=== PATIENT | male | born 1945 | race African-American/Black ===

== ENCOUNTER 2020-10-05 11:43 | Outpatient (CLI) | payer MEDICARE, SELFPAY ==
[2020-10-05 12:13] LABS: Uric Acid 8.3 mg/dL (3.5-8.5)
== END 2020-10-05 11:44 | disposition home or self-care (01) ==
PROVIDERS: PCP Internal Medicine; Visit Provider Internal Medicine
DX: M10.9 Gout, unspecified (principal)
CPT/HCPCS: 36415; 84550

== ENCOUNTER 2020-10-30 14:22 | Outpatient (CLI) | payer MEDICARE, SELFPAY ==
[2020-10-30 15:09] LABS: Basophils Percent Auto 0.6 % (0.2-1.2); Eosinophils Absolute Auto 0.3 K/mm3 (0-0.3); Eosinophils Percent Auto 6.9 % (0-4.4); Hematocrit 39.2 % (42.0-52.0); Hemoglobin 12.2 g/dL (14.0-18.0); Immature Granulocyte Absolute 0.02 K/mm3 (0.00-0.031); Immature Granulocyte Percent A 0.4 % (0-0.5); Lymphocytes Absolute Auto 1.17 K/mm3 (0.9-3.2); Lymphocytes Percent Auto 25.2 % (18.3-44.2); Mean Corpuscular HGB Conc 31.1 g/dl (32-36); Mean Corpuscular Hemoglobin 29.2 pg (26-34); Mean Corpuscular Volume 93.8 fl (80-100); Mean Platelet Volume 11.2 fl (7.4-10.4); Monocytes Absolute Auto 0.5 K/mm3 (0.1-0.6); Monocytes Percent Auto 10.6 % (2.6-8.5); Neutrophils Absolute Auto 2.6 K/mm3 (1.3-6.7); Neutrophils Percent Auto 56.3 % (45.5-73.1); Platelet Count Result 171 k/mm3 (150-375); Red Blood Count 4.18 M/mm3 (4.6-6.20); Red Cell Distribution Width 12.5 % (11.5-14.5); White Blood Count 4.6 K/mm3 (4.5-10.0)
== END 2020-10-30 14:23 | disposition home or self-care (01) ==
PROVIDERS: PCP Internal Medicine; Visit Provider Internal Medicine
DX: I10 Essential (primary) hypertension (principal); R68.89 Other general symptoms and signs
CPT/HCPCS: 36415; 84443; 85025

== ENCOUNTER 2020-12-24 14:28 | Outpatient (CLI) | payer MEDICARE, SELFPAY ==
[2020-12-24 15:59] LABS: Iron 102 ug/dL (49-181)
[2020-12-24 16:09] LABS: Percent Iron Saturation 32 % (20-50)
[2020-12-26 12:50] LABS: Red Blood Cell Folate 757 ng/mL RBC (>280)
== END 2020-12-24 14:29 | disposition home or self-care (01) ==
LOC: ANHLAB 14:29
PROVIDERS: PCP Internal Medicine; Visit Provider Internal Medicine
DX: D64.9 Anemia, unspecified (principal)
CPT/HCPCS: 36415; 82607; 82728; 82747; 83540; 83550

== ENCOUNTER 2020-12-25 16:12 | Outpatient (CLI) | payer MEDICARE, SELFPAY ==
--- NOTE | ~2020-12-25 | XR_ITS ---
EXAMINATION: XR chest 2V EXAM DATE: 12/25/2020 16:28 INDICATION: I10 - Essential (primary) hypertension . TECHNIQUE: Frontal and lateral projections of the chest obtained and reviewed. There is no prior osorio dy for comparison. FINDINGS: The lungs are clear. There are no pleural effusions. The cardiomediastinal silhouette is within normal limits. There is no pneumothorax suspected. Patient has diffuse idiopathic skeletal h yperostosis (DISH). IMPRESSION: Unremarkable chest x-ray exam. Reviewed, dictated and finalized at location B. ING AND MOVING ESTIMATOR
== END 2020-12-25 16:13 | disposition home or self-care (01) ==
PROVIDERS: PCP Internal Medicine; Visit Provider Internal Medicine
DX: I10 Essential (primary) hypertension (principal)
CPT/HCPCS: 71046

== ENCOUNTER → 2021-03-19 06:37 | Outpatient (CLI) | payer MEDICARE, SELFPAY ==
[2021-03-19 20:06] LABS: SARS-CoV-2 RNA PCR Negative
== END ==
PROVIDERS: PCP Internal Medicine; Visit Provider Internal Medicine
DX: Z20.822 Contact with and (suspected) exposure to COVID-19 (principal)
CPT/HCPCS: C9803; U0003; U0005

== ENCOUNTER 2021-04-26 14:26 | Outpatient (CLI) | payer MEDICARE, SELFPAY ==
--- NOTE | ~2021-04-26 | CT_ITS ---
EXAMINATION: CT sinus wo con DATE: 04/26/2021 14:58 INDICATION: Hypertrophy of the nasal turbinates. TECHNIQUE: Computed tomography (CT) of the paranasal sinuses was performed without intravenous contra st. The dose-length product was 295.93 mGy-cm. Automated exposure control and iterative reconstructio n technique were employed. COMPARISON: None FINDINGS: Paranasal sinuses are pneumatized. No significant mucosal thickening. No abnormal fluid col lections. No mucoperiosteal reaction. No significant nasal septal deviation. Ostiomeatal units are pa tent. Mastoids are pneumatized. IMPRESSION: 1. No significant sinus disease. Reviewed, dictated and finalized at location B.
== END 2021-04-26 14:27 | disposition home or self-care (01) ==
LOC: ANHIMG 14:27
PROVIDERS: PCP Internal Medicine; Visit Provider Otolaryngology
DX: J32.9 Chronic sinusitis, unspecified (principal); J34.2 Deviated nasal septum; J34.3 Hypertrophy of nasal turbinates; R09.81 Nasal congestion; R44.8 Other symptoms and signs involving general sensations and perceptions; R51.9 Headache, unspecified
CPT/HCPCS: 70486

== ENCOUNTER 2021-07-11 10:12 | Outpatient (CLI) | payer MEDICARE, SELFPAY ==
[2021-07-11 10:47] LABS: Hematocrit 38.2 % (42.0-52.0); Hemoglobin 11.9 g/dL (14.0-18.0)
[2021-07-11 11:08] LABS: Anion Gap 8 mmol/L (8-16); Blood Urea Nitrogen 12 mg/dL (9-20); Calcium 9.2 mg/dL (8.4-10.2); Carbon Dioxide 26 mmol/L (22-30); Chloride 107 mmol/L (98-107); Cholesterol 194 mg/dL (0-200); Estimated Glomerular Filt Rate > 60; Glucose 119 mg/dL (65-110); HDL Direct 34 mg/dL; Potassium 3.9 mmol/L (3.4-5.0); Sodium 141 mmol/L (137-145); Triglycerides 119 mg/dL (<150); Uric Acid 8.9 mg/dL (3.5-8.5)
[2021-07-11 11:18] LABS: LDL Cholesterol Direct 104 mg/dL
[2021-07-11 12:43] LABS: Vitamin B12 > 1000.0 pg/mL (239-931)
== END 2021-07-11 10:13 | disposition home or self-care (01) ==
PROVIDERS: PCP Internal Medicine; Visit Provider Internal Medicine
DX: M10.9 Gout, unspecified (principal); I10 Essential (primary) hypertension; D64.9 Anemia, unspecified; E53.8 Deficiency of other specified B group vitamins; E78.5 Hyperlipidemia, unspecified; R53.83 Other fatigue
CPT/HCPCS: 36415; 80048; 80061; 82607; 84443; 84550; 85014; 85018

== ENCOUNTER → 2021-12-28 07:43 | Outpatient (CLI) | payer MEDICARE, SELFPAY ==
[2021-12-28 12:01] LABS: Influenza A QL RT-PCR Negative (Negative); Influenza B QL RT-PCR Negative (Negative); SARS-CoV-2 RNA PCR Negative
== END ==
PROVIDERS: PCP Internal Medicine; Visit Provider Internal Medicine
DX: Z20.822 Contact with and (suspected) exposure to COVID-19 (principal)
CPT/HCPCS: 87502; C9803; U0003; U0005

== ENCOUNTER 2022-02-20 16:01 | Outpatient (CLI) | payer MEDICARE, SELFPAY ==
[2022-02-20 16:43] LABS: Alanine Aminotransferase 12 U/L (4-50); Albumin Level 4.1 g/dL (3.5-5.1); Alkaline Phosphatase 73 U/L (38-126); Anion Gap 5 mmol/L (8-16); Aspartate Amino Transferase 24 U/L (17-59); Bilirubin,Total 0.2 mg/dL (0.2-1.3); Blood Urea Nitrogen 12 mg/dL (9-20); Calcium 8.7 mg/dL (8.4-10.2); Carbon Dioxide 32 mmol/L (22-30); Chloride 103 mmol/L (98-107); Estimated Glomerular Filt Rate 55; Glucose 101 mg/dL (65-110); Potassium 3.7 mmol/L (3.4-5.0); Sodium 140 mmol/L (137-145); Uric Acid 9.8 mg/dL (3.5-8.5)
== END 2022-02-20 16:02 | disposition home or self-care (01) ==
PROVIDERS: Visit Provider Podiatrist Foot & Ankle Surgery
DX: M10.079 Idiopathic gout, unspecified ankle and foot (principal)
CPT/HCPCS: 36415; 80053; 84550

== ENCOUNTER 2022-04-08 11:46 | Outpatient (CLI) | payer MEDICARE, SELFPAY ==
--- NOTE | ~2022-04-08 | XR_ITS ---
EXAMINATION: XR chest 2V 04/08/2022 12:04 INDICATION: Cough PROCEDURE: 2 view chest COMPARISON: 12/25/2020 FINDINGS: The lungs are clear. The cardiomediastinal silhouette is within normal limits. There are no pleural effusions. There is no pneumothorax suspected. IMPRESSION: 1: NO ACUTE CARDIOPULMONARY DISEASE. Reviewed, dictated and finalized at location B.
== END 2022-04-08 11:47 | disposition home or self-care (01) ==
LOC: ANHIMG 11:48
PROVIDERS: PCP Physician Assistant; Visit Provider Physician Assistant
DX: R05.9 Cough, unspecified (principal)
CPT/HCPCS: 71046

== ENCOUNTER 2022-04-29 13:01 | Outpatient (CLI) | payer MEDICARE, MEDICAID, SELFPAY ==
--- NOTE | ~2022-04-29 | CT_ITS ---
EXAMINATION: CT sinus wo con DATE: 04/29/2022 13:33 INDICATION: Chronic and acute sinusitis TECHNIQUE: Computed tomography (CT) of the paranasal sinuses was performed without contrast. Iterativ e reconstruction technique was employed. Exam dose: 260.12 mGy-cm total exam DLP. COMPARISON: 04/26/2021 CT sinuses FINDINGS: There is leftward bowing of the upper half of the nasal septum. Moderately prominent soft tissue swelling of the nasal turbinates. The ostiomeatal units are patent. There is mild patchy soft tissue thickening of the ethmoid air cells. The paranasal sinuses are other temple normally developed and aerated. The mastoid air cells are normally developed and aerated bilaterally. Middle and inner ear apparatus appear normal. IMPRESSION: Mild patchy soft tissue thickening the ethmoid air cell; otherwise unremarkable examinat ion Reviewed, dictated and finalized at Location A. Reviewed, dictated and finalized at location B. IMPRESSION: Mild patchy soft tissue thickening the ethmoid air cell; otherwise unremarkable examination
== END 2022-04-29 13:02 | disposition home or self-care (01) ==
PROVIDERS: PCP Physician Assistant; Visit Provider Otolaryngology
DX: J32.9 Chronic sinusitis, unspecified (principal); J34.2 Deviated nasal septum; J34.3 Hypertrophy of nasal turbinates; R09.82 Postnasal drip; R44.8 Other symptoms and signs involving general sensations and perceptions; R51.9 Headache, unspecified; R68.89 Other general symptoms and signs
CPT/HCPCS: 70486

== ENCOUNTER 2022-05-12 04:26 | Emergency (ER) | payer MEDICARE, MEDICAID, SELFPAY ==
[2022-05-12 04:27] VITALS: BP 163/77; PULSE 67; RESP 16; TEMP 36.3; O2SAT 100
--- NOTE | 2022-05-12 04:46 | ED.ALLEREA ---
HPI - Allergic Reaction General Chief complaint: Allergic Reaction Stated complaint: allergic reaction Time Seen by Provider: 05/12/22 04:31 Source: patient History of Present Illness HPI narrative: Patient presents with concern for an allergic reaction. Reports he had intermittent symptoms over the past couple days. Reports he gets itchy in his groin extremities and back. He is attempted topical Benadryl with improvement in symptoms however he continues to have symptoms he came to the ER for evaluation. Denies any shortness of breath nausea vomiting or diarrhea denies any globus sensation or the swallowing. Unable to identify any clear triggering substances such as medications fabrics or transfer pumper. Related Data Home Medications Medication Instructions Recorded Confirmed febuxostat 40 mg tablet 40 mg PO DAILY 02/25/22 05/07/22 Allergies Allergy/AdvReac Type Severity Reaction Status Date / Time adhesive tape Allergy Hives Verified 05/07/22 14:07 levofloxacin [From Levaquin] Allergy Rash Verified 05/07/22 14:07 Review of Systems Review of Systems: CONSTITUTIONAL: Denies fever, chills, or sweats. EYES: Denies visual changes, redness, or discharge. ENT: Denies rhinorrhea, congestion, sore throat, or otalgia. CARDIOVASCULAR: Denies chest pain, palpitations, or edema. RESPIRATORY: Denies cough or dyspnea. GASTROINTESTINAL: Denies abdominal pain, nausea, vomiting, or diarrhea. GENITOURINARY: Denies dysuria or hematuria. SKIN: Rash on his groin arms and back associated with itching MUSCULOSKELETAL: Denies back pain, joint pain, or myalgia. NEUROLOGIC: Denies headache, numbness, dizziness, or weakness. PSYCHIATRIC: Denies anxiety or depression. All systems reviewed & are unremarkable except as noted in HPI and below PMFSH Past Medical History Medical History Bloating Chronic GERD Gout Hyperlipidemia Hypertension Irritable bowel syndrome with diarrhea Surgical History Surgical History H/O hernia repair L & R groin H/O neck surgery H/O prostatectomy History of back surgery History of hemorrhoidectomy removed with a lazer Family History Family History Father Lung cancer Social History Social History Smoking status: Never smoker Alcohol intake: never Substance use: never Gender identity (if verbalized by the patient): Male Exam Narrative: GENERAL: Well-appearing, well-nourished, and in no acute distress. HEAD: Normocephalic, atraumatic. EYES: PERRLA and EOMI. ENT: Nares clear, no rhinorrhea or epistaxis. No uvula edema NECK: Supple. No masses. No JVD CHEST: Clear to auscultation. No respiratory distress. No wheezes rales or rhonchi HEART: Regular rate and rhythm. No murmur heard. Normal peripheral pulses. ABDOMEN: Soft, nontender, nondistended, normal active bowel sounds. EXTREMITIES: Normal range of motion. No edema. : No rash ulcers lesions in the area no lymphadenopathy SKIN: Warm, dry, raised erythematous lesions on the left elbow with central clearing consistent with urticaria there is overlying excoriation NEURO: No focal deficits. Alert and oriented x3. PSYCH: Normal mood and affect. Course Vital Signs Vital signs: Vital Signs Temperature 36.3 C L 05/12/22 04:27 Pulse Rate 67 05/12/22 04:27 Respiratory Rate 16 05/12/22 04:27 Blood Pressure 163/77 H 05/12/22 04:27 Pulse Oximetry 100 05/12/22 04:27 Oxygen Delivery Room Air 05/12/22 04:27 Temperature 36.3 C L 05/12/22 04:27 Pulse Rate 67 05/12/22 04:27 Respiratory Rate 16 05/12/22 04:27 Blood Pressure 163/77 H 05/12/22 04:27 Pulse Oximetry 100 05/12/22 04:27 Oxygen Delivery Room Air 05/12/22 04:27 MDM - Allergic Reaction MDM Narrative Medical decision making ori
[2022-05-12] MEDS: diphenhydrAMINE HCl CAP 25 MG CAPSULE 50 MG PO (05:04)
== END 2022-05-12 05:04 | disposition home or self-care (01) ==
PROVIDERS: Emergency Provider Emergency Medicine; PCP Physician Assistant
DX: L50.9 Urticaria, unspecified (principal); E78.5 Hyperlipidemia, unspecified; I10 Essential (primary) hypertension; K21.9 Gastro-esophageal reflux disease without esophagitis; K58.0 Irritable bowel syndrome with diarrhea; M10.9 Gout, unspecified; Z90.79 Acquired absence of other genital organ(s)
CPT/HCPCS: 99283; A9270

== ENCOUNTER 2022-06-03 11:24 | Outpatient (RCR) | payer MEDICARE, SELFPAY ==
[2022-06-03] MEDS: ACETAMINOPHEN 325 MG TABLET 650 MG PO (14:43)
[2022-06-03] MEDS: FAMOTIDINE 20 MG TABLET PO (14:44)
[2022-06-03] MEDS: diphenhydrAMINE HCl CAP 25 MG CAPSULE PO (14:44)
[2022-06-03 14:57] VITALS: BP 146/72; PULSE 60; RESP 18; TEMP 36.8; O2SAT 97
[2022-06-03] MEDS: BEBTELOVIMAB 175 MG/2 ML VIAL IV PUSH (15:00)
[2022-06-03 15:59] VITALS: BP 139/74
== END 2022-06-03 16:00 ==
LOC: AMCINF 11:24
PROVIDERS: PCP Physician Assistant; Referring Provider Physician Assistant; Visit Provider Internal Medicine Hematology & Oncology
DX: U07.1 COVID-19 (principal); I10 Essential (primary) hypertension; I48.91 Unspecified atrial fibrillation; Z90.79 Acquired absence of other genital organ(s)
CPT/HCPCS: A9270; M0222; Q0222

== ENCOUNTER 2022-07-18 10:12 | Outpatient (CLI) | payer MEDICARE, SELFPAY ==
[2022-07-18 10:53] LABS: Hematocrit 35.5 % (42.0-52.0); Hemoglobin 10.7 g/dL (14.0-18.0); Mean Corpuscular HGB Conc 30.1 g/dl (32-36); Mean Corpuscular Hemoglobin 28.2 pg (26-34); Mean Corpuscular Volume 93.7 fl (80-100); Mean Platelet Volume 10.8 fl (7.4-10.4); Platelet Count Result 182 k/mm3 (150-375); Red Blood Count 3.79 M/mm3 (4.6-6.20); Red Cell Distribution Width 12.3 % (11.5-14.5)
[2022-07-18 11:17] LABS: Alanine Aminotransferase 18 U/L (6-50); Albumin Level 3.7 g/dL (3.5-5.1); Alkaline Phosphatase 77 U/L (38-126); Anion Gap 8 mmol/L (8-16); Aspartate Amino Transferase 23 U/L (17-59); Bilirubin,Total 0.4 mg/dL (0.2-1.3); Blood Urea Nitrogen 12 mg/dL (9-20); Calcium 9.1 mg/dL (8.4-10.2); Carbon Dioxide 30 mmol/L (22-30); Chloride 103 mmol/L (98-107); Cholesterol 187 mg/dL (0-200); Estimated Glomerular Filt Rate 60; Glucose 122 mg/dL (65-110); HDL Direct 33 mg/dL; Potassium 3.8 mmol/L (3.4-5.0); Sodium 141 mmol/L (137-145); Triglycerides 121 mg/dL (<150); Uric Acid 7.2 mg/dL (3.5-8.5)
[2022-07-18 11:28] LABS: LDL Cholesterol Direct 111 mg/dL
[2022-07-18 12:27] LABS: Folic Acid 8.8 ng/mL (2.76->20)
== END 2022-07-18 10:13 | disposition home or self-care (01) ==
LOC: ANHLAB 10:16
PROVIDERS: PCP Physician Assistant; Visit Provider Physician Assistant
DX: E78.5 Hyperlipidemia, unspecified (principal); E53.8 Deficiency of other specified B group vitamins; R53.83 Other fatigue; E79.0 Hyperuricemia without signs of inflammatory arthritis and tophaceous disease
CPT/HCPCS: 36415; 80053; 80061; 82607; 82746; 84443; 84550; 85027

== ENCOUNTER 2022-08-04 14:42 | Outpatient (CLI) | payer MEDICARE, SELFPAY ==
[2022-08-04 15:52] LABS: Iron 97 ug/dL (49-181)
[2022-08-04 16:03] LABS: Percent Iron Saturation 27 % (20-50)
== END 2022-08-04 14:43 | disposition home or self-care (01) ==
LOC: ANHLAB 14:43
PROVIDERS: PCP Physician Assistant; Visit Provider Physician Assistant
DX: D64.9 Anemia, unspecified (principal)
CPT/HCPCS: 36415; 82728; 83540; 83550

== ENCOUNTER 2022-09-04 13:55 | Outpatient (CLI) | payer MEDICARE, MEDICAID, SELFPAY | END 2022-09-04 13:56 | disposition home or self-care (01) | LOC: ANHAUDIO 13:57 | PROVIDERS: PCP Physician Assistant; Visit Provider Otolaryngology | DX: H90.3 Sensorineural hearing loss, bilateral (principal) | CPT/HCPCS: 92557; 92567 ==

== ENCOUNTER 2022-09-16 16:41 | Outpatient (CLI) | payer MEDICARE, SELFPAY ==
[2022-09-16 17:04] LABS: Estimated Glomerular Filt Rate 51
== END 2022-09-16 16:42 | disposition home or self-care (01) ==
PROVIDERS: PCP Physician Assistant; Visit Provider Otolaryngology
DX: H91.93 Unspecified hearing loss, bilateral (principal)
CPT/HCPCS: 36415; 82565

== ENCOUNTER 2022-10-14 14:28 | Outpatient (CLI) | payer MEDICARE, MEDICAID, SELFPAY ==
--- NOTE | ~2022-10-14 | XR_ITS ---
EXAMINATION: XR lumbar spine 6V w bending DATE: 10/14/2022 14:52 INDICATION: Low back pain TECHNIQUE: Anteroposterior, lateral in neutral, flexion and extension, and bilateral oblique views of the lumbar spine, and cone-down lateral view of the lumbosacral junction were obtained. COMPARISON: None. FINDINGS: Bone alignment is normal. No fracture is identified. The vertebral body heights are maintai carrie. There is mild loss of intervertebral disc space height throughout the lumbar spine. Small degene rative osteophytes project from the anterior endplates of multiple vertebral bodies. There is severe multilevel facet joint osteoarthritis of the lower lumbar spine. Calcified atherosclerosis is noted. IMPRESSION: 1. Moderate lumbar spondylosis without acute findings. Reviewed, dictated and finalized at location A. TRICAL AND INSTRUMENTATION MANAGER
== END 2022-10-14 14:29 | disposition home or self-care (01) ==
PROVIDERS: PCP Physician Assistant; Visit Provider Physician Assistant
DX: M47.896 Other spondylosis, lumbar region (principal)
CPT/HCPCS: 72114

== ENCOUNTER 2022-11-03 08:56 | Emergency (ER) | payer MEDICARE, MEDICAID, SELFPAY ==
--- NOTE | ~2022-11-03 | CT_ITS ---
EXAMINATION: CT lumbar spine wo con DATE: 11/03/2022 10:26 INDICATION: Left-sided low back pain. TECHNIQUE: Computed tomography (CT) of the lumbar spine was performed without intravenous contrast. A utomated exposure control and iterative reconstruction technique were employed. The dose-length produ ct was 1169.75 mGy-cm. COMPARISON: Lumbar spine radiographs 10/14/2022 FINDINGS: Bone alignment is normal. There is mild chronic anterior wedging of T12-L4 vertebral bodies . There is moderately decreased disc height from L1-L2 through L3-L4 and mildly decreased disc height at L4-L5 and L5-S1. There is developmental osseous central canal stenosis in lumbar spine. The follo wing disc levels are specifically discussed: L1-L2: The disc is bulging. There is severe bilateral facet joint osteoarthritis. There is mild bilat eral neural foraminal stenosis. There is mild central canal stenosis. L2-L3: The disc is bulging. There is severe bilateral facet joint osteoarthritis. There is moderate b ilateral neural foraminal stenosis. There is mild central canal stenosis. L3-L4: The disc is bulging. There is severe bilateral facet joint osteoarthritis. There is moderate b ilateral neural foraminal stenosis. There is mild central canal stenosis. L4-L5: The disc is bulging. There is severe bilateral facet joint osteoarthritis. There is moderate b ilateral neural foraminal stenosis. There is mild central canal stenosis. L5-S1: The disc is bulging. There is severe bilateral facet joint osteoarthritis. There is moderate b ilateral neural foraminal stenosis. There is mild central canal stenosis. IMPRESSION: 1. Moderate lumbar spondylosis. Reviewed, dictated and finalized at location A. ECTIONAL COUNSELOR
[2022-11-03 09:02] VITALS: BP 184/74; PULSE 87; RESP 15; TEMP 36.4; O2SAT 98
[2022-11-03 09:27] LABS: Basophils Percent Auto 0.6 % (0.2-1.2); Eosinophils Absolute Auto 0.3 K/mm3 (0-0.3); Eosinophils Percent Auto 5.5 % (0-4.4); Hematocrit 34.5 % (42.0-52.0); Hemoglobin 10.8 g/dL (14.0-18.0); Immature Granulocyte Absolute 0.02 K/mm3 (0.00-0.031); Immature Granulocyte Percent A 0.4 % (0-0.5); Lymphocytes Absolute Auto 1.27 K/mm3 (0.9-3.2); Lymphocytes Percent Auto 24.1 % (18.3-44.2); Mean Corpuscular HGB Conc 31.3 g/dl (32-36); Mean Corpuscular Hemoglobin 29.2 pg (26-34); Mean Corpuscular Volume 93.2 fl (80-100); Mean Platelet Volume 11.3 fl (7.4-10.4); Monocytes Absolute Auto 0.5 K/mm3 (0.1-0.6); Monocytes Percent Auto 8.9 % (2.6-8.5); Neutrophils Absolute Auto 3.2 K/mm3 (1.3-6.7); Neutrophils Percent Auto 60.5 % (45.5-73.1); Platelet Count Result 173 k/mm3 (150-375); White Blood Count 5.3 K/mm3 (4.5-10.0)
[2022-11-03 09:36] LABS: Alanine Aminotransferase 16 U/L (6-50); Albumin Level 3.9 g/dL (3.5-5.1); Alkaline Phosphatase 69 U/L (38-126); Anion Gap 6 mmol/L (8-16); Aspartate Amino Transferase 23 U/L (17-59); Bilirubin,Total 0.4 mg/dL (0.2-1.3); Blood Urea Nitrogen 18 mg/dL (9-20); Calcium 8.5 mg/dL (8.4-10.2); Carbon Dioxide 29 mmol/L (22-30); Chloride 106 mmol/L (98-107); Estimated CRCL calculation 53 ml/min; Estimated Glomerular Filt Rate 55; Glucose 127 mg/dL (65-110); Potassium 3.6 mmol/L (3.4-5.0); Sodium 141 mmol/L (137-145)
--- NOTE | 2022-11-03 09:41 | ED.BACK ---
HPI - Back Pain/Injury General Chief Complaint: Abdominal Pain Stated Complaint: left flank pain Time Seen by Provider: 11/03/22 09:06 Source: patient, EMS and RN notes reviewed Mode of arrival: EMS Limitations: no limitations History of Present Illness HPI Narrative: This is a 77-year-old male that presents to the emergency department for low back pain. Ongoing over the last couple weeks. No recent injuries or trauma. Reports initially the pain was more on the right side of his low back. Over the last couple of days he has noticed more pain on the left side of his low back. The pain is worse with movement and is sharp in nature. It does not radiate down the legs. He has had surgery on his lumbar spine about 7 years ago, but is unsure what type of surgery he had. This was done in [place]. He was given Toradol by EMS in route with improvement. He is noted to be hypertensive, reports he did not take his blood pressure medication this morning. Denies fever, abdominal pain, vomiting, dysuria, hematuria, numbness or weakness. Related Data Home Medications Medication Instructions Recorded Confirmed febuxostat 40 mg tablet 40 mg PO DAILY 02/25/22 08/19/22 multivitamin 1 tablet PO DAILY 08/19/22 08/19/22 Allergies Allergy/AdvReac Type Severity Reaction Status Date / Time adhesive tape Allergy Hives Verified 11/03/22 09:14 levofloxacin [From Levaquin] Allergy Rash Verified 11/03/22 09:14 Review of Systems Review of Systems: CONSTITUTIONAL: Denies fever GASTROINTESTINAL: Denies abdominal pain, nausea, vomiting GENITOURINARY: Denies dysuria or hematuria. SKIN: Denies rash MUSCULOSKELETAL: Reports back pain, joint pain, and myalgia. NEUROLOGIC: Denies numbness, or weakness. All systems reviewed & are unremarkable except as noted in HPI and below PMFSH Past Medical History Medical History Bloating Chronic GERD Gout Hyperlipidemia Hypertension Irritable bowel syndrome with diarrhea Surgical History Surgical History H/O hernia repair L & R groin H/O neck surgery H/O prostatectomy History of back surgery History of hemorrhoidectomy removed with a ramoner Family History Family History Father Lung cancer Social History Social History Smoking status: Former smoker Alcohol intake: never Substance use: never Gender identity (if verbalized by the patient): Male Exam Narrative: GENERAL: Well-appearing, well-nourished, and in no acute distress. HEAD: Normocephalic, atraumatic. EYES: EOMI. CHEST: Clear to auscultation. No respiratory distress. No wheezes rales or rhonchi HEART: Regular rate and rhythm. No murmur heard. Normal peripheral pulses. ABDOMEN: Soft, nontender, nondistended, normal active bowel sounds. No CVA tenderness BACK: No midline spinal tenderness EXTREMITIES: Normal range of motion. No edema. Normal DP pulses. Strength equal in bilateral lower extremities (5/5) SKIN: Warm, dry, no rash. NEURO: No focal deficits. Alert and oriented x3. PSYCH: Normal mood and affect Course Course Emergency Course: Patient updated on work-up. Resting comfortably. Agrees with plan of care Vital Signs Vital signs: Vital Signs Temperature 97.6 F 11/03/22 09:02 Pulse Rate 87 11/03/22 09:02 Respiratory Rate 15 11/03/22 09:02 Blood Pressure 184/74 H 11/03/22 09:02 Pulse Oximetry 98 11/03/22 09:02 Oxygen Delivery Room Air 11/03/22 09:02 Temperature 97.6 F 11/03/22 09:02 Pulse Rate 78 11/03/22 11:17 Respiratory Rate 18 11/03/22 11:17 Blood Pressure 139/86 11/03/22 11:17 Pulse Oximetry 98 11/03/22 11:17 Oxygen Delivery Room Air 11/03/22 09:02 MDM - Back Pain/Injury MDM Narrative Medical decision making narrative: Trent
[2022-11-03 10:11] LABS: Add Urine Microscopic? NO; Appearance Urine Clear (Clear); Bilirubin Urine Negative (Negative); Blood Urine Negative (Negative); Color Urine Yellow (Yellow); Glucose Urine UA Negative (Negative); Ketones Urine Negative (Negative); Leukocyte Esterase Ur Negative LEU/UL (Negative); Nitrate Urine Negative (Negative); Protein Urine Negative (Negative); Urobilinogen Urine 0.2 mg/dL (<2.0)
[2022-11-03] MEDS: ACETAMINOPHEN 500 MG TABLET 1000 MG PO (10:11)
[2022-11-03 11:17] VITALS: BP 139/86; PULSE 78; RESP 18; O2SAT 98
== END 2022-11-03 12:35 | disposition home or self-care (01) ==
PROVIDERS: Emergency Provider Physician Assistant; PCP Physician Assistant
DX: M54.50 Low back pain, unspecified (principal); M47.816 Spondylosis without myelopathy or radiculopathy, lumbar region; I10 Essential (primary) hypertension; M10.9 Gout, unspecified; K21.9 Gastro-esophageal reflux disease without esophagitis; Z79.51 Long term (current) use of inhaled steroids; Z79.01 Long term (current) use of anticoagulants; Z87.891 Personal history of nicotine dependence
CPT/HCPCS: 36415; 72131; 80053; 81003; 85025; 99284; A9270

== ENCOUNTER 2022-11-19 16:09 | Emergency (ER) | payer MEDICARE, MEDICAID, SELFPAY ==
--- NOTE | ~2022-11-19 | XR_ITS ---
EXAMINATION: XR chest 2V DATE: 11/19/2022 16:40 INDICATION: Exertional dyspnea TECHNIQUE: PA and lateral views of the chest were obtained. COMPARISON: Chest radiograph dated 04/08/2022 FINDINGS: The lungs remain clear with no focal airspace opacities, pulmonary edema, pleural effusion or pneumot horax. The cardiomediastinal silhouette is normal. There are bridging osteophytes at multiple levels in the spine, consistent with diffuse idiopathic skeletal hyperostosis (DISH). IMPRESSION: 1. No acute cardiopulmonary disease. Reviewed, dictated and finalized at location A. TEGIC PROCUREMENT MANAGER
--- NOTE | 2022-11-19 16:21 | ED.SOB ---
HPI - SOB/Dyspnea General Chief Complaint: Upper Respiratory Infection Stated Complaint: SOB/ Chest Pain Time Seen by Provider: 11/19/22 16:21 Source: patient Mode of arrival: ambulatory Limitations: no limitations History of Present Illness HPI Narrative: Mr. Goss is a 77-year-old male patient presenting to clinic today with complaints of left anterior chest pain/pressure and shortness of breath on exertion. He reports this has been gone on for some time but left-sided chest pressure has been constant today. He saw his Dr. Guardado-milk and cream grader 1 week ago and had EKG done at that time. He reports that he is having some mucus production and it is yellow. States he called his PCP and they to come to the Urgent Care to be evaluated for pneumonia. He denies any fever or chills. States the chest discomfort is a pressure and rates it a 2/10 currently. He denies any worsening of chest pressure with activity or any radiation of pain. 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 States his PCP had him take some steroid and an aloh-adl-yipxksd antihistamine for his symptoms prior to being seen today. Denies any history of UT in the past. Does have history of hypertension and high cholesterol. Related Data Home Medications Medication Instructions Recorded Confirmed febuxostat 40 mg tablet 40 mg PO DAILY 02/25/22 11/12/22 multivitamin 1 tablet PO DAILY 08/19/22 11/12/22 esomeprazole magnesium 40 mg mg 11/19/22 capsule,delayed release Allergies Allergy/AdvReac Type Severity Reaction Status Date / Time adhesive tape Allergy Hives Verified 11/19/22 16:11 levofloxacin [From Levaquin] Allergy Rash Verified 11/19/22 16:11 Review of Systems Review of Systems: Pertinent positives per HPI. Patient denies any fever, chills, rash, headache, visual changes, dizziness,runny nose, sore throat, palpitations, nausea, vomiting, diarrhea, constipation, abdominal pain, or any urinary issues. [facility] Past Medical History Medical History Bloating Chronic GERD Chronic sinusitis Colon polyps Gout Hyperlipidemia Hypertension Irritable bowel syndrome with diarrhea Surgical History Surgical History H/O hernia repair L & R groin H/O neck surgery H/O prostatectomy History of back surgery History of hemorrhoidectomy removed with a lazer Family History Family History Father Lung cancer Social History Social History Smoking status: Former smoker Alcohol intake: never Substance use: never Lack of Transportation: No Lack of Food: Never True Current Housing: I Have Housing Concerned About Future Housing: No Difficulty Paying Gas/Electric Bills: No Difficulty Paying for Meds: No Currently Unemployed: No Education: High School Diploma/GED Difficulty w/ Childcare or Family Care: No Gender identity (if verbalized by the patient): Male Comments At the time of my signature, I reviewed and agree with the nursing past medical, surgical, social, and family history. There is no relevant family history pertinent to the patient complaint. Exam Narrative: General: Well-developed, well nourished, in no apparent distress Head: Normocephalic, atraumatic Eyes: Pupils equally round and reactive to light bilaterally, EOM intact, sclera and conjunctive clear, no discharge, lids normal Ears: TMs intact and clear, ear canals clear, no drainage, grossly hearing normal. Nose: Nares patent, clear nasal discharge, no inflammation, no sinus tenderness. Mouth: Oropharynx without lesions or masses, good dentition, MMM. Neck: Supple, trachea midline, no enlargement of anterior or posterior cervical nodes, no thyroid masses or goiter palpable. Chest: Even rise and
[2022-11-19 16:31] VITALS: BP 160/90; PULSE 63; RESP 16; TEMP 37; O2SAT 100
--- NOTE | 2022-11-19 16:57 | PC.NURSE ---
provider to provider report in progress. pt declined ems transfer per installer interior assemblies. will f/u via private vehicle.
--- NOTE | 2022-11-19 17:00 | PC.NURSE ---
nurse to nurse report.
--- NOTE | 2022-12-04 11:07 | PC.NURSE ---
received a call from Cardiology department at [facility]. Requesting EKG completed on this patient be resent.
== END 2022-11-19 17:04 | disposition short-term general hospital (02) ==
LOC: EXPCOLL 16:13
PROVIDERS: Emergency Provider Nurse Practitioner Family; PCP Physician Assistant
DX: R07.9 Chest pain, unspecified (principal); R06.00 Dyspnea, unspecified; I44.0 Atrioventricular block, first degree; I45.10 Unspecified right bundle-branch block; Z87.891 Personal history of nicotine dependence; K21.9 Gastro-esophageal reflux disease without esophagitis; M10.9 Gout, unspecified; E78.5 Hyperlipidemia, unspecified; I10 Essential (primary) hypertension
CPT/HCPCS: 71046; 93005; 99213; G0463

== ENCOUNTER 2022-11-19 17:32 | Emergency (ER) | payer MEDICARE, MEDICAID, SELFPAY ==
[2022-11-19 17:48] VITALS: BP 170/76; PULSE 56; RESP 20; TEMP 37; O2SAT 98
--- NOTE | 2022-11-19 17:52 | ECG_ITS ---
Measurements Intervals [place] Rate: 55 P: 87 NC: 246 QRS: -7 QRSD: 117 T: 26 QT: 420 QTc: 402 Interpretive Statements SINUS BRADYCARDIA WITH FIRST DEGREE AV BLOCK SUPRAVENTRICULAR BIGEMINY INCOMPLETE RIGHT BUNDLE BRANCH BLOCK CANNOT RULE OUT SEPTAL INFARCT, AGE INDETERMINATE ABNORMAL ECG NO PREVIOUS ECG AVAILABLE FOR COMPARISON Electronically Signed On 11-19-2022 19:21:40 FLEXBOARD OPERATOR by Juanito MENDIOLA
[2022-11-19 18:28] VITALS: PULSE 53
[2022-11-19 19:36] LABS: Basophils Percent Auto 0.7 % (0.2-1.2); Eosinophils Absolute Auto 0.3 K/mm3 (0-0.3); Eosinophils Percent Auto 4.7 % (0-4.4); Hematocrit 34.3 % (42.0-52.0); Hemoglobin 10.6 g/dL (14.0-18.0); Immature Granulocyte Absolute 0.02 K/mm3 (0.00-0.031); Immature Granulocyte Percent A 0.4 % (0-0.5); Lymphocytes Absolute Auto 1.33 K/mm3 (0.9-3.2); Lymphocytes Percent Auto 24.8 % (18.3-44.2); Mean Corpuscular HGB Conc 30.9 g/dl (32-36); Mean Platelet Volume 10.9 fl (7.4-10.4); Monocytes Absolute Auto 0.5 K/mm3 (0.1-0.6); Monocytes Percent Auto 10.1 % (2.6-8.5); Neutrophils Absolute Auto 3.2 K/mm3 (1.3-6.7); Neutrophils Percent Auto 59.3 % (45.5-73.1); Platelet Count Result 168 k/mm3 (150-375); Red Blood Count 3.65 M/mm3 (4.6-6.20); Red Cell Distribution Width 12.3 % (11.5-14.5); White Blood Count 5.4 K/mm3 (4.5-10.0)
[2022-11-19 19:45] LABS: Alanine Aminotransferase 15 U/L (6-50); Albumin Level 3.7 g/dL (3.5-5.1); Alkaline Phosphatase 71 U/L (38-126); Anion Gap 3 mmol/L (8-16); Aspartate Amino Transferase 21 U/L (17-59); Bilirubin,Total 0.4 mg/dL (0.2-1.3); Blood Urea Nitrogen 12 mg/dL (9-20); Calcium 8.5 mg/dL (8.4-10.2); Carbon Dioxide 30 mmol/L (22-30); Chloride 108 mmol/L (98-107); Estimated CRCL calculation 56 ml/min; Estimated Glomerular Filt Rate 60; Glucose 95 mg/dL (65-110); INR 1.1; Lipase 51 U/L (23-300); Potassium 4.5 mmol/L (3.4-5.0); Prothrombin Time 13.5 Seconds (11.1-14.7); Sodium 141 mmol/L (137-145)
[2022-11-19 19:46] LABS: Partial Thromboplastin Time 28.5 SECONDS (22.3-36.8)
[2022-11-19 19:57] LABS: Troponin I < 0.012 ng/mL (0.000-0.034)
[2022-11-19 20:15] LABS: Influenza A QL RT-PCR Negative (Negative); Influenza B QL RT-PCR Negative (Negative); SARS-CoV-2 RNA PCR Negative
--- NOTE | 2022-11-19 21:21 | ED.CHESTPAIN ---
HPI - Chest Pain General Chief Complaint: Chest Pain Stated Complaint: chest congestion Time Seen by Provider: 11/19/22 19:04 History of Present Illness HPI narrative: Patient is a 77-year-old male who presents ER with concerns of cough. Reports he has a chronic cough that is productive of yellow sputum. He wants to know if he has pneumonia. He went to an urgent care and then was sent here and he is unsure why he was sent here. From chart review it appears are concerned he may have a cardiac issue with chest pain with exertion and dyspnea on exertion. He reports no chest pain with exertion or at rest. He does report he does get short of breath when he walks around but this is been a longstanding issue. No fevers or chills or sweats. Reports he wants make sure he is not ill or contagious when he goes to a tomorrow. Related Data Home Medications Medication Instructions Recorded Confirmed febuxostat 40 mg tablet 40 mg PO DAILY 02/25/22 11/12/22 multivitamin 1 tablet PO DAILY 08/19/22 11/12/22 esomeprazole magnesium 40 mg mg 11/19/22 capsule,delayed release Allergies Allergy/AdvReac Type Severity Reaction Status Date / Time adhesive tape Allergy Hives Verified 11/19/22 16:11 levofloxacin [From Levaquin] Allergy Rash Verified 11/19/22 16:11 Review of Systems Review of Systems: All systems reviewed & are unremarkable except as noted in HPI and below Constitutional: Constitutional: Denies chills, Denies fatigue and Denies fever(s) Cardiovascular: Cardiovascular: Denies chest pain, Denies rapid heart rate and Denies radiating jaw, neck or arm pain Respiratory: Respiratory: Reports cough and Denies dyspnea Gastrointestinal: Gastrointestinal: Denies abdominal pain, Denies nausea and Denies vomiting PMF Past Medical History Medical History Bloating Chronic GERD Chronic sinusitis Colon polyps Gout Hyperlipidemia Hypertension Irritable bowel syndrome with diarrhea Surgical History Surgical History H/O hernia repair L & R groin H/O neck surgery H/O prostatectomy History of back surgery History of hemorrhoidectomy removed with a lazer Family History Family History Father Lung cancer Social History Social History Smoking status: Former smoker Alcohol intake: never Substance use: never Lack of Transportation: No Lack of Food: Never True Current Housing: I Have Housing Concerned About Future Housing: No Difficulty Paying Gas/Electric Bills: No Difficulty Paying for Meds: No Currently Unemployed: No Education: High School Diploma/GED Difficulty w/ Childcare or Family Care: No Gender identity (if verbalized by the patient): Male Exam Narrative: GENERAL: Well-appearing, well-nourished, and in no acute distress. HEAD: Normocephalic, atraumatic. EYES: PERRL and EOMI. ENT: Mucous membranes moist. CHEST: Clear to auscultation. No respiratory distress. HEART: Regular rate and rhythm. Normal peripheral pulses. ABDOMEN: Soft, nontender, nondistended. EXTREMITIES: Normal range of motion. No edema. SKIN: Warm, dry, no rash. NEURO: Alert and oriented x3. PSYCH: Normal mood and affect. Course Course Emergency Course: Patient feels well resting comfortably. Informed of results. Discharge home. Patient does not endorse symptoms concerning for ACS. Vital Signs Vital signs: Vital Signs Temperature 98.6 F 11/19/22 17:48 Pulse Rate 56 L 11/19/22 17:48 Respiratory Rate 20 11/19/22 17:48 Blood Pressure 170/76 H 11/19/22 17:48 Pulse Oximetry 98 11/19/22 17:48 Temperature 98.6 F 11/19/22 17:48 Pulse Rate 53 L 11/19/22 18:28 Respiratory Rate 20 11/19/22 17:48 Blood Pressure 170/76 H 11/19/22 17:
== END 2022-11-19 21:55 | disposition home or self-care (01) ==
PROVIDERS: Emergency Medicine; Emergency Provider Emergency Medicine; PCP Physician Assistant
DX: R05.3 Chronic cough (principal); E78.5 Hyperlipidemia, unspecified; I10 Essential (primary) hypertension; Z87.891 Personal history of nicotine dependence; Z20.822 Contact with and (suspected) exposure to COVID-19
CPT/HCPCS: 36415; 71046; 80053; 83690; 84484; 85025; 85610; 85730; 87636; 93005; 99284

== ENCOUNTER 2022-12-22 15:13 | Outpatient (RCR) | payer MEDICARE, MEDICAID, SELFPAY ==
--- NOTE | 2022-12-22 16:18 | PTOPEVAL1 ---
Assessment and note entered by Libertad Carter, PT Evaluation Information Assessment Status Evaluation Diagnosis low back pain Onset Oct 2022 Subjective Information pain in back after pulling a box up the stairs; had to go to ER due to pain; back has hurt some since then; problems with standing, walking and back is bent over; does not do any exercises at home; fell once about 3 months ago, going into garage, slipped; grand daughter helped him get up; lumbar CT- severe facet joint OA, bulging discs and canal stenosis; had PT long time ago for his back; Reported Pain Level Pain Score Self Report Additional Pain Score Comments pain range of 0-7/10; sore, tight, hurts in low back walking bothers him- get tired, strength and breathing problems; with standing, have to have something to lean on; Assessment PT Clinical Summary Deep has the diagnosis of low back pain. He reports chronic, intermittent issues with back pain, had back surgery over [address] lumbar reports severe facet joint OA, canal stenosis, bulging discs. He has decreased standing and walking tolerances, uses a motorized scooter with shopping and has assistance with home cleaning. History also includes a fib and HTN--monitor vitals during session PRN. He did voice concern about not doing too much and have problems with his heart. With the evaluation, he has poor standing posture with trunk, hip and knee flexion, side bend of trunk to L and head down and forward--previous neck surgery and pain; decreased ROM of hip and knee extension, weakness of trunk and LE's. 2 minute walking test distance was 400' and he was fatigued; 5 reps sit/stand time was 24 seconds. Skilled PT services are indicated for modalities to decrease back pain, therapeutic exercises to stretch and strengthen trunk and legs, with education for home exercises and posture correction. Plan of Care Interventions
--- NOTE | 2022-12-31 15:11 | PCPTNOTE ---
Patient called and cancelled this date.
--- NOTE | 2023-01-06 13:47 | PCPTNOTE ---
Patient called & cancelled scheduled appointment and all future appointments due to having family issues. Pt stated he will call back to return if needed. Informed Physical therapist.
--- NOTE | 2023-01-16 13:29 | PCPTNOTE ---
PHYSICAL THERAPY DISCHARGE 01-16-23 Attending Provider: Robert Lopez PA-C Patient:Deep Goss Date of :1945 Deep had the initial evaluation on 12/22/2022, for the diagnosis of low back pain. He called on January 06, and canceled his therapy, stating he was not able to make it in due to family issues. Therefore he will be discharged at this time. The goals were not addressed. Thank you for referring Mr. Goss to [facility].
== END 2023-01-19 10:07 | disposition home or self-care (01) ==
LOC: ANHPT 15:13
PROVIDERS: PCP Physician Assistant; Visit Provider Physician Assistant
DX: M54.50 Low back pain, unspecified (principal); G89.29 Other chronic pain
CPT/HCPCS: 97162

== ENCOUNTER 2022-12-26 11:21 | Outpatient (CLI) | payer MEDICARE, MEDICAID, SELFPAY ==
--- NOTE | ~2022-12-26 | US_ITS ---
EXAMINATION:US venous doppler LE LT INDICATION:Left lower extremity edema TECHNIQUE: Multiple grayscale, color flow and Doppler images of the left lower extremity deep venous systems were obtained and reviewed. COMPARISON:No prior studies for comparison. FINDINGS: The common femoral, superficial femoral and popliteal veins demonstrate normal respiratory variation, augmentation and compressibility. Color flow is also seen within the posterior tibial, pe roneal, greater saphenous and profunda veins. IMPRESSION: 1: No lower extremity deep venous thrombosis. Reviewed, dictated and finalized at location B. ETARIUM TECHNICIAN
== END 2022-12-26 11:22 | disposition home or self-care (01) ==
PROVIDERS: PCP Physician Assistant; Visit Provider Internal Medicine Cardiovascular Disease
DX: R60.0 Localized edema (principal)
CPT/HCPCS: 93971

== ENCOUNTER 2022-12-27 08:23 | Emergency (ER) | payer MEDICARE, MEDICAID, SELFPAY ==
[2022-12-27 08:25] VITALS: BP 148/83; PULSE 77; RESP 20; TEMP 37.6; O2SAT 98
[2022-12-27] MEDS: HYDROcodone/acetaminophen (*CRX) 5-325 MG TABLET 1 TAB PO (08:41)
[2022-12-27 09:08] LABS: Anion Gap 5 mmol/L (8-16); Blood Urea Nitrogen 12 mg/dL (9-20); Calcium 8.8 mg/dL (8.4-10.2); Carbon Dioxide 30 mmol/L (22-30); Chloride 104 mmol/L (98-107); Estimated CRCL calculation 57 ml/min; Estimated Glomerular Filt Rate > 60; Glucose 129 mg/dL (65-110); Potassium 3.6 mmol/L (3.4-5.0); Sodium 139 mmol/L (137-145); Uric Acid 6.9 mg/dL (3.5-8.5)
[2022-12-27 09:09] LABS: Basophils Percent Auto 0.4 % (0.2-1.2); Eosinophils Absolute Auto 0.2 K/mm3 (0-0.3); Eosinophils Percent Auto 3.4 % (0-4.4); Hematocrit 35.6 % (42.0-52.0); Hemoglobin 11.1 g/dL (14.0-18.0); Immature Granulocyte Absolute 0.01 K/mm3 (0.00-0.031); Immature Granulocyte Percent A 0.2 % (0-0.5); Lymphocytes Absolute Auto 0.83 K/mm3 (0.9-3.2); Lymphocytes Percent Auto 14.8 % (18.3-44.2); Mean Corpuscular HGB Conc 31.2 g/dl (32-36); Mean Platelet Volume 11.4 fl (7.4-10.4); Monocytes Absolute Auto 0.6 K/mm3 (0.1-0.6); Monocytes Percent Auto 10.6 % (2.6-8.5); Neutrophils Percent Auto 70.6 % (45.5-73.1); Platelet Count Result 173 k/mm3 (150-375); Red Blood Count 3.83 M/mm3 (4.6-6.20); Red Cell Distribution Width 12.2 % (11.5-14.5); White Blood Count 5.6 K/mm3 (4.5-10.0)
--- NOTE | 2022-12-27 09:23 | ED.EXTPRO ---
HPI - Extremity Problem General Chief complaint: Extremity Problem,Nontraumatic Stated complaint: foot swelling Time Seen by Provider: 12/27/22 08:24 History of Present Illness HPI Narrative: Patient is a 77-year-old male who presents ER with foot swelling. Worse on the left than the right. Had an outpatient ultrasound that ruled out DVT yesterday. Swelling is been ongoing over the last month. It began after he had his losartan and HCTZ discontinued. It was restarted yesterday at a PCP appointment. No chest pain or chest pressure. No redness. Does not feel like his previous gout flare. Has pain with trying to walk on it which is why he came to the ER today. He has tried elevating his legs and has tried compression socks. Related Data Home Medications Medication Instructions Recorded Confirmed febuxostat 40 mg tablet 40 mg PO DAILY 02/25/22 12/26/22 multivitamin 1 tablet PO DAILY 08/19/22 12/26/22 esomeprazole magnesium 40 mg mg 11/19/22 12/26/22 capsule,delayed release Allergies Allergy/AdvReac Type Severity Reaction Status Date / Time adhesive tape Allergy Hives Verified 12/27/22 08:35 levofloxacin [From Levaquin] Allergy Rash Verified 12/27/22 08:35 Review of Systems Review of Systems: All systems reviewed & are unremarkable except as noted in HPI and below Constitutional: Constitutional: Denies chills, Denies fatigue and Denies fever(s) ENT: Denies nasal congestion and Denies sore throat Cardiovascular: Cardiovascular: Denies chest pain, Denies rapid heart rate and Denies radiating jaw, neck or arm pain Respiratory: Respiratory: Denies cough and Denies dyspnea Musculoskeletal: Comments: Left foot pain and edema. [facility] Past Medical History Medical History Bloating Chronic GERD Chronic sinusitis Colon polyps Gout Hyperlipidemia Hypertension Irritable bowel syndrome with diarrhea Surgical History Surgical History H/O hernia repair L & R groin H/O neck surgery H/O prostatectomy History of back surgery History of hemorrhoidectomy removed with a lazer Family History Family History Father Lung cancer Social History Social History Smoking status: Former smoker Alcohol intake: never Substance use: never Lack of Transportation: No Lack of Food: Never True Current Housing: I Have Housing Concerned About Future Housing: No Difficulty Paying Gas/Electric Bills: No Difficulty Paying for Meds: No Currently Unemployed: No Education: High School Diploma/GED Difficulty w/ Childcare or Family Care: No Living arrangements: alone Occupation/Education: retired Gender identity (if verbalized by the patient): Male Exam Narrative: GENERAL: Well-appearing, well-nourished, and in no acute distress. HEAD: Normocephalic, atraumatic. EYES: PERRL and EOMI. ENT: Mucous membranes moist. CHEST: Clear to auscultation. No respiratory distress. HEART: Regular rate and rhythm. Normal peripheral pulses. EXTREMITIES: Normal range of motion. 2+ edema. SKIN: Warm, dry, no rash. NEURO: Alert and oriented x3. PSYCH: Normal mood and affect. Course Course Emergency Course: Pain improved with [place]. Informed of lab results. We will give a dose of Lasix to help with removing fluid. Suspect edema will improve as he continues his diuretic hypertensive therapy that was prescribed. Patient aware of treatment plan and recommendations. Discharge home. Vital Signs Vital signs: Vital Signs Temperature 99.6 F 12/27/22 08:25 Pulse Rate 77 12/27/22 08:25 Respiratory Rate 20 12/27/22 08:25 Blood Pressure 148/83 H 12/27/22 08:25 Pulse Oximetry 98 12/27/22 08:25 Oxygen Delivery Room Air 12/27/22 08:25 Temperature 99.6 F 12/27/22 08
[2022-12-27] MEDS: FUROSEMIDE INJ 40 MG/4 ML VIAL 20 MG IV PUSH (09:31)
[2022-12-27 09:59] VITALS: BP 159/74; PULSE 65; RESP 18; O2SAT 98
== END 2022-12-27 10:01 | disposition home or self-care (01) ==
PROVIDERS: Emergency Provider Emergency Medicine; PCP Physician Assistant
DX: R60.0 Localized edema (principal); E78.5 Hyperlipidemia, unspecified; I10 Essential (primary) hypertension; M10.9 Gout, unspecified; K21.9 Gastro-esophageal reflux disease without esophagitis; K58.0 Irritable bowel syndrome with diarrhea; Z86.010 Personal history of colon polyps; Z90.79 Acquired absence of other genital organ(s); Z87.891 Personal history of nicotine dependence
CPT/HCPCS: 36415; 80048; 84550; 85025; 96374; 99284; A9270; J1940

== ENCOUNTER 2023-02-02 14:09 | Outpatient (CLI) | payer MEDICARE, MEDICAID, SELFPAY ==
[2023-02-02 14:35] LABS: Alanine Aminotransferase 17 U/L (6-50); Albumin Level 3.8 g/dL (3.5-5.1); Alkaline Phosphatase 73 U/L (38-126); Anion Gap 5 mmol/L (8-16); Aspartate Amino Transferase 22 U/L (17-59); Bilirubin,Total 0.4 mg/dL (0.2-1.3); Blood Urea Nitrogen 15 mg/dL (9-20); Calcium 8.7 mg/dL (8.4-10.2); Carbon Dioxide 32 mmol/L (22-30); Chloride 101 mmol/L (98-107); Estimated Glomerular Filt Rate 60; Glucose 103 mg/dL (65-110); Sodium 138 mmol/L (137-145)
== END 2023-02-02 14:10 | disposition home or self-care (01) ==
LOC: ANHLAB 14:12
PROVIDERS: PCP Physician Assistant; Visit Provider Podiatrist Foot & Ankle Surgery
DX: M10.9 Gout, unspecified (principal)
CPT/HCPCS: 36415; 80053; 84550

== ENCOUNTER 2023-02-27 09:43 | Outpatient (CLI) | payer MEDICARE, MEDICAID, SELFPAY ==
--- NOTE | 2023-02-27 09:50 | ECHO_ITS ---
Patient Info Name: Deep Goss Age: 77 years : 1945 Gender: Male Ht: 64 in Wt: 245 lbs BSA: 2.30 m2 HR: 60 bpm BP: 162 / 99 mmHg Technical Quality: Good Exam Date: 02/27/2023 10:00 AM Exam Location: [facility] Patient Status: Outpatient Admit Date: 02/27/2023 Staff Ordering Physician: Juanito Guardado DO Judo Teacher: Annabelle Jo RDCS Attending Provider: Juanito Guardado DO Referring Physician: Geo DOMINGUEZ; Exam Type: CA echo doppler color flow Study Info Indications I47.29 - OTHER VENTERICULAR TACHYCARDIA Complete two-dimensional, color flow and Doppler transthoracic echocardiogram is performed. Summary 1. Complete two-dimensional, color flow and Doppler transthoracic echocardiogram is performed. 2. Left ventricular chamber dimension is moderately enlarged. 3. Left ventricular systolic function is normal, estimated at 55-60%. 4. The left ventricular diastolic function is grade III diastolic dysfunction. 5. E/e' 17 is elevated. 6. Global longitudinal strain is abnormal at -15.2%. 7. Left atrial chamber dimension is moderately enlarged. 8. There is trace mitral valve regurgitation. 9. There is trace tricuspid valve regurgitation. 10. Mild pulmonary hypertension, estimated pulmonary arterial systolic pressure is 45 mmHg. Left Ventricle E/e' 17 is elevated. Global longitudinal strain is abnormal at -15.2%. Left ventricular chamber dimension is moderately enlarged. Left ventricular systolic function is normal, estimated at 55-60%. The left ventricular diastolic function is grade III diastolic dysfunction. Right Ventricle Right ventricular systolic function is normal and with normal TAPSE 2.2 cm. Right ventricular chamber dimension is normal. Left Atria Left atrial chamber dimension is moderately enlarged. Right Atria Right atrial chamber dimension is normal. Aortic Valve The aortic valve is trileaflet. There is no aortic valve stenosis. There is no aortic valve regurgitation. Pulmonic Valve There is no pulmonic regurgitation. Mitral Valve There is no mitral valve stenosis. There is trace mitral valve regurgitation. Tricuspid Valve There is trace tricuspid valve regurgitation. Mild pulmonary hypertension, estimated pulmonary arterial systolic pressure is 45 mmHg. Pericardium/Pleural There is no pericardial effusion. Inferior Vena Cava Normal inferior vena cava with >50% collapse upon inspiration consistent with normal right atrial pressure, 5 mmHg. Aorta The aortic root size at the sinus of Valsalva is normal. Left Ventricular Outflow Tract Name Value Normal LVOT 2D LVOT Diameter 2.0 cm LVOT Doppler LVOT Peak Gradient 5 mmHg LVOT Mean Gradient 3 mmHg LVOT VTI 25 cm LVOT VTI/AV VTI Ratio 0.8 LVOT Stroke Volume 83 ml LVOT CO 4.4 l/min LVOT CI 1.9 l/min/m2 Pulmonic Valve Name Value Normal
== END 2023-02-27 09:44 | disposition home or self-care (01) ==
LOC: ANHCARD 09:47
PROVIDERS: PCP Physician Assistant; Visit Provider Internal Medicine Cardiovascular Disease
DX: I47.29 Other ventricular tachycardia (principal); R93.1 Abnormal findings on diagnostic imaging of heart and coronary circulation; I27.20 Pulmonary hypertension, unspecified
CPT/HCPCS: 93306

== ENCOUNTER 2023-03-02 09:28 | Outpatient (CLI) | payer MEDICARE, MEDICAID, SELFPAY ==
--- NOTE | ~2023-03-02 | NM_ITS ---
EXAMINATION: NM guero stress w perfusion DATE: 03/02/2023 11:29 INDICATION: Ventricular tachycardia TECHNIQUE: Rest images were obtained following intravenous administration of 9.7 mCi Tc99m tetrofosmi n (Myoview). The patient was infused intravenously with Lexiscan (Regadenoson). Then, 30.8 mCi Tc99m tetrofosmin (Myoview) was administered intravenously, and stress images were obtained. Data was recon structed into short axis and horizontal and vertical long axis SPECT images. Gated SPECT images were also obtained. COMPARISON: None. FINDINGS: There is no definite reversible or fixed perfusion abnormality to suggest ischemia or infar ction. There is normal left ventricular chamber size, wall motion and ejection fraction. Left ventr icular ejection fraction measures >70%. IMPRESSION: 1. Normal myocardial perfusion at rest and during stress. 2. Left ventricular ejection fraction measuring >70%. Reviewed, dictated and finalized at location B.
--- NOTE | 2023-03-02 09:40 | EST_ITS ---
Patient Info Name: Deep Goss Age: 77 years : 1945 Gender: Male Ht: 64 in Wt: 245 lbs BSA: 2.30 m2 HR: 57 bpm BP: 169 / 89 mmHg Heart Rhythm: Sinus Rhythm Exam Date: 03/02/2023 10:32 AM Exam Location: [facility] Stress Patient Status: Outpatient Admit Date: 03/02/2023 Staff Ordering Physician: Juanito Guardado DO Attending Provider: Juanito Guardado DO Exercise Technologist: Yenny Montiel CT Exercise Physician: Juanito Guardado DO Exam Type: CA stress guero w NM Study Info Indications I47.9 - Paroxysmal tachycardia, unspecified A regadenoson stress test was performed. Summary 1. 1. Negative lexiscan stress test for ischemic ST changes by ECG criteria. 2. 2. Baseline hypertension. 3. 3. Nuclear scan to follow and will be reported separately. Please correlate with it. 4. 4. Patient informed of the above results. Protocol: Lexiscan Stress ECG Details Stage: REST Duration (min): 2 min : 5 sec HR (bpm): 57 SBP (mmHg): 169 DBP (mmHg): 89 Stage: REST Duration (min): 8 min : 22 sec HR (bpm): 60 SBP (mmHg): 169 DBP (mmHg): 89 Stage: STAGE 1 Duration (min): 1 min : 0 sec HR (bpm): 91 SBP (mmHg): 169 DBP (mmHg): 89 Stage: RECOVERY Duration (min): 1 min : 0 sec HR (bpm): 92 SBP (mmHg): 195 DBP (mmHg): 74 Stage: RECOVERY Duration (min): 2 min : 0 sec HR (bpm): 88 SBP (mmHg): 195 DBP (mmHg): 74 Stage: RECOVERY Duration (min): 3 min : 0 sec HR (bpm): 82 SBP (mmHg): 195 DBP (mmHg): 74 Stage: RECOVERY Duration (min): 3 min : 45 sec HR (bpm): 83 SBP (mmHg): 154 DBP (mmHg): 76 Rest HR: 60 bpm Peak HR: 96 bpm Rest Sys BP: 169 mmHg Peak Sys BP: 195 mmHg Max Pred HR: 144 bpm % Max Pred HR: 67 % Target HR: 122 bpm Max RPP: 18,720 bpm*mmHg Termination Reason: Completed protocol Cardiac Symptoms: Shortness of breath Total Time: 1 min : 0 sec Rest Echeverria BP: 89 mmHg Peak Echeverria BP: 74 mmHg Total Dose: 0.4 mg Resting ECG Sinus rhythm, cannot r/o septal infarct, age indeterminate, borderline T wave in diffuse leads. Stress ECG No ST changes. Arrhythmias None. Report Signatures
== END 2023-03-02 09:29 | disposition home or self-care (01) ==
PROVIDERS: PCP Physician Assistant; Visit Provider Internal Medicine Cardiovascular Disease
DX: I47.29 Other ventricular tachycardia (principal); I10 Essential (primary) hypertension
CPT/HCPCS: 78452; 93017; A9502; J2785

== ENCOUNTER 2023-06-08 13:45 | Emergency (ER) | payer MEDICARE, MEDICAID, SELFPAY ==
[2023-06-08 13:56] VITALS: BP 152/80; PULSE 65; RESP 12; TEMP 37.1; O2SAT 100
--- NOTE | 2023-06-08 14:24 | ED.GENADULT ---
HPI - General Adult General Chief complaint: Eye Problems Stated complaint: Right Eye Irritation Time Seen by Provider: 06/08/23 14:24 Source: patient, RN notes reviewed and old records reviewed Mode of arrival: ambulatory Limitations: no limitations History of Present Illness HPI narrative: 77-year-old male presents to the [facility] with complaints of right eye irritation for the last 3-4 days. Patient states that his CPAP machine has not been fitting well. Reports that he was lying on his right side and felt like his CPAP machine causes I would a tightening up and possibly dry out Related Data Home Medications Medication Instructions Recorded Confirmed febuxostat 40 mg tablet 40 mg PO DAILY 02/25/22 05/06/23 colchicine (gout) 0.6 mg tablet 0.6 mg PO DAILY 05/06/23 05/06/23 (Colcrys) Allergies Allergy/AdvReac Type Severity Reaction Status Date / Time adhesive tape Allergy Hives Verified 06/08/23 14:02 levofloxacin [From Levaquin] Allergy Rash Verified 06/08/23 14:02 Review of Systems Review of Systems: All systems reviewed & are unremarkable except as noted in HPI and below Constitutional: Constitutional: Reports no additional constitutional complaints Eyes: Eyes: Reports as per HPI and Reports irritation ENT: Reports system reviewed and no additional complaints, except as documented Cardiovascular: Cardiovascular: Reports no additional cardiovascular complaints, Denies chest pain and Denies dyspnea Respiratory: Respiratory: Reports no additional respiratory complaints, Denies chest congestion, Denies cough and Denies dyspnea Gastrointestinal: Gastrointestinal: Reports no additional gastrointestinal complaints, Denies abdominal pain, Denies nausea and Denies vomiting Musculoskeletal: Musculoskeletal: Reports no additional musculoskeletal complaints Integumentary/Breasts: Skin/Breast: Reports system reviewed and no additional complaints, except as docu Neurologic: Reports system reviewed and no additional complaints, except as documented Psychiatric: Psychiatric: Reports no additional psychiatric complaints Allergic/Immunologic: Allergic/Immunologic: Reports no additional allergic/immunologic complaints PMFSH Past Medical History Medical History Bloating Chronic GERD Chronic sinusitis Colon polyps Gout Hyperlipidemia Hypertension Irritable bowel syndrome with diarrhea Surgical History Surgical History H/O hernia repair L & R groin H/O neck surgery H/O prostatectomy History of back surgery History of hemorrhoidectomy removed with a lazer Family History Family History Father Lung cancer Social History Social History Smoking status: Former smoker Alcohol intake: never Substance use: never Lack of Transportation: No Lack of Food: Never True Current Housing: I Have Housing Concerned About Future Housing: No Difficulty Paying Gas/Electric Bills: No Difficulty Paying for Meds: No Currently Unemployed: No Education: High School Diploma/GED Difficulty w/ Childcare or Family Care: No Living arrangements: alone Occupation/Education: retired Gender identity (if verbalized by the patient): Male Comments At the time of my signature, I reviewed and agree with the nursing past medical, surgical, social, and family history. There is no relevant family history pertinent to the patient complaint. Exam Const: General: cooperative, healthy appearing, comfortable, no acute distress, well developed, alert and well nourished Nutritional Appearance: well nourished Orientation/consciousness: patient oriented x3 Limitations: no limitations HENMT: Head: normal to inspection Ears: hearing grossly normal bilaterally, external ears normal, TM's normal enedina
== END 2023-06-08 14:42 | disposition home or self-care (01) ==
PROVIDERS: Emergency Provider Nurse Practitioner; PCP Physician Assistant
DX: H57.11 Ocular pain, right eye (principal); K21.9 Gastro-esophageal reflux disease without esophagitis; M10.9 Gout, unspecified; E78.5 Hyperlipidemia, unspecified; I10 Essential (primary) hypertension; Z90.79 Acquired absence of other genital organ(s); Z87.891 Personal history of nicotine dependence
CPT/HCPCS: 99212; G0463

== ENCOUNTER 2023-06-17 14:17 | Outpatient (CLI) | payer MEDICARE, MEDICAID, SELFPAY ==
[2023-06-17 15:11] LABS: Alanine Aminotransferase 16 U/L (6-50); Albumin Level 3.9 g/dL (3.5-5.1); Alkaline Phosphatase 81 U/L (38-126); Anion Gap 7 mmol/L (8-16); Aspartate Amino Transferase 20 U/L (17-59); Bilirubin,Total 0.3 mg/dL (0.2-1.3); Blood Urea Nitrogen 12 mg/dL (9-20); Calcium 9.1 mg/dL (8.4-10.2); Carbon Dioxide 29 mmol/L (22-30); Chloride 105 mmol/L (98-107); Estimated Glomerular Filt Rate 60; Glucose 110 mg/dL (65-110); Potassium 3.9 mmol/L (3.4-5.0); Sodium 141 mmol/L (137-145); Uric Acid 5.4 mg/dL (3.5-8.5)
== END 2023-06-17 14:18 | disposition home or self-care (01) ==
PROVIDERS: PCP Physician Assistant; Visit Provider Podiatrist Foot & Ankle Surgery
DX: M10.079 Idiopathic gout, unspecified ankle and foot (principal)
CPT/HCPCS: 36415; 80053; 84550

== ENCOUNTER 2023-07-10 16:59 | Emergency (ER) | payer MEDICARE, MEDICAID, SELFPAY ==
--- NOTE | 2023-07-10 17:02 | ECG_ITS ---
Measurements Intervals [place] Rate: 56 P: 63 MT: 255 QRS: -34 QRSD: 118 T: -34 QT: 409 QTc: 397 Interpretive Statements SINUS BRADYCARDIA WITH FIRST DEGREE AV BLOCK ATRIAL PREMATURE COMPLEXES LEFT AXIS DEVIATION INCOMPLETE RIGHT BUNDLE BRANCH BLOCK LEFT VENTRICULAR HYPERTROPHY AND ST-T CHANGE BORDERLINE T WAVE ABNORMALITY- INFERIOR LEADS BORDERLINE ECG COMPARED TO ECG 11/19/2022 17:57:21 ST (T WAVE) DEVIATION NOW PRESENT Electronically Signed On 07-10-2023 19:40:43 CDT by Juanito Guardado D.O.
[2023-07-10 17:13] VITALS: BP 155/80; PULSE 57; RESP 17; TEMP 36.4; O2SAT 100
[2023-07-10 17:17] LABS: Basophils Percent Auto 0.7 % (0.2-1.2); Eosinophils Absolute Auto 0.3 K/mm3 (0-0.3); Eosinophils Percent Auto 5.2 % (0-4.4); Hematocrit 34.5 % (42.0-52.0); Hemoglobin 10.7 g/dL (14.0-18.0); Immature Granulocyte Absolute 0.01 K/mm3 (0.00-0.031); Immature Granulocyte Percent A 0.2 % (0-0.5); Lymphocytes Absolute Auto 1.34 K/mm3 (0.9-3.2); Lymphocytes Percent Auto 23.9 % (18.3-44.2); Mean Corpuscular Hemoglobin 29.2 pg (26-34); Mean Platelet Volume 10.6 fl (7.4-10.4); Monocytes Absolute Auto 0.5 K/mm3 (0.1-0.6); Monocytes Percent Auto 9.3 % (2.6-8.5); Neutrophils Absolute Auto 3.4 K/mm3 (1.3-6.7); Neutrophils Percent Auto 60.7 % (45.5-73.1); Platelet Count Result 172 k/mm3 (150-375); Red Blood Count 3.67 M/mm3 (4.6-6.20); Red Cell Distribution Width 11.9 % (11.5-14.5); White Blood Count 5.6 K/mm3 (4.5-10.0)
[2023-07-10 17:46] VITALS: BP 156/80; PULSE 56; RESP 17; O2SAT 100
[2023-07-10 18:25] LABS: Alanine Aminotransferase 15 U/L (6-50); Albumin Level 3.8 g/dL (3.5-5.1); Alkaline Phosphatase 69 U/L (38-126); Anion Gap 3 mmol/L (8-16); Aspartate Amino Transferase 21 U/L (17-59); Bilirubin,Total 0.5 mg/dL (0.2-1.3); Blood Urea Nitrogen 12 mg/dL (9-20); Calcium 8.9 mg/dL (8.4-10.2); Carbon Dioxide 30 mmol/L (22-30); Chloride 105 mmol/L (98-107); Estimated CRCL calculation 52 ml/min; Estimated Glomerular Filt Rate > 60; Glucose 104 mg/dL (65-110); Potassium 4.1 mmol/L (3.4-5.0); Sodium 138 mmol/L (137-145)
[2023-07-10 18:37] LABS: Troponin I < 0.012 ng/mL (0.000-0.034)
[2023-07-10] MEDS: ACETAMINOPHEN 500 MG TABLET 1000 MG PO (18:55)
[2023-07-10 19:15] VITALS: BP 174/87; PULSE 50; RESP 17; O2SAT 100
--- NOTE | 2023-07-10 20:03 | ED.GENADULT ---
HPI - General Adult General Chief complaint: Recheck/Abnormal Lab/Rx Stated complaint: HTN with [place] - denies CP Time Seen by Provider: 07/10/23 18:27 History of Present Illness HPI narrative: Patient is a 78-year-old male who presents ER with concerns for headache and hypertension. Reports he has been having issues with his hypertension over the last week. His blood pressure has been running in the 170s. Tonight it went up to 200 mmHg. His primary care doctor and had him take a extra clonidine which did not reduce his blood pressure enough. There is no associated chest pain or shortness of breath. Reports he has been having some right-sided throbbing headache over the last few days as well. 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 He has taken no pain medication for it. Related Data Home Medications Medication Instructions Recorded Confirmed febuxostat 40 mg tablet 40 mg PO DAILY 02/25/22 07/10/23 colchicine (gout) 0.6 mg tablet 0.6 mg PO DAILY 05/06/23 07/10/23 (Colcrys) Allergies Allergy/AdvReac Type Severity Reaction Status Date / Time adhesive tape Allergy Hives Verified 07/10/23 17:00 levofloxacin [From Levaquin] Allergy Rash Verified 07/10/23 17:00 Review of Systems Review of Systems: All systems reviewed & are unremarkable except as noted in HPI and below Constitutional: Constitutional: Denies chills, Denies fatigue and Denies fever(s) ENT: Denies nasal congestion and Denies sore throat Cardiovascular: Cardiovascular: Denies chest pain, Denies rapid heart rate and Denies radiating jaw, neck or arm pain Respiratory: Respiratory: Denies cough, Denies dyspnea and Denies wheezing Gastrointestinal: Gastrointestinal: Reports no additional gastrointestinal complaints Neurologic: Denies syncope, Reports headache(s), Denies focal weakness and Denies numbness PMFSH Past Medical History Medical History Bloating Chronic GERD Chronic sinusitis Colon polyps Gout Hyperlipidemia Hypertension Irritable bowel syndrome with diarrhea Surgical History Surgical History H/O hernia repair L & R groin H/O neck surgery H/O prostatectomy History of back surgery History of hemorrhoidectomy removed with a lazer Family History Family History Father Lung cancer Social History Social History Smoking status: Former smoker Alcohol intake: never Substance use: never Lack of Transportation: No Lack of Food: Never True Current Housing: I Have Housing Concerned About Future Housing: No Difficulty Paying Gas/Electric Bills: No Difficulty Paying for Meds: No Currently Unemployed: No Education: High School Diploma/GED Difficulty w/ Childcare or Family Care: No Living arrangements: alone Occupation/Education: retired Gender identity (if verbalized by the patient): Male Exam Narrative: GENERAL: Well-appearing, well-nourished, and in no acute distress. HEAD: Normocephalic, atraumatic. EYES: PERRL and EOMI. ENT: Mucous membranes moist. NECK: Supple. CHEST: Clear to auscultation. No respiratory distress. HEART: Regular rate and rhythm. Normal peripheral pulses. ABDOMEN: Soft, nontender, nondistended. EXTREMITIES: Normal range of motion. No edema. SKIN: Warm, dry, no rash. NEURO: Alert and oriented x3. 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 PSYCH: Normal mood and affect. Course Course Emergency Course: Discussed case with Dr. Guardado. Patient received IV hydralazine in the ER with significant reduction in blood pressure. He feels patient could have hydralazine 25 mg twice daily added to his blood pressure regimen and follow-up in clinic next week. Patient verbalized understanding treatment plan and is comfortable with this. Vital Signs Vi
[2023-07-10] MEDS: hydrALAZINE HCL 20 MG/ML VIAL 10 MG IV PUSH (20:15)
[2023-07-10 20:55] VITALS: BP 157/75; PULSE 56; RESP 15; O2SAT 100
[2023-07-10 21:01] VITALS: BP 153/93; PULSE 59; RESP 15; O2SAT 100
[2023-07-10 21:15] VITALS: BP 153/93; PULSE 67; RESP 15; O2SAT 100
== END 2023-07-10 21:15 | disposition home or self-care (01) ==
PROVIDERS: Emergency Provider Emergency Medicine; PCP Physician Assistant
DX: R51.9 Headache, unspecified (principal); I10 Essential (primary) hypertension; E78.5 Hyperlipidemia, unspecified; J32.9 Chronic sinusitis, unspecified; M10.9 Gout, unspecified; K58.0 Irritable bowel syndrome with diarrhea; K21.9 Gastro-esophageal reflux disease without esophagitis; Z86.010 Personal history of colon polyps; Z90.79 Acquired absence of other genital organ(s); Z79.01 Long term (current) use of anticoagulants; I49.1 Atrial premature depolarization; I45.10 Unspecified right bundle-branch block; I51.7 Cardiomegaly
CPT/HCPCS: 36415; 80053; 84484; 85025; 93005; 96374; 99284; A9270; J0360

== ENCOUNTER 2023-08-06 11:17 | Outpatient (CLI) | payer MEDICARE, MEDICAID, SELFPAY ==
[2023-08-06 12:29] LABS: Basophils Percent Auto 0.8 % (0.2-1.2); Eosinophils Absolute Auto 0.2 K/mm3 (0-0.3); Eosinophils Percent Auto 4.7 % (0-4.4); Hemoglobin 10.5 g/dL (14.0-18.0); Immature Granulocyte Absolute 0.01 K/mm3 (0.00-0.031); Immature Granulocyte Percent A 0.2 % (0-0.5); Lymphocytes Absolute Auto 1.04 K/mm3 (0.9-3.2); Lymphocytes Percent Auto 21.3 % (18.3-44.2); Mean Corpuscular Hemoglobin 28.8 pg (26-34); Mean Corpuscular Volume 95.9 fl (80-100); Mean Platelet Volume 11.6 fl (7.4-10.4); Monocytes Absolute Auto 0.4 K/mm3 (0.1-0.6); Monocytes Percent Auto 8.8 % (2.6-8.5); Neutrophils Absolute Auto 3.1 K/mm3 (1.3-6.7); Neutrophils Percent Auto 64.2 % (45.5-73.1); Platelet Count Result 174 k/mm3 (150-375); Red Blood Count 3.65 M/mm3 (4.6-6.20); Red Cell Distribution Width 11.9 % (11.5-14.5); White Blood Count 4.9 K/mm3 (4.5-10.0)
[2023-08-06 12:43] LABS: Alanine Aminotransferase 16 U/L (6-50); Albumin Level 3.7 g/dL (3.5-5.1); Alkaline Phosphatase 65 U/L (38-126); Anion Gap 4 mmol/L (8-16); Aspartate Amino Transferase 23 U/L (17-59); Bilirubin,Total 0.6 mg/dL (0.2-1.3); Blood Urea Nitrogen 11 mg/dL (9-20); Calcium 8.9 mg/dL (8.4-10.2); Carbon Dioxide 30 mmol/L (22-30); Chloride 108 mmol/L (98-107); Cholesterol 178 mg/dL (0-200); Estimated Glomerular Filt Rate > 60; Glucose 116 mg/dL (65-110); HDL Direct 33 mg/dL; Potassium 4.4 mmol/L (3.4-5.0); Sodium 142 mmol/L (137-145); Triglycerides 103 mg/dL (<150)
[2023-08-06 12:44] LABS: Uric Acid 5.7 mg/dL (3.5-8.5)
[2023-08-06 12:54] LABS: LDL Cholesterol Direct 106 mg/dL
[2023-08-06 13:12] LABS: Prostate Specific Antigen 0.8 ng/mL (< OR = 4.0)
[2023-08-06 13:48] LABS: Folic Acid 7.7 ng/mL (2.76->20)
== END 2023-08-06 11:18 | disposition home or self-care (01) ==
LOC: ANHLAB 11:20
PROVIDERS: PCP Physician Assistant; Referring Provider Internal Medicine; Visit Provider Physician Assistant
DX: M10.9 Gout, unspecified (principal); E78.5 Hyperlipidemia, unspecified; D64.9 Anemia, unspecified; Z12.5 Encounter for screening for malignant neoplasm of prostate; R53.83 Other fatigue; E53.8 Deficiency of other specified B group vitamins; R73.9 Hyperglycemia, unspecified; G47.61 Periodic limb movement disorder
CPT/HCPCS: 36415; 80053; 80061; 82607; 82728; 82746; 83036; 84153; 84443; 84550; 85025; G0103

== ENCOUNTER 2023-12-01 17:02 | Outpatient (CLI) | payer MEDICARE, MEDICAID, SELFPAY ==
[2023-12-01 18:20] LABS: Alanine Aminotransferase 14 U/L (6-50); Albumin Level 3.6 g/dL (3.5-5.1); Alkaline Phosphatase 83 U/L (38-126); Anion Gap 7 mmol/L (8-16); Aspartate Amino Transferase 22 U/L (17-59); Bilirubin,Total 0.5 mg/dL (0.2-1.3); Blood Urea Nitrogen 12 mg/dL (9-20); Carbon Dioxide 29 mmol/L (22-30); Chloride 105 mmol/L (98-107); Estimated Glomerular Filt Rate > 60; Glucose 98 mg/dL (65-110); Potassium 3.9 mmol/L (3.4-5.0); Sodium 141 mmol/L (137-145); Uric Acid 6.2 mg/dL (3.5-8.5)
== END 2023-12-01 17:03 | disposition home or self-care (01) ==
LOC: ANHLAB 17:06
PROVIDERS: PCP Physician Assistant; Visit Provider Podiatrist Foot & Ankle Surgery
DX: M10.9 Gout, unspecified (principal)
CPT/HCPCS: 36415; 80053; 84550

== ENCOUNTER 2024-03-01 13:05 | Outpatient (CLI) | payer MEDICARE, MEDICAID, SELFPAY ==
[2024-03-01 13:49] LABS: Alanine Aminotransferase 12 U/L (6-50); Albumin Level 3.9 g/dL (3.5-5.1); Alkaline Phosphatase 79 U/L (38-126); Anion Gap 3 mmol/L (4-12); Aspartate Amino Transferase 20 U/L (17-59); Bilirubin,Total 0.5 mg/dL (0.2-1.3); Blood Urea Nitrogen 11 mg/dL (9-20); Carbon Dioxide 31 mmol/L (22-30); Chloride 107 mmol/L (98-107); Estimated Glomerular Filt Rate > 60; Glucose 115 mg/dL (65-110); Potassium 4.1 mmol/L (3.4-5.0); Sodium 141 mmol/L (137-145); Uric Acid 5.1 mg/dL (3.5-8.5)
== END 2024-03-01 13:06 | disposition home or self-care (01) ==
LOC: ANHLAB 13:09
PROVIDERS: PCP Physician Assistant; Visit Provider Podiatrist Foot & Ankle Surgery
DX: M10.079 Idiopathic gout, unspecified ankle and foot (principal)
CPT/HCPCS: 36415; 80053; 84550

== ENCOUNTER 2024-03-24 15:15 | Outpatient (CLI) | payer MEDICARE, MEDICAID, SELFPAY | END 2024-03-24 15:16 | disposition home or self-care (01) | LOC: ANHLAB 15:17 | PROVIDERS: PCP Physician Assistant; Visit Provider Internal Medicine | DX: E53.8 Deficiency of other specified B group vitamins (principal) | CPT/HCPCS: 36415; 82607 ==

== ENCOUNTER 2024-03-26 15:42 | Emergency (ER) | payer MEDICARE, MEDICAID, SELFPAY ==
--- NOTE | ~2024-03-26 | CT_ITS ---
Noncontrast CT scan of the cervical spine Technique: Multiple contiguous axial [address] images of the cervical spine were obtained and rec onstructed in 2D sagittal and coronal planes on the acquisition scanner. Dose reduction technique was used on this scan by utilizing automated exposure control, adjustment of the mA and/or kV according to patient size. The dose-length product (DLP) was 681.00 mGy-cm. Clinical History: Pain Findings: No fractures or dislocations. There is posterior fusion from C3 through C7, with associate d posterior decompression at the levels. There is severe degenerative disc narrowing and partial fusi on across the disc spaces from C3 through C7. There is severe degenerative disc change at C7-T1. Ther e is moderate degenerative change at C2-C3. There is extensive facet arthropathy, with multilevel adilene ral foraminal narrowing throughout the cervical spine. No prevertebral soft tissue swelling. Impression: No fracture or subluxation of the cervical spine. Posterior fusion from C3-C7, with extensive degenerative change, as detailed above. Reviewed, dictated and finalized at location . Impression: No fracture or subluxation of the cervical spine. Posterior fusion from C3-C7, with extensive degenerative change, as detailed ab ove.
--- NOTE | ~2024-03-26 | XR_ITS ---
Right Knee Technique: AP, lateral, and oblique views were obtained. Clinical History: Pain Findings: No fracture or dislocation is seen. Osseous alignment is anatomic. Moderate tricompartmenta l degenerative spurring present. Soft tissues are unremarkable. No joint effusion is seen. 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 Reviewed, dictated and finalized at location . 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
--- NOTE | ~2024-03-26 | CT_ITS ---
Non-contrast Head CT History: Status post fall Technique: Axial non-contrast imaging of the brain was performed. Dose reduction technique was used on this scan by utilizing automated exposure control and iterative reconstruction technique. The dose -length product (DLP) was 681.00 mGy-cm. Findings: There is no evidence of intracranial hemorrhage, mass lesion, or acute infarct. Brain par enchyma appears normal. The ventricles and subarachnoid spaces are normal in size. The calvarium ap pears normal. The visualized paranasal sinuses and mastoid air cells are clear. Impression: No significant abnormality seen. Reviewed, dictated and finalized at location . Impression: No significant abnormality seen.
[2024-03-26 15:45] VITALS: BP 160/97; PULSE 79; RESP 15; TEMP 36.6; O2SAT 100
--- NOTE | 2024-03-26 17:54 | ED.FALL ---
HPI - Fall General Chief Complaint: Fall Stated Complaint: Fall, Hit Head Time Seen by Provider: 03/26/24 15:55 Source: patient Mode of arrival: ambulatory Limitations: no limitations History of Present Illness HPI Narrative: Patient is a 78 y/o male, with PMH of R sided Perales's Palsy, who presents to the ED with c/o a fall with head injury. Patient reports he was walking over to his neighbor's house this evening when he stumbled on the concrete sidewalk and lost his balance. He fell forward, hitting his head on the concrete. Denied LOC. Did sustain abrasion to his right forehead and right knee. Complains of pain to his head and right knee. Denies any other injuries. Denies neck or back pain. Denies numbness or weakness, dizziness, lightheadedness, vision changes. Patient is on Xarelto due to history of AFib. Related Data Home Medications Medication Instructions Recorded Confirmed febuxostat 40 mg tablet 40 mg PO DAILY 02/25/22 03/22/24 colchicine 0.6 mg tablet (Colcrys) 0.6 mg PO DAILY 05/06/23 03/22/24 Allergies Allergy/AdvReac Type Severity Reaction Status Date / Time adhesive tape Allergy Hives Verified 03/22/24 08:02 levofloxacin [From Levaquin] Allergy Rash Verified 03/22/24 08:02 Review of Systems Review of Systems: CONSTITUTIONAL: Denies fever, chills, or sweats. MUSCULOSKELETAL: See HPI. NEUROLOGIC: See HPI. All systems reviewed & are unremarkable except as noted in HPI and below PMFSH Past Medical History Medical History Bloating Chronic GERD Chronic sinusitis Colon polyps Gout Hyperlipidemia Hypertension Irritable bowel syndrome with diarrhea Surgical History Surgical History H/O hernia repair L & R groin H/O neck surgery H/O prostatectomy History of back surgery History of hemorrhoidectomy removed with a lazer Family History Family History Father Lung cancer Social History Social History Smoking status: Former smoker Alcohol intake: never Substance use: never Do You Feel Safe in your Home?: Yes Lack of Transportation: No Lack of Food: Never True Current Housing: I Have Housing Concerned About Future Housing: No Difficulty Paying Gas/Electric Bills: No Difficulty Paying for Meds: No Currently Unemployed: No Education: High School Diploma/GED Difficulty w/ Childcare or Family Care: No Living arrangements: alone Occupation/Education: retired Gender identity (if verbalized by the patient): Male Exam Narrative: GENERAL: Well appearing, well-nourished, non-toxic, in no acute distress. HEAD: Normocephalic. Small abrasions to R upper forehead, no significant contusion/swelling. EYES: PERRL/EOMI, conjunctiva clear. NECK: No midline spinal tenderness. RESPIRATORY: Airway patent, respirations nonlabored. Clear to auscultation bilaterally, no rales, rhonchi, wheezing. CARDIOVASCULAR: Regular rate and rhythm without murmurs, rubs, or gallops. MUSCULOSKELETAL: Moves all extremities. No gross deformities. Small abrasion to R upper lateral knee, no significant swelling. No tenderness over anterior knee. SKIN: Warm, dry, normal color. NEURO: A&O X3. Speech clear. Cranial nerves II-XII grossly intact. Steady gait. No ataxic movements. No focal deficits. No pronator drift. Strength 5/5 in upper and lower extremities bilaterally. R facial paralysis, which patient reports is chronic r/t Perales's Palsy. PSYCHIATRIC: Appropriate mood and affect. Normal interaction. Course Vital Signs Vital signs: Vital Signs Temperature 97.8 F 03/26/24 15:45 Pulse Rate 79 03/26/24 15:45 Respiratory Rate 15 03/26/24 15:45 Blood Pressure 160/97 H 03/26/24 15:45 Pulse Oximetry 100 03/26/24 15:45 Oxygen Delivery
[2024-03-26] MEDS: TETANUS,DIPHTHERIA,AC PERTUSSIS ADULT (0.5 ML) BOOSTRIX IM (18:27)
== END 2024-03-26 18:38 | disposition home or self-care (01) ==
PROVIDERS: Emergency Provider Physician Assistant; PCP Physician Assistant
DX: S00.81XA Abrasion of other part of head, initial encounter (principal); S80.211A Abrasion, right knee, initial encounter; Z23 Encounter for immunization; I48.91 Unspecified atrial fibrillation; I10 Essential (primary) hypertension; J32.9 Chronic sinusitis, unspecified; E78.5 Hyperlipidemia, unspecified; K21.9 Gastro-esophageal reflux disease without esophagitis; K58.0 Irritable bowel syndrome with diarrhea; M10.9 Gout, unspecified; Z86.010 Personal history of colon polyps; Z87.891 Personal history of nicotine dependence; Z90.79 Acquired absence of other genital organ(s); Z79.01 Long term (current) use of anticoagulants; M43.22 Fusion of spine, cervical region; W01.0XXA Fall on same level from slipping, tripping and stumbling without subsequent striking against object, initial encounter
CPT/HCPCS: 70450; 72125; 73564; 90471; 90715; 99284

== ENCOUNTER 2024-06-01 04:16 | Emergency (ER) | payer MEDICARE, MEDICAID, SELFPAY ==
[2024-06-01] VITALS (23 sets, daily range): BP systolic 145–171; BP diastolic 79–96; PULSE 55–76; RESP 12–20; TEMP 36.5; O2SAT 99–100
--- NOTE | ~2024-06-01 | CT_ITS ---
CT of the Abdomen and Pelvis: Indication: GI bleed Technique: 2.5 mm axial scans were obtained through the abdomen and pelvis prior to and following in travenous administration of 100 cc of Omnipaque 350. Dose reduction technique was used on this scan b y utilizing automated exposure control and iterative reconstruction technique. The dose-length produc t (DLP) was 3171.90 mGy-cm. Findings: Scans through the lung bases are unremarkable. The liver, spleen, pancreas, gallbladder, adrenals and kidneys are within normal limits. There are at herosclerotic calcifications of the aorta. No lymphadenopathy. No bowel obstruction or bowel wall thickening. There is no evidence to suggest acute appendicitis. No CT angiography evidence for active GI bleeding. Images through the pelvis were performed. Urinary bladder unremarkable. No pelvic mass seen. No ascit es. Impression: No CT angiographic evidence for active GI bleeding. No significant abnormality seen. Reviewed, dictated and finalized at [facility]. Impression: No CT angiographic evidence for active GI bleeding. No significant abnormality seen.
[2024-06-01 04:56] LABS: Basophils Percent Auto 0.7 % (0.2-1.2); Eosinophils Absolute Auto 0.3 K/mm3 (0-0.3); Eosinophils Percent Auto 5.4 % (0-4.4); Hematocrit 36.1 % (42.0-52.0); Hemoglobin 11.3 g/dL (14.0-18.0); Immature Granulocyte Absolute 0.02 K/mm3 (0.00-0.031); Immature Granulocyte Percent A 0.4 % (0-0.5); Lymphocytes Absolute Auto 1.74 K/mm3 (0.9-3.2); Lymphocytes Percent Auto 32.5 % (18.3-44.2); Mean Corpuscular HGB Conc 31.3 g/dl (32-36); Mean Corpuscular Hemoglobin 29.3 pg (26-34); Mean Corpuscular Volume 93.5 fl (80-100); Mean Platelet Volume 11.8 fl (7.4-10.4); Monocytes Absolute Auto 0.7 K/mm3 (0.1-0.6); Monocytes Percent Auto 13.6 % (2.6-8.5); Neutrophils Absolute Auto 2.5 K/mm3 (1.3-6.7); Neutrophils Percent Auto 47.4 % (45.5-73.1); Platelet Count Result 186 k/mm3 (150-375); Red Blood Count 3.86 M/mm3 (4.6-6.20); Red Cell Distribution Width 12.4 % (11.5-14.5); White Blood Count 5.4 K/mm3 (4.5-10.0)
--- NOTE | 2024-06-01 04:59 | ED.GIBLEED ---
HPI - GI Bleed General Chief complaint: GI Bleed Stated complaint: pooping blood Time Seen by Provider: 06/01/24 04:25 Source: patient Limitations: no limitations History of Present Illness HPI Narrative: Patient is a 78-year-old male presents to the emergency department complaining of blood in his stool with diarrhea. Patient states he was in his normal state of health throughout the day today and he did not have anything abnormal to eat 1 prior to arrival a 1 to the bathroom and had a bowel movement and had diarrhea and which he did think much of it but then when he wiped the summer red blood on the toilet paper and then when he looked down he noted that there was both blood in the toilet bowl and scant amount of stool and none the stool is formed rather was all liquid. Patient notes he stand up and after standing up then realized he had to go to the bathroom again and had a 2nd occurrence of the same type of bowel movement prompting to come in for further evaluation. Patient notes that his abdomen had a grumbling sensation to a prior to the onset of these bowel movements. Patient denies any abdominal pain, chest pain, difficulty breathing, fever, sick contacts, recent injuries, recent illness, numbness, weakness, lightheadedness, palpitations, history of gastrointestinal bleeding, use of NSAIDs, alcohol use, Pepto-Bismol use, iron use. 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 Levy and had an EGD in 2020 that showed gastritis for which he takes Nexium and also had a colonoscopy in 2021 that showed polyps, unsure if there was any diverticulosis. Patient admits to blood thinner use with Xarelto for history of atrial fibrillation. Patient admits to history of hemorrhoids. Patient denies anal itching. Related Data Home Medications Medication Instructions Recorded Confirmed febuxostat 40 mg tablet 80 mg PO DAILY 04/28/24 04/29/24 Allergies Allergy/AdvReac Type Severity Reaction Status Date / Time adhesive tape Allergy Hives Verified 04/29/24 12:47 levofloxacin [From Levaquin] Allergy Rash Verified 04/29/24 12:47 Review of Systems Review of Systems: A 10 system review of systems was completed on the patient and is negative except for what is stated in the HPI. Nursing and ancillary documentation was reviewed. [facility] Past Medical History Medical History Bloating Chronic GERD Chronic sinusitis Colon polyps Gout Hyperlipidemia Hypertension Irritable bowel syndrome with diarrhea Surgical History Surgical History H/O hernia repair L & R groin H/O neck surgery H/O prostatectomy History of back surgery History of hemorrhoidectomy removed with a lazer Family History Family History Father Lung cancer Social History Social History Smoking status: Former smoker Alcohol intake: never Substance use: never Do You Feel Safe in your Home?: Yes Lack of Transportation: No Lack of Food: Never True Current Housing: I Have Housing Concerned About Future Housing: No Difficulty Paying Gas/Electric Bills: No Difficulty Paying for Meds: No Currently Unemployed: No Education: High School Diploma/GED Difficulty w/ Childcare or Family Care: No Living arrangements: alone Occupation/Education: retired Gender identity (if verbalized by the patient): Male Comments At time of signature, I have reviewed and agree with nursing past medical, surgical, social and family history unless otherwise noted. Please see the nursing chart for further information. There is no relevant family history pertinent to the presenting complaint. Exam Narrative: CONST: No acute distress. Well nourished. HENMT: Head is normocephalic and atrauma
[2024-06-01 05:02] LABS: Alanine Aminotransferase 14 U/L (6-50); Albumin Level 3.8 g/dL (3.5-5.1); Alkaline Phosphatase 75 U/L (38-126); Anion Gap 10 mmol/L (4-12); Aspartate Amino Transferase 22 U/L (17-59); Bilirubin,Total 0.5 mg/dL (0.2-1.3); Blood Urea Nitrogen 15 mg/dL (9-20); Calcium 8.8 mg/dL (8.4-10.2); Carbon Dioxide 26 mmol/L (22-30); Chloride 102 mmol/L (98-107); Estimated CRCL calculation 50 ml/min; Estimated Glomerular Filt Rate 60; Glucose 111 mg/dL (65-110); Potassium 3.7 mmol/L (3.4-5.0); Sodium 138 mmol/L (137-145)
[2024-06-01 05:09] LABS: INR 1.5; Partial Thromboplastin Time 36.8 Seconds (22.3-36.8); Prothrombin Time 18.9 Seconds (11.1-14.7)
[2024-06-01] MEDS: PANTOPRAZOLE SODIUM IV 40 MG VIAL IV PUSH (05:10)
[2024-06-01] MEDS: SODIUM CHLORIDE 0.9% IV 1,000 ML 999 ML IV CONT (05:55)
[2024-06-01 06:02] LABS: Lipase 82 U/L (23-300); Magnesium 2.1 mg/dL (1.6-2.3)
[2024-06-01 06:15] LABS: Lactic Acid Reflex 0.9 mmol/L (0.7-2.0)
--- NOTE | 2024-06-01 06:19 | PC.NURSE ---
Pt has had two episodes of bloody diarrhea since arriving at ED.
[2024-06-01] MEDS: SODIUM CHLORIDE 0.9% IV 1,000 ML 125 ML IV CONT (06:53)
[2024-06-01 07:00] LABS: Appearance Urine Clear (Clear); Bilirubin Urine Negative (Negative); Blood Urine Negative (Negative); Color Urine Yellow (Yellow); Glucose Urine UA Negative (Negative); Ketones Urine Negative (Negative); Leukocyte Esterase Ur Negative LEU/UL (Negative); Nitrate Urine Negative (Negative); Protein Urine Negative (Negative); Specific Grav Ur 1.028 (1.001-1.035)
[2024-06-01 07:11] LABS: Add Urine Microscopic? NO
[2024-06-01 07:32] LABS: Hematocrit 33.4 % (42.0-52.0); Hemoglobin 10.5 g/dL (14.0-18.0)
--- NOTE | 2024-06-01 07:35 | PC.NURSE ---
[facility] CALLED FOR INTAKE QUESTIONS. PT WILL BE GOING TO [facility] AND TRANSF[facility]ENTER WILL CALL WHEN BED IS AVAILABLE.
[2024-06-01] MEDS: LORazepam (*CRX) 0.5 MG TABLET PO (16:12)
[2024-06-01] MEDS: LOSARTAN POTASSIUM 100 MG TABLET PO (16:12)
== END 2024-06-01 17:20 | disposition short-term general hospital (02) ==
PROVIDERS: Emergency Provider Student in an Organized Health Care Education/Training Program; PCP Internal Medicine
DX: K92.2 Gastrointestinal hemorrhage, unspecified (principal); E78.5 Hyperlipidemia, unspecified; I10 Essential (primary) hypertension; Z87.891 Personal history of nicotine dependence
CPT/HCPCS: 36415; 74174; 80053; 81003; 83605; 83690; 83735; 85014; 85018; 85025; 85610; 85730; 86850; 86900; 86901; 96361; 96374; 99285; A9270; J2470; J7030; Q9967

== ENCOUNTER 2024-06-08 13:08 | Emergency (ER) | payer MEDICARE, MEDICAID, SELFPAY ==
--- NOTE | ~2024-06-08 | CT_ITS ---
EXAMINATION: CT abdomen pelvis w con DATE: 06/08/2024 15:17 INDICATION: Gastrointestinal hemorrhage. TECHNIQUE: Computed tomography (CT) of the abdomen and pelvis was performed with 100 mL Omnipaque 350 intravenous contrast. Automated exposure control and iterative reconstruction technique were employe d. The dose-length product was 988.05 mGy-cm. COMPARISON: CT abdomen and pelvis 06/01/2024 FINDINGS: The visualized portions of the lung bases demonstrate mild atelectasis. Calcified hilar and mediastinal lymph nodes are consistent with old granulomatous disease. No pleural effusion. The hear t size is normal. No pericardial effusion. There are coronary artery calcifications. There are cysts in the liver measuring up to 7 mm. The gallbladder, spleen, pancreas, adrenal glands, and right kidne y are normal. There is a 14 mm cyst in left kidney. The prostate is mildly enlarged. There is diverti culosis of the colon without evidence of diverticulitis. There is a 14 mm radiopaque foreign body in the lumen of the sigmoid colon, likely a clip from endoscopy. There is a 14 mm radiopaque foreign bod y in the lumen of the ascending colon, likely a clip from endoscopy. The appendix is normal. There ar e no pathologically enlarged lymph nodes. There is no free intraperitoneal fluid. There is a left ing uinal hernia containing fat. There is severe lumbar spondylosis. There are bridging endplate osteophy denice at multiple levels in the spine, consistent with diffuse idiopathic skeletal hyperostosis (DISH). IMPRESSION: 1. No etiology for the patient's symptoms. Reviewed, dictated and finalized at location A.
[2024-06-08 13:30] VITALS: BP 150/73; PULSE 72; RESP 18; TEMP 36.6; O2SAT 100
--- NOTE | 2024-06-08 13:38 | ED.GENADULT ---
HPI - General Adult General Chief complaint: GI Bleed Stated complaint: rectal bleeding-Dr Bagley told patient to come in Time Seen by Provider: 06/08/24 13:16 History of Present Illness HPI narrative: 78-year-old male present to the emergency department for evaluation for blood in his stool. Patient was recently evaluated for a GI bleed and was transferred to [facility] since we did not have GI on-call. At [facility] patient had his Xarelto stopped and patient had polyps removed and was diagnosed with diverticular disease. Patient was discharged on Thursday and restarted his role toe on Thursday. Patient states that yesterday he did notice some blood in his stool. Patient states that it was blood mixed with stool and was not as significant as the bleeding he was having on Thursday. Patient denies any associated lightheaded dizziness. Patient denies any chest pain or shortness of breath. Patient denies any associated abdominal pain. Patient pulled his primary care physician about the bleeding and he was told to present to the emergency department for evaluation. Related Data Home Medications Medication Instructions Recorded Confirmed febuxostat 40 mg tablet 80 mg PO HS 04/28/24 06/01/24 carvedilol 25 mg tablet 25 mg PO BID 06/01/24 06/01/24 hydralazine 25 mg tablet 25 mg PO TID 06/01/24 06/01/24 losartan 100 mg tablet 100 mg PO DAILY 06/01/24 06/01/24 Allergies Allergy/AdvReac Type Severity Reaction Status Date / Time adhesive tape Allergy Hives Verified 06/08/24 13:08 levofloxacin [From Levaquin] Allergy Rash Verified 06/08/24 13:08 Review of Systems Review of Systems: All systems reviewed & are unremarkable except as noted in HPI and below PMFSH Past Medical History Medical History Bloating Chronic GERD Chronic sinusitis Colon polyps Gout Hyperlipidemia Hypertension Irritable bowel syndrome with diarrhea Surgical History Surgical History H/O hernia repair L & R groin H/O neck surgery H/O prostatectomy History of back surgery History of hemorrhoidectomy removed with a ramoner Family History Family History Father Lung cancer Social History Social History Smoking status: Former smoker Alcohol intake: never Substance use: never Do You Feel Safe in your Home?: Yes Lack of Transportation: No Lack of Food: Never True Current Housing: I Have Housing Concerned About Future Housing: No Difficulty Paying Gas/Electric Bills: No Difficulty Paying for Meds: No Currently Unemployed: No Education: High School Diploma/GED Difficulty w/ Childcare or Family Care: No Living arrangements: alone Occupation/Education: retired Gender identity (if verbalized by the patient): Male Exam Narrative: APPEARANCE: Well appearing, no pain, no distress, well-nourished. HEAD: normocephalic, atraumatic. EYES: PERRLA/EOMI, conjunctivae clear. NOSE: Normal no drainage EARS:TMS clear with good light reflex. THROAT: Pharynx clear, no exudate. NECK: Supple. No adenopathy, no masses. RESPIRATORY: Airway patent, respirations nonlabored. Clear to auscultation bilaterally, no rales, rhonchi, wheezing. CARDIOVASCULAR: Regular rate and rhythm without murmurs rubs or gallops. ABDOMINAL: Soft, nontender, nondistended, normal bowel sounds MUSCULOSKELETAL: Moves all extremities. Strength/ROM intact, No edema, No calf tenderness. NEURO: Alert. Cranial nerves II through XII intact. Good gait. Good coordination Rectal exam: Some bright red blood on the rectal exam SKIN: Warm, dry. Normal Color PSYCHIATRIC: Normal affect/mood. Course Course Emergency Course: Patient had no further bowel movements in the emergency department. Patient's hemoglobin stable. Patient was comfortable the
[2024-06-08 14:00] VITALS: BP 140/96; PULSE 72; RESP 16; O2SAT 98
[2024-06-08 14:21] LABS: Basophils Percent Auto 0.4 % (0.2-1.2); Eosinophils Absolute Auto 0.3 K/mm3 (0-0.3); Eosinophils Percent Auto 5.9 % (0-4.4); Hematocrit 32.3 % (42.0-52.0); Hemoglobin 10.2 g/dL (14.0-18.0); Immature Granulocyte Absolute 0.01 K/mm3 (0.00-0.031); Immature Granulocyte Percent A 0.2 % (0-0.5); Lymphocytes Absolute Auto 1.02 K/mm3 (0.9-3.2); Lymphocytes Percent Auto 21.6 % (18.3-44.2); Mean Corpuscular HGB Conc 31.6 g/dl (32-36); Mean Corpuscular Hemoglobin 29.5 pg (26-34); Mean Corpuscular Volume 93.4 fl (80-100); Mean Platelet Volume 11.5 fl (7.4-10.4); Monocytes Absolute Auto 0.4 K/mm3 (0.1-0.6); Monocytes Percent Auto 8.9 % (2.6-8.5); Platelet Count Result 166 k/mm3 (150-375); Red Blood Count 3.46 M/mm3 (4.6-6.20); Red Cell Distribution Width 12.6 % (11.5-14.5); White Blood Count 4.7 K/mm3 (4.5-10.0)
[2024-06-08 14:33] LABS: Alanine Aminotransferase 13 U/L (6-50); Albumin Level 3.7 g/dL (3.5-5.1); Alkaline Phosphatase 68 U/L (38-126); Anion Gap 9 mmol/L (4-12); Aspartate Amino Transferase 20 U/L (17-59); Bilirubin,Total 0.4 mg/dL (0.2-1.3); Blood Urea Nitrogen 10 mg/dL (9-20); Calcium 8.8 mg/dL (8.4-10.2); Carbon Dioxide 27 mmol/L (22-30); Chloride 106 mmol/L (98-107); Estimated CRCL calculation 56 ml/min; Estimated Glomerular Filt Rate > 60; Glucose 109 mg/dL (65-110); Potassium 3.5 mmol/L (3.4-5.0); Sodium 142 mmol/L (137-145)
[2024-06-08 14:35] LABS: INR 1.3; Prothrombin Time 16.8 Seconds (11.1-14.7)
[2024-06-08 14:36] LABS: Partial Thromboplastin Time 33.3 Seconds (22.3-36.8)
[2024-06-08 16:00] VITALS: BP 142/81; PULSE 60; RESP 18; O2SAT 99
[2024-06-08 16:40] VITALS: BP 154/91; PULSE 61; RESP 16; TEMP 36.8; O2SAT 98
== END 2024-06-08 16:40 | disposition home or self-care (01) ==
PROVIDERS: Emergency Provider Emergency Medicine; PCP Internal Medicine
DX: K62.5 Hemorrhage of anus and rectum (principal); I10 Essential (primary) hypertension; E78.5 Hyperlipidemia, unspecified; J32.9 Chronic sinusitis, unspecified; K21.9 Gastro-esophageal reflux disease without esophagitis; K58.0 Irritable bowel syndrome with diarrhea; M10.9 Gout, unspecified; Z86.010 Personal history of colon polyps; Z87.891 Personal history of nicotine dependence; Z90.79 Acquired absence of other genital organ(s); Z79.01 Long term (current) use of anticoagulants; Z79.899 Other long term (current) drug therapy
CPT/HCPCS: 36415; 74177; 80053; 85025; 85610; 85730; 86850; 86900; 86901; 99284; Q9967

== ENCOUNTER 2024-09-07 10:27 | Inpatient (IN) | payer MEDICARE, MEDICAID, SELFPAY ==
[2024-09-07] VITALS (23 sets, daily range): BP systolic 123–187; BP diastolic 64–106; PULSE 58–77; RESP 13–20; TEMP 36.7–36.8; O2SAT 98–100; BMI 26.9
--- NOTE | 2024-09-07 | ECHO_ITS ---
Patient Info Name: Deep Goss Age: 79 years : 1945 Gender: Male Ht: 77 in Wt: 240 lbs BSA: 2.45 m2 HR: 66 bpm BP: 187 / 101 mmHg Technical Quality: Fair Exam Date: 09/07/2024 3:49 PM Exam Location: Echo Lab Patient Status: Inpatient Admit Date: 09/07/2024 Staff Ordering Physician: Juanito Guardado DO Team Member: Charlie Jimenez RDCS Attending Provider: Harry Sparks MD Referring Physician: Geo DOMINGUEZ; Exam Type: CA echo dop color flow w con Study Info Indications I21.4 - Non-ST elevation (NSTEMI) myocardial infarction Complete two-dimensional, color flow and Doppler transthoracic echocardiogram is performed with contrast to opacify the left ventricle and to improve the deliniation of the left ventricle endocardial borders. Contrast/Agitated Saline Contrast/Ag. Saline: Definity Amount: 2.00 ml Existing IV Access: Yes IV Access Condition: patent with no signs of infiltration Summary 1. Definity contrast administered improved wall motion interpretation. 2. Left ventricular chamber dimension is mildly enlarged. 3. Left ventricular systolic function is normal, estimated at 55-60%. 4. The left ventricular diastolic function is grade I diastolic dysfunction. 5. E/e' 15 is elevated. 6. Left atrial chamber dimension is moderately enlarged. 7. There is trace mitral valve regurgitation. 8. There is mild tricuspid valve regurgitation. 9. Mild pulmonary hypertension, estimated pulmonary arterial systolic pressure is 42 mmHg. 10. There is trace pulmonic regurgitation. Left Ventricle E/e' 15 is elevated. Definity contrast administered improved wall motion interpretation. Left ventricular chamber dimension is mildly enlarged. Left ventricular systolic function is normal, estimated at 55-60%. The left ventricular diastolic function is grade I diastolic dysfunction. Right Ventricle Right ventricular systolic function is normal and with normal TAPSE 2.3 cm. Right ventricular chamber dimension is normal. Left Atria Left atrial chamber dimension is moderately enlarged. Right Atria Right atrial chamber dimension is normal. Aortic Valve The aortic valve is trileaflet. There is no aortic valve stenosis. There is no aortic valve regurgitation. Pulmonic Valve There is trace pulmonic regurgitation. Mitral Valve There is no mitral valve stenosis. There is trace mitral valve regurgitation. Tricuspid Valve There is mild tricuspid valve regurgitation. Mild pulmonary hypertension, estimated pulmonary arterial systolic pressure is 42 mmHg. Pericardium/Pleural There is no pericardial effusion. Inferior Vena Cava Normal inferior vena cava with >50% collapse upon inspiration consistent with normal right atrial pressure, 5 mmHg. Aorta The aortic root size at the sinus of Valsalva is normal. Left Ventricular Outflow Tract Name Value Normal LVOT 2D LVOT Diameter 1.96 cm LVOT Doppler LVOT Peak Gradient 4 mmHg LVOT Mean Gradient 2 mmHg LVOT VTI 19.11 cm LVOT VTI/AV VTI Ratio 0.56 LVOT Stroke Volume 57.93 ml LVOT CO 3.94 l/min LVOT CI 1.61 L/min/m2 Pulmonic Valve Name Value Normal PV Doppler PV Peak Gradient 7 mmHg PV Regurgitation Doppler UT Peak End Diastolic Velocity 141.54 cm/s Mitral Valve Name Value Normal MV Doppler MV Decel [place] 475.68 cm/s2 MV PHT 0 s MV Area (PHT) 3.97 cm2 4.00-5.00 MV Diastolic Function MV E Peak Velocity 90.93 cm/s MV A Peak Velocity 87.26 cm/s MV E/A 1.04 MV Decel Time 0 s Tricuspid Valve Name Value Normal TV Regurgitation Doppler TR Peak Velocity 303.73 cm/s TR Peak Gradient 19 mmHg Estimated PAP/RSVP RA Pressure 5 mmHg <=5 PA Systolic Pressure 42 mmHg <36 RV Systolic Pressure 42 mmHg <36 Aorta Name Value Normal Ascending Aorta Ao Root Diameter (MM) 2.53 cm Ao Root Diam Index (MM) 1.04 cm/m2 Aortic Valve Name Value Normal AV Doppler AV Peak Velocity 175.00 cm/s AV Peak Gradient 12 mmHg AV Mean Gradient 6 mmHg AV VTI 34.10 cm AV Area (Cont Eq VTI) 1.70 cm2 >=3.00 AV Area (Cont Eq Jossue) 1.80 cm2 AV Regurgitation 2D LVOT Area 3.03 cm2 Ventricles Name Value Normal LV Dimensions 2D/MM IVS Diastolic Thickness (2D) 0.89 cm 0.60-1.00 IVS Diastole Thickness (MM) 0.92 cm 0.60-1.00 LVID Diastole (2D) 5.62 cm 4.20-5.80 LVID Diastole (MM) 6.71 cm 4.20-5.80 LVIW Diastolic Thickness (2D) 1.00 cm 0.60-1.00 LVIW Diastolic Thickness (MM) 0.92 cm 0.60-1.00 LVID Systole (2D) 3.48 cm 2.50-4.00 LVID Systole (MM) 4.21 cm 2.50-4.00 LVOT Diameter 1.96 cm LV Mass (2D Cubed) 205.16 g 88.00-224.00 LV Mass Index (2D Cubed) 0.01 g/cm2 0.00-0.01 Relative Wall Thickness (2D) 0.36 LV Mass (MM Cubed) 270.84 g 88.00-224.00 LV Mass Index (MM Cubed) 0.01 g/cm2 0.00-0.01 Relative Wall Thickness (MM) 0.28 LV Fractional Shortening/Ejection Fraction 2D/MM LV Fractional Shortening (2D) 38 % 25-43 LV Fractional Shortening (MM) 37 % 25-43 LV EF (MM Teicholz) 66 % 52-72 LV EF (2D Teicholz) 68 % 52-72 LV Diastolic Volume (4C MOD) 149.80 ml LV EF (4C MOD) 54 % LV Diastolic Volume (2C MOD) 176.82 ml LV EF (2C MOD) 57 % LV Diastolic Volume (BP MOD) 163.04 ml 62.00-150.00 LV Diastolic Volume Index (BP MOD) 0.07 l/m2 0.03-0.07 LV Systolic Volume (BP MOD) 74.02 ml 21.00-61.00 LV Systolic Volume Index (BP MOD) 0.03 l/m2 0.01-0.03 LV EF (BP MOD) 55 % 52-72 LV Diastolic Length (4C) 8.85 cm LV Systolic Length (4C) 7.97 cm LV Stroke Volume (4C MOD) 80.17 ml Atria Name Value Normal LA Dimensions LA Dimension (MM) 5.07 cm 3.00-4.10 LA Volume (4C A-L) 108.13 ml LA Volume (BP A-L) 93.22 ml RA Dimensions RA Area (4C) 20.93 cm2 <=18.00 Report Signatures
--- NOTE | ~2024-09-07 | XR_ITS ---
XR chest 2V Ordering provider: Carlos Macias PA-C History: 79 years Male with . cp, intermittent mid chest pain, productive cough . Comparison: None. FINDINGS: MEDIASTINUM: The cardiac silhouette is not enlarged. LUNGS: No infiltrates, effusions or pneumothorax. OTHER: No free air under the diaphragm. Degenerative the spine. IMPRESSION: No acute cardiopulmonary pathology. Reviewed, dictated and finalized at location A. AGE [employer]
--- NOTE | 2024-09-07 10:35 | ED_ITS ---
HPI - Chest Pain General Chief Complaint: Chest Pain <VETO Constantino Last Filed: 09/07/24 12:31> Stated Complaint: cp <VETO Constantino Last Filed: 09/07/24 12:31> Time Seen by Provider: 09/07/24 10:35 <VETO Constantino Last Filed: 09/07/24 12:31> Source: patient <VETO Constantino Last Filed: 09/07/24 12:31> Mode of arrival: EMS <VETO Constantino Last Filed: 09/07/24 12:31> Limitations: no limitations <VETO Constantino Last Filed: 09/07/24 12:31> History of Present Illness HPI narrative: This is a 79-year-old male with PMH of HLD, HTN who presents to the ED via EMS for chief complaint of intermittent chest pain over the past couple of weeks, worse over the last few days. Reports that it is in the middle of the chest. He thought maybe it was his GERD but his normal GERD medications have not helped. Described as a heart pain. ? Denies associated with syncope. Is unsure of exertional symptoms as he is not exert himself recently. Denies fevers, chills, cough, shortness of breath, sweats, back pain, numbness, wea kness. He is anticoagulated on Xarelto regularly <VETO Constantino Last Filed: 09/07/24 12:31> Related Data Home Medications: Home Medications Medication Instructions Recorded Confirmed febuxostat 40 mg tablet 80 mg PO HS 04/28/24 09/07/24 carvedilol 25 mg tablet 25 mg PO BID 06/01/24 09/07/24 hydralazine 25 mg tablet 25 mg PO TID 06/01/24 09/07/24 losartan 100 mg tablet 100 mg PO DAILY 06/01/24 09/07/24 <VETO Constantino Last Filed: 09/07/24 12:31> Allergies/Adverse Reactions: Allergies Allergy/AdvReac Type Severity Reaction Status Date / Time adhesive tape Allergy Hives Verified 07/11/24 14:10 levofloxacin [From Levaquin] Allergy Rash Verified 07/11/24 14:10 <Carlos Macias PA-C - Last Filed: 09/07/24 12:31> Review of Systems Review of Systems: All systems as dictated in HPI <Carlos Macias PA-C - Last Filed: 09/07/24 12:31> [facility] Past Medical History Medical History: Medical History (Updated 09/07/24 @ 13:56 by Eden Rose APRN) Anemia Arthritis B12 deficiency Chronic sinusitis Colon polyps GERD (gastroesophageal reflux disease) Gout Hearing loss, bilateral Hyperlipidemia Hypersomnia Hypertension Irritable bowel syndrome with diarrhea Obstructive sleep apnea PAF (paroxysmal atrial fibrillation) PVT (paroxysmal ventricular tachycardia) <VETO Constantino Last Filed: 09/07/24 12:31> Surgical History Surgical History: Surgical History (Updated 09/07/24 @ 13:49 by Eden Rose APRN) H/O hernia repair L & R groin H/O neck surgery H/O prostatectomy History of back surgery History of hemorrhoidectomy removed with a lazer <Carlos Macias PA-C - Last Filed: 09/07/24 12:31> Family History Family History: Family History Father Lung cancer <VETO Constantino Last Filed: 09/07/24 12:31> Social History Social History: Social History Smoking packs per day: 0.15 Smoking cigarettes per day: 3.0 Years smoked: 30 Smoking pack-years: 4.50 Smoking status: Former smoker Alcohol intake: never Substance use: never Do You Feel Safe in your Home?: Yes Lack of Transportation: No Lack of Food: Never True Current Housing: I Have Housing Concerned About Future Housing: No Difficulty Paying Gas/Electric Bills: No Difficulty Paying for Meds: No Currently Unemployed: No Education: High School Diploma/GED Difficulty w/ Childcare or Family Care: No Living arrangements: alone Occupation/Education: retired Gender identity (if verbalized by the patient): Male Spiritual care concerns: No <Carlos Macias PA-C - Last Filed: 09/07/24 12:31> Exam Narrative: GENERAL: Well-appearing, well-nourished, and in no acute distress. HEAD: Normocephalic, atraumatic. EYES: PERRLA and EOMI. ENT: Nares clear, no rhinorrhea or epistaxis. Mucous membranes moist. Oropharynx without tonsillar hypertrophy exudate or other lesions. NECK: Supple. No adenopathy or masses. CHEST: No respiratory distress. Clear to auscultation. No wheezes rales or rh onchi HEART: Regular rate and rhythm. No murmur heard. Normal peripheral pulses. ABDOMEN: Soft, nontender, nondistended, normal active bowel sounds. MSK: Normal range of motion. No edema. SKIN: Warm, dry, no rash. NEURO: Alert and oriented x4. No focal deficits. PSYCH: Normal mood and affect. <Carlos Macias PA-C - Last Filed: 09/07/24 12:31> Course CONTENT PUBLISHER/PA Physician Supervision I agree with midlevel documentation; I performed the medical decision making component of this evaluation. I did review the EKG with elevated ST in AVR and some ST depressions, which is highly concerning for BILLIE, especially given patient having chest pain, however we are unable to review prior EKGs; for the there is dictation that his prior EKG had shown some ST depressions also so this may be chronic however I cannot tell. Elevated troponin. vegetable washing machine operator contacted. She did review the EKG, recommended starting heparin drip, no emergent catheterization at this time, especially as patient is now chest pain-free. Will be admitted at this time with urgent cath planned. <Erika Hauser MD - Last Filed: 09/07/24 15:17> Vital Signs Vital signs: Vital Signs Temperature 98.2 F 09/07/24 10:29 Pulse Rate 72 09/07/24 10:29 Respiratory Rate 14 09/07/24 10:29 Blood Pressure 158/98 H 09/07/24 10:29 Pulse Oximetry 98 09/07/24 10:29 Temperature 98.3 F 09/07/24 15:08 Pulse Rate 76 09/07/24 15:08 Respiratory Rate 20 09/07/24 15:08 Blood Pressure 129/68 09/07/24 15:08 Pulse Oximetry 99 09/07/24 15:08 Oxygen Delivery Room Air 09/07/24 11:05 <Carlos Macias PA-C - Last Filed: 09/07/24 12:31> Vital Signs Temperature 98.2 F 09/07/24 10:29 Pulse Rate 72 09/07/24 10:29 Respiratory Rate 14 09/07/24 10:29 Blood Pressure 158/98 H 09/07/24 10:29 Pulse Oximetry 98 09/07/24 10:29 Temperature 98.3 F 09/07/24 15:08 Pulse Rate 76 09/07/24 15:08 Respiratory Rate 20 09/07/24 15:08 Blood Pressure 129/68 09/07/24 15:08 Pulse Oximetry 99 09/07/24 15:08 Oxygen Delivery Room Air 09/07/24 11:05 <Erika Hauser MD - Last Filed: 09/07/24 15:17> MDM - Chest Pain MDM Narrative Medical decision making narrative: This is a 79 yo male who presents to the ED for chief complaint of intermittent chest pain over the past week or so, worse in last couple days. Patient received aspirin and nitro EN route via EMS who took an EKG that shows diffuse ST depression and T-wave inversion. Vitals showing slight hypertension but otherwise normal on arrival. Physical exam benign. EKG here remarkable for the same, able to compare to previous in 2022 and questionable elevation in V1, V2, aVL. Discussed the case with Interventional Cardiology who does not think this is a STEMI were candidate for intervention at this time. Patient is pain-free with that 1 dose of nitro per EMS. Lab work showing elevated troponin initially at 2.6, pending repeat troponin. Chest x-ray unremarkable. Presentation today is consistent with NSTEMI. Able to contact Dr. Guardado who will consult on the patient and agrees with starting heparin bolus and drip. Spoke with Dr. Sparks, hospitalist who agrees to admit the patient and recommend starting metoprolol here. Spoke with patient about the advised to be admitted for IL. He is understanding and agreeable with this plan. He will be admitted in stable condition. <Carlos Macias PA-C - Last Filed: 09/07/24 12:31> Lab Data Result diagrams: 09/07/24 10:40 09/07/24 10:40 <Carlos Macias PA-C - Last Filed: 09/07/24 12:31> Labs: Lab Results 09/07/24 Range/Units 10:40 WBC 4.2 L (4.5-10.0) K/mm3 RBC 3.59 L (4.6-6.20) M/mm3 Hgb 10.4 L (14.0-18.0) g/dL Hct 33.3 L (42.0-52.0) % MCV 92.8 (80-100) fl MCH 29.0 (26-34) pg MCHC 31.2 L (32-36) g/dl RDW 12.3 (11.5-14.5) % Plt Count 173 (150-375) k/mm3 MPV 11.2 H (7.4-10.4) fl Immature Gran % (Auto) 0.2 (0-0.5) % Neut % (Auto) 61.0 (45.5-73.1) % Lymph % (Auto) 22.0 (18.3-44.2) % [place] % (Auto) 10.4 H (2.6-8.5) % Eos % (Auto) 5.7 H (0-4.4) % Baso % (Auto) 0.7 (0.2-1.2) % Lymph # (Auto) 0.93 (0.9-3.2) K/mm3 [place] # (Auto) 0.4 (0.1-0.6) K/mm3 Eos # (Auto) 0.2 (0-0.3) K/mm3 Baso # (Auto) 0.0 (0.0-0.1) K/mm3 Abs Immat Gran (auto) 0.01 (0.00-0.031) K/mm3 Absolute Neuts (auto) 2.6 (1.3-6.7) K/mm3 Absolute Nucleated RBC 0.000 (0.0-0.012) K/mm3 Nucleated RBC % 0.0 (0.0-0.2) % PT 14.1 (11.1-14.7) Seconds INR 1.0 APTT 27.7 (22.3-36.8) Seconds Sodium 141 (137-145) mmol/L Potassium 3.9 (3.4-5.0) mmol/L Chloride 104 (98-107) mmol/L Carbon Dioxide 30 (22-30) mmol/L Anion Gap 7 (4-12) mmol/L BUN 10 (9-20) mg/dL Creatinine 1.20 (0.7-1.3) mg/dL Estim Creat Clear Calc 57 ml/min Estimated GFR > 60 (59 - ) Glucose 125 H (65-110) mg/dL Calcium 8.8 (8.4-10.2) mg/dL Total Bilirubin 0.5 (0.2-1.3) mg/dL AST 27 (17-59) U/L ALT 12 (6-50) U/L Alkaline Phosphatase 65 (38-126) U/L Troponin I 2.610 H* (0.000-0.034) ng/mL Total Protein 7.0 (6.3-8.2) g/dL Albumin 3.7 (3.5-5.1) g/dL Lipase 39 (23-300) U/L <Carlos Macias PA-C - Last Filed: 09/07/24 12:31> Lab Results 09/07/24 Range/Units 10:40 WBC 4.2 L (4.5-10.0) K/mm3 RBC 3.59 L (4.6-6.20) M/mm3 Hgb 10.4 L (14.0-18.0) g/dL Hct 33.3 L (42.0-52.0) % MCV 92.8 (80-100) fl MCH 29.0 (26-34) pg MCHC 31.2 L (32-36) g/dl RDW 12.3 (11.5-14.5) % Plt Count 173 (150-375) k/mm3 MPV 11.2 H (7.4-10.4) fl Immature Gran % (Auto) 0.2 (0-0.5) % Neut % (Auto) 61.0 (45.5-73.1) % Lymph % (Auto) 22.0 (18.3-44.2) % [place] % (Auto) 10.4 H (2.6-8.5) % Eos % (Auto) 5.7 H (0-4.4) % Baso % (Auto) 0.7 (0.2-1.2) % Lymph # (Auto) 0.93 (0.9-3.2) K/mm3 [place] # (Auto) 0.4 (0.1-0.6) K/mm3 Eos # (Auto) 0.2 (0-0.3) K/mm3 Baso # (Auto) 0.0 (0.0-0.1) K/mm3 Abs Immat Gran (auto) 0.01 (0.00-0.031) K/mm3 Absolute Neuts (auto) 2.6 (1.3-6.7) K/mm3 Absolute Nucleated RBC 0.000 (0.0-0.012) K/mm3 Nucleated RBC % 0.0 (0.0-0.2) % PT 14.1 (11.1-14.7) Seconds INR 1.0 APTT 27.7 (22.3-36.8) Seconds Sodium 141 (137-145) mmol/L Potassium 3.9 (3.4-5.0) mmol/L Chloride 104 (98-107) mmol/L Carbon Dioxide 30 (22-30) mmol/L Anion Gap 7 (4-12) mmol/L BUN 10 (9-20) mg/dL Creatinine 1.20 (0.7-1.3) mg/dL Estim Creat Clear Calc 57 ml/min Estimated GFR > 60 (59 - ) Glucose 125 H (65-110) mg/dL Calcium 8.8 (8.4-10.2) mg/dL Total Bilirubin 0.5 (0.2-1.3) mg/dL AST 27 (17-59) U/L ALT 12 (6-50) U/L Alkaline Phosphatase 65 (38-126) U/L Troponin I 2.610 H* (0.000-0.034) ng/mL Total Protein 7.0 (6.3-8.2) g/dL Albumin 3.7 (3.5-5.1) g/dL Lipase 39 (23-300) U/L <Erika Hauser MD - Last Filed: 09/07/24 15:17> ECG Data EKG #1: ECG completion date: 09/07/24 <Carlos Macias PA-C - Last Filed: 09/07/24 12:31> ECG completion time: 10:33 <Carlos Macias PA-C - Last Filed: 09/07/24 12:31> Prior ECG tracings: available for review <Carlos Macias PA-C - Last Filed: 09/07/24 12:31> Interpretation: Sinus rhythm with first-degree AV block Rate [address] depression, T-wave inversions seen, looks pretty similar to previous in [address] elevation in V1, V2, AVR No STEMI <Carlos Macias PA-C - Last Filed: 09/07/24 12:31> Critical Care Time Critical Care Time Critical Care Time: Yes <Carlos Macias PA-C - Last Filed: 09/07/24 12:31> Total Critical Care Time: 35 <Carlos Macias PA-C - Last Filed: 09/07/24 12:31> Discharge Plan Discharge Clinical Impression: Non-ST elevation IL (NSTEMI) <Carlos Macias PA-C - Last Filed: 09/07/24 12:31> Patient Disposition: Still a Patient <Carlos Macias PA-C - Last Filed: 09/07/24 12:31> Condition: Stable <Carlos Macias PA-C - Last Filed: 09/07/24 12:31>
--- NOTE | 2024-09-07 10:36 | ECG_ITS ---
Test Date: 2024-09-07 10:33:16 Measurements Intervals [place] Rate: 72 P: 92 [place]: 265 QRS: -23 QRSD: 110 T: -64 QT: 386 QTc: 425 Interpretive Statements SINUS RHYTHM WITH FIRST DEGREE AV BLOCK INCOMPLETE RIGHT BUNDLE BRANCH BLOCK LEFT VENTRICULAR HYPERTROPHY AND ST-T CHANGE BORDERLINE R WAVE PROGRESSION, ANTERIOR LEADS ST-T WAVE ABNORMALITY IN INFERIOR LEADS- CONSIDER ISCHEMIA BASELINE ARTIFACT- I, III, AVR, AVL, AVF, V1-V6 ABNORMAL ECG No previous ECG available for comparison Electronically Signed On 09-07-2024 10:53:44 [employer] by Juanito Guardado D.O.
[2024-09-07 10:45] LABS: Basophils Percent Auto 0.7 % (0.2-1.2); Eosinophils Absolute Auto 0.2 K/mm3 (0-0.3); Eosinophils Percent Auto 5.7 % (0-4.4); Hematocrit 33.3 % (42.0-52.0); Hemoglobin 10.4 g/dL (14.0-18.0); Immature Granulocyte Absolute 0.01 K/mm3 (0.00-0.031); Immature Granulocyte Percent A 0.2 % (0-0.5); Lymphocytes Absolute Auto 0.93 K/mm3 (0.9-3.2); Mean Corpuscular HGB Conc 31.2 g/dl (32-36); Mean Corpuscular Volume 92.8 fl (80-100); Mean Platelet Volume 11.2 fl (7.4-10.4); Monocytes Absolute Auto 0.4 K/mm3 (0.1-0.6); Monocytes Percent Auto 10.4 % (2.6-8.5); Neutrophils Absolute Auto 2.6 K/mm3 (1.3-6.7); Platelet Count Result 173 k/mm3 (150-375); Red Blood Count 3.59 M/mm3 (4.6-6.20); Red Cell Distribution Width 12.3 % (11.5-14.5); White Blood Count 4.2 K/mm3 (4.5-10.0)
[2024-09-07 10:59] LABS: Alanine Aminotransferase 12 U/L (6-50); Albumin Level 3.7 g/dL (3.5-5.1); Alkaline Phosphatase 65 U/L (38-126); Anion Gap 7 mmol/L (4-12); Aspartate Amino Transferase 27 U/L (17-59); Bilirubin,Total 0.5 mg/dL (0.2-1.3); Blood Urea Nitrogen 10 mg/dL (9-20); Calcium 8.8 mg/dL (8.4-10.2); Carbon Dioxide 30 mmol/L (22-30); Chloride 104 mmol/L (98-107); Estimated CRCL calculation 57 ml/min; Estimated Glomerular Filt Rate > 60; Glucose 125 mg/dL (65-110); Lipase 39 U/L (23-300); Potassium 3.9 mmol/L (3.4-5.0); Sodium 141 mmol/L (137-145)
[2024-09-07 11:03] LABS: Prothrombin Time 14.1 Seconds (11.1-14.7)
[2024-09-07 11:04] LABS: Partial Thromboplastin Time 27.7 Seconds (22.3-36.8)
[2024-09-07] MEDS: HEPARIN SOD/D5W 100 UNITS/ML 25,000 UNITS/250 ML BAG 10 UNITS IV CONT (11:56)
[2024-09-07] MEDS: HEPARIN SODIUM 5,000 UNITS/ML VIAL 4000 UNITS IV PUSH ×2 (11:57→18:41)
--- NOTE | 2024-09-07 12:04 | PM.CNCAR ---
Assessment and Plan Assessment and plan (1) Non-ST elevation LA (NSTEMI): Code(s): I21.4 - Non-ST elevation (NSTEMI) myocardial infarction Status: Acute Assessment and Plan: Troponin first one is 2.6. Start heparin drip, aspirin daily. Start Atorvastatin 40 mg daily. He is NPO still for today and has not taken Xarelto for 3 days. Obtain echo. Consult [facility] for [facility]. (2) PAF (paroxysmal atrial fibrillation): Code(s): I48.0 - Paroxysmal atrial fibrillation Status: Acute Assessment and Plan: In Sinus rhythm. (3) Hypertension: Qualifiers: Hypertension type: essential hypertension Qualified Code(s): I10 - Essential (primary) hypertension Code(s): I10 - Essential (primary) hypertension Status: Acute Assessment and Plan: High but he has not taken BP medication today. (4) Hyperlipidemia: Code(s): E78.5 - Hyperlipidemia, unspecified Status: Acute History of Present Illness History of Present Illness Consult date/time: 09/07/24 12:04 Reason For Visit: cp Narrative: 79 yr old man who is my regular cardiology patient a patient of Dr. Bagley presents to ER with chest pain. He has a history of hypertension (Amlodipine caused edema), dyslipidemia, atrial fibrillation, ablation procedure (I do not have details of this), PVT, ALEXUS on CPAP (sees Duglas Castillo). He was previously seeing senior occupational therapist at [facility] in [place], [place]. States he had intermittent chest pain for last several days and got worse this morning so he called 911 and brought to ER. He is wearing compression stockings and edema have resolved. Reports he rarely feels extra beats. He has fatigue walking 1 block. Admits to stops breathing while sleeping, and daytime sleepiness. Denies chest pain, sob, orthopnea, PND, dizziness. Cardiovascular Procedures Echo/MUGA:: 02/27/23 Echo: EF 55-60%, grade III diastolic dysfunction (E/e' 17), mod LAE, trace MR/TR, RVSP 45 mmHg. 12/25/20 Echo: EF 55-60%, mild LAE, mild PI, trace AI/MR/TR. Electrophysiology:: 01/20/24 7 days event monitor: Sinus rhythm, HR range 49-148 bpm; average 66; 3% PAC, 3% PVC, 1 VT at 148 bpm lasting 16 beats on 01/26/24 at 17:13. Symptoms correlated with PVC's. 12/26/22 23 days event monitor: Sinus rhythm, HR range 50-154 bpm; average 68 bpm; 7% PAC, 2% PVC, 6 episodes of VT, fastest at 154 bpm and longest lasted 10 beats; symptoms correlated with PAC's and PVC's. 12/26/22 EKG: Sinus rhythm at 63 bpm with first degree AV block, IVCD, borderline T wave in inferior leads. 11/19/22 EKG: Sinus bradycardia at 55 bpm, first degree AV block, IRBBB, cannot r/o septal infarct, supraventricular bigeminy, QTc 402 ms. 11/12/22 EKG: Sinus bradycardia at 57 bpm, IVCD, QTc 414 ms. 08/08/21 EKG: Sinus bradycardia at 57 bpm with supraventricular bigeminy, LVH, QTc 413 ms. 01/21/21 EKG: Sinus rhythm with first degree AV block, LAFB, LVH. 03/21/21 Holter unknown date: Sinus rhythm, HR range 47-130 bpm; average 63 bpm; Stress Tests:: 03/02/23 Lexiscan myoview: Negative. 03/19/23 Sleep study: Mild ALEXUS with desat 90%. 12/26/22 Venous duplex: No DVT of left leg. Review of Systems Review of Systems: All systems reviewed & are unremarkable except as noted in HPI and below Constitutional: Constitutional: Reports as per HPI, Denies chills and Denies fever(s) Cardiovascular: Cardiovascular: Reports as per HPI and Reports chest pain Respiratory: Respiratory: Reports as per HPI and Denies dyspnea Gastrointestinal: Gastrointestinal: Reports as per HPI and Denies abdominal pain Genitourinary: Genitourinary: Reports as per HPI and Denies dysuria Musculoskeletal: Musculoskeletal: Reports as per HPI Neurologic: Reports as per HPI, Denies dizziness and Denies syncope [facility] Past Medical History Medical History Bloating Chronic GERD Chronic sinusitis Colon polyps Gout Hyperlipidemia Hypertension Irritable bowel syndrome with diarrhea Surgical History Surgical History H/O hernia repair L & R groin H/O neck surgery H/O prostatectomy History of back surgery History of hemorrhoidectomy removed with a lazer Family History Family History Father Lung cancer Social History Social History Smoking status: Former smoker Alcohol intake: never Substance use: never Do You Feel Safe in your Home?: Yes Lack of Transportation: No Lack of Food: Never True Current Housing: I Have Housing Concerned About Future Housing: No Difficulty Paying Gas/Electric Bills: No Difficulty Paying for Meds: No Currently Unemployed: No Education: High School Diploma/GED Difficulty w/ Childcare or Family Care: No Living arrangements: alone Occupation/Education: retired Gender identity (if verbalized by the patient): Male Meds Home Medications and Allergies Home Medications Medication Instructions Recorded Confirmed Type lorazepam 0.5 mg tablet 0.5 mg PO DAILY PRN anxiety #30 02/08/24 07/11/24 Rx tabs febuxostat 40 mg tablet 80 mg PO HS 04/28/24 07/11/24 History rivaroxaban 20 mg tablet (Xarelto) 20 mg PO DAILY #90 tabs 05/12/24 07/11/24 Rx carvedilol 25 mg tablet 25 mg PO BID 06/01/24 07/11/24 History hydralazine 25 mg tablet 25 mg PO TID 06/01/24 07/11/24 History losartan 100 mg tablet 100 mg PO DAILY 06/01/24 07/11/24 History azithromycin 250 mg tablet See Rx Instructions PO .COMPLEX #6 07/13/24 Rx (Zithromax) tabs Nexium 40 mg capsule,delayed 40 mg PO DAILY #90 caps 08/12/24 Rx release (esomeprazole magnesium) Allergies Allergy/AdvReac Type Severity Reaction Status Date / Time adhesive tape Allergy Hives Verified 07/11/24 14:10 levofloxacin [From Levaquin] Allergy Rash Verified 07/11/24 14:10 Vital Signs Vital Signs - 24 hr 09/07/24 10:29 09/07/24 11:05 Temperature 98.2 F Pulse Rate 72 Respiratory Rate 14 Blood Pressure 158/98 H Pulse Oximetry 98 98 Oxygen Delivery Room Air Exam Const: General: cooperative, healthy appearing and comfortable Resp: Auscultation: clear to auscultation bilaterally, no crackles, no rales, no rhonchi and no wheezes Cardio: Rate: regular rate Rhythm: regular rhythm Heart sounds: no murmurs Peripheral pulses: dorsalis pedis present GI: GI Palp: No abdominal tenderness and Yes Soft to palpation Neuro: General: oriented to person, oriented to place and oriented to time Extrem: Right lower extremity: no edema Left lower extremity: no edema Results Labs and Meds 09/07/24 10:40 09/07/24 10:40 Lab results: Cardiac Enzymes 09/07/24 Range/Units 10:40 AST 27 (17-59) U/L Troponin I 2.610 H* (0.000-0.034) ng/mL Coagulation 09/07/24 Range/Units 10:40 PT 14.1 (11.1-14.7) Seconds APTT 27.7 (22.3-36.8) Seconds CBC 09/07/24 Range/Units 10:40 WBC 4.2 L (4.5-10.0) K/mm3 RBC 3.59 L (4.6-6.20) M/mm3 Hgb 10.4 L (14.0-18.0) g/dL Hct 33.3 L (42.0-52.0) % Plt Count 173 (150-375) k/mm3 Lymph # (Auto) 0.93 (0.9-3.2) K/mm3 [place] # (Auto) 0.4 (0.1-0.6) K/mm3 Eos # (Auto) 0.2 (0-0.3) K/mm3 Baso # (Auto) 0.0 (0.0-0.1) K/mm3 Comprehensive Metabolic Panel 09/07/24 Range/Units 10:40 Sodium 141 (137-145) mmol/L Potassium 3.9 (3.4-5.0) mmol/L Chloride 104 (98-107) mmol/L Carbon Dioxide 30 (22-30) mmol/L BUN 10 (9-20) mg/dL Creatinine 1.20 (0.7-1.3) mg/dL Glucose 125 H (65-110) mg/dL Calcium 8.8 (8.4-10.2) mg/dL AST 27 (17-59) U/L ALT 12 (6-50) U/L Alkaline Phosphatase 65 (38-126) U/L Total Protein 7.0 (6.3-8.2) g/dL Albumin 3.7 (3.5-5.1) g/dL Patient Weight 09/07/24 23:59 Weight 109 kg
[2024-09-07] MEDS: METOPROLOL TARTRATE INJ 5 MG/5 ML VIAL IV PUSH (12:05)
[2024-09-07] MEDS: hydrALAZINE HCL 25 MG TABLET PO ×2 (13:20→17:41)
[2024-09-07] MEDS: carvediloL 25 MG TABLET PO ×2 (13:20→20:35)
--- NOTE | 2024-09-07 13:22 | ECG_ITS ---
Test Date: 2024-09-07 13:32:01 Measurements Intervals [place] Rate: 62 P: 96 [place]: 272 QRS: -29 QRSD: 112 T: -42 QT: 421 QTc: 428 Interpretive Statements SINUS RHYTHM WITH FIRST DEGREE AV BLOCK INCOMPLETE RIGHT BUNDLE BRANCH BLOCK LEFT VENTRICULAR HYPERTROPHY AND ST-T CHANGE ST-T WAVE ABNORMALITY IN INF/LAT LEADS- CONSIDER ISCHEMIA BASELINE ARTIFACT- I, II, III, AVR, AVL, AVF, V1-V6 ABNORMAL ECG Compared to ECG 09/07/2024 10:33:16 NO SIGNIFICANT CHANGE Electronically Signed On 09-07-2024 13:52:04 [employer]PUT[employer] MANAGER by Juanito Guardado D.O.
--- NOTE | 2024-09-07 13:41 | P.HP_ITS ---
H&P: HPI History of Present Illness Date/Time: 09/07/24 13:41 Chief Complaint: Chest Pain Narrative: 79 y/o M presents here with chest pain with PMH of AFib, GERD, gout, HLD, HTN, IBS-D, and ALEXUS (on CPAP). The patient presents here with intermittent chest pain from home via EMS. He reports the pain has been coming and going since Thursday or Thursday (09/02 v 09/03). Pain has typically lasted a few hours except for Thursday night where it effected him majority of the night. He describes it as midsternal, nonradiating, intermittent, and has no alleviating or aggravating factors beyond some relief with ASA/nitro. Initially believed the pain was indigestion Nexium and Tums when it first started which seemed to calm it down . Also accompanied by a productive cough due to a post-nasal drip and has chronic sinus issues for which he was scheduled for an ENT procedure this month. Denies accompanying shortness of breath, palpitations, dizziness, nausea, vomiting, diaphoresis. Given the pain continued to reoccur for multiple days, the patient then elected to seek care and called EMS. The patient was given sublingual nitro x1 and aspirin 324 by EMS with partial relief and now less severe. The patient is currently on Xarelto for AFib. He reports no further cardiac history. Initial VS at presentation: 98.2? F, HR 72, R 14, 158/90, and 98% on RA. ED workup showed: WBC 4.2, hemoglobin 10.4 (previously 10.2 on 06/08/2024), normal coags, creatinine 1.2 and number GFR, glucose 125, initial troponin 2.61. CXR showed no acute cardiopulmonary pathology. Initial EKG showed sinus rhythm with first-degree AV block, incomplete RBBB, left ventricular hypertrophy and ST-T change, borderline R-wave progression anterior leads, ST-T-wave abnormality in inferior leads consider ischemia. Review of Systems Review of Systems: All systems reviewed & are unremarkable except as noted in HPI and below PMFSH Past Medical History Medical History Anemia Arthritis B12 deficiency Chronic sinusitis Colon polyps GERD (gastroesophageal reflux disease) Gout Hearing loss, bilateral Hyperlipidemia Hypersomnia Hypertension Irritable bowel syndrome with diarrhea Obstructive sleep apnea PAF (paroxysmal atrial fibrillation) PVT (paroxysmal ventricular tachycardia) Surgical History Surgical History H/O hernia repair L & R groin H/O neck surgery cervical fusion H/O prostatectomy History of back surgery History of hemorrhoidectomy removed with a lazer Family History Family History Father Lung cancer Social History Social History Smoking packs per day: 0.15 Smoking cigarettes per day: 3.0 Years smoked: 30 Smoking pack-years: 4.50 Smoking status: Former smoker Alcohol intake: never Substance use: never Do You Feel Safe in your Home?: Yes Lack of Transportation: No Lack of Food: Never True Current Housing: I Have Housing Concerned About Future Housing: No Difficulty Paying Gas/Electric Bills: No Difficulty Paying for Meds: No Currently Unemployed: No Education: High School Diploma/GED Difficulty w/ Childcare or Family Care: No Living arrangements: alone Occupation/Education: retired Gender identity (if verbalized by the patient): Male Spiritual care concerns: No Meds Home Medications and Allergies Home Medications Medication Instructions Recorded Confirmed Type lorazepam 0.5 mg tablet 0.5 mg PO DAILY PRN anxiety #30 02/08/24 09/07/24 Rx tabs febuxostat 40 mg tablet 80 mg PO HS 04/28/24 09/07/24 History rivaroxaban 20 mg tablet (Xarelto) 20 mg PO DAILY #90 tabs 05/12/24 09/07/24 Rx carvedilol 25 mg tablet 25 mg PO BID 06/01/24 09/07/24 History hydralazine 25 mg tablet 25 mg PO TID 06/01/24 09/07/24 History losartan 100 mg tablet 100 mg PO DAILY 06/01/24 09/07/24 History Nexium 40 mg capsule,delayed 40 mg PO DAILY #90 caps 08/12/24 09/07/24 Rx release (esomeprazole magnesium) Allergies Allergy/AdvReac Type Severity Reaction Status Date / Time adhesive tape Allergy Hives Verified 07/11/24 14:10 levofloxacin [From Levaquin] Allergy Rash Verified 07/11/24 14:10 Vital Signs Vital Signs - 24 hr 09/07/24 10:29 09/07/24 11:05 09/07/24 12:05 Temperature 98.2 F Pulse Rate 72 66 Respiratory Rate 14 Blood Pressure 158/98 H Pulse Oximetry 98 98 Oxygen Delivery Room Air 09/07/24 11:00 09/07/24 11:27 09/07/24 11:31 Temperature Pulse Rate 73 66 67 Respiratory Rate 14 15 14 Blood Pressure 147/86 H 138/81 164/105 H Pulse Oximetry 99 99 100 Oxygen Delivery 09/07/24 11:46 09/07/24 12:01 09/07/24 13:20 Temperature Pulse Rate 73 66 61 Respiratory Rate 13 14 Blood Pressure 170/106 H 187/101 H Pulse Oximetry 100 100 Oxygen Delivery 09/07/24 12:11 09/07/24 12:53 09/07/24 13:01 Temperature Pulse Rate 60 58 L 58 L Respiratory Rate 14 16 18 Blood Pressure 164/95 H 156/94 H 157/93 H Pulse Oximetry 100 98 98 Oxygen Delivery 09/07/24 13:11 09/07/24 13:21 09/07/24 13:20 Temperature Pulse Rate 59 L 61 61 Respiratory Rate 16 14 Blood Pressure 146/77 H 160/91 H Pulse Oximetry 98 100 Oxygen Delivery Exam Const: General: comfortable and no acute distress Other: , male, nontoxic appearance HENMT: Face/Nose/Sinus: Normal nares present Mouth: Yes moist mucous membranes Eyes: General: appearance normal, both eyes and all related structures Sc rossy: sclerae normal Pupils: Equal, round and reactive pupils present EOM: EOMs intact bilaterally Resp: Effort & Inspection: normal respiratory effort Auscultation: clear to auscultation bilaterally Cardio: Rate: regular rate Rhythm: regular rhythm Other: S1-S2 present without murmur, rub, ectopy GI: Other: Abdomen soft, nondistended, nontender Skin: General skin exam: normal color and no rashes or lesions noted Wounds: no wounds Neuro: Speech: normal speech Motor exam (neuro): 5/5 motor strength present throughout Sensory Exam: normal sensation Other: A&O x4 Extrem: Other: Trace edema to bilateral ankles, symmetric Psych: Mental Status: mental status grossly normal Affect: normal affect Other: Good insight and judgment, pleasant H&P: Results Labs Labs: Short CBC 09/07/24 Range/Units 10:40 WBC 4.2 L (4.5-10.0) K/mm3 Hgb 10.4 L (14.0-18.0) g/dL Hct 33.3 L (42.0-52.0) % Plt Count 173 (150-375) k/mm3 BMP 09/07/24 10:40 Sodium 141 Potassium 3.9 Chloride 104 Carbon Dioxide 30 BUN 10 Creatinine 1.20 Glucose 125 H Calcium 8.8 Cardiac Enzymes 09/07/24 Range/Units 10:40 Troponin I 2.610 H* (0.000-0.034) ng/mL Liver Function 09/07/24 Range/Units 10:40 Total Bilirubin 0.5 (0.2-1.3) mg/dL AST 27 (17-59) U/L ALT 12 (6-50) U/L Alkaline Phosphatase 65 (38-126) U/L Albumin 3.7 (3.5-5.1) g/dL Assessment and Plan Assessment and plan (1) Non-ST elevation DC (NSTEMI): Code(s): I21.4 - Non-ST elevation (NSTEMI) myocardial infarction Status: Acute Assessment and Plan: - EKG, initial: Sinus rhythm first-degree AV block, incomplete RBBB, left ventricular hypertrophy and ST-T change, borderline R-wave progression anterior leads, ST-T-wave abnormality in inferior leads consider ischemia, and baseline artifact. - EKG, repeat (1): When compared to EKG done earlier today, T-wave abnormality and possible ischemia no longer present. ST-T-wave deviations present. Awaiting formal read. - CXR: No acute cardiopulmonary pathology - Troponin: 2.610 -> 3.0 and 3rd troponin ordered - ASA 324 given, continue as 81 daily and SL nitro PRN - cardiology consulted, Geo DOZIER. Provided the following recs: start heparin gtt and daily ASA/statin NPO, has not taken Xarelto x3 days consult to interventional cards for cath - started on heparin gtt, hold home Xarelto - add lipid panel - echo, previous (01/2023): Normal systolic function, estimated EF 55-60%, grade 3 diastolic dysfunction. See report for details. Update, echo ordered. - stress test, previous (03/2023): Negative Lexiscan, baseline hypertension - telemetry monitoring (2) Hypertension: Qualifiers: Hypertension type: essential hypertension Qualified Code(s): I10 - Essential (primary) hypertension Code(s): I10 - Essential (primary) hypertension Status: Chronic Assessment and Plan: - chronic, currently 160/91 - continue home medications: coreg 25 mg b.i.d., losartan 100 mg daily, and hydralazine 25 mg t.i.d. - monitor (3) Obstructive sleep apnea: Code(s): G47.33 - Obstructive sleep apnea (adult) (pediatric) Status: Chronic Assessment and Plan: - continue home CPAP Plan Diet: Heart healthy, NPO midnight GI Prophylaxis: Not currently indicated DVT Prophylaxis: Heparin gtt Lines: Peripheral Code Status: Full code Quality VTE Prophylaxis VTE prophylaxis: pharmacologic ordered Hospitalist MIPS Advance Care Plan I have confirmed that the patient's Advanced Care Plan is present, code status is documented, or surrogate decision maker is listed in patient medical record.: Yes Medication Reconciliation I have utilized all available resources to obtain, update and review the patients current medications (includes all prescriptions, OTC, herbals, cannabis, and nutritional supplements).: Yes
--- NOTE | 2024-09-07 15:09 | ADMGEN ---
This patient, Deep Goss, was admitted to IMU Room 201-01 at 1344. Patient/family oriented to hospital policies and general routines including ID bracelet, bed and alarms, visiting hours, pain management, procedures, bathroom and other care routines, personal items, smoking policy, room service/diet, and visiting hours. Information on how to activate the Rapid Response Team has been discussed. Patient/Family are encouraged to report perceived risks to care and to ask questions if they do not understand what they are told or what they should do.
[2024-09-07] MEDS: PERFLUTREN LIPID MICROSPHERES 1.5 ML VIAL DILUTED TO 10 ML TOTAL VOLUME IV PUSH (16:41)
--- NOTE | 2024-09-07 16:42 | IVDEFINITY ---
Prior to administration of IV Definity the patient was educated on the risks and benefits of the imaging enhancing agent including potential adverse side effects. The patient verbalized understanding. Allergies were verified. No exclusion criteria were identified and at least one of the following inclusion criteria were met: 1) physician request, 2) patient technically difficult to image (per the [place] [employer] guidelines of two or more segments not discernable within the apical view), or 3) questionable left ventricular function. ?
[2024-09-07 18:21] LABS: Partial Thromboplastin Time 46.4 Seconds (22.3-36.8)
[2024-09-07] MEDS: FEBUXOSTAT 40 MG TABLET 80 MG PO (20:35)
[2024-09-07] MEDS: ATORVASTATIN 40 MG TABLET PO (20:35)
[2024-09-08] VITALS (35 sets, daily range): BP systolic 124–183; BP diastolic 56–96; PULSE 55–83; RESP 12–20; TEMP 36.6–37; O2SAT 97–100
[2024-09-08 03:19] LABS: Partial Thromboplastin Time 80.4 Seconds (22.3-36.8)
[2024-09-08 05:28] LABS: Basophils Percent Auto 0.6 % (0.2-1.2); Eosinophils Absolute Auto 0.3 K/mm3 (0-0.3); Eosinophils Percent Auto 6.4 % (0-4.4); Hemoglobin 9.8 g/dL (14.0-18.0); Immature Granulocyte Absolute 0.01 K/mm3 (0.00-0.031); Immature Granulocyte Percent A 0.2 % (0-0.5); Lymphocytes Absolute Auto 1.36 K/mm3 (0.9-3.2); Lymphocytes Percent Auto 27.3 % (18.3-44.2); Mean Corpuscular HGB Conc 30.6 g/dl (32-36); Mean Corpuscular Hemoglobin 28.6 pg (26-34); Mean Corpuscular Volume 93.3 fl (80-100); Monocytes Absolute Auto 0.6 K/mm3 (0.1-0.6); Monocytes Percent Auto 11.6 % (2.6-8.5); Neutrophils Absolute Auto 2.7 K/mm3 (1.3-6.7); Neutrophils Percent Auto 53.9 % (45.5-73.1); Platelet Count Result 152 k/mm3 (150-375); Red Blood Count 3.43 M/mm3 (4.6-6.20); Red Cell Distribution Width 12.3 % (11.5-14.5)
[2024-09-08 05:36] LABS: Potassium 3.5 mmol/L (3.4-5.0)
[2024-09-08 05:44] LABS: Alanine Aminotransferase 12 U/L (6-50); Albumin Level 3.3 g/dL (3.5-5.1); Alkaline Phosphatase 71 U/L (38-126); Anion Gap 4 mmol/L (4-12); Aspartate Amino Transferase 27 U/L (17-59); Bilirubin,Total 0.4 mg/dL (0.2-1.3); Blood Urea Nitrogen 11 mg/dL (9-20); Calcium 8.6 mg/dL (8.4-10.2); Carbon Dioxide 29 mmol/L (22-30); Chloride 106 mmol/L (98-107); Cholesterol 137 mg/dL (0-200); Estimated CRCL calculation 56 ml/min; Estimated Glomerular Filt Rate > 60; Glucose 116 mg/dL (65-110); HDL Direct 30 mg/dL; Sodium 139 mmol/L (137-145); Triglycerides 91 mg/dL (<150)
[2024-09-08 05:47] LABS: LDL Cholesterol Direct 79 mg/dL
--- NOTE | 2024-09-08 07:53 | P.PNCA_ITS ---
Progress Note: A&P Assessment and Plan (1) Non-ST elevation DC (NSTEMI): Code(s): I21.4 - Non-ST elevation (NSTEMI) myocardial infarction Status: Acute Assessment and Plan: Troponin trending up at 4.16. On heparin drip, aspirin daily. Started Atorvastatin 40 mg daily. 09/07/24 Echo: EF 55-60%, mild LVE, grade I diastolic dysfunction, mod LAE, trace MR/PI, mild TR, RVSP 42 mmHg. Discuss risks/benefits/alternative to LHC and he is agreeable to procedure. Consult [facility] for C today. (2) PAF (paroxysmal atrial fibrillation): Code(s): I48.0 - Paroxysmal atrial fibrillation Status: Inactive Assessment and Plan: In Sinus rhythm. (3) Hypertension: Qualifiers: Hypertension type: essential hypertension Qualified Code(s): I10 - Essential (primary) hypertension Code(s): I10 - Essential (primary) hypertension Status: Chronic Assessment and Plan: Stable. (4) Hyperlipidemia: Code(s): E78.5 - Hyperlipidemia, unspecified Status: Inactive Assessment and Plan: Started Atorvastatin. Subjective Date/time seen: 09/08/24 07:53 Interval history: Denies chest pain or sob. Exam Const: General: cooperative, healthy appearing and comfortable Orientation/consciousness: oriented to person, oriented to place and oriented to time Resp: Auscultation: clear to auscultation bilaterally, no crackles, no rales, no rhonchi and no wheezes Cardio: Rate: regular rate Rhythm: regular rhythm Heart sounds: no murmurs Peripheral pulses: dorsalis pedis present Neuro: General: oriented to person, oriented to place and oriented to time Extrem: Right lower extremity: no edema Left lower extremity: no edema Objective Data Vital Signs Vital Signs: Vital Signs - 24 hr 09/07/24 10:29 09/07/24 11:05 09/07/24 12:05 Temperature 98.2 F Pulse Rate 72 66 Respiratory Rate 14 Blood Pressure 158/98 H Pulse Oximetry 98 98 Oxygen Delivery Room Air 09/07/24 11:00 09/07/24 11:27 09/07/24 11:31 Temperature Pulse Rate 73 66 67 Respiratory Rate 14 15 14 Blood Pressure 147/86 H 138/81 164/105 H Pulse Oximetry 99 99 100 Oxygen Delivery 09/07/24 11:46 09/07/24 12:01 09/07/24 13:20 Temperature Pulse Rate 73 66 61 Respiratory Rate 13 14 Blood Pressure 170/106 H 187/101 H Pulse Oximetry 100 100 Oxygen Delivery 09/07/24 12:11 09/07/24 12:53 09/07/24 13:01 Temperature Pulse Rate 60 58 L 58 L Respiratory Rate 14 16 18 Blood Pressure 164/95 H 156/94 H 157/93 H Pulse Oximetry 100 98 98 Oxygen Delivery 09/07/24 13:11 09/07/24 13:21 09/07/24 13:20 Temperature Pulse Rate 59 L 61 61 Respiratory Rate 16 14 Blood Pressure 146/77 H 160/91 H Pulse Oximetry 98 100 Oxygen Delivery 09/07/24 14:08 09/07/24 15:08 09/07/24 16:00 Temperature 98.2 F 98.3 F Pulse Rate 76 76 75 Respiratory Rate 20 20 Blood Pressure 153/83 H 129/68 Pulse Oximetry 100 99 Oxygen Delivery 09/07/24 16:00 09/07/24 18:00 09/07/24 20:18 Temperature 98.2 F Pulse Rate 76 72 Respiratory Rate 20 Blood Pressure 133/72 Pulse Oximetry 100 Oxygen Delivery Room Air 09/07/24 20:35 09/07/24 20:00 09/07/24 23:38 Temperature 98.1 F Pulse Rate 76 71 Respiratory Rate 20 Blood Pressure 123/64 Pulse Oximetry 99 Oxygen Delivery Room Air 09/08/24 00:00 09/07/24 20:00 09/07/24 22:00 Temperature Pulse Rate 77 71 Respiratory Rate Blood Pressure Pulse Oximetry Oxygen Delivery Room Air 09/08/24 00:00 09/08/24 02:00 09/08/24 03:16 Temperature Pulse Rate 69 58 L Respiratory Rate Blood Pressure Pulse Oximetry Oxygen Delivery Room Air 09/08/24 03:55 09/08/24 04:00 09/08/24 06:00 Temperature 98.1 F Pulse Rate 63 83 65 Respiratory Rate 20 Blood Pressure 124/56 L Pulse Oximetry 100 Oxygen Delivery Intake/Output Intake/Output: Intake & Output 09/05/24 09/06/24 09/07/24 09/08/24 23:59 23:59 23:59 23:59 Intake Total 307.7 Output Total 600 Balance 307.7 -600 Meds/Results Medications: Active Medications Generic Name Dose Route Start Last Admin Trade Name Freq PRN Reason Stop Dose Admin Aspirin 81 mg 09/08/24 09:00 Aspirin 81 Mg Enteric Tablet PO QAM [facility] Atorvastatin Calcium 40 mg 09/07/24 21:00 09/07/24 20:35 Atorvastatin 40 Mg Tablet PO 40 mg QHS ISABELL Administration Carvedilol 25 mg 09/07/24 12:15 09/07/24 20:35 Carvedilol 25 Mg Tablet PO 25 mg Q12HR ISABELL Administration Febuxostat 80 mg 09/07/24 21:00 09/07/24 20:35 Febuxostat 40 Mg Tablet PO 80 mg HS ISABELL Administration Heparin Sodium (Porcine) 4,000 units 09/07/24 11:26 09/07/24 18:41 Heparin Sodium 5,000 Units/Ml Vial IV PUSH 4,000 units PRN PRN Administration aPTT less than 55 seconds Heparin Sodium (Porcine) 4,000 units 09/07/24 11:27 Heparin Sodium 5,000 Units/Ml Vial IV PUSH PRN PRN aPTT 55 - 70 seconds Hydralazine HCl 25 mg 09/07/24 13:00 09/07/24 17:41 Hydralazine Hcl 25 Mg Tablet PO 25 mg TID [facility] Administration Hydromorphone HCl 0.5 mg 09/07/24 11:50 Hydromorphone Hcl Inj (*Crx) 1 Mg/Ml Syr IV PUSH Q4H PRN Pain Rated 7-10 Heparin Sodium/Dextrose 25,000 units in 250 mls @ 14 mls/hr 09/07/24 11:25 09/07/24 18:42 Heparin Sodium/D5w 100 Units/Ml IV CONT 1,400 units/hr .[id number] [facility] 14 mls/hr Titration Protocol 1,400 UNITS/HR Lorazepam 0.5 mg 09/07/24 17:36 Lorazepam (*Crx) 0.5 Mg Tablet PO DAILY PRN anxiety Losartan Potassium 100 mg 09/08/24 09:00 Losartan Potassium 100 Mg Tablet PO DAILY [facility] Nitroglycerin 0.4 mg 09/07/24 13:53 Nitroglycerin Sl 0.4 Mg Tablet SUBLINGUAL Q5MIN PRN Chest Pain Ondansetron HCl 4 mg 09/07/24 11:50 Ondansetron Inj 4 Mg/2 Ml Vial IV PUSH Q4H PRN Nausea Pantoprazole Sodium 40 mg 09/08/24 09:00 Pantoprazole 40 Mg Tablet PO DAILY ISABELL Radiology Results: ITS Impressions Chest X-Ray 09/07/24 11:34 IMPRESSION: No acute cardiopulmonary pathology. Labs Labs: Laboratory Results - last 24 hr 09/07/24 09/07/24 09/07/24 10:40 13:26 17:42 WBC 4.2 L RBC 3.59 L Hgb 10.4 L Hct 33.3 L MCV 92.8 MCH 29.0 MCHC 31.2 L RDW 12.3 Plt Count 173 MPV 11.2 H Immature Gran % (Auto) 0.2 Neut % (Auto) 61.0 Lymph % (Auto) 22.0 [place] % (Auto) 10.4 H Eos % (Auto) 5.7 H Baso % (Auto) 0.7 Lymph # (Auto) 0.93 [place] # (Auto) 0.4 Eos # (Auto) 0.2 Baso # (Auto) 0.0 Abs Immat Gran (auto) 0.01 Absolute Neuts (auto) 2.6 Absolute Nucleated RBC 0.000 Nucleated RBC % 0.0 PT 14.1 INR 1.0 APTT 27.7 46.4 H Sodium 141 Potassium 3.9 Chloride 104 Carbon Dioxide 30 Anion Gap 7 BUN 10 Creatinine 1.20 Estim Creat Clear Calc 57 Estimated GFR > 60 Glucose 125 H Calcium 8.8 Total Bilirubin 0.5 AST 27 ALT 12 Alkaline Phosphatase 65 Troponin I 2.610 H* 3.000 H* 3.640 H* D Total Protein 7.0 Albumin 3.7 Triglycerides Cholesterol LDL Cholesterol Direct HDL Direct Lipase 39 09/08/24 09/08/24 00:44 04:16 WBC 5.0 RBC 3.43 L Hgb 9.8 L Hct 32.0 L MCV 93.3 MCH 28.6 MCHC 30.6 L RDW 12.3 Plt Count 152 MPV 12.0 H Immature Gran % (Auto) 0.2 Neut % (Auto) 53.9 Lymph % (Auto) 27.3 [place] % (Auto) 11.6 H Eos % (Auto) 6.4 H Baso % (Auto) 0.6 Lymph # (Auto) 1.36 [place] # (Auto) 0.6 Eos # (Auto) 0.3 Baso # (Auto) 0.0 Abs Immat Gran (auto) 0.01 Absolute Neuts (auto) 2.7 Absolute Nucleated RBC 0.000 Nucleated RBC % 0.0 PT INR APTT 80.4 H Sodium 139 Potassium 3.5 Chloride 106 Carbon Dioxide 29 Anion Gap 4 BUN 11 Creatinine 1.20 Estim Creat Clear Calc 56 Estimated GFR > 60 Glucose 116 H Calcium 8.6 Total Bilirubin 0.4 AST 27 ALT 12 Alkaline Phosphatase 71 Troponin I 4.160 H* Total Protein 6.0 L Albumin 3.3 L Triglycerides 91 Cholesterol 137 LDL Cholesterol Direct 79 HDL Direct 30 Lipase
[2024-09-08 09:58] LABS: Activated Clotting Time 226 SEC (74-137)
[2024-09-08 10:26] LABS: Activated Clotting Time 250 SEC (74-137)
--- NOTE | 2024-09-08 10:38 | WPDHPUPDATE1 ---
History and Physical Update Update Date/Time: 09/08/24 9:08 History and Physical has been reviewed, including an updated exam of the patient. There are NO changes in the patient's condition. Risks, benefits, and alternatives have been discussed and questions answered. Patient agrees to proceed with procedure.
--- NOTE | 2024-09-08 10:38 | WPDMODSED ---
Moderate Sedation Note-Pt Data Patient Data Allergies Allergy/AdvReac Type Severity Reaction Status Date / Time adhesive tape Allergy Hives Verified 07/11/24 14:10 levofloxacin [From Levaquin] Allergy Rash Verified 07/11/24 14:10 Home Medications Medication Instructions Recorded Confirmed Type lorazepam 0.5 mg tablet 0.5 mg PO DAILY PRN anxiety #30 02/08/24 09/07/24 Rx tabs febuxostat 40 mg tablet 80 mg PO HS 04/28/24 09/07/24 History rivaroxaban 20 mg tablet (Xarelto) 20 mg PO DAILY #90 tabs 05/12/24 09/07/24 Rx carvedilol 25 mg tablet 25 mg PO BID 06/01/24 09/07/24 History hydralazine 25 mg tablet 25 mg PO TID 06/01/24 09/07/24 History losartan 100 mg tablet 100 mg PO DAILY 06/01/24 09/07/24 History Nexium 40 mg capsule,delayed 40 mg PO DAILY #90 caps 08/12/24 09/07/24 Rx release (esomeprazole magnesium) Current Medications: Active Medications Aspirin (Aspirin 81 Mg Enteric Tablet) 81 mg PO QAM [facility] Atorvastatin Calcium (Atorvastatin 40 Mg Tablet) 40 mg PO QHS [facility] Last Admin: 09/07/24 20:35 Dose: 40 mg Carvedilol (Carvedilol 25 Mg Tablet) 25 mg PO Q12HR [facility] Last Admin: 09/07/24 20:35 Dose: 25 mg Febuxostat (Febuxostat 40 Mg Tablet) 80 mg PO HS [facility] Last Admin: 09/07/24 20:35 Dose: 80 mg Heparin Sodium (Porcine) (Heparin Sodium 5,000 Units/Ml Vial) 4,000 units IV PUSH PRN PRN PRN Reason: aPTT less than 55 seconds Last Admin: 09/07/24 18:41 Dose: 4,000 units Heparin Sodium (Porcine) (Heparin Sodium 5,000 Units/Ml Vial) 4,000 units IV PUSH PRN PRN PRN Reason: aPTT 55 - 70 seconds Hydralazine HCl (Hydralazine Hcl 25 Mg Tablet) 25 mg PO TID [facility] Last Admin: 09/07/24 17:41 Dose: 25 mg Hydromorphone HCl (Hydromorphone Hcl Inj (*Crx) 1 Mg/Ml Syr) 0.5 mg IV PUSH Q4H PRN PRN Reason: Pain Rated 7-10 Heparin Sodium/Dextrose (Heparin Sodium/D5w 100 Units/Ml) 25,000 units in 250 mls @ 14 mls/hr IV CONT .[id number] ISABELL; Protocol Last Titration: 09/07/24 18:42 Dose: 1,400 units/hr, 14 mls/hr Lorazepam (Lorazepam (*Crx) 0.5 Mg Tablet) 0.5 mg PO DAILY PRN PRN Reason: anxiety Losartan Potassium (Losartan Potassium 100 Mg Tablet) 100 mg PO DAILY ISABELL Nitroglycerin (Nitroglycerin Sl 0.4 Mg Tablet) 0.4 mg SUBLINGUAL Q5MIN PRN PRN Reason: Chest Pain Ondansetron HCl (Ondansetron Inj 4 Mg/2 Ml Vial) 4 mg IV PUSH Q4H PRN PRN Reason: Nausea Pantoprazole Sodium (Pantoprazole 40 Mg Tablet) 40 mg PO DAILY [facility] Sedation/Anesthesia: No previous sedation/anesthesia problems (including family history). [facility] Past Medical History Medical History Anemia Arthritis B12 deficiency Chronic sinusitis Colon polyps GERD (gastroesophageal reflux disease) Gout Hearing loss, bilateral Hyperlipidemia Hypersomnia Hypertension Irritable bowel syndrome with diarrhea Obstructive sleep apnea PAF (paroxysmal atrial fibrillation) PVT (paroxysmal ventricular tachycardia) Surgical History Surgical History H/O hernia repair L & R groin H/O neck surgery cervical fusion H/O prostatectomy History of back surgery History of hemorrhoidectomy removed with a lazer Family History Family History Father Lung cancer Social History Social History Smoking packs per day: 0.15 Smoking cigarettes per day: 3.0 Years smoked: 30 Smoking pack-years: 4.50 Smoking status: Former smoker Alcohol intake: never Substance use: never Do You Feel Safe in your Home?: Yes Lack of Transportation: No Lack of Food: Never True Current Housing: I Have Housing Concerned About Future Housing: No Difficulty Paying Gas/Electric Bills: No Difficulty Paying for Meds: No Currently Unemployed: No Education: High School Diploma/GED Difficulty w/ Childcare or Family Care: No Living arrangements: alone Occupation/Education: retired Gender identity (if verbalized by the patient): Male Spiritual care concerns: No Mod Sed Physical Exam Physical Exam Pre Procedural Exam: Normal: Appearance Hours since solid foods: 12 Hours since liquid intake: 12 Mallampati Classification: class II Internal Medicine - PN: Obj Da Vital Signs Vital Signs: Vital Signs - 24 hr 09/07/24 11:05 09/07/24 12:05 09/07/24 11:00 Temperature Pulse Rate 66 73 Respiratory Rate 14 Blood Pressure 147/86 H Pulse Oximetry 98 99 Oxygen Delivery Room Air 09/07/24 11:27 09/07/24 11:31 09/07/24 11:46 Temperature Pulse Rate 66 67 73 Respiratory Rate 15 14 13 Blood Pressure 138/81 164/105 H 170/106 H Pulse Oximetry 99 100 100 Oxygen Delivery 09/07/24 12:01 09/07/24 13:20 09/07/24 12:11 Temperature Pulse Rate 66 61 60 Respiratory Rate 14 14 Blood Pressure 187/101 H 164/95 H Pulse Oximetry 100 100 Oxygen Delivery 09/07/24 12:53 09/07/24 13:01 09/07/24 13:11 Temperature Pulse Rate 58 L 58 L 59 L Respiratory Rate 16 18 16 Blood Pressure 156/94 H 157/93 H 146/77 H Pulse Oximetry 98 98 98 Oxygen Delivery 09/07/24 13:21 09/07/24 13:20 09/07/24 14:08 Temperature 36.8 C Pulse Rate 61 61 76 Respiratory Rate 14 20 Blood Pressure 160/91 H 153/83 H Pulse Oximetry 100 100 Oxygen Delivery 09/07/24 15:08 09/07/24 16:00 09/07/24 16:00 Temperature 36.8 C Pulse Rate 76 75 Respiratory Rate 20 Blood Pressure 129/68 Pulse Oximetry 99 Oxygen Delivery Room Air 09/07/24 18:00 09/07/24 20:18 09/07/24 20:35 Temperature 36.8 C Pulse Rate 76 72 76 Respiratory Rate 20 Blood Pressure 133/72 Pulse Oximetry 100 Oxygen Delivery 09/07/24 20:00 09/07/24 23:38 09/08/24 00:00 Temperature 36.7 C Pulse Rate 71 Respiratory Rate 20 Blood Pressure 123/64 Pulse Oximetry 99 Oxygen Delivery Room Air Room Air 09/07/24 20:00 09/07/24 22:00 09/08/24 00:00 Temperature Pulse Rate 77 71 69 Respiratory Rate Blood Pressure Pulse Oximetry Oxygen Delivery 09/08/24 02:00 09/08/24 03:16 09/08/24 03:55 Temperature 36.7 C Pulse Rate 58 L 63 Respiratory Rate 20 Blood Pressure 124/56 L Pulse Oximetry 100 Oxygen Delivery Room Air 09/08/24 04:00 09/08/24 06:00 09/08/24 08:00 Temperature 36.8 C Pulse Rate 83 65 65 Respiratory Rate 16 Blood Pressure 158/79 H Pulse Oximetry 100 Oxygen Delivery 09/08/24 08:00 09/08/24 08:00 Temperature Pulse Rate 70 Respiratory Rate Blood Pressure Pulse Oximetry Oxygen Delivery Room Air Intake/Output Intake/Output: Intake & Output 09/05/24 09/06/24 09/07/24 09/08/24 23:59 23:59 23:59 23:59 Intake Total 307.7 Output Total 600 Balance 307.7 -600 Meds/Results Medications: Active Medications Generic Name Dose Route Start Last Admin Trade Name Freq PRN Reason Stop Dose Admin Aspirin 81 mg 09/08/24 09:00 Aspirin 81 Mg Enteric Tablet PO QAM ISABELL Atorvastatin Calcium 40 mg 09/07/24 21:00 09/07/24 20:35 Atorvastatin 40 Mg Tablet PO 40 mg QHS ISABELL Administration Carvedilol 25 mg 09/07/24 12:15 09/07/24 20:35 Carvedilol 25 Mg Tablet PO 25 mg Q12HR ISABELL Administration Febuxostat 80 mg 09/07/24 21:00 09/07/24 20:35 Febuxostat 40 Mg Tablet PO 80 mg HS ISABELL Administration Heparin Sodium (Porcine) 4,000 units 09/07/24 11:26 09/07/24 18:41 Heparin Sodium 5,000 Units/Ml Vial IV PUSH 4,000 units PRN PRN Administration aPTT less than 55 seconds Heparin Sodium (Porcine) 4,000 units 09/07/24 11:27 Heparin Sodium 5,000 Units/Ml Vial IV PUSH PRN PRN aPTT 55 - 70 seconds Hydralazine HCl 25 mg 09/07/24 13:00 09/07/24 17:41 Hydralazine Hcl 25 Mg Tablet PO 25 mg TID ISABELL Administration Hydromorphone HCl 0.5 mg 09/07/24 11:50 Hydromorphone Hcl Inj (*Crx) 1 Mg/Ml Syr IV PUSH Q4H PRN Pain Rated 7-10 Heparin Sodium/Dextrose 25,000 units in 250 mls @ 14 mls/hr 09/07/24 11:25 09/07/24 18:42 Heparin Sodium/D5w 100 Units/Ml IV CONT 1,400 units/hr .[id number] ISABELL 14 mls/hr Titration Protocol 1,400 UNITS/HR Lorazepam 0.5 mg 09/07/24 17:36 Lorazepam (*Crx) 0.5 Mg Tablet PO DAILY PRN anxiety Losartan Potassium 100 mg 09/08/24 09:00 Losartan Potassium 100 Mg Tablet PO DAILY [facility] Nitroglycerin 0.4 mg 09/07/24 13:53 Nitroglycerin Sl 0.4 Mg Tablet SUBLINGUAL Q5MIN PRN Chest Pain Ondansetron HCl 4 mg 09/07/24 11:50 Ondansetron Inj 4 Mg/2 Ml Vial IV PUSH Q4H PRN Nausea Pantoprazole Sodium 40 mg 09/08/24 09:00 Pantoprazole 40 Mg Tablet PO DAILY [facility] Radiology Results: ITS Impressions Chest X-Ray 09/07/24 11:34 IMPRESSION: No acute cardiopulmonary pathology. Labs 09/08/24 04:16 09/08/24 04:16 Labs: Laboratory Results - last 24 hr 09/07/24 09/07/24 09/07/24 10:40 13:26 17:42 WBC 4.2 L RBC 3.59 L Hgb 10.4 L Hct 33.3 L MCV 92.8 MCH 29.0 MCHC 31.2 L RDW 12.3 Plt Count 173 MPV 11.2 H Immature Gran % (Auto) 0.2 Neut % (Auto) 61.0 Lymph % (Auto) 22.0 [place] % (Auto) 10.4 H Eos % (Auto) 5.7 H Baso % (Auto) 0.7 Lymph # (Auto) 0.93 [place] # (Auto) 0.4 Eos # (Auto) 0.2 Baso # (Auto) 0.0 Abs Immat Gran (auto) 0.01 Absolute Neuts (auto) 2.6 Absolute Nucleated RBC 0.000 Nucleated RBC % 0.0 PT 14.1 INR 1.0 APTT 27.7 46.4 H Activ Coag Time Kaolin Sodium 141 Potassium 3.9 Chloride 104 Carbon Dioxide 30 Anion Gap 7 BUN 10 Creatinine 1.20 Estim Creat Clear Calc 57 Estimated GFR > 60 Glucose 125 H Calcium 8.8 Total Bilirubin 0.5 AST 27 ALT 12 Alkaline Phosphatase 65 Troponin I 2.610 H* 3.000 H* 3.640 H* D Total Protein 7.0 Albumin 3.7 Triglycerides Cholesterol LDL Cholesterol Direct HDL Direct Lipase 39 09/08/24 09/08/24 09/08/24 00:44 04:16 07:21 WBC 5.0 RBC 3.43 L Hgb 9.8 L Hct 32.0 L MCV 93.3 MCH 28.6 MCHC 30.6 L RDW 12.3 Plt Count 152 MPV 12.0 H Immature Gran % (Auto) 0.2 Neut % (Auto) 53.9 Lymph % (Auto) 27.3 [place] % (Auto) 11.6 H Eos % (Auto) 6.4 H Baso % (Auto) 0.6 Lymph # (Auto) 1.36 [place] # (Auto) 0.6 Eos # (Auto) 0.3 Baso # (Auto) 0.0 Abs Immat Gran (auto) 0.01 Absolute Neuts (auto) 2.7 Absolute Nucleated RBC 0.000 Nucleated RBC % 0.0 PT INR APTT 80.4 H 78.0 H Activ Coag Time Kaolin Sodium 139 Potassium 3.5 Chloride 106 Carbon Dioxide 29 Anion Gap 4 BUN 11 Creatinine 1.20 Estim Creat Clear Calc 56 Estimated GFR > 60 Glucose 116 H Calcium 8.6 Total Bilirubin 0.4 AST 27 ALT 12 Alkaline Phosphatase 71 Troponin I 4.160 H* Total Protein 6.0 L Albumin 3.3 L Triglycerides 91 Cholesterol 137 LDL Cholesterol Direct 79 HDL Direct 30 Lipase 09/08/24 09/08/24 09:50 10:22 WBC RBC Hgb Hct MCV MCH MCHC RDW Plt Count MPV Immature Gran % (Auto) Neut % (Auto) Lymph % (Auto) [place] % (Auto) Eos % (Auto) Baso % (Auto) Lymph # (Auto) [place] # (Auto) Eos # (Auto) Baso # (Auto) Abs Immat Gran (auto) Absolute Neuts (auto) Absolute Nucleated RBC Nucleated RBC % PT INR APTT Activ Coag Time Kaolin 226 H 250 H Sodium Potassium Chloride Carbon Dioxide Anion Gap BUN Creatinine Estim Creat Clear Calc Estimated GFR Glucose Calcium Total Bilirubin AST ALT Alkaline Phosphatase Troponin I Total Protein Albumin Triglycerides Cholesterol LDL Cholesterol Direct HDL Direct Lipase ASA Classification/Sedation ASA Classification/Sedation ASA Class: III Emergent: No Risks: Risks, benefits and alternatives explained and patient/family accepted plan for sedation. Patient re-evaluated immediately prior to sedation.
--- NOTE | 2024-09-08 10:39 | P.CONCA_ITS ---
Assessment and Plan Assessment and plan (1) Non-ST elevation GA (NSTEMI): Code(s): I21.4 - Non-ST elevation (NSTEMI) myocardial infarction Status: Acute Plan 79-year-old man with paroxysmal atrial fibrillation on Xarelto, hypertension, and hyperlipidemia who presented to the hospital with chest pain whose clinical presentation is consistent with non ST elevation GA Non ST-elevation GA -on heparin drip, aspirin 81 mg, atorvastatin 40 mg every evening, and carvedilol 25 mg p.o. b.i.d. -he still has on and off chest pain today and would require urgent catheterization for primary PCI -risk and benefits have been discussed with patient and will be proceeding to catheterization lab now History of Present Illness History of Present Illness Consult date/time: 09/08/24 08:09 Requesting physician: Juanito Guardado DO Reason For Visit: NSTEMI Narrative: 79-year-old man with paroxysmal atrial fibrillation on Xarelto, hypertension, and hyperlipidemia who presented to the hospital with chest pain. He denies any shortness breath or lost consciousness. He has noted a decline in his functional status over the past few weeks. No recent bleeding. Has not been taking his Xarelto for few days now Review of Systems Cardiovascular: Cardiovascular: Reports as per [facility] Past Medical History Medical History Anemia Arthritis B12 deficiency Chronic sinusitis Colon polyps GERD (gastroesophageal reflux disease) Gout Hearing loss, bilateral Hyperlipidemia Hypersomnia Hypertension Irritable bowel syndrome with diarrhea Obstructive sleep apnea PAF (paroxysmal atrial fibrillation) PVT (paroxysmal ventricular tachycardia) Surgical History Surgical History H/O hernia repair L & R groin H/O neck surgery cervical fusion H/O prostatectomy History of back surgery History of hemorrhoidectomy removed with a ramoner Family History Family History Father Lung cancer Social History Social History Smoking packs per day: 0.15 Smoking cigarettes per day: 3.0 Years smoked: 30 Smoking pack-years: 4.50 Smoking status: Former smoker Alcohol intake: never Substance use: never Do You Feel Safe in your Home?: Yes Lack of Transportation: No Lack of Food: Never True Current Housing: I Have Housing Concerned About Future Housing: No Difficulty Paying Gas/Electric Bills: No Difficulty Paying for Meds: No Currently Unemployed: No Education: High School Diploma/GED Difficulty w/ Childcare or Family Care: No Living arrangements: alone Occupation/Education: retired Gender identity (if verbalized by the patient): Male Spiritual care concerns: No Meds Home Medications and Allergies Home Medications Medication Instructions Recorded Confirmed Type lorazepam 0.5 mg tablet 0.5 mg PO DAILY PRN anxiety #30 02/08/24 09/07/24 Rx tabs febuxostat 40 mg tablet 80 mg PO HS 04/28/24 09/07/24 History rivaroxaban 20 mg tablet (Xarelto) 20 mg PO DAILY #90 tabs 05/12/24 09/07/24 Rx carvedilol 25 mg tablet 25 mg PO BID 06/01/24 09/07/24 History hydralazine 25 mg tablet 25 mg PO TID 06/01/24 09/07/24 History losartan 100 mg tablet 100 mg PO DAILY 06/01/24 09/07/24 History Nexium 40 mg capsule,delayed 40 mg PO DAILY #90 caps 08/12/24 09/07/24 Rx release (esomeprazole magnesium) Allergies Allergy/AdvReac Type Severity Reaction Status Date / Time adhesive tape Allergy Hives Verified 07/11/24 14:10 levofloxacin [From Levaquin] Allergy Rash Verified 07/11/24 14:10 Vital Signs Vital Signs - 24 hr 09/07/24 11:05 09/07/24 12:05 09/07/24 11:00 Temperature Pulse Rate 66 73 Respiratory Rate 14 Blood Pressure 147/86 H Pulse Oximetry 98 99 Oxygen Delivery Room Air 09/07/24 11:27 09/07/24 11:31 09/07/24 11:46 Temperature Pulse Rate 66 67 73 Respiratory Rate 15 14 13 Blood Pressure 138/81 164/105 H 170/106 H Pulse Oximetry 99 100 100 Oxygen Delivery 09/07/24 12:01 09/07/24 13:20 09/07/24 12:11 Temperature Pulse Rate 66 61 60 Respiratory Rate 14 14 Blood Pressure 187/101 H 164/95 H Pulse Oximetry 100 100 Oxygen Delivery 09/07/24 12:53 09/07/24 13:01 09/07/24 13:11 Temperature Pulse Rate 58 L 58 L 59 L Respiratory Rate 16 18 16 Blood Pressure 156/94 H 157/93 H 146/77 H Pulse Oximetry 98 98 98 Oxygen Delivery 09/07/24 13:21 09/07/24 13:20 09/07/24 14:08 Temperature 36.8 C Pulse Rate 61 61 76 Respiratory Rate 14 20 Blood Pressure 160/91 H 153/83 H Pulse Oximetry 100 100 Oxygen Delivery 09/07/24 15:08 09/07/24 16:00 09/07/24 16:00 Temperature 36.8 C Pulse Rate 76 75 Respiratory Rate 20 Blood Pressure 129/68 Pulse Oximetry 99 Oxygen Delivery Room Air 09/07/24 18:00 09/07/24 20:18 09/07/24 20:35 Temperature 36.8 C Pulse Rate 76 72 76 Respiratory Rate 20 Blood Pressure 133/72 Pulse Oximetry 100 Oxygen Delivery 09/07/24 20:00 09/07/24 23:38 09/08/24 00:00 Temperature 36.7 C Pulse Rate 71 Respiratory Rate 20 Blood Pressure 123/64 Pulse Oximetry 99 Oxygen Delivery Room Air Room Air 09/07/24 20:00 09/07/24 22:00 09/08/24 00:00 Temperature Pulse Rate 77 71 69 Respiratory Rate Blood Pressure Pulse Oximetry Oxygen Delivery 09/08/24 02:00 09/08/24 03:16 09/08/24 03:55 Temperature 36.7 C Pulse Rate 58 L 63 Respiratory Rate 20 Blood Pressure 124/56 L Pulse Oximetry 100 Oxygen Delivery Room Air 09/08/24 04:00 09/08/24 06:00 09/08/24 08:00 Temperature 36.8 C Pulse Rate 83 65 65 Respiratory Rate 16 Blood Pressure 158/79 H Pulse Oximetry 100 Oxygen Delivery 09/08/24 08:00 09/08/24 08:00 Temperature Pulse Rate 70 Respiratory Rate Blood Pressure Pulse Oximetry Oxygen Delivery Room Air Exam Const: General: comfortable HENMT: Mouth: Yes moist mucous membranes Eyes: EOM: EOMs intact bilaterally Neck: Neck: no JVD Resp: Effort & Inspection: normal respiratory effort Auscultation: clear to auscultation bilaterally Cardio: Rate: regular rate GI: GI Palp: Yes Soft to palpation Neuro: Speech: normal speech Extrem: General: normal to inspection Results Labs and Meds 09/08/24 04:16 09/08/24 04:16 Lab results: Cardiac Enzymes 09/07/24 09/07/24 09/07/24 Range/Units 10:40 13:26 17:42 AST 27 (17-59) U/L Troponin I 2.610 H* 3.000 H* 3.640 H* D (0.000-0.034) ng/mL 09/08/24 Range/Units 04:16 AST 27 (17-59) U/L Troponin I 4.160 H* (0.000-0.034) ng/mL Coagulation 09/07/24 09/07/24 09/08/24 Range/Units 10:40 17:42 00:44 PT 14.1 (11.1-14.7) Seconds APTT 27.7 46.4 H 80.4 H (22.3-36.8) Seconds 09/08/24 Range/Units 07:21 PT (11.1-14.7) Seconds APTT 78.0 H (22.3-36.8) Seconds Lipids 09/08/24 Range/Units 04:16 Triglycerides 91 (<150) mg/dL Cholesterol 137 (0-200) mg/dL CBC 09/07/24 09/08/24 Range/Units 10:40 04:16 WBC 4.2 L 5.0 (4.5-10.0) K/mm3 RBC 3.59 L 3.43 L (4.6-6.20) M/mm3 Hgb 10.4 L 9.8 L (14.0-18.0) g/dL Hct 33.3 L 32.0 L (42.0-52.0) % Plt Count 173 152 (150-375) k/mm3 Lymph # (Auto) 0.93 1.36 (0.9-3.2) K/mm3 [place] # (Auto) 0.4 0.6 (0.1-0.6) K/mm3 Eos # (Auto) 0.2 0.3 (0-0.3) K/mm3 Baso # (Auto) 0.0 0.0 (0.0-0.1) K/mm3 Comprehensive Metabolic Panel 09/07/24 09/08/24 Range/Units 10:40 04:16 Sodium 141 139 (137-145) mmol/L Potassium 3.9 3.5 (3.4-5.0) mmol/L Chloride 104 106 (98-107) mmol/L Carbon Dioxide 30 29 (22-30) mmol/L BUN 10 11 (9-20) mg/dL Creatinine 1.20 1.20 (0.7-1.3) mg/dL Glucose 125 H 116 H (65-110) mg/dL Calcium 8.8 8.6 (8.4-10.2) mg/dL AST 27 27 (17-59) U/L ALT 12 12 (6-50) U/L Alkaline Phosphatase 65 71 (38-126) U/L Total Protein 7.0 6.0 L (6.3-8.2) g/dL Albumin 3.7 3.3 L (3.5-5.1) g/dL Intake and Output 09/07/24 09/08/24 09/08/24 23:59 07:59 15:59 Intake Total 307.7 Output Total 600 Balance 307.7 -600 Intake: IV 67.7 Heparin Sod/D5w 100 Units/ml 25 67.7 ,000 units In 250 ml @ 1,400 UNITS/HR 14 mls/hr IV CONT . [id number] [facility] Rx#:[id number] Oral 240 Output: Urine 600 Other: Intake, Other Source NPO # Unmeasured Voids 1 Patient Weight 09/08/24 23:59 Weight 101.7 kg
--- NOTE | 2024-09-08 10:45 | WPDCARDPROC ---
Cardiac Cath Procedure Note Date of procedure:: 09/08/24 Performing physician:: CATHETERIZATION LABORATORY REPORT Procedure Date: 09/08/2024 Referring Physician: Dr. Guardado Anesthesia: Versed and Fentanyl were ordered and given in my presence at 0911, procedure ended at 1032. Supervision of nurse, Yolanda Mckeon monitored moderate sedation with 2mg Versed and 200mcg Fentanyl was provided for 81 minutes. 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 Risk of complications including but not limited to bleeding, infection, arrhythmia, stroke, worsening kidney function, blood loss, groin hematoma, limb loss, emergency coronary artery bypass grafting, and even were discussed with the patient and all questions were answered. The patient understood and wished to proceed. Time out called, patient name, date of , medical record number, allergies, procedure performed, identify Acute Care Occupational Therapist, patient and staff member concurred with accurate data, procedure carried on. Findings: LEFT HEART CATHETERIZATION FINDINGS: 1. Left main: The left main coronary artery is widely patent without any significant obstructive disease. 2. Left anterior descending: The LAD gives off 3 diagonal branches. The 1st diagonal branch is moderate size vessel providing a moderate territory and has 20-30% stenosis. The remaining diagonal is are small caliber vessels. The LAD is a large vessel that wraps around the apex and has diffuse 10-20% stenosis throughout its body. 3. Left circumflex: The left circumflex gives off 3 OM branches. The left circumflex itself has a 70% distal disease and is a small vessel with minimal runoff and deserves a trial antianginals prior to reconsideration for PCI. OM1 is a moderate caliber vessel providing a large territory with minimal luminal irregularities. OM2 is a moderate size vessel providing a moderate area of territory with ostial 10% stenosis. Om 3 is a small caliber vessel with minimal runoff. 4. Right coronary artery: The RCA is a large dominant vessel that has a tortuous thrombotic 99% stenosis in its mid body. The distal RCA has diffuse 20-30% stenosis. 5. Left ventricle: A. End-diastolic pressure 34 mmHg measured at the end of the case. B. LV gram deferred. C. No significant gradient across aortic valve on catheter pullback. 6. Opening AO pressure 176/96 and closing AO pressure 211/107 Description of Procedure: Informed consent signed and placed in the chart. Patient transferred to laboratory administrative director room. Prepped and draped in usual sterile fashion. 2% lidocaine injected subcutaneously in right wrist area. 22-gauge venipuncture catheter used to access the right radial artery with the Seldinger technique. 6-FR slender sheath placed in right radial artery. Nitroglycerin 200mcg, Verapamil 2.5mg, and Heparin 5000U was given intraarterial through the sheath. J wire advanced under fluoroscopy 5F TIG diagnostic catheter engaged Left Main Coronary Artery. 5F TIG diagnostic catheter engaged Right Coronary Artery Multiple orthogonal angiogram obtained and reviewed 5F JR4 diagnostic catheter crossed aortic valve to obtain LVEDP, LV angiogram deferred. Hemostasis was achieved by application of TR band. Procedure Description for PCI: Heparin was used for anticoagulation (ACT maintained above 250) Patient loaded with heparin at 70 units/kg. 6F JR4 guide catheter was used in an attempt to engage the RCA. However given height of the patient, the guide catheter was not able to reach the ostial RCA. At this time, access was obtained in the right common femoral artery using micropuncture access kit followed by insertion of 6 Norwegian sheath. Iliofemoral angiogram was performed with the micropuncture dilator showing appropriate access site. At this time the JR4 guide catheter was advanced into the aortic root however there was difficulty manipulating the catheter and was noted that there was severe tortuosity of the iliac arteries. At this time, the short sheath was exchanged out for a 6 x 45cm Marcus sheath. The JR4 guide catheter was then advanced into the aortic root where it engage the ostial RCA. 0.014 Runthrough NS coronary wire was passed in to the right PDA. The lesion was pre-dilated with a 2.5mm x 15mm balloon inflated to high JAMIE. A 3.5 mm x 22mm Tariq Caswell GUILLERMINA was successfully deployed into mid RCA and repeat angiogram showed further proximal disease which was covered with a 3.5 x 12mm [place] Caswell GUILLERMINA. The stent was post-dilated with a 3.5mm x 12mm NC balloon inflated to high JAMIE with excellent angiographic results. At this time IVUS was attempted to traverse into the distal RCA however it was unable to pass through the stents. The IVUS catheter was removed and repeat angiography was performed showing excellent angiographic results with EDNA 3 flow. At this time a 5 Norwegian JR4 diagnostic catheter was used to cross the aortic valve to obtain LVEDP, LV angiogram was deferred. There were no immediate complications. 600 mcg of intracoronary nitroglycerin was given throughout the procedure. An additional 900 mcg intra arterial and 10 mg IV hydralazine was given to control his blood pressure prior to deployment of an Angio-Seal device in the right common femoral artery. Hemostasis was achieved with the Angio-Seal device. TR band was placed on the right wrist for hemostasis of the right radial artery access site. Assessment: Successful PCI to the mid RCA with overlapping 3.5mm x 22mm [place] Caswell GUILLERMINA and 3.5 x 12mm [place] Caswell GUILLERMINA, post dilated with 3.5 x 12mm NC to 20atm with excellent angiographic results. Post Operative Condition: Stable No significant blood loss Disposition: Floor Plan: The patient will be monitored in the recovery area. DAPT for 1 year followed by ASA indefinitely. The above findings were discussed with the referring physician. Continue aggressive medical therapy and risk factor modification. Koffi Poole Interventional Cardiology
[2024-09-08] MEDS: ASPIRIN 325 MG TABLET PO (11:12)
[2024-09-08] MEDS: TICAGRELOR 90 MG TABLET 180 MG PO (11:12)
[2024-09-08] MEDS: SODIUM CHLORIDE 0.9% IV 1,000 ML 125 ML IV CONT (11:58)
--- NOTE | 2024-09-08 15:23 | P.PNIM_ITS ---
Progress Note: A&P Assessment and Plan (1) Non-ST elevation FL (NSTEMI): Code(s): I21.4 - Non-ST elevation (NSTEMI) myocardial infarction Status: Acute Assessment and Plan: - EKG, initial: Sinus rhythm first-degree AV block, incomplete RBBB, left ventricular hypertrophy and ST-T change, borderline R-wave progression anterior leads, ST-T-wave abnormality in inferior leads consider ischemia, and baseline artifact. - EKG, repeat (1): When compared to EKG done earlier today, T-wave abnormality and possible ischemia no longer present. ST-T-wave deviations present. Awaiting formal read. - CXR: No acute cardiopulmonary pathology - Troponin: 2.610 -> 3.0->3.640-> 4.160 - ASA 324 given, continue as 81 daily and SL nitro PRN - cardiology consulted - started on heparin gtt, hold home Xarelto. Heparin drip stopped after cath. Patient ordered Brilinta 90 mg PO q 12. - Cardiac Cath today: successful PCI to the mid RCA with overlapping 3.5mm x 22mm Tariq Mcintyre GUILLERMINA and 3.5 x 12mm [place] Mcintyre GUILLERMINA, post dilated with 3.5 x 12mm NC to 20atm with excellent angiographic results. - echo, previous (01/2023): Normal systolic function, estimated EF 55-60%, grade 3 diastolic dysfunction. See report for details. Update, echo ordered. - stress test, previous (03/2023): Negative Lexiscan, baseline hypertension - telemetry monitoring (2) Hypertension: Qualifiers: Hypertension type: essential hypertension Qualified Code(s): I10 - Essential (primary) hypertension Code(s): I10 - Essential (primary) hypertension Status: Chronic Assessment and Plan: - chronic, currently 151/86 - continue home medications: coreg 25 mg b.i.d., losartan 100 mg daily, and hydralazine 25 mg t.i.d. - monitor (3) Obstructive sleep apnea: Code(s): G47.33 - Obstructive sleep apnea (adult) (pediatric) Status: Chronic Assessment and Plan: - continue home CPAP Plan Diet: Heart healthy, NPO midnight GI Prophylaxis: Not currently indicated DVT Prophylaxis: Heparin gtt Lines: Peripheral Code Status: Full code Subjective Date/time seen: 09/08/24 15:23 Interval history: Patient went for a cardiac cath today with successful PCI to the mid RCA with overlapping 3.5mm x 22mm [place] Mcintyre GUILLERMINA and 3.5 x 12mm Tariq Mcintyre GUILLERMINA, post dilated with 3.5 x 12mm NC to 20atm with excellent angiographic results. Patient denies chest pain, palpitations, headache, or dizziness. Review of Systems Review of Systems: All systems reviewed & are unremarkable except as noted in HPI and below Exam Const: General: no acute distress Eyes: Sclera: sclerae normal Neck: Neck: no JVD Resp: Effort & Inspection: normal respiratory effort Auscultation: clear to auscultation bilaterally Cardio: Rate: regular rate Rhythm: regular rhythm Other: Telemetry- SR 84 GI: GI Palp: Yes Soft to palpation Auscultation: normal bowel sounds Skin: Other: Right radial and right groin with gauze covered in transparent dressing. No swelling or drainage on dressings. Neuro: Speech: normal speech Extrem: General: normal to inspection Objective Data Vital Signs Vital Signs: Vital Signs - 24 hr 09/07/24 16:00 09/07/24 16:00 09/07/24 18:00 Temperature Pulse Rate 75 76 Pulse Rate [Right Pedal (Dorsalis Pedis) Palpation] Pulse Rate [Right Radial Palpation] Respiratory Rate Blood Pressure Pulse Oximetry Oxygen Delivery Room Air 09/07/24 20:18 09/07/24 20:35 09/07/24 20:00 Temperature 98.2 F Pulse Rate 72 76 Pulse Rate [Right Pedal (Dorsalis Pedis) Palpation] Pulse Rate [Right Radial Palpation] Respiratory Rate 20 Blood Pressure 133/72 Pulse Oximetry 100 Oxygen Delivery Room Air 09/07/24 23:38 09/08/24 00:00 09/07/24 20:00 Temperature 98.1 F Pulse Rate 71 77 Pulse Rate [Right Pedal (Dorsalis Pedis) Palpation] Pulse Rate [Right Radial Palpation] Respiratory Rate 20 Blood Pressure 123/64 Pulse Oximetry 99 Oxygen Delivery Room Air 09/07/24 22:00 09/08/24 00:00 09/08/24 02:00 Temperature Pulse Rate 71 69 58 L Pulse Rate [Right Pedal (Dorsalis Pedis) Palpation] Pulse Rate [Right Radial Palpation] Respiratory Rate Blood Pressure Pulse Oximetry Oxygen Delivery 09/08/24 03:16 09/08/24 03:55 09/08/24 04:00 Temperature 98.1 F Pulse Rate 63 83 Pulse Rate [Right Pedal (Dorsalis Pedis) Palpation] Pulse Rate [Right Radial Palpation] Respiratory Rate 20 Blood Pressure 124/56 L Pulse Oximetry 100 Oxygen Delivery Room Air 09/08/24 06:00 09/08/24 08:00 09/08/24 08:00 Temperature 98.3 F Pulse Rate 65 65 70 Pulse Rate [Right Pedal (Dorsalis Pedis) Palpation] Pulse Rate [Right Radial Palpation] Respiratory Rate 16 Blood Pressure 158/79 H Pulse Oximetry 100 Oxygen Delivery 09/08/24 08:00 09/08/24 11:00 09/08/24 11:00 Temperature Pulse Rate 61 Pulse Rate [Right Pedal (Dorsalis Pedis) Palpation] 61 Pulse Rate [Right Radial Palpation] 61 Respiratory Rate 18 Blood Pressure 170/74 H Pulse Oximetry 98 Oxygen Delivery Room Air Room Air 09/08/24 11:15 09/08/24 13:30 09/08/24 14:15 Temperature 98.1 F Pulse Rate 70 72 65 Pulse Rate [Right Pedal (Dorsalis Pedis) Palpation] Pulse Rate [Right Radial Palpation] Respiratory Rate 18 12 16 Blood Pressure 151/86 H 167/92 H 166/93 H Pulse Oximetry 98 100 100 Oxygen Delivery Room Air Room Air Room Air 09/08/24 14:45 09/08/24 11:30 09/08/24 11:45 Temperature Pulse Rate 68 57 L 59 L Pulse Rate [Right Pedal (Dorsalis Pedis) Palpation] Pulse Rate [Right Radial Palpation] Respiratory Rate 16 14 14 Blood Pressure 183/96 H 153/85 H 156/80 H Pulse Oximetry 100 98 98 Oxygen Delivery Room Air Room Air Room Air 09/08/24 12:00 09/08/24 12:15 09/08/24 12:30 Temperature Pulse Rate 57 L 59 L 55 L Pulse Rate [Right Pedal (Dorsalis Pedis) Palpation] Pulse Rate [Right Radial Palpation] Respiratory Rate 12 14 16 Blood Pressure 165/83 H 155/86 H 162/89 H Pulse Oximetry 98 97 100 Oxygen Delivery Room Air Room Air Room Air 09/08/24 12:45 09/08/24 13:00 09/08/24 13:15 Temperature Pulse Rate 57 L 63 56 L Pulse Rate [Right Pedal (Dorsalis Pedis) Palpation] Pulse Rate [Right Radial Palpation] Respiratory Rate 16 12 12 Blood Pressure 160/82 H 166/88 H 160/88 H Pulse Oximetry 100 100 100 Oxygen Delivery Room Air Room Air Room Air 09/08/24 13:45 09/08/24 14:00 09/08/24 14:30 Temperature Pulse Rate 71 76 64 Pulse Rate [Right Pedal (Dorsalis Pedis) Palpation] Pulse Rate [Right Radial Palpation] Respiratory Rate 14 16 14 Blood Pressure 157/85 H 170/93 H 169/92 H Pulse Oximetry 100 100 99 Oxygen Delivery Room Air Room Air Room Air Intake/Output Intake/Output: Intake & Output 09/05/24 09/06/24 09/07/24 09/08/24 23:59 23:59 23:59 23:59 Intake Total 307.7 Output Total 1000 Balance 307.7 -1000 Meds/Results Medications: Active Medications Generic Name Dose Route Start Last Admin Trade Name Freq PRN Reason Stop Dose Admin Aspirin 81 mg 09/08/24 09:00 09/08/24 11:12 Aspirin 81 Mg Enteric Tablet PO Not Given QAM ISABELL Atorvastatin Calcium 40 mg 09/07/24 21:00 09/07/24 20:35 Atorvastatin 40 Mg Tablet PO 40 mg QHS ISABELL Administration Carvedilol 25 mg 09/07/24 12:15 09/08/24 09:00 Carvedilol 25 Mg Tablet PO Not Given Q12HR ISABELL Febuxostat 80 mg 09/07/24 21:00 09/07/24 20:35 Febuxostat 40 Mg Tablet PO 80 mg HS ISABELL Administration Hydralazine HCl 25 mg 09/07/24 13:00 09/08/24 13:00 Hydralazine Hcl 25 Mg Tablet PO Not Given TID ISABELL Hydromorphone HCl 0.5 mg 09/07/24 11:50 Hydromorphone Hcl Inj (*Crx) 1 Mg/Ml Syr IV PUSH Q4H PRN Pain Rated 7-10 Sodium Chloride 1,000 mls @ 125 mls/hr 09/08/24 11:02 09/08/24 11:58 Normal Saline Iv IV CONT 09/08/24 19:01 125 mls/hr .Q8H ONE Administration Lorazepam 0.5 mg 09/07/24 17:36 Lorazepam (*Crx) 0.5 Mg Tablet PO DAILY PRN anxiety Losartan Potassium 100 mg 09/08/24 09:00 Losartan Potassium 100 Mg Tablet PO DAILY [facility] Nitroglycerin 0.4 mg 09/07/24 13:53 Nitroglycerin Sl 0.4 Mg Tablet SUBLINGUAL Q5MIN PRN Chest Pain Ondansetron HCl 4 mg 09/07/24 11:50 Ondansetron Inj 4 Mg/2 Ml Vial IV PUSH Q4H PRN Nausea Pantoprazole Sodium 40 mg 09/08/24 09:00 Pantoprazole 40 Mg Tablet PO DAILY [facility] Ticagrelor 90 mg 09/08/24 21:00 Ticagrelor 90 Mg Tablet PO Q12HR [facility] Radiology Results: ITS Impressions Chest X-Ray 09/07/24 11:34 IMPRESSION: No acute cardiopulmonary pathology. Labs Labs: Laboratory Results - last 24 hr 09/07/24 09/08/24 09/08/24 17:42 00:44 04:16 WBC 5.0 RBC 3.43 L Hgb 9.8 L Hct 32.0 L MCV 93.3 MCH 28.6 MCHC 30.6 L RDW 12.3 Plt Count 152 MPV 12.0 H Immature Gran % (Auto) 0.2 Neut % (Auto) 53.9 Lymph % (Auto) 27.3 [place] % (Auto) 11.6 H Eos % (Auto) 6.4 H Baso % (Auto) 0.6 Lymph # (Auto) 1.36 [place] # (Auto) 0.6 Eos # (Auto) 0.3 Baso # (Auto) 0.0 Abs Immat Gran (auto) 0.01 Absolute Neuts (auto) 2.7 Absolute Nucleated RBC 0.000 Nucleated RBC % 0.0 APTT 46.4 H 80.4 H Activ Coag Time Kaolin Sodium 139 Potassium 3.5 Chloride 106 Carbon Dioxide 29 Anion Gap 4 BUN 11 Creatinine 1.20 Estim Creat Clear Calc 56 Estimated GFR > 60 Glucose 116 H Calcium 8.6 Total Bilirubin 0.4 AST 27 ALT 12 Alkaline Phosphatase 71 Troponin I 3.640 H* D 4.160 H* Total Protein 6.0 L Albumin 3.3 L Triglycerides 91 Cholesterol 137 LDL Cholesterol Direct 79 HDL Direct 30 09/08/24 09/08/24 09/08/24 07:21 09:50 10:22 WBC RBC Hgb Hct MCV MCH MCHC RDW Plt Count MPV Immature Gran % (Auto) Neut % (Auto) Lymph % (Auto) [place] % (Auto) Eos % (Auto) Baso % (Auto) Lymph # (Auto) [place] # (Auto) Eos # (Auto) Baso # (Auto) Abs Immat Gran (auto) Absolute Neuts (auto) Absolute Nucleated RBC Nucleated RBC % APTT 78.0 H Activ Coag Time Kaolin 226 H 250 H Sodium Potassium Chloride Carbon Dioxide Anion Gap BUN Creatinine Estim Creat Clear Calc Estimated GFR Glucose Calcium Total Bilirubin AST ALT Alkaline Phosphatase Troponin I Total Protein Albumin Triglycerides Cholesterol LDL Cholesterol Direct HDL Direct Quality VTE Prophylaxis VTE prophylaxis: pharmacologic ordered
[2024-09-08] MEDS: hydrALAZINE HCL 25 MG TABLET PO (16:11)
[2024-09-08] MEDS: LOSARTAN POTASSIUM 100 MG TABLET PO (16:11)
[2024-09-08] MEDS: PANTOPRAZOLE 40 MG TABLET PO (16:11)
[2024-09-08] MEDS: carvediloL 25 MG TABLET PO (21:45)
[2024-09-08] MEDS: ATORVASTATIN 40 MG TABLET PO (21:45)
[2024-09-08] MEDS: FEBUXOSTAT 40 MG TABLET 80 MG PO (21:46)
[2024-09-08] MEDS: TICAGRELOR 90 MG TABLET PO (21:47)
[2024-09-09] VITALS (18 sets, daily range): BP systolic 126–180; BP diastolic 69–88; PULSE 65–88; RESP 16–20; TEMP 36.3–38; O2SAT 97–100
[2024-09-09 05:03] LABS: Basophils Percent Auto 0.3 % (0.2-1.2); Eosinophils Absolute Auto 0.2 K/mm3 (0-0.3); Hematocrit 32.5 % (42.0-52.0); Hemoglobin 9.9 g/dL (14.0-18.0); Immature Granulocyte Absolute 0.01 K/mm3 (0.00-0.031); Immature Granulocyte Percent A 0.2 % (0-0.5); Lymphocytes Absolute Auto 0.84 K/mm3 (0.9-3.2); Mean Corpuscular HGB Conc 30.5 g/dl (32-36); Mean Corpuscular Hemoglobin 28.4 pg (26-34); Mean Corpuscular Volume 93.1 fl (80-100); Mean Platelet Volume 11.5 fl (7.4-10.4); Monocytes Absolute Auto 0.6 K/mm3 (0.1-0.6); Monocytes Percent Auto 10.5 % (2.6-8.5); Neutrophils Absolute Auto 4.3 K/mm3 (1.3-6.7); Platelet Count Result 157 k/mm3 (150-375); Red Blood Count 3.49 M/mm3 (4.6-6.20); Red Cell Distribution Width 12.3 % (11.5-14.5)
[2024-09-09 05:22] LABS: Alanine Aminotransferase 12 U/L (6-50); Albumin Level 3.2 g/dL (3.5-5.1); Alkaline Phosphatase 69 U/L (38-126); Anion Gap 4 mmol/L (4-12); Aspartate Amino Transferase 34 U/L (17-59); Bilirubin,Total 0.5 mg/dL (0.2-1.3); Blood Urea Nitrogen 8 mg/dL (9-20); Calcium 8.6 mg/dL (8.4-10.2); Carbon Dioxide 29 mmol/L (22-30); Chloride 105 mmol/L (98-107); Estimated CRCL calculation 56 ml/min; Estimated Glomerular Filt Rate > 60; Glucose 112 mg/dL (65-110); Potassium 3.5 mmol/L (3.4-5.0); Sodium 138 mmol/L (137-145)
--- NOTE | 2024-09-09 08:06 | P.PNCA_ITS ---
Progress Note: A&P Assessment and Plan (1) Non-ST elevation [place] (NSTEMI): Code(s): I21.4 - Non-ST elevation (NSTEMI) myocardial infarction Status: Acute Assessment and Plan: Troponin up at 4.16. On aspirin 81 mg daily, Brilinta 90 mg BID, Atorvastatin 40 mg daily, Coreg, Losartan. 09/07/24 Echo: EF 55-60%, mild LVE, grade I diastolic dysfunction, mod LAE, trace MR/PI, mild TR, RVSP 42 mmHg. 09/08/24 Dr. Po[address] [facility]: 99% mid LAD thrombotic stenosis; s/P 2 GUILLERMINA to mid LAD with good results. Anticipate d/c home tomorrow. Then will start phase II cardiac rehab as outpatient. (2) PAF (paroxysmal atrial fibrillation): Code(s): I48.0 - Paroxysmal atrial fibrillation Status: Inactive Assessment and Plan: In Sinus rhythm. D/C Xarelto as he is on dual antiplatelets. (3) Hypertension: Qualifiers: Hypertension type: essential hypertension Qualified Code(s): I10 - Essential (primary) hypertension Code(s): I10 - Essential (primary) hypertension Status: Chronic Assessment and Plan: High today. Will increase Hydralazine dose. (4) Hyperlipidemia: Code(s): E78.5 - Hyperlipidemia, unspecified Status: Inactive Assessment and Plan: On Atorvastatin. Subjective Date/time seen: 09/09/24 08:06 Interval history: Denies chest pain or sob. Exam Const: General: cooperative, healthy appearing and comfortable Orientation/consciousness: oriented to person, oriented to place and oriented to time Resp: Auscultation: clear to auscultation bilaterally, no crackles, no rales, no rhonchi and no wheezes Cardio: Rate: regular rate Rhythm: regular rhythm Heart sounds: no murmurs Peripheral pulses: dorsalis pedis present Neuro: General: oriented to person, oriented to place and oriented to time Extrem: Right lower extremity: no edema Left lower extremity: no edema Objective Data Vital Signs Vital Signs: Vital Signs - 24 hr 09/08/24 11:00 09/08/24 11:00 09/08/24 11:15 Temperature 98.1 F Pulse Rate 61 70 Pulse Rate [Right Pedal (Dorsalis Pedis) Palpation] 61 Pulse Rate [Right Radial Palpation] 61 Respiratory Rate 18 18 Blood Pressure 170/74 H 151/86 H Pulse Oximetry 98 98 Oxygen Delivery Room Air Room Air 09/08/24 13:30 09/08/24 14:15 09/08/24 14:45 Temperature Pulse Rate 72 65 68 Pulse Rate [Right Pedal (Dorsalis Pedis) Palpation] Pulse Rate [Right Radial Palpation] Respiratory Rate 12 16 16 Blood Pressure 167/92 H 166/93 H 183/96 H Pulse Oximetry 100 100 100 Oxygen Delivery Room Air Room Air Room Air 09/08/24 11:30 09/08/24 11:45 09/08/24 12:00 Temperature Pulse Rate 57 L 59 L 57 L Pulse Rate [Right Pedal (Dorsalis Pedis) Palpation] Pulse Rate [Right Radial Palpation] Respiratory Rate 14 14 12 Blood Pressure 153/85 H 156/80 H 165/83 H Pulse Oximetry 98 98 98 Oxygen Delivery Room Air Room Air Room Air 09/08/24 12:15 09/08/24 12:30 09/08/24 12:45 Temperature Pulse Rate 59 L 55 L 57 L Pulse Rate [Right Pedal (Dorsalis Pedis) Palpation] Pulse Rate [Right Radial Palpation] Respiratory Rate 14 16 16 Blood Pressure 155/86 H 162/89 H 160/82 H Pulse Oximetry 97 100 100 Oxygen Delivery Room Air Room Air Room Air 09/08/24 13:00 09/08/24 13:15 09/08/24 13:45 Temperature Pulse Rate 63 56 L 71 Pulse Rate [Right Pedal (Dorsalis Pedis) Palpation] Pulse Rate [Right Radial Palpation] Respiratory Rate 12 12 14 Blood Pressure 166/88 H 160/88 H 157/85 H Pulse Oximetry 100 100 100 Oxygen Delivery Room Air Room Air Room Air 09/08/24 14:00 09/08/24 14:30 09/08/24 15:15 Temperature Pulse Rate 76 64 74 Pulse Rate [Right Pedal (Dorsalis Pedis) Palpation] Pulse Rate [Right Radial Palpation] Respiratory Rate 16 14 17 Blood Pressure 170/93 H 169/92 H 160/87 H Pulse Oximetry 100 99 100 Oxygen Delivery Room Air Room Air 09/08/24 15:45 09/08/24 08:15 09/08/24 16:45 Temperature 97.9 F Pulse Rate 75 81 Pulse Rate [Right Pedal (Dorsalis Pedis) Palpation] Pulse Rate [Right Radial Palpation] Respiratory Rate 18 18 Blood Pressure 174/84 H 164/91 H Pulse Oximetry 100 98 100 Oxygen Delivery Room Air 09/08/24 15:16 09/08/24 16:00 09/08/24 16:00 Temperature Pulse Rate 59 L Pulse Rate [Right Pedal (Dorsalis Pedis) Palpation] 59 L Pulse Rate [Right Radial Palpation] 59 L Respiratory Rate Blood Pressure Pulse Oximetry Oxygen Delivery Room Air 09/08/24 16:16 09/08/24 18:00 09/08/24 18:00 Temperature 98.6 F Pulse Rate 68 68 Pulse Rate [Right Pedal (Dorsalis Pedis) Palpation] 62 Pulse Rate [Right Radial Palpation] 62 Respiratory Rate 18 Blood Pressure 153/72 H Pulse Oximetry 100 Oxygen Delivery 09/08/24 20:01 09/08/24 21:45 09/08/24 20:00 Temperature 98.4 F Pulse Rate 73 75 63 Pulse Rate [Right Pedal (Dorsalis Pedis) Palpation] Pulse Rate [Right Radial Palpation] Respiratory Rate 18 18 Blood Pressure 166/75 H Pulse Oximetry 100 100 Oxygen Delivery Room Air 09/08/24 20:00 09/08/24 22:00 09/09/24 00:02 Temperature 97.4 F L Pulse Rate 72 71 77 Pulse Rate [Right Pedal (Dorsalis Pedis) Palpation] Pulse Rate [Right Radial Palpation] Respiratory Rate 18 Blood Pressure 155/69 H Pulse Oximetry 100 Oxygen Delivery 09/09/24 00:00 09/09/24 00:00 09/09/24 02:00 Temperature Pulse Rate 75 75 65 Pulse Rate [Right Pedal (Dorsalis Pedis) Palpation] Pulse Rate [Right Radial Palpation] Respiratory Rate 18 Blood Pressure Pulse Oximetry 100 Oxygen Delivery Room Air 09/08/24 22:40 09/09/24 04:00 09/09/24 04:00 Temperature Pulse Rate 66 66 Pulse Rate [Right Pedal (Dorsalis Pedis) Palpation] Pulse Rate [Right Radial Palpation] Respiratory Rate 18 Blood Pressure Pulse Oximetry 99 100 Oxygen Delivery Room Air Room Air 09/09/24 05:30 09/09/24 05:55 Temperature 97.6 F Pulse Rate 72 72 Pulse Rate [Right Pedal (Dorsalis Pedis) Palpation] Pulse Rate [Right Radial Palpation] Respiratory Rate 18 Blood Pressure 154/78 H Pulse Oximetry 100 Oxygen Delivery Intake/Output Intake/Output: Intake & Output 09/06/24 09/07/24 09/08/24 09/09/24 23:59 23:59 23:59 23:59 Intake Total 307.7 1396.7 1520 Output Total 2600 800 Balance 307.7 -1203.3 720 Meds/Results Medications: Active Medications Generic Name Dose Route Start Last Admin Trade Name Freq PRN Reason Stop Dose Admin Aspirin 81 mg 09/08/24 09:00 09/08/24 11:12 Aspirin 81 Mg Enteric Tablet PO Not Given QAM [facility] Atorvastatin Calcium 40 mg 09/07/24 21:00 09/08/24 21:45 Atorvastatin 40 Mg Tablet PO 40 mg QHS [facility] Administration Carvedilol 25 mg 09/07/24 12:15 09/08/24 21:45 Carvedilol 25 Mg Tablet PO 25 mg Q12HR [facility] Administration Febuxostat 80 mg 09/07/24 21:00 09/08/24 21:46 Febuxostat 40 Mg Tablet PO 80 mg HS [facility] Administration Hydralazine HCl 25 mg 09/07/24 13:00 09/08/24 16:11 Hydralazine Hcl 25 Mg Tablet PO 25 mg TID [facility] Administration Hydromorphone HCl 0.5 mg 09/07/24 11:50 Hydromorphone Hcl Inj (*Crx) 1 Mg/Ml Syr IV PUSH Q4H PRN Pain Rated 7-10 Lorazepam 0.5 mg 09/07/24 17:36 Lorazepam (*Crx) 0.5 Mg Tablet PO DAILY PRN anxiety Losartan Potassium 100 mg 09/08/24 09:00 09/08/24 16:11 Losartan Potassium 100 Mg Tablet PO 100 mg DAILY [facility] Administration Nitroglycerin 0.4 mg 09/07/24 13:53 Nitroglycerin Sl 0.4 Mg Tablet SUBLINGUAL Q5MIN PRN Chest Pain Ondansetron HCl 4 mg 09/07/24 11:50 Ondansetron Inj 4 Mg/2 Ml Vial IV PUSH Q4H PRN Nausea Pantoprazole Sodium 40 mg 09/08/24 09:00 09/08/24 16:11 Pantoprazole 40 Mg Tablet PO 40 mg DAILY [facility] Administration Ticagrelor 90 mg 09/08/24 21:00 09/08/24 21:47 Ticagrelor 90 Mg Tablet PO 90 mg Q12HR ISABELL Administration Radiology Results: ITS Impressions Chest X-Ray 09/07/24 11:34 IMPRESSION: No acute cardiopulmonary pathology. Labs Labs: Laboratory Results - last 24 hr 09/08/24 09/08/24 09/08/24 07:21 09:50 10:22 WBC RBC Hgb Hct MCV MCH MCHC RDW Plt Count MPV Immature Gran % (Auto) Neut % (Auto) Lymph % (Auto) [place] % (Auto) Eos % (Auto) Baso % (Auto) Lymph # (Auto) [place] # (Auto) Eos # (Auto) Baso # (Auto) Abs Immat Gran (auto) Absolute Neuts (auto) Absolute Nucleated RBC Nucleated RBC % APTT 78.0 H Activ Coag Time [place]olin 226 H 250 H Sodium Potassium Chloride Carbon Dioxide Anion Gap BUN Creatinine Estim Creat Clear Calc Estimated GFR Glucose Calcium Total Bilirubin AST ALT Alkaline Phosphatase Total Protein Albumin 09/09/24 04:17 WBC 6.0 RBC 3.49 L Hgb 9.9 L Hct 32.5 L MCV 93.1 MCH 28.4 MCHC 30.5 L RDW 12.3 Plt Count 157 MPV 11.5 H Immature Gran % (Auto) 0.2 Neut % (Auto) 71.0 Lymph % (Auto) 14.0 L [place] % (Auto) 10.5 H Eos % (Auto) 4.0 Baso % (Auto) 0.3 Lymph # (Auto) 0.84 L [place] # (Auto) 0.6 Eos # (Auto) 0.2 Baso # (Auto) 0.0 Abs Immat Gran (auto) 0.01 Absolute Neuts (auto) 4.3 Absolute Nucleated RBC 0.000 Nucleated RBC % 0.0 APTT Activ Coag Time [place]olin Sodium 138 Potassium 3.5 Chloride 105 Carbon Dioxide 29 Anion Gap 4 BUN 8 L Creatinine 1.20 Estim Creat Clear Calc 56 Estimated GFR > 60 Glucose 112 H Calcium 8.6 Total Bilirubin 0.5 AST 34 ALT 12 Alkaline Phosphatase 69 Total Protein 6.0 L Albumin 3.2 L
[2024-09-09] MEDS: carvediloL 25 MG TABLET PO ×2 (08:33→21:06)
[2024-09-09] MEDS: hydrALAZINE HCL 50 MG TABLET PO ×2 (08:33→17:36)
[2024-09-09] MEDS: PANTOPRAZOLE 40 MG TABLET PO (08:33)
[2024-09-09] MEDS: TICAGRELOR 90 MG TABLET PO ×2 (08:34→21:36)
[2024-09-09] MEDS: LOSARTAN POTASSIUM 100 MG TABLET PO (08:34)
[2024-09-09] MEDS: ASPIRIN 81 MG ENTERIC TABLET PO (08:34)
--- NOTE | 2024-09-09 16:32 | PC.NURSE ---
pt transferred in to room 349 via wheelchair, oriented to new room and environment, pt eating dinner and doing well, denies any discomfort, placed on media monitor per provider orders
--- NOTE | 2024-09-09 17:57 | PM.IMPN ---
Progress Note: A&P Assessment and Plan (1) Non-ST elevation CT (NSTEMI): Code(s): I21.4 - Non-ST elevation (NSTEMI) myocardial infarction Status: Acute Assessment and Plan: - EKG, initial: Sinus rhythm first-degree AV block, incomplete RBBB, left ventricular hypertrophy and ST-T change. - Repeat EKG: T-wave abnormality and possible ischemia no longer present. ST-T-wave deviations present. - CXR: No acute cardiopulmonary pathology - Troponin: 2.610 -> 3.0->3.640-> 4.160 - ASA 324 given, and patient placed on Heparin drip. - cardiology consulted. - Patient underwent successful PCI and was noted with 99 % lesion to mid RCA that was treated with 2 GUILLERMINA. - Started on Brilinta 90 mg PO q 12. - Continue aspirin, coreg and statin. - Patient stable post-procedure with no distressful symptoms. - telemetry monitoring - Possible D/C tomorrow. (2) Hypertension: Qualifiers: Hypertension type: essential hypertension Qualified Code(s): I10 - Essential (primary) hypertension Code(s): I10 - Essential (primary) hypertension Status: Chronic Assessment and Plan: - Fairly well controlled. - continue home medications: coreg 25 mg b.i.d., losartan 100 mg daily, and hydralazine 25 mg t.i.d. - monitor closely. (3) Obstructive sleep apnea: Code(s): G47.33 - Obstructive sleep apnea (adult) (pediatric) Status: Chronic Assessment and Plan: - continue home CPAP Plan Diet: Heart healthy, NPO midnight GI Prophylaxis: Not currently indicated DVT Prophylaxis: Heparin gtt Lines: Peripheral Code Status: Full code Possible discharge tomorrow if stable overnight. Time Spent With Patient Time with patient: 15 - 25 minutes Subjective Date/time seen: 09/09/24 15:37 Patient sitting on chair and states feels alright, denying any distressful symptoms. Interval history: Patient sitting on chair and looks to be in no acute distress. Patient admitted for intermittent chest discomfort and underwent PCI where he was noted with a 99% thrombotic lesion to his mid RCA that was treated with 2 GUILLERMINA. No complications during procedure and patient stable post procedure. Review of Systems Review of Systems: All systems reviewed & are unremarkable except as noted in HPI and below Exam Narrative: General: Well appearing and in no acute distress. HEENT: Atraumatic, PERRL, EOM, non-icteric, moist mucus membranes. Neck: Supple. Lungs: Clear bilaterally. Heart: RRR, no murmurs. Abdomen: Soft, non-tender, non-distended, +ve bowel sounds X4 quadrants. Extremities: No edema, 2+ pedal pulses. Neuro: No focal neuro deficits. Psych: Pleasant and co-operative Objective Data Vital Signs Vital Signs: Vital Signs - 24 hr 09/08/24 18:00 09/08/24 18:00 09/08/24 20:01 Temperature 98.6 F 98.4 F Pulse Rate 68 68 73 Respiratory Rate 18 18 Blood Pressure 153/72 H 166/75 H Pulse Oximetry 100 100 Oxygen Delivery 09/08/24 21:45 09/08/24 20:00 09/08/24 20:00 Temperature Pulse Rate 75 63 72 Respiratory Rate 18 Blood Pressure Pulse Oximetry 100 Oxygen Delivery Room Air 09/08/24 22:00 09/09/24 00:02 09/09/24 00:00 Temperature 97.4 F L Pulse Rate 71 77 75 Respiratory Rate 18 18 Blood Pressure 155/69 H Pulse Oximetry 100 100 Oxygen Delivery Room Air 09/09/24 00:00 09/09/24 02:00 09/08/24 22:40 Temperature Pulse Rate 75 65 Respiratory Rate Blood Pressure Pulse Oximetry 99 Oxygen Delivery Room Air 09/09/24 04:00 09/09/24 04:00 09/09/24 05:30 Temperature 97.6 F Pulse Rate 66 66 72 Respiratory Rate 18 18 Blood Pressure 154/78 H Pulse Oximetry 100 100 Oxygen Delivery Room Air 09/09/24 05:55 09/09/24 08:00 09/09/24 08:33 Temperature 98.9 F Pulse Rate 72 78 67 Respiratory Rate 20 Blood Pressure 151/78 H Pulse Oximetry 99 Oxygen Delivery 09/09/24 08:00 09/09/24 10:00 09/09/24 12:00 Temperature 98.9 F Pulse Rate 81 73 73 Respiratory Rate 18 Blood Pressure 126/81 Pulse Oximetry 100 Oxygen Delivery 09/09/24 12:00 09/09/24 14:00 09/09/24 16:40 Temperature Pulse Rate 78 77 84 Respiratory Rate Blood Pressure Pulse Oximetry Oxygen Delivery 09/09/24 16:00 Temperature 99.8 F H Pulse Rate 82 Respiratory Rate 18 Blood Pressure 180/88 H Pulse Oximetry 98 Oxygen Delivery Intake/Output Intake/Output: Intake & Output 09/06/24 09/07/24 09/08/24 09/09/24 23:59 23:59 23:59 23:59 Intake Total 307.7 1396.7 2580 Output Total 2600 1700 Balance 307.7 -1203.3 880 Meds/Results Medications: Active Medications Generic Name Dose Route Start Last Admin Trade Name Freq PRN Reason Stop Dose Admin Aspirin 81 mg 09/08/24 09:00 09/09/24 08:34 Aspirin 81 Mg Enteric Tablet PO 81 mg QAM ISABELL Administration Atorvastatin Calcium 40 mg 09/07/24 21:00 09/08/24 21:45 Atorvastatin 40 Mg Tablet PO 40 mg QHS [facility] Administration Carvedilol 25 mg 09/07/24 12:15 09/09/24 08:33 Carvedilol 25 Mg Tablet PO 25 mg Q12HR ISABELL Administration Febuxostat 80 mg 09/07/24 21:00 09/08/24 21:46 Febuxostat 40 Mg Tablet PO 80 mg HS [facility] Administration Hydralazine HCl 50 mg 09/09/24 09:00 09/09/24 17:36 Hydralazine Hcl 50 Mg Tablet PO 50 mg TID [facility] Administration Hydromorphone HCl 0.5 mg 09/07/24 11:50 Hydromorphone Hcl Inj (*Crx) 1 Mg/Ml Syr IV PUSH Q4H PRN Pain Rated 7-10 Lorazepam 0.5 mg 09/07/24 17:36 Lorazepam (*Crx) 0.5 Mg Tablet PO DAILY PRN anxiety Losartan Potassium 100 mg 09/08/24 09:00 09/09/24 08:34 Losartan Potassium 100 Mg Tablet PO 100 mg DAILY [facility] Administration Nitroglycerin 0.4 mg 09/07/24 13:53 Nitroglycerin Sl 0.4 Mg Tablet SUBLINGUAL Q5MIN PRN Chest Pain Ondansetron HCl 4 mg 09/07/24 11:50 Ondansetron Inj 4 Mg/2 Ml Vial IV PUSH Q4H PRN Nausea Pantoprazole Sodium 40 mg 09/08/24 09:00 09/09/24 08:33 Pantoprazole 40 Mg Tablet PO 40 mg DAILY [facility]ELL Administration Ticagrelor 90 mg 09/08/24 21:00 09/09/24 08:34 Ticagrelor 90 Mg Tablet PO 90 mg Q12HR [facility]ABELL Administration Radiology Results: ITS Impressions Chest X-Ray 09/07/24 11:34 IMPRESSION: No acute cardiopulmonary pathology. Labs Labs: Laboratory Results - last 24 hr 09/09/24 04:17 WBC 6.0 RBC 3.49 L Hgb 9.9 L Hct 32.5 L MCV 93.1 MCH 28.4 MCHC 30.5 L RDW 12.3 Plt Count 157 MPV 11.5 H Immature Gran % (Auto) 0.2 Neut % (Auto) 71.0 Lymph % (Auto) 14.0 L [place] % (Auto) 10.5 H Eos % (Auto) 4.0 Baso % (Auto) 0.3 Lymph # (Auto) 0.84 L [place] # (Auto) 0.6 Eos # (Auto) 0.2 Baso # (Auto) 0.0 Abs Immat Gran (auto) 0.01 Absolute Neuts (auto) 4.3 Absolute Nucleated RBC 0.000 Nucleated RBC % 0.0 Sodium 138 Potassium 3.5 Chloride 105 Carbon Dioxide 29 Anion Gap 4 BUN 8 L Creatinine 1.20 Estim Creat Clear Calc 56 Estimated GFR > 60 Glucose 112 H Calcium 8.6 Total Bilirubin 0.5 AST 34 ALT 12 Alkaline Phosphatase 69 Total Protein 6.0 L Albumin 3.2 L Quality VTE Prophylaxis VTE prophylaxis: pharmacologic ordered Hospitalist MIPS Advance Care Plan I have confirmed that the patient's Advanced Care Plan is present, code status is documented, or surrogate decision maker is listed in patient medical record.: Yes Medication Reconciliation I have utilized all available resources to obtain, update and review the patients current medications (includes all prescriptions, OTC, herbals, cannabis, and nutritional supplements).: Yes
[2024-09-09] MEDS: ATORVASTATIN 40 MG TABLET PO (21:06)
[2024-09-09] MEDS: ACETAMINOPHEN 325 MG TABLET 650 MG PO (21:36)
[2024-09-09] MEDS: FEBUXOSTAT 40 MG TABLET 80 MG PO (21:36)
[2024-09-10] VITALS (7 sets, daily range): BP systolic 115–151; BP diastolic 63–89; PULSE 65–92; RESP 16–18; TEMP 36.5–37.3; O2SAT 98–100
[2024-09-10 06:38] LABS: Basophils Percent Auto 0.6 % (0.2-1.2); Eosinophils Absolute Auto 0.1 K/mm3 (0-0.3); Eosinophils Percent Auto 3.4 % (0-4.4); Hematocrit 31.4 % (42.0-52.0); Hemoglobin 9.7 g/dL (14.0-18.0); Immature Granulocyte Absolute 0.01 K/mm3 (0.00-0.031); Immature Granulocyte Percent A 0.3 % (0-0.5); Lymphocytes Absolute Auto 0.63 K/mm3 (0.9-3.2); Lymphocytes Percent Auto 19.6 % (18.3-44.2); Mean Corpuscular HGB Conc 30.9 g/dl (32-36); Mean Corpuscular Hemoglobin 28.4 pg (26-34); Mean Corpuscular Volume 92.1 fl (80-100); Mean Platelet Volume 11.1 fl (7.4-10.4); Monocytes Absolute Auto 0.5 K/mm3 (0.1-0.6); Neutrophils Percent Auto 62.1 % (45.5-73.1); Platelet Count Result 136 k/mm3 (150-375); Red Blood Count 3.41 M/mm3 (4.6-6.20); Red Cell Distribution Width 12.5 % (11.5-14.5); White Blood Count 3.2 K/mm3 (4.5-10.0)
[2024-09-10 06:53] LABS: Alanine Aminotransferase 13 U/L (6-50); Albumin Level 3.1 g/dL (3.5-5.1); Alkaline Phosphatase 65 U/L (38-126); Anion Gap 4 mmol/L (4-12); Aspartate Amino Transferase 30 U/L (17-59); Bilirubin,Total 0.7 mg/dL (0.2-1.3); Blood Urea Nitrogen 7 mg/dL (9-20); Calcium 8.5 mg/dL (8.4-10.2); Carbon Dioxide 28 mmol/L (22-30); Chloride 105 mmol/L (98-107); Estimated CRCL calculation 52 ml/min; Estimated Glomerular Filt Rate > 60; Glucose 109 mg/dL (65-110); Potassium 3.6 mmol/L (3.4-5.0); Sodium 137 mmol/L (137-145)
[2024-09-10] MEDS: PANTOPRAZOLE 40 MG TABLET PO (07:38)
--- NOTE | 2024-09-10 07:42 | P.PNCA_ITS ---
Progress Note: A&P Assessment and Plan (1) Non-ST elevation CT (NSTEMI): Code(s): I21.4 - Non-ST elevation (NSTEMI) myocardial infarction Status: Acute Assessment and Plan: Troponin up at 4.16. On aspirin 81 mg daily, Brilinta 90 mg BID, Atorvastatin 40 mg daily, Coreg, Losartan. 09/07/24 Echo: EF 55-60%, mild LVE, grade I diastolic dysfunction, mod LAE, trace MR/PI, mild TR, RVSP 42 mmHg. 09/08/24 Dr. Poole [facility]: 99% mid LAD thrombotic stenosis; s/P 2 GUILLERMINA to mid LAD with good results. May d/c home from cardiology standpoint. Then will start phase II cardiac rehab as outpatient. (2) PAF (paroxysmal atrial fibrillation): Code(s): I48.0 - Paroxysmal atrial fibrillation Status: Inactive Assessment and Plan: In Sinus rhythm. D/C Xarelto as he is on dual antiplatelets. (3) Hypertension: Qualifiers: Hypertension type: essential hypertension Qualified Code(s): I10 - Essential (primary) hypertension Code(s): I10 - Essential (primary) hypertension Status: Chronic Assessment and Plan: Stable. Increased Hydralazine dose. (4) Hyperlipidemia: Code(s): E78.5 - Hyperlipidemia, unspecified Status: Inactive Assessment and Plan: On Atorvastatin. Subjective Date/time seen: 09/10/24 07:42 Interval history: Denies chest pain or sob. Exam Const: General: cooperative, healthy appearing and comfortable Orientation/consciousness: oriented to person, oriented to place and oriented to time Resp: Auscultation: clear to auscultation bilaterally, no crackles, no rales, no rhonchi and no wheezes Cardio: Rate: regular rate Rhythm: regular rhythm Heart sounds: no murmurs Peripheral pulses: dorsalis pedis present Neuro: General: oriented to person, oriented to place and oriented to time Extrem: Right lower extremity: no edema Left lower extremity: no edema Objective Data Vital Signs Vital Signs: Vital Signs - 24 hr 09/09/24 08:00 09/09/24 08:33 09/09/24 08:00 Temperature 98.9 F Pulse Rate 78 67 81 Respiratory Rate 20 Blood Pressure 151/78 H Pulse Oximetry 99 Oxygen Delivery 09/09/24 10:00 09/09/24 12:00 09/09/24 12:00 Temperature 98.9 F Pulse Rate 73 73 78 Respiratory Rate 18 Blood Pressure 126/81 Pulse Oximetry 100 Oxygen Delivery 09/09/24 14:00 09/09/24 16:40 09/09/24 16:00 Temperature 99.8 F H Pulse Rate 77 84 82 Respiratory Rate 18 Blood Pressure 180/88 H Pulse Oximetry 98 Oxygen Delivery 09/09/24 21:06 09/09/24 21:36 09/09/24 20:00 Temperature 100.4 F H 100.4 F H Pulse Rate 88 88 Respiratory Rate 16 Blood Pressure 160/85 H Pulse Oximetry 97 Oxygen Delivery 09/09/24 22:38 09/09/24 22:36 09/09/24 20:00 Temperature 99.9 F H Pulse Rate 88 84 Respiratory Rate 16 Blood Pressure Pulse Oximetry 97 Oxygen Delivery Room Air 09/10/24 00:00 09/10/24 00:00 09/10/24 04:54 Temperature 99.1 F 98.8 F Pulse Rate 90 92 75 Respiratory Rate 18 16 Blood Pressure 115/63 151/89 H Pulse Oximetry 98 100 Oxygen Delivery 09/10/24 04:00 Temperature Pulse Rate 65 Respiratory Rate Blood Pressure Pulse Oximetry Oxygen Delivery Intake/Output Intake/Output: Intake & Output 09/07/24 09/08/24 09/09/24 09/10/24 23:59 23:59 23:59 23:59 Intake Total 307.7 1396.7 3060 250 Output Total 2600 1700 Balance 307.7 -1203.3 1360 250 Meds/Results Medications: Active Medications Generic Name Dose Route Start Last Admin Trade Name Freq PRN Reason Stop Dose Admin Acetaminophen 650 mg 09/09/24 21:24 09/09/24 21:36 Acetaminophen 325 Mg Tablet PO 650 mg Q4H PRN Administration Fever Aspirin 81 mg 09/08/24 09:00 09/09/24 08:34 Aspirin 81 Mg Enteric Tablet PO 81 mg QAM ISABELL Administration Atorvastatin Calcium 40 mg 09/07/24 21:00 09/09/24 21:06 Atorvastatin 40 Mg Tablet PO 40 mg QHS ISABELL Administration Carvedilol 25 mg 09/07/24 12:15 09/09/24 21:06 Carvedilol 25 Mg Tablet PO 25 mg Q12HR ISABELL Administration Febuxostat 80 mg 09/07/24 21:00 09/09/24 21:36 Febuxostat 40 Mg Tablet PO 80 mg HS ISABELL Administration Hydralazine HCl 50 mg 09/09/24 09:00 09/09/24 17:36 Hydralazine Hcl 50 Mg Tablet PO 50 mg TID ISABELL Administration Hydromorphone HCl 0.5 mg 09/07/24 11:50 Hydromorphone Hcl Inj (*Crx) 1 Mg/Ml Syr IV PUSH Q4H PRN Pain Rated 7-10 Lorazepam 0.5 mg 09/07/24 17:36 Lorazepam (*Crx) 0.5 Mg Tablet PO DAILY PRN anxiety Losartan Potassium 100 mg 09/08/24 09:00 09/09/24 08:34 Losartan Potassium 100 Mg Tablet PO 100 mg DAILY ISABELL Administration Nitroglycerin 0.4 mg 09/07/24 13:53 Nitroglycerin Sl 0.4 Mg Tablet SUBLINGUAL Q5MIN PRN Chest Pain Ondansetron HCl 4 mg 09/07/24 11:50 Ondansetron Inj 4 Mg/2 Ml Vial IV PUSH Q4H PRN Nausea Pantoprazole Sodium 40 mg 09/08/24 09:00 09/10/24 07:38 Pantoprazole 40 Mg Tablet PO 40 mg DAILY ISABELL Administration Ticagrelor 90 mg 09/08/24 21:00 09/09/24 21:36 Ticagrelor 90 Mg Tablet PO 90 mg Q12HR ISABELL Administration Radiology Results: ITS Impressions Chest X-Ray 09/07/24 11:34 IMPRESSION: No acute cardiopulmonary pathology. Labs Labs: Laboratory Results - last 24 hr 09/10/24 06:25 WBC 3.2 L RBC 3.41 L Hgb 9.7 L Hct 31.4 L MCV 92.1 MCH 28.4 MCHC 30.9 L RDW 12.5 Plt Count 136 L MPV 11.1 H Immature Gran % (Auto) 0.3 Neut % (Auto) 62.1 Lymph % (Auto) 19.6 [place] % (Auto) 14.0 H Eos % (Auto) 3.4 Baso % (Auto) 0.6 Lymph # (Auto) 0.[address] [place] # (Auto) 0.5 Eos # (Auto) 0.1 Baso # (Auto) 0.0 Abs Immat Gran (auto) 0.01 Absolute Neuts (auto) 2.0 Absolute Nucleated RBC 0.000 Nucleated RBC % 0.0 Sodium 137 Potassium 3.6 Chloride 105 Carbon Dioxide 28 Anion Gap 4 BUN 7 L Creatinine 1.30 Estim Creat Clear Calc 52 Estimated GFR > 60 Glucose 109 Calcium 8.5 Total Bilirubin 0.7 AST 30 ALT 13 Alkaline Phosphatase 65 Total Protein 6.0 L Albumin 3.1 L
--- NOTE | 2024-09-10 10:05 | PC.NURSE ---
pt requested med after breakfast
[2024-09-10] MEDS: LOSARTAN POTASSIUM 100 MG TABLET PO (10:08)
[2024-09-10] MEDS: TICAGRELOR 90 MG TABLET PO (10:08)
[2024-09-10] MEDS: carvediloL 25 MG TABLET PO (10:08)
[2024-09-10] MEDS: hydrALAZINE HCL 50 MG TABLET PO (10:09)
[2024-09-10] MEDS: ASPIRIN 81 MG ENTERIC TABLET PO (10:09)
--- NOTE | 2024-09-10 10:52 | PM.DS ---
DS: Admitting Diagnosis Discharge Date 09/10/2024 Admitting Diagnosis Chest discomfort DS: Discharge Diagnosis Discharge Diagnosis (1) Non-ST elevation VA (NSTEMI): Code(s): I21.4 - Non-ST elevation (NSTEMI) myocardial infarction Status: Acute Assessment and Plan: - EKG, initial: Sinus rhythm first-degree AV block, incomplete RBBB, left ventricular hypertrophy and ST-T change. - Repeat EKG: T-wave abnormality and possible ischemia no longer present. ST-T-wave deviations present. - CXR: No acute cardiopulmonary pathology - Troponin: 2.610 -> 3.0->3.640-> 4.160 - ASA 324 given, and patient placed on Heparin drip. - cardiology consulted and evaluated patient, recommending PCI. - Patient underwent successful PCI and was noted with 99 % lesion to mid RCA that was treated with 2 GUILLERMINA. - Patient stable post-procedure with no distressful symptoms. - Started on Brilinta 90 mg PO q 12. - Continue aspirin, coreg and statin. - Maintained SR on telemetry monitoring. - No cardiopulmonary symptoms noted or reported overnight, and pt states feels great and is ready to go home. - Patient cleared for discharge by [facility] and will start Phase II Cardiac rehab outpatient. - No acute distress noted or reported prior to discharge and patient is medically stable for discharge. - Possible D/C tomorrow. (2) Hypertension: Qualifiers: Hypertension type: essential hypertension Qualified Code(s): I10 - Essential (primary) hypertension Code(s): I10 - Essential (primary) hypertension Status: Chronic Assessment and Plan: - Fairly well controlled. - continue home medications: coreg 25 mg b.i.d., losartan 100 mg daily, and hydralazine 25 mg t.i.d. - BP remained stable inpatient. (3) Obstructive sleep apnea: Code(s): G47.33 - Obstructive sleep apnea (adult) (pediatric) Status: Chronic Assessment and Plan: - home CPAP used inpatient. Plan Discharge Home. DS: Summary Hospital Course Reason for hospitalization: Chest Discomfort Hospital Course: Patient admitted for intermittent chest discomfort that he had been having for days prior to his presentation. With no improvement in symptoms, pt elected to seek care and called EMS. The patient was given sublingual nitro x1 and aspirin 324 by EMS with partial relief. His initial EKG showed Sinus rhythm first-degree AV block, incomplete RBBB, left ventricular hypertrophy and ST-T wave abnormalities on inferior leads. Repeat EKG did not show any significant changes from the initial EKG, and with patient's clinical presentation consistent with non ST Elevation VA, PC was recommended and patient underwent PCI where he was noted with a 99% thrombotic lesion to his mid RCA that was treated with 2 GUILLERMINA. No complications during procedure and patient stable post procedure. Patient has been stable and denies any distressful symptoms. He has maintained SR on telemetry overnight. Patient has been seen by systems test technician and cleared for discharge, with no acute distress noted or reported prior to discharge. Patient was started on Brilinta 90 mg PO BID and will continue aspirin, coreg and statin. Status at Discharge Functional status at discharge: independent ambulation Overall status at discharge: patient is back to baseline Time Spent with Patient Time attestation: Total time spent providing and/or coordinating discharge services: Time spent: Greater than 30 minutes Exam Narrative: General: Well appearing and in no acute distress. HEENT: Atraumatic, PERRL, EOM, non-icteric, moist mucus membranes. Neck: Supple. Lungs: Clear bilaterally. Heart: RRR, no murmurs. Abdomen: Soft, non-tender, non-distended, +ve bowel sounds X4 quadrants. Extremities: No edema, 2+ pedal pulses. Neuro: No focal neuro deficits. Psych: Pleasant and co-operative DS: Data Data Completed and Pending Labs on day of discharge: Labs from last 24 hours 09/10/24 06:25 WBC 3.2 L RBC 3.41 L Hgb 9.7 L Hct 31.4 L MCV 92.1 MCH 28.4 MCHC 30.9 L RDW 12.5 Plt Count 136 L MPV 11.1 H Immature Gran % (Auto) 0.3 Neut % (Auto) 62.1 Lymph % (Auto) 19.6 [place] % (Auto) 14.0 H Eos % (Auto) 3.4 Baso % (Auto) 0.6 Lymph # (Auto) 0.63 L [place] # (Auto) 0.5 Eos # (Auto) 0.1 Baso # (Auto) 0.0 Abs Immat Gran (auto) 0.01 Absolute Neuts (auto) 2.0 Absolute Nucleated RBC 0.000 Nucleated RBC % 0.0 Sodium 137 Potassium 3.6 Chloride 105 Carbon Dioxide 28 Anion Gap 4 BUN 7 L Creatinine 1.30 Estim Creat Clear Calc 52 Estimated GFR > 60 Glucose 109 Calcium 8.5 Total Bilirubin 0.7 AST 30 ALT 13 Alkaline Phosphatase 65 Total Protein 6.0 L Albumin 3.1 L Discharge Plan Discharge Attending physician on discharge: Harry Sparks Consulting providers: Juanito Guardado; Karel Sol Discharging Clinician: Isabella Luu Anticipated Discharge Date/Time: 09/10/24 11:11 Patient Disposition: Home, Self-Care Activity: as tolerated Diet: heart healthy, low cholesterol and low fat Discharge Instructions: [facility] [address] [place], [place] [id number] DISCHARGE INSTRUCTIONS - POST PCI Activity 1. No driving until 09/10/2024. 2. No lifting, pushing or pulling more than 10 pounds for 1 week. 3. No strenuous exercise or activity (including sexual activity) until you are released to do so. 4. May shower but no tub baths or swimming pool for 1 week. Avoid commercial hot tubs. They are too hot. Medications DO NOT STOP YOUR MEDICATIONS ONLY YOUR NUT SHELLER MACHINE OPERATOR CAN STOP THE FOLLOWING MEDICATIONS - PLEASE CALL THE OFFICE WITH QUESTIONS. *Aspirin *Ticagrelor (Brilinta) *Atorvastatin *Lisinopril or ARB *Metoprolol tartrate or succinate *Clopidogrel (Plavix) *Prasugrel (Effient) Important Reminders 1. Keep your stent card in your wallet at all times 2. Follow a heart healthy diet paying extra attention to cholesterol and fats. 3. Stay hydrated. 4. If you have chest pain unrelieved by rest or nitroglycerin (if prescribed) call 911 immediately. 5. If you miss one dose of Brilinta (if prescribed) take a tablet at the next time due. If you miss 2 doses take a tablet when you remember and resume at the next time due. *For any other questions please call the office at [phone]. Office hours are 8AM 4:30PM Thursday through Thursday. DISCHARGE INSTRUCTIONS - POST RADIAL CATH Activity 1. No driving for 24 hours. 2. No lifting more than 5 lb with affected arm for 1 week. 3. May shower ( tomorrow) but no excessive soaking of affected hand/wrist (such as washing dishes), swimming pool or hot tub for 5 days. Wound Care 1. May remove arm board in the morning. 2. May remove gauze dressing in the morning and put Band-Aid over affected radial site. Keep site covered for 3 days. 3. Observe for redness, drainage, swelling or bleeding. Medications DO NOT STOP YOUR MEDICATIONS ONLY YOUR NUT SHELLER MACHINE OPERATOR CAN STOP THE FOLLOWING MEDICATIONS - PLEASE CALL THE OFFICE WITH QUESTIONS. *Aspirin *Ticagrelor (Brilinta) *Atorvastatin *Lisinopril or ARB *Metoprolol tartrate or succinate *Clopidogrel (Plavix) *Prasugrel (Effient) Important Reminders 1. Keep your stent card in your wallet at all times 2. Follow a heart healthy diet paying extra attention to cholesterol and fats. 3. Stay hydrated. 4. If you have chest pain unrelieved by rest or nitroglycerin (if prescribed) call 911 immediately. 5. If you miss one dose of Brilinta (if prescribed) take a tablet at the next time due. If you miss 2 doses take a tablet when you remember and resume at the next time due. *For any other questions please call the office at [phone]. Office hours are 8AM 4:30PM Thursday through Thursday. Patient Instructions: Antibiotic Form, Losartan (By mouth), Atorvastatin (By mouth), Carvedilol (By mouth), Ticagrelor (By mouth), Moderate Sedation (DC), Coronary Intravascular Stent Placement (DC) Stand Alone Forms: General Discharge Information Follow-up/Referrals: Juanito Guardado DO [Physician] - Tien Bagley DO [Primary Care Provider] - 1 Week Discharge Medications: New Brilinta 90 mg Tablet 90 mg PO Q12HR Qty: 90 2RF aspirin 81 mg Tablet,Delayed Release (Dr/Ec) 81 mg PO QAM Qty: 30 0RF atorvastatin 40 mg Tablet 40 mg PO QHS Qty: 30 0RF Continued febuxostat 40 mg tablet 80 mg PO HS hydralazine 25 mg tablet 25 mg PO TID Rx Instructions: TAKE 1 TABLET BY MOUTH THREE TIMES A DAY losartan 100 mg tablet 100 mg PO DAILY Rx Instructions: TAKE 1 TABLET BY MOUTH EVERY DAY lorazepam 0.5 mg tablet 0.5 mg PO DAILY PRN (Reason: anxiety) Qty: 30 0RF Hold Instructions: Patient discharged Xarelto 20 mg tablet 20 mg PO DAILY Qty: 90 2RF Hold Instructions: Patient discharged Rx Instructions: must administer with evening meal esomeprazole magnesium [Nexium] 40 mg capsule,delayed release(DR/EC) 40 mg PO DAILY Qty: 90 3RF carvedilol 25 mg tablet See Rx Instructions .ROUTE .COMPLEX Qty: 60 5RF Dose Instruction: TAKE 1 TABLET BY MOUTH EVERY 12 HOURS WITH FOOD Rx Instructions: TAKE 1 TABLET BY MOUTH EVERY 12 HOURS WITH FOOD Date of admission: 09/08/24 11:07 Primary Care Provider: Tien Bagley Admitting Provider: Harry Sparks Attending physician on admission: Harry Sparks Condition: Stable Quality VTE Prophylaxis VTE prophylaxis: pharmacologic ordered Hospitalist MIPS Heart Failure (Exclusion) Patient has history of Heart Transplant or Left Ventricular Assistive Device?: No IF YES, STOP HERE Heart Failure (Qualifier) Patient has current or prior documentation of LVEF less than or equal to 40%, or mod/servere depressed LVSF?: No IF NO, STOP HERE If Yes, Heart Failure (Qualifier) Patient was prescribed or already taking an Angiotensin-Converting Enzyme (MARIA G) Inhibitor, or Antiotensin Receptor Geraldine (ARB): Yes Patient was prescribed or already taking bisoprolol, carvedilol, or sustained release metoprolol succinate: Yes
--- NOTE | 2024-09-10 12:27 | PC.NURSE ---
provided angioseal and stent cards to patient and explained in detail the importance of carrying that information with him, reviewed in detail restrictions and follow up information, and med changes
== END 2024-09-10 12:15 | disposition home or self-care (01) | DRG 322 ==
LOC: ANHED 11:52 → ANHIMU 13:14 → ANH3MED 09-09 16:24
PROVIDERS: Internal Medicine; Internal Medicine Cardiovascular Disease; Nurse Practitioner Family; Student in an Organized Health Care Education/Training Program; Admitting Provider Internal Medicine; Emergency Provider Physician Assistant; PCP Internal Medicine; Visit Provider Nurse Practitioner Adult Health
PROC: 4A023N7 Measurement of Cardiac Sampling and Pressure, Left Heart, Percutaneous Approach (ICD-10-PCS; CPT 93452; principal; 2024-09-08 08:30)
PROC: 4A023N7 Measurement of Cardiac Sampling and Pressure, Left Heart, Percutaneous Approach (ICD-10-PCS; CPT 36140; 2024-09-08 08:30)
PROC: 4A023N7 Measurement of Cardiac Sampling and Pressure, Left Heart, Percutaneous Approach (ICD-10-PCS; 2024-09-08 08:30)
PROC: 4A023N7 Measurement of Cardiac Sampling and Pressure, Left Heart, Percutaneous Approach (ICD-10-PCS; 2024-09-08 08:30)
PROC: 4A023N7 Measurement of Cardiac Sampling and Pressure, Left Heart, Percutaneous Approach (ICD-10-PCS; 2024-09-08 08:30)
DX: I21.4 Non-ST elevation (NSTEMI) myocardial infarction (principal); I47.20 Ventricular tachycardia, unspecified; I48.0 Paroxysmal atrial fibrillation; I10 Essential (primary) hypertension; E53.8 Deficiency of other specified B group vitamins; E78.5 Hyperlipidemia, unspecified; J32.9 Chronic sinusitis, unspecified; K58.0 Irritable bowel syndrome with diarrhea; K21.9 Gastro-esophageal reflux disease without esophagitis; M10.9 Gout, unspecified; M19.90 Unspecified osteoarthritis, unspecified site; H91.93 Unspecified hearing loss, bilateral; G47.33 Obstructive sleep apnea (adult) (pediatric); Z79.01 Long term (current) use of anticoagulants; Z86.0101 Personal history of adenomatous and serrated colon polyps; Z87.891 Personal history of nicotine dependence
CPT/HCPCS: 36140; 36415; 71046; 80053; 80061; 83690; 84484; 85025; 85610; 85730; 92978; 93005; 93458; 96366; 96374; 96375; 99291; A9270; C1725; C1753; C1760; C1769; C1874; C1887; C1894; C8929; C9600; G0269; G0378; J0360; J1644; J2003; J2250; J2305; J3010; J7030; J7040; Q9957

== ENCOUNTER 2024-10-12 15:12 | Outpatient (CLI) | payer MEDICARE, MEDICAID, SELFPAY ==
[2024-10-12 16:15] LABS: Basophils Percent Auto 0.6 % (0.2-1.2); Eosinophils Absolute Auto 0.4 K/mm3 (0-0.3); Eosinophils Percent Auto 7.7 % (0-4.4); Hematocrit 34.1 % (42.0-52.0); Hemoglobin 10.5 g/dL (14.0-18.0); Immature Granulocyte Absolute 0.02 K/mm3 (0.00-0.031); Immature Granulocyte Percent A 0.4 % (0-0.5); Lymphocytes Absolute Auto 1.18 K/mm3 (0.9-3.2); Lymphocytes Percent Auto 23.8 % (18.3-44.2); Mean Corpuscular HGB Conc 30.8 g/dl (32-36); Mean Corpuscular Hemoglobin 28.2 pg (26-34); Mean Corpuscular Volume 91.4 fl (80-100); Mean Platelet Volume 11.9 fl (7.4-10.4); Monocytes Absolute Auto 0.5 K/mm3 (0.1-0.6); Monocytes Percent Auto 9.1 % (2.6-8.5); Neutrophils Absolute Auto 2.9 K/mm3 (1.3-6.7); Neutrophils Percent Auto 58.4 % (45.5-73.1); Platelet Count Result 187 k/mm3 (150-375); Red Blood Count 3.73 M/mm3 (4.6-6.20); Red Cell Distribution Width 12.8 % (11.5-14.5)
[2024-10-12 17:13] LABS: Alanine Aminotransferase 18 U/L (6-50); Albumin Level 3.7 g/dL (3.5-5.1); Alkaline Phosphatase 74 U/L (38-126); Anion Gap 6 mmol/L (4-12); Aspartate Amino Transferase 27 U/L (17-59); Bilirubin,Total 0.6 mg/dL (0.2-1.3); Blood Urea Nitrogen 10 mg/dL (9-20); Calcium 8.9 mg/dL (8.4-10.2); Carbon Dioxide 26 mmol/L (22-30); Chloride 106 mmol/L (98-107); Cholesterol 155 mg/dL (0-200); Estimated Glomerular Filt Rate > 60; Glucose 103 mg/dL (65-110); HDL Direct 29 mg/dL; Potassium 3.8 mmol/L (3.4-5.0); Sodium 138 mmol/L (137-145); Triglycerides 98 mg/dL (<150)
[2024-10-12 17:24] LABS: LDL Cholesterol Direct 92 mg/dL
[2024-10-12 17:40] LABS: Iron 88 ug/dL (49-181)
[2024-10-12 17:57] LABS: Percent Iron Saturation 26 % (20-50)
[2024-10-12 18:06] LABS: Hemoglobin A1C 4.5 % (<5.7)
== END 2024-10-12 15:13 | disposition home or self-care (01) ==
LOC: ANHLAB 15:14
PROVIDERS: PCP Internal Medicine; Visit Provider Internal Medicine
DX: E53.8 Deficiency of other specified B group vitamins (principal); I10 Essential (primary) hypertension; E78.5 Hyperlipidemia, unspecified; D64.9 Anemia, unspecified; R73.9 Hyperglycemia, unspecified; I48.91 Unspecified atrial fibrillation
CPT/HCPCS: 36415; 80053; 80061; 82607; 82728; 83036; 83540; 83550; 84443; 85025

== ENCOUNTER 2024-11-15 00:18 | Emergency (ER) | payer MEDICARE, MEDICAID, SELFPAY ==
--- NOTE | ~2024-11-15 | XR_ITS ---
Clinical Indication: Palpitations AP and lateral views of the chest: Comparison: 09/07/2024 Findings: The lungs are clear, without evidence of focal consolidation or pleural effusion. Cardiome diastinal silhouette is stable. Bones and soft tissues are unremarkable. Impression: Clear lungs. Reviewed, dictated and finalized at location . IVING INSTRUCTOR Impression: Clear lungs.
--- NOTE | ~2024-11-15 | CT_ITS ---
Clinical Indication: Cough, fever CT Scan of the Chest with Contrast: Technique: Contiguous sections were acquired throughout the chest after intravenous administration of 100 cc of Omnipaque 350. Dose reduction technique was used on this scan by utilizing automated expos ure control and iterative reconstruction technique. The dose-length product (DLP) was 620.04 mGy-cm. Findings: Probable right hilar lymph node measures 15 mm in short axis. No other mediastinal or hilar lymphaden opathy seen. There is no filling defect in the pulmonary arterial tree to suggest pulmonary embolus. There is no evidence of aortic dissection or aneurysm. There is no evidence of pleural or pericardial effusion. The lungs are clear. No pulmonary nodules or infiltrates are noted. Images through the upper abdomen reveal no abnormalities. Impression: No evidence of pulmonary embolus, aortic dissection, or aortic aneurysm. Clear lungs. Single mildly prominent right hilar lymph node, nonspecific. Reviewed, dictated and finalized at [facility]. PORTER Impression: No evidence of pulmonary embolus, aortic dissection, or aortic aneurysm. Clear lungs. Single mildly prominent right hilar lymph node, nonspecific.
[2024-11-15 00:22] VITALS: BP 118/73; PULSE 92; RESP 17; TEMP 38.7; O2SAT 98
--- NOTE | 2024-11-15 00:22 | ECG_ITS ---
Test Date: 2024-11-15 00:24:01 Measurements Intervals [place] Rate: 97 P: 155 AR: 234 QRS: -20 QRSD: 113 T: 151 QT: 347 QTc: 441 Interpretive Statements SINUS RHYTHM WITH FIRST DEGREE AV BLOCK WITH FREQUENT VENTRICULAR PREMATURE COMPLEXES INCOMPLETE RIGHT BUNDLE BRANCH BLOCK LEFT VENTRICULAR HYPERTROPHY AND ST-T CHANGE [VOLTAGE CRITERIA PLUS ST/T ABNORMALITY] Compared to ECG 09/07/2024 13:32:01 Ventricular premature complex(es) now present Electronically Signed On 11-15-2024 15:14:16 [employer] by Karel oSl M.D.
[2024-11-15 00:29] VITALS: O2SAT 98
--- NOTE | 2024-11-15 00:49 | ED.ARRPALP ---
HPI - Arrhythmia/Palpitations General Chief Complaint: Arrhythmia/Palpitations <VETO Andrade Last Filed: 11/15/24 02:57> Stated Complaint: rapid heart rate <VETO Andrade Last Filed: 11/15/24 02:57> Time Seen by Provider: 11/15/24 00:30 <VETO Andrade Last Filed: 11/15/24 02:57> History of Present Illness HPI narrative: 79-year-old male with history of CAD, hypertension, AFib, stent placement in September 2024 presents to the emergency department via EMS for palpitations and chills. Patient states 2 days ago he was having dry heaving, nausea, nasal congestion. States today while he was eating dinner around 6:00 p.m. and sitting at the dinner table, he began developing palpitations in his chest which felt like his heart was fluttering with associated chills. He denies cough, abdominal pain, N/V/D, dysuria, hematuria, lower extremity edema. Denies chest pain and shortness of breath. He does have some lower extremity edema which he states is unchanged from baseline. Per chart review is grade 1 diastolic dysfunction on most recent go in 09/25. States he has been taking his medications as directed. Patient states he recently came home from traveling to [place]. <VETO Andrade Last Filed: 11/15/24 02:57> Related Data Home Medications: Home Medications ?Medication ?Instructions ?Recorded ?Confirmed ?Last Taken ?Type febuxostat 40 mg tablet 80 mg PO HS 04/28/24 10/12/24 Unknown History <VETO Andrade Last Filed: 11/15/24 02:57> Allergies/Adverse Reactions: Allergies Allergy/AdvReac Type Severity Reaction Status Date / Time adhesive tape Allergy Hives Verified 10/12/24 14:11 levofloxacin (From Levaquin) Allergy Rash Verified 10/12/24 14:11 <VETO Andrade Last Filed: 11/15/24 02:57> Review of Systems Review of Systems: All systems reviewed & are unremarkable except as noted in HPI and below <VETO Andrade Last Filed: 11/15/24 02:57> [facility] Past Medical History Medical History: Medical History Obstructive sleep apnea Hypersomnia PVT (paroxysmal ventricular tachycardia) Hearing loss, bilateral Anemia GERD (gastroesophageal reflux disease) PAF (paroxysmal atrial fibrillation) Irritable bowel syndrome with diarrhea Chronic sinusitis Arthritis Colon polyps Gout B12 deficiency Hyperlipidemia Hypertension <Jyoti Long PA-C - Last Filed: 11/15/24 02:57> Surgical History Surgical History: Surgical History History of hemorrhoidectomy removed with a lazer H/O hernia repair L & R groin History of back surgery H/O neck surgery cervical fusion H/O prostatectomy <Jyoti Long PA-C - Last Filed: 11/15/24 02:57> Family History Family History: Family History Father Lung cancer <Jyoti Long PA-C - Last Filed: 11/15/24 02:57> Social History Social History: Social History Smoking packs per day: 0.15 Smoking cigarettes per day: 3.0 Years smoked: 30 Smoking pack-years: 4.50 Smoking status: Former smoker Alcohol intake: never Substance use: never Do You Feel Safe in your Home?: Yes Lack of Transportation: No Lack of Food: Never True Current Housing: I Have Housing Concerned About Future Housing: No Difficulty Paying Gas/Electric Bills: No Difficulty Paying for Meds: No Currently Unemployed: No Education: High School Diploma/GED Difficulty w/ Childcare or Family Care: No Living arrangements: alone Occupation/Education: retired Gender identity (if verbalized by the patient): Male Spiritual care concerns: No <Jyoti Long PA-C - Last Filed: 11/15/24 02:57> Exam Narrative: GENERAL: Well-appearing, well-nourished, and in no acute distress. HEAD: Normocephalic, atraumatic. EYES: PERRLA and EOMI. ENT: Nares clear, no rhinorrhea or epistaxis. Mucous membranes moist. NECK: Supple. No nuchal rigidity. CHEST: Clear to auscultation. No respiratory distress. HEART: Regular rate and rhythm. No murmur heard. Normal peripheral pulses. ABDOMEN: Soft, nontender, nondistended, normal active bowel sounds. EXTREMITIES: Normal range of motion. No edema. SKIN: Warm, dry, no rash. NEURO: No focal deficits. Alert and oriented x3 <Jyoti Long PA-C - Last Filed: 11/15/24 02:57> Course MANPOWER DEVELOPMENT MANAGER/PA Physician Supervision For this patient encounter, I reviewed the MANPOWER DEVELOPMENT MANAGER or PA documentation, treatment plan, and medical decision making and had [id number] time with this patient. I performed all aspects of the MDM as documented. <Jerrod Crespo MD - Last Filed: 11/15/24 06:18> Vital Signs Vital signs: Vital Signs Temperature 101.6 F H 11/15/24 00:22 Pulse Rate 92 11/15/24 00:22 Respiratory Rate 17 11/15/24 00:22 Blood Pressure 118/73 11/15/24 00:22 Pulse Oximetry 98 11/15/24 00:22 Oxygen Delivery Room Air 11/15/24 00:22 Temperature 99.5 F 11/15/24 02:30 Pulse Rate 73 11/15/24 05:21 Respiratory Rate 19 11/15/24 05:21 Blood Pressure 124/65 11/15/24 05:21 Pulse Oximetry 99 11/15/24 05:21 Oxygen Delivery Room Air 11/15/24 00:29 <Jyoti Long PA-C - Last Filed: 11/15/24 02:57> Vital Signs Temperature 101.6 F H 11/15/24 00:22 Pulse Rate 92 11/15/24 00:22 Respiratory Rate 17 11/15/24 00:22 Blood Pressure 118/73 11/15/24 00:22 Pulse Oximetry 98 11/15/24 00:22 Oxygen Delivery Room Air 11/15/24 00:22 Temperature 99.5 F 11/15/24 02:30 Pulse Rate 73 11/15/24 05:21 Respiratory Rate 19 11/15/24 05:21 Blood Pressure 124/65 11/15/24 05:21 Pulse Oximetry 99 11/15/24 05:21 Oxygen Delivery Room Air 11/15/24 00:29 <Jrerod Crespo MD - Last Filed: 11/15/24 06:18> MDM - Arrhythmia/Palpitations MDM Narrative Medical decision making narrative: 79-year-old male with history of CAD, hypertension, AFib presents to the emergency department for palpitations and chills that started at 6:00 p.m. this evening. Reporting congestion that started 2 days ago. Vitals with fever of 101.6, otherwise stable. Exam is significant for the above. Lab work shows no leukocytosis, chronic stable anemia with a hemoglobin of 10.2. Chemistries are largely unremarkable. Urinalysis without infection. Viral cells are negative. Lipase is normal. Mag and TSH are within normal limits. Chest x-ray shows no acute cardiopulmonary findings. EKG shows normal sinus rhythm with frequent PVCs and first-degree AV block, normal QRS duration, normal QTC, no new ST elevations or depressions. Troponin within normal limits. His BNP is elevated to 1940. Denies dyspnea but does have 1+ BLE on exam which patient states is unchanged from basline. Patient was updated on workup. On re-evaluation he is now persistently coughing with productive sputum. Shared decision making regarding further workup including a CT chest to evaluate for occult pneumonia given age, fever, risk factors. Patient is agreeable with this. Pending CTA chest PE at time of sign-out to Dr. Crespo. <Jyoti Long PA-C - Last Filed: 11/15/24 02:57> 79-year-old male with history of CAD, hypertension, AFib presents to the emergency department for palpitations and chills that started at 6:00 p.m. this evening. Reporting congestion that started 2 days ago. Vitals with fever of 101.6, otherwise stable. Exam is significant for the above. Lab work shows no leukocytosis, chronic stable anemia with a hemoglobin of 10.2. Chemistries are largely unremarkable. Urinalysis without infection. Viral cells are negative. Lipase is normal. Mag and TSH are within normal limits. Chest x-ray shows no acute cardiopulmonary findings. EKG shows normal sinus rhythm with frequent PVCs and first-degree AV block, normal QRS duration, normal QTC, no new ST elevations or depressions. Troponin within normal limits. His BNP is elevated to 1940. Denies dyspnea but does have 1+ BLE on exam which patient states is unchanged from basline. Patient was updated on workup. On re-evaluation he is now persistently coughing with productive sputum. Shared decision making regarding further workup including a CT chest to evaluate for occult pneumonia given age, fever, risk factors. Patient is agreeable with this. Pending CTA chest PE at time of sign-out to Dr. Crespo. Patient signed out to me pending CT angio chest PE protocol. CT was obtained revealing evidence of pulmonary emboli or pneumonia. Patient was informed of these findings at bedside and that he likely has an upper respiratory infection. Patient is insistent on antibiotics and at this time he was informed that a Z-Ming will be sent to his pharmacy in addition to Tessalon Perles to help with the cough. He was instructed to use [id number] medications such as nasal decongestants to help with his symptoms as well. He was instructed to follow up with his family doctor within the next 3-5 days and return to the ED if any new or worsening symptoms develop. He was discharged in stable condition. <Jerrod Crespo MD - Last Filed: 11/15/24 06:18> Lab Data Result diagrams: 11/15/24 00:46 11/15/24 00:46 <Jyoti Long PA-C - Last Filed: 11/15/24 02:57> Labs: Lab Results 11/15/24 11/15/24 11/15/24 Range/Units 00:46 00:56 03:34 WBC 6.2 (4.5-10.0) K/mm3 RBC 3.60 L (4.6-6.20) M/mm3 Hgb 10.2 L (14.0-18.0) g/dL Hct 33.6 L (42.0-52.0) % MCV 93.3 (80-100) fl MCH 28.3 (26-34) pg MCHC 30.4 L (32-36) g/dl RDW 13.1 (11.5-14.5) % Plt Count 157 (150-375) k/mm3 MPV 12.0 H (7.4-10.4) fl Immature Gran % (Auto) 0.3 (0-0.5) % Neut % (Auto) 73.6 H (45.5-73.1) % Lymph % (Auto) 12.0 L (18.3-44.2) % [place] % (Auto) 11.5 H (2.6-8.5) % Eos % (Auto) 2.3 (0-4.4) % Baso % (Auto) 0.3 (0.2-1.2) % Lymph # (Auto) 0.74 L (0.9-3.2) K/mm3 [place] # (Auto) 0.7 H (0.1-0.6) K/mm3 Eos # (Auto) 0.1 (0-0.3) K/mm3 Baso # (Auto) 0.0 (0.0-0.1) K/mm3 Abs Immat Gran (auto) 0.02 (0.00-0.031) K/mm3 Absolute Neuts (auto) 4.5 (1.3-6.7) K/mm3 Absolute Nucleated RBC 0.000 (0.0-0.012) K/mm3 Nucleated RBC % 0.0 (0.0-0.2) % % Immature Plt Fraction 5.8 (0.9-11.2) % PT 14.2 (11.1-14.7) Seconds INR 1.1 APTT 20.2 L (22.3-36.8) Seconds Sodium 138 (137-145) mmol/L Potassium 3.4 (3.4-5.0) mmol/L Chloride 108 H (98-107) mmol/L Carbon Dioxide 24 (22-30) mmol/L Anion Gap 6 (4-12) mmol/L BUN 10 (9-20) mg/dL Creatinine 1.30 (0.7-1.3) mg/dL Estim Creat Clear Calc 51 ml/min Estimated GFR > 60 (59 - ) Glucose 115 H (65-110) mg/dL Calcium 8.4 (8.4-10.2) mg/dL Magnesium 2.0 (1.6-2.3) mg/dL Total Bilirubin 0.6 (0.2-1.3) mg/dL AST 21 (17-59) U/L ALT 15 (6-50) U/L Alkaline Phosphatase 71 (38-126) U/L Troponin I 0.021 0.015 D (0.000-0.034) ng/mL NT-Pro-B Natriuret Pep 1940 H (19.9-100) pg/mL Total Protein 7.0 (6.3-8.2) g/dL Albumin 3.6 (3.5-5.1) g/dL Lipase 47 (23-300) U/L TSH (Reflex) 3.170 (0.465-4.68) uIU/mL Urine Color Yellow (Yellow) Urine Appearance Clear (Clear) Urine pH 6.0 (5.0-9.0) Ur Specific [place] 1.019 (1.001-1.035) Urine Protein Trace (Negative) mg/dL Urine Glucose (UA) Negative (Negative) mg/dL Urine Ketones Negative (Negative) mg/dL Ur Blood (Man) Negative (Negative) Urine Nitrate Negative (Negative) Urine Bilirubin Negative (Negative) Urine Urobilinogen 1.0 (<2.0) mg/dL Leukocyte Esterase Rfl Negative (Negative) JONELLE/UL Urine RBC 0-2 (0-2) /hpf Urine WBC 0-5 (0-3) /hpf Ur Squamous Epith Cells None seen (Few) /hpf Urine Bacteria None seen /hpf Urine Casts 0-2 Influenza A (RT-PCR) Negative (Negative) Influenza B (RT-PCR) Negative (Negative) RSV (RT-PCR) Negative (Negative) SARS-CoV-2 RNA (RT-PCR) Negative (Negative) <Jyoti Long PA-C - Last Filed: 11/15/24 02:57> Lab Results 11/15/24 11/15/24 11/15/24 Range/Units 00:46 00:56 03:34 WBC 6.2 (4.5-10.0) K/mm3 RBC 3.60 L (4.6-6.20) M/mm3 Hgb 10.2 L (14.0-18.0) g/dL Hct 33.6 L (42.0-52.0) % MCV 93.3 (80-100) fl MCH 28.3 (26-34) pg MCHC 30.4 L (32-36) g/dl RDW 13.1 (11.5-14.5) % Plt Count 157 (150-375) k/mm3 MPV 12.0 H (7.4-10.4) fl Immature Gran % (Auto) 0.3 (0-0.5) % Neut % (Auto) 73.6 H (45.5-73.1) % Lymph % (Auto) 12.0 L (18.3-44.2) % [place] % (Auto) 11.5 H (2.6-8.5) % Eos % (Auto) 2.3 (0-4.4) % Baso % (Auto) 0.3 (0.2-1.2) % Lymph # (Auto) 0.74 L (0.9-3.2) K/mm3 [place] # (Auto) 0.7 H (0.1-0.6) K/mm3 Eos # (Auto) 0.1 (0-0.3) K/mm3 Baso # (Auto) 0.0 (0.0-0.1) K/mm3 Abs Immat Gran (auto) 0.02 (0.00-0.031) K/mm3 Absolute Neuts (auto) 4.5 (1.3-6.7) K/mm3 Absolute Nucleated RBC 0.000 (0.0-0.012) K/mm3 Nucleated RBC % 0.0 (0.0-0.2) % % Immature Plt Fraction 5.8 (0.9-11.2) % PT 14.2 (11.1-14.7) Seconds INR 1.1 APTT 20.2 L (22.3-36.8) Seconds Sodium 138 (137-145) mmol/L Potassium 3.4 (3.4-5.0) mmol/L Chloride 108 H (98-107) mmol/L Carbon Dioxide 24 (22-30) mmol/L Anion Gap 6 (4-12) mmol/L BUN 10 (9-20) mg/dL Creatinine 1.30 (0.7-1.3) mg/dL Estim Creat Clear Calc 51 ml/min Estimated GFR > 60 (59 - ) Glucose 115 H (65-110) mg/dL Calcium 8.4 (8.4-10.2) mg/dL Magnesium 2.0 (1.6-2.3) mg/dL Total Bilirubin 0.6 (0.2-1.3) mg/dL AST 21 (17-59) U/L ALT 15 (6-50) U/L Alkaline Phosphatase 71 (38-126) U/L Troponin I 0.021 0.015 D (0.000-0.034) ng/mL NT-Pro-B Natriuret Pep 1940 H (19.9-100) pg/mL Total Protein 7.0 (6.3-8.2) g/dL Albumin 3.6 (3.5-5.1) g/dL Lipase 47 (23-300) U/L TSH (Reflex) 3.170 (0.465-4.68) uIU/mL Urine Color Yellow (Yellow) Urine Appearance Clear (Clear) Urine pH 6.0 (5.0-9.0) Ur Specific [place] 1.019 (1.001-1.035) Urine Protein Trace (Negative) mg/dL Urine Glucose (UA) Negative (Negative) mg/dL Urine Ketones Negative (Negative) mg/dL Ur Blood (Man) Negative (Negative) Urine Nitrate Negative (Negative) Urine Bilirubin Negative (Negative) Urine Urobilinogen 1.0 (<2.0) mg/dL Leukocyte Esterase Rfl Negative (Negative) JONELLE/UL Urine RBC 0-2 (0-2) /hpf Urine WBC 0-5 (0-3) /hpf Ur Squamous Epith Cells None seen (Few) /hpf Urine Bacteria None seen /hpf Urine Casts 0-2 Influenza A (RT-PCR) Negative (Negative) Influenza B (RT-PCR) Negative (Negative) RSV (RT-PCR) Negative (Negative) SARS-CoV-2 RNA (RT-PCR) Negative (Negative) <Jerrod Crespo MD - Last Filed: 11/15/24 06:18> Discharge Plan Discharge Clinical Impression: Viral syndrome, Frequent PVCs <Jyoti Long PA-C - Last Filed: 11/15/24 02:57> Patient Disposition: Home, Self-Care <Jyoti Long PA-C - Last Filed: 11/15/24 02:57> Condition: Stable <Jyoti Long PA-C - Last Filed: 01/14/25 02:57> Instructions: Antibiotic Form, Viral Syndrome (ED), Premature Ventricular Contractions (ED) <Jyoti Long PA-C - Last Filed: 11/15/24 02:57> Additional Instructions: Take Tylenol as needed for pain. Follow up with her primary care provider. Follow-up with your construction trades contractor. Return to the emergency department if you develop chest pain, shortness of breath, lightheadedness, loss of consciousness, you are unable to control her fever, you are unable to tolerate food or fluids, or other concerning symptoms. <Jyoti Long PA-C - Last Filed: 11/15/24 02:57> Patient Language: Lao <Jyoti Long PA-C - Last Filed: 11/15/24 02:57> Prescriptions: New benzonatate 200 mg capsule 200 mg PO TID PRN (Reason: cough) Qty: 14 0RF azithromycin 250 mg tablet See Rx Instructions .ROUTE .COMPLEX Qty: 6 0RF Rx Instructions: For 250 mg dose pack: take 500 mg today (day 1), then 250 mg for 4 days (days 2-5) No Action febuxostat 40 mg tablet 80 mg PO HS cefdinir 300 mg capsule 300 mg PO Q12H Qty: 20 0RF Brilinta 90 mg Tablet 90 mg PO Q12HR Qty: 90 2RF esomeprazole magnesium [Nexium] 40 mg capsule,delayed release(DR/EC) 40 mg PO DAILY Qty: 90 3RF carvedilol 25 mg tablet See Rx Instructions .ROUTE .COMPLEX Qty: 60 5RF Dose Instruction: TAKE 1 TABLET BY MOUTH EVERY 12 HOURS WITH FOOD Rx Instructions: TAKE 1 TABLET BY MOUTH EVERY 12 HOURS WITH FOOD losartan 100 mg tablet See Rx Instructions .ROUTE .COMPLEX Qty: 30 5RF Dose Instruction: TAKE 1 TABLET BY MOUTH EVERY DAY Rx Instructions: TAKE 1 TABLET BY MOUTH EVERY DAY fluticasone propionate [Flonase Allergy Relief] 50 mcg/actuation spray,suspension 2 spray intranasal DAILY Qty: 16 3RF Rx Instructions: administer into each nostril docusate sodium 100 mg capsule 200 mg PO QHS Qty: 180 3RF ferrous sulfate 325 mg (65 mg iron) tablet 325 mg PO DAILY Qty: 90 1RF aspirin 81 mg tablet,delayed release (DR/EC) See Rx Instructions .ROUTE .COMPLEX Qty: 90 2RF Dose Instruction: TAKE 1 TABLET BY MOUTH EVERY MORNING Rx Instructions: TAKE 1 TABLET BY MOUTH EVERY MORNING atorvastatin 40 mg tablet See Rx Instructions .ROUTE .COMPLEX Qty: 90 2RF Dose Instruction: 40 MG ORALLY EVERY DAY AT BEDTIME Rx Instructions: 40 MG ORALLY EVERY DAY AT BEDTIME hydralazine 50 mg tablet See Rx Instructions .ROUTE .COMPLEX Qty: 90 5RF Dose Instruction: 50 MG ORALLY THREE TIMES A DAY Rx Instructions: 50 MG ORALLY THREE TIMES A DAY lorazepam 0.5 mg tablet 0.5 mg PO DAILY PRN (Reason: anxiety) Qty: 30 0RF <Jyoti Long PA-C - Last Filed: 11/15/24 02:57> Follow-up/Referrals: Tien Bagley DO [Primary Care Provider] - 3 Days <Jyoti Long PA-C - Last Filed: 11/15/24 02:57> Time of Disposition: 06:13 <Jyoti Long PA-C - Last Filed: 11/15/24 02:57> 06:13 <Jerrod Crespo MD - Last Filed: 11/15/24 06:18>
[2024-11-15 01:08] LABS: Alanine Aminotransferase 15 U/L (6-50); Albumin Level 3.6 g/dL (3.5-5.1); Alkaline Phosphatase 71 U/L (38-126); Anion Gap 6 mmol/L (4-12); Aspartate Amino Transferase 21 U/L (17-59); Bilirubin,Total 0.6 mg/dL (0.2-1.3); Blood Urea Nitrogen 10 mg/dL (9-20); Calcium 8.4 mg/dL (8.4-10.2); Carbon Dioxide 24 mmol/L (22-30); Chloride 108 mmol/L (98-107); Estimated CRCL calculation 51 ml/min; Estimated Glomerular Filt Rate > 60; Glucose 115 mg/dL (65-110); Lipase 47 U/L (23-300); Potassium 3.4 mmol/L (3.4-5.0); Sodium 138 mmol/L (137-145)
--- NOTE | 2024-11-15 01:08 | PC.NURSE ---
PT TRANSFERRED UPSTAIRS BY [facility]. PT RECIEVED IVP OF ORDERED HYDRALAZINE PRIOR TO TRANSFER. INES MORALES MADE AWARE.
[2024-11-15 01:11] LABS: Basophils Percent Auto 0.3 % (0.2-1.2); Eosinophils Absolute Auto 0.1 K/mm3 (0-0.3); Eosinophils Percent Auto 2.3 % (0-4.4); Hematocrit 33.6 % (42.0-52.0); Hemoglobin 10.2 g/dL (14.0-18.0); Immature Granulocyte Absolute 0.02 K/mm3 (0.00-0.031); Immature Granulocyte Percent A 0.3 % (0-0.5); Immature Platelet Fraction Pct 5.8 % (0.9-11.2); Lymphocytes Absolute Auto 0.74 K/mm3 (0.9-3.2); Mean Corpuscular HGB Conc 30.4 g/dl (32-36); Mean Corpuscular Hemoglobin 28.3 pg (26-34); Mean Corpuscular Volume 93.3 fl (80-100); Monocytes Absolute Auto 0.7 K/mm3 (0.1-0.6); Monocytes Percent Auto 11.5 % (2.6-8.5); Neutrophils Absolute Auto 4.5 K/mm3 (1.3-6.7); Neutrophils Percent Auto 73.6 % (45.5-73.1); Platelet Count Result 157 k/mm3 (150-375); Red Cell Distribution Width 13.1 % (11.5-14.5); White Blood Count 6.2 K/mm3 (4.5-10.0)
[2024-11-15] MEDS: ACETAMINOPHEN 500 MG TABLET 1000 MG PO (01:13)
[2024-11-15 01:19] LABS: Troponin I 0.021 ng/mL (0.000-0.034)
[2024-11-15 01:25] LABS: Add Urine Microscopic? YES; Appearance Urine Clear (Clear); Bacteria Urine None Seen /hpf; Bilirubin Urine Negative (Negative); Blood Urine Negative (Negative); Color Urine Yellow (Yellow); Glucose Urine UA Negative (Negative); Ketones Urine Negative (Negative); Leukocyte Esterase Ur Negative LEU/UL (Negative); Nitrate Urine Negative (Negative); Non Pathogenic Casts 0-2; Protein Urine Trace mg/dL (Negative); RBC Urine 0-2 /hpf (0-2); Specific Grav Ur 1.019 (1.001-1.035); Squamous Epithelial Cell Urine None Seen /hpf (Few); WBC Urine 0-5 /hpf (0-3)
[2024-11-15 01:33] LABS: INR 1.1; Prothrombin Time 14.2 Seconds (11.1-14.7)
[2024-11-15 01:34] LABS: NT Pro B Type Natriuretic Pept 1940 pg/mL (19.9-100); Partial Thromboplastin Time 20.2 Seconds (22.3-36.8)
[2024-11-15 02:00] LABS: Influenza A QL RT-PCR Negative (Negative); Influenza B QL RT-PCR Negative (Negative); RSV RNA, RT-PCR Negative (Negative); SARS-CoV-2 RNA PCR Negative (Negative)
[2024-11-15 02:30] VITALS: TEMP 37.5
[2024-11-15 03:26] VITALS: BP 119/69; PULSE 89; RESP 17; O2SAT 99
--- NOTE | 2024-11-15 03:36 | ECG_ITS ---
Test Date: 2024-11-15 03:37:08 Measurements Intervals [place] Rate: 76 P: -30 FL: 232 QRS: -22 QRSD: 114 T: -39 QT: 387 QTc: 436 Interpretive Statements SINUS RHYTHM WITH FIRST DEGREE AV BLOCK VOLTAGE CRITERIA FOR LVH [MEETS CRITERIA IN ONE OF: R(aVL), S(V1), R(V5), R(V5/V6)+S(V1)] POSSIBLE SEPTAL MYOCARDIAL INFARCTION , OF INDETERMINATE AGE [30 ms Q WAVE IN V1/V2] NONSPECIFIC ST AND T WAVE ABNORMALITY Compared to ECG 11/15/2024 00:24:01 NO SIGNIFICANT CHANGES Electronically Signed On 11-15-2024 15:17:43 DIRECTOR CARDIOLOGY by Karel Sol M.D.
[2024-11-15 04:05] LABS: Troponin I 0.015 ng/mL (0.000-0.034)
[2024-11-15 05:21] VITALS: BP 124/65; PULSE 73; RESP 19; O2SAT 99
--- OUTSIDE RECORDS SUMMARY | 2024-11-22 04:01 | XMS_ITS | Encounter Summary ---
Author Organization [facility] Address [address] [place] [address]. [place] [address] [place] [address] Care Team Providers Care Coating Machine Helper Name Role Phone Tien Bagley Primary Care Provider [phone] Reason for Visit * Auth/Cert Specialty Diagnoses / Procedures Referred By Sarah hernandes Referred To Contact Diagnoses gerd Procedures EGD Referral ID Status Reason Start Date Expiration Date Visits Re quested Visits Authorized [id number] 1 Encounter Details Date Type Department Care Team (Latest Contact Info) Description 09/04/2021 9:04 AM CDT - 09/04/2021 12:22 PM CDT Hospital Encounter [facility] [place] [address] Ebenezer Douglas, DO #3 [facility] [address] [place] [address] Discharge Disposition: Home or Self Care (Routine Discharge) Social History Tobacco Use Types Packs/Day Years Used Date Smoking Tobacco: Former Smokeless Tobacco: Never Alcohol Use Standard Drinks/Week Comments Not Currently 0 (1 standard drink = 0.6 oz pur e alcohol) Sex and Gender Information Value Date Recorded Sex Assigned at Not on file Legal Sex Male 12:36 PM CDT Gender Identity Not on file Sexual Orientation Not on file COVID-19 Exposure Response Date Recorded In the last month, have you been in contact with someone who was confirmed or suspected to have Coronavirus / COVID-19? No / Unsure 09/04/2021 9:04 AM CDT documented as of this encounter Last Filed Vital Signs Vital Sign Reading Time Taken Comments Blood Pressure 130/85 09/04/2021 12:00 PM CDT Pulse 62 09/04/2021 12:00 PM CDT Temperature 36.2 ??C (97.1 ??F) 09/04/2021 11:28 AM C DT Respiratory Rate 15 09/04/2021 12:00 PM CDT Oxygen Saturation 97% 09/04/2021 12:00 PM CDT Inhaled Oxygen Concentration - - Weight 113.4 kg (250 lb) 08/26/2021 1:57 PM CDT Height 193.7 cm (6' 4.25 ) 08/26/2021 1:57 PM CD T Body Mass Index 30.23 08/26/2021 1:57 PM CDT documented in this encounter Discharge Instructions * Discharge Instructions* Blossom Canela RN - 09/04/2021 12:00 PM CDT Recommendations: ?? Avoid NSAIDs. Antireflux regimen. Continue Nexium twice daily. Follow-up in the office with the nurse practitioner. Most likely patient require 24 pH monitoring and esophageal manometry. May also consider gastric emptying study and US. Follow-up with primary as needed. Call 2 weeks for biopsy report. * Attachments The following attachments cannot be sent through Care Everywhere. * Upper GI Endoscopy Discharge Instructions (Spanish) * General Anesthesia Discharge Instructions (Spanish) documented in this encounter Medications at Time of Discharge allopurinol 300 MG tablet Take 300 mg by mouth daily. Azelastine-Fluti casone 137-50 MCG/ACT Suspension by Nasal route as needed. colchicine 0.6 MG tablet Take 0.6 mg by mouth 2 (two) times daily as needed. Cyanocobalamin (B-12 COMPLIANCE INJECTION IJ) Inject as directed monthly. esomeprazole 40 MG capsule Take 40 mg by mouth 2 (two) times a day. Flecainide Acetate 150 MG Tab Take 1 tablet by mouth 2 (two) times a day. fluticasone propionate 50 MCG/ACT nasal spray 1 spray by Nasal route as needed for Rhinitis. INDOMETHACIN OR Take 75 mg by mouth as needed. LORazepam 0.5 MG tablet Take 0.5 mg by mouth as needed for Anxiety. metoprolol tartrate 25 MG tablet Take 25 mg by mouth daily. Clarify correct metoprolol NIFEDIPINE ER OR Take 60 mg by mouth daily. rivaroxaban 20 MG Tab tablet Take 20 mg by mouth daily. Take with food documented as of this encounter H&P Notes * Ebenezer Douglas, DO - 09/04/2021 7:56 AM CDT This very pleasant patient was seen at the request of the primary physician and with the patient's permission. The patient was examined the chart was reviewed. Reason for encounter: EGD. Impression/problem: Irritable gentleman with chronic reflux disease. He is having breakthrough symptoms. He was placed on Dexilant. He is here for endoscopy. History of urgency and loose stools. This compatible with underlying IBS. Recommendations: EGD. History: Very pleasant gentleman has history of chronic reflux disease. Report occasional breakthrough symptoms in the evening. He was given a prescription of Dexilant. Dysphagia identification 9. He is here for endoscopic evaluation. He also has complaints of urgency and loose stools. He has been diagnosedas having IBS in the past. Last colonoscopy was 4 years ago. We do not have a copy of the report for review. Patient is here for EGD. Allergies: Allergies Allergen Reactions ??? Levaquin [Levofloxacin] Unknown Medications: No current facility-administered medications on file prior to encounter. Current Outpatient Medications on File Prior to Encounter Medication Sig ??? allopurinol 300 MG tablet Take 300 mg by mouth daily. ??? Azelastine-Fluticasone 137-50 MCG/ACT Suspension by Nasal route as needed. ??? colchicine 0.6 MG tablet Take 0.6 mg by mouth 2 (two) times daily as needed. ??? Cyanocobalamin (B-12 COMPLIANCE INJECTION IJ) Inject as directed monthly. ??? esomeprazole 40 MG capsule Take 40 mg by mouth 2 (two) times a day. ??? Flecainide Acetate 150 MG Tab Take 1 tablet by mouth 2 (two) times a day. ??? fluticasone propionate 50 MCG/ACT nasal spray 1 spray by Nasal route as needed for Rhinitis. ??? INDOMETHACIN OR Take 75 mg by mouth as needed. ??? LORazepam 0.5 MG tablet Take 0.5 mg by mouth as needed for Anxiety. ??? metoprolol tartrate 25 MG tablet Take 25 mg by mouth daily. Clarify correct metoprolol ??? NIFEDIPINE ER OR Take 60 mg by mouth daily. ??? rivaroxaban 20 MG Tab tablet Take 20 mg by mouth daily. Take with food PMH: Past Medical History: Diagnosis Date ??? A-fib (CMS/HCC) ??? Anxiety ??? B12 deficiency ??? BPH (benign prostatic hyperplasia) ??? GERD (gastroesophageal reflux disease) ??? Gout ??? HTN (hypertension) ??? IBS (irritable bowel syndrome) PSH: Past Surgical History: Procedure Laterality Date ??? BACK SURGERY ??? INGUINAL HERNIA REPAIR Bilateral ??? OTHER PROCEDURE cardiac ablation ??? OTHER PROCEDURE neck fusion FMH Family History Problem Relation Name Age of Onset ??? Cancer Father lung Social: Social History Socioeconomic History ??? Marital status: Single Spouse name: Not on file ??? Number of children: Not on file ??? Years of education: Not on file ??? Highest education level: Not on file Occupational History ??? Not on file Tobacco Use ??? Smoking status: Former Smoker ??? Smokeless tobacco: Never Used Substance and Sexual Activity ??? Alcohol use: Not Currently ??? Drug use: Never ??? Sexual activity: Not on file Other Topics Concern ??? Not on file Social History Narrative ??? Not on file Social Determinants of Health Financial Resource Strain: ??? Difficulty of Paying Living Expenses: Food Insecurity: ??? Worried About Running Out of Food in the Last Year: ??? Ran Out of Food in the Last Year: Transportation Needs: ??? Lack of Transportation (Medical): ??? Lack of Transportation (Non-Medical): Physical Activity: ??? Days of Exercise per Week: ??? Minutes of Exercise per Session: Stress: ??? Feeling of Stress : Social Connections: ??? Frequency of Communication with Friends and Family: ??? Frequency of Social Gatherings with Friends and Family: ??? Attends Christianity Services: ??? Active Member of Clubs or Organizations: ??? Attends Club or Organization Meetings: ??? Marital Status: Intimate Partner Violence: ??? Fear of Current or Ex-Partner: ??? Emotionally Abused: ??? Physically Abused: ??? Sexually Abused: 14 point review of systems is unremarkable except for that mentioned above. Physical examination: General: The patient is alert and in no acute distress. HEENT: Head was normocephalic, sclerae clear, mouth without masses and neck was supple. Cardiac: Heart rate and rhythm were regular without S3 or S4. No carotid bruits. Lungs: CTA. Abdomen: Soft without pain. Bowel sounds active. No significant distention or tenderness. Neurologic: Nonfocal. Cranial nerves II through XII were intact. CATHY: No significant joint tenderness or swelling. No significant muscle atrophy. Extremities: No significant edema noted. Skin: Warm and dry without rashes. Mental status: Patient is alert and oriented. Patient is cooperative and appropriate. Rectal: Deferred. Thank you for allowing me to participate in the care of this most listening patient. If I can be ofany further service to you, please do not hesitate to contact me. Ebenezer Douglas DO documented in this encounter OR Notes * Op Note - Ebenezer Douglas DO - 09/04/2021 11:30 AM CDT EGD History/Preop: There is a gentleman with chronic reflux disease. He is still symptomatic despite Nexium 40 mg twice daily. Dexilant is not covered by his insurance. He is here for EGD. Post Op: Mild antral gastritis. Gastric polyp antrum. Procedure: EGD with snare polypectomy, hemostatic clipping x2 and biopsy. Findings: Emanation esophagus was unremarkable. The Z-line was approximately 41 cm. Scope was advanced to thesecond portion of the duodenum. The visualized portion of the duodenum was unremarkable. Examination of stomach in the forward and flexed views revealed mild antral gastritis. A gastric polyp was noted in the prepyloric area the antrum. Biopsies were obtained. The polyp was hot snared and recovered. He placed 2 hemostatic clips to control any oozing. Recommendations: Avoid NSAIDs. Antireflux regimen. Continue Nexium twice daily. Follow-up in the office with the nurse practitioner. Most likely patient require 24 pH monitoring and esophageal manometry. May also consider gastric emptying study and US. Follow-up with primary as needed. Call 2 weeks for biopsy report. Anes: MAC Complications: No immediate. EBL: < 5ml. Procedure: The benefits, risks, complications and alternatives were explained in detail to the patient/power of trial attorney. These were understood, assumed and written consent was obtained. The risk and complications include, but are not limited to, hemorrhage, perforation, infection, blood transfusion, surgery,and missed lesions. Anesthesia risks were explained by the department of anesthesiology which include, but are limited to, allergic reactions, cardiopulmonary arrest, heart attack, stroke, and pneumonia. All questions were addressed with understanding. The patient was placed in the left later decubitus position. Using the video endoscope it was inserted into the esophagus under direct vision. Detailed inspection of the esophagus was completed. The scope was advanced to the second portion of the duodenum/or otherwise stated. Examination of the duodenum was completed. The stomach was examined in the forward and retroflexed views/unless stated otherwise. The scope was withdrawn from the patient. Ebenezer Douglas DO documented in this encounter Plan of Treatment Not on file documented as of this encounter Procedures Procedure Name Priority Date/Time Associated Diagnosis Comments UP GI ENDOSCOPY,REMV TUMOR,SNARE 09/04/2021 11:12 AM CDT gerd PROCEDURE GENERIC 09/04/2021 10: 55 AM CDT EGD Routine 09/04/2021 9:32 AM CDT PATHOLOGY Routine 09/04/2021 12:00 AM CDT documented in this encounter Results * PROCEDURE GENERIC (09/04/2021 10:55 AM CDT) Narrative 09/04/2021 10:55 AM CDT Ordered by an unspecified provider. us Documents Scanned [facility]COM[facility] Final Result * Pathology (09/04/2021 12:00 AM CDT) COPATH REPORT ?[facility] ? [address] ? [place], [place] ??[address] ? [id number] ? Department of Pathology ? Pathology Report ? SURGICAL FINAL REPORT Patient Name: DEEP DE LOS SANTOS ? : 1945 (Age: 76) ? Location: [facility] Gender: M ?Collected Date: 09/04/2021 Med Rec #: [id number] ?Date Received: 09/04/2021 Date Reported: 09/05/2021 Provider: EBENEZER DOUGLAS DO ?MYRNA LAU MD Specimen(s) A: Gastric Polyp B: Gastric Antrum, Biopsy Final Pathologic Diagnosis A. STOMACH, POLYP; BIOPSY: -INFLAMED HYPERPLASTIC GASTRIC POLYP -H PYLORI IMMUNOSTAIN IS NEGATIVE B. STOMACH, ANTRUM; BIOPSY: -CHRONIC FOCAL ACTIVE GASTRITIS -H PYLORI IMMUNOSTAIN IS NEGATIVE COMMENT H. pylori immunostains are performed with appropriately staining control. Electronically Signed Out ? MAGDY NOWAK MD Pathologist IF:[facility] Microscopic Description: Microscopic examination is performed, and the findings support the final diagnosis. The Immunohistochemical (IHC) stain controls perform as expected. These tests were developed and the performance characteristics determined by: [place], [place]; [place], [place]; [place]. [place], [place]: and/or Cost Effective Data [place], [place]. They have not been cleared or approved by the [place] Food and Drug Administration (FDA). The FDA has determined that such clearance or approval is not necessary. These tests are used for clinical purposes. Prognostic and predictive testing should be interpreted in the context of additional and/or histopathological findings. Clinical History GERD Gross Description Received are two formalin-filled containers both labeled with the patient's name (Deep De Los Santos), (1945). A. ??Additionally labeled gastric polyp, collection time 09/04/2021 at 1123. The specimen consists of a single pink-red polypoid like tissue measuring up to 1.1 cm in greatest dimension. ??The potential surgical margin is inked black. The tissue is perpendicularly bisected, and the specimen is submitted entirely in cassette A1. B. ??Additionally labeled antral biopsies, collection time 09/04/2021 at 1126. The specimen consists of a two pink-ruiz soft tissues, up to 0.4 cm in greatest dimension. ??The specimen is submitted in toto in cassette B1. ?? :[facility] Billing Fee Code(s): 60270(2), 06706(2) [facility] Tissue specimen (specimen) GASTRIC BIOPSY SPECIMEN / Unknown 09/04/2021 11:23 AM CDT Tissue specimen (specimen) GASTRIC BIOPSY SPECIMEN / Unknown 09/04/2021 11:26 AM CDT us Ebenezer Douglas DO PATHOLOGY/CYTOLOGY ORDERABLES F inal Result [facility] [address] [place] [address], [place] [phone] documented in this encounter Visit Diagnoses Not on filedocumented in this encounter Administered Medications Inactive Administered Medications - up to 3 most recent administrations Medication Order MAR Action Action Date Dose Rate Site lactated ringers infusion at 10 mL/hr, Intravenous, Continuous, Starting on Thu09/04/21 at 1045, Until Thu09/04/21 at 1438, Infuse at TKO rate, Pre-Op New Bag 09/04/2021 11:17 AM CDT documented in this encounter Active and Recently Administered Medications Times are shown in CDT. Continuous Medication Order 09/02/2021 09/03/2021 09/04/2021 lactated ringers infusion at 10 mL/hr, Intravenous, Continuous, Starting on Thu09/04/21 at 1045, Until Thu09/04/21 at 1438, Infuse at TKO rate, Pre-Op 1117 (New Bag - Prov ider: Sharon Contreras CRNA)1128 (Anesthesia Volume Adjustment - Provider: Sharon Contreras CRNA) documented in this encounter Care Teams Coating Machine Helper Relationship Specialty Start Date End Date Tien Bagley DO [address] [address] PCP - General INTERNAL MEDICINE 09/04/21 documented as of this encounter
--- OUTSIDE RECORDS SUMMARY | 2024-11-22 04:01 | XMS_ITS | Clinical Summary ---
Author Organization [facility] Address [address] [place] [address]. [place] [address] [place] [address] Care Team Providers Care Associate Material Handler Name Role Phone Tien Bagley Primary Care Provider [phone] Allergies Active Allergy Reactions Criticality Noted Date Comments Tape Other (see comment) High 10/11/2013 Itching,scare Cerner Allergy Text Annotation: Adhesive Tape, Cerner Reaction: itching Levofloxacin GI Upset,Unknown High 10/11/2008 Thinks Levaquin caused irregular heartbeat Cerner Allergy Text Annotation: Levaquin Pseudoephedrine Other (see comment) High 01/25/2009 Cerner Allergy Text Annotation: Sudafed causes irregular heartbeat Medications Flecainide Acetate 150 MG Tab Take 1 tablet by mouth 2 (two) times a day. Active esomeprazole 40 MG capsule Take 40 mg by mouth 2 (two) times a day. Active metoprolol tartrate 25 MG tablet Take 25 mg by mouth daily. Clarify correct metoprolol Active NIFEDIPINE ER OR Take 60 mg by mouth daily. Active allopurinol 300 MG tablet Take 300 mg by mouth daily. Active rivaroxaban 20 MG Tab tablet Take 20 mg by mouth daily. Take with food Active colchicine 0.6 MG tablet Take 0.6 mg by mouth 2 (two) times daily as needed. Active LORazepam 0.5 MG tablet Take 0.5 mg by mouth as needed for Anxiety. Active INDOMETHACIN OR Take 75 mg by mouth as needed. Active Cyanocobalamin (B-12 COMPLIANCE INJECTION IJ) Inject as directed monthly. Active fluticasone propionate 50 MCG/ACT nasal spray 1 spray by Nasal route as needed for Rhinitis. Active Azelastine-Flut icasone 137-50 MCG/ACT Suspension by Nasal route as needed. Active loratadine (CLARITIN) 10 MG tablet Take 10 mg by mouth daily. 2 Active losartan-hydroC HLOROthiazide (HYZAAR) 50-12.5 MG tablet Take 1 tablet by mouth 2 (two) times daily. 2 Active metoclopramide (REGLAN) 5 MG tablet Take 5 mg by mouth 3 (three) times daily. 2 Active metoprolol succinate ER (TOPROL-XL) 50 MG 24 hr tablet Take 50 mg by mouth daily. 2 Active omeprazole (PRILOSEC) 40 MG capsule Take 40 mg by mouth 2 (two) times daily. 2 Active febuxostat (ULORIC) 40 MG tablet Take 40 mg by mouth daily. Active Family History Medical History Relation Comments Cancer Father lung Relation Status Comments Father Mother Social History Tobacco Use Types Packs/Day Years Used Date Smoking Tobacco: Former Smokeless Tobacco: Never Alcohol Use Standard Drinks/Week Comments Not Currently 0 (1 standard drink = 0.6 oz pur e alcohol) Sex and Gender Information Value Date Recorded Sex Assigned at Not on file Legal Sex Male 12:36 PM CDT Gender Identity Not on file Sexual Orientation Not on file Last Filed Vital Signs Vital Sign Reading Time Taken Comments Blood Pressure 174/87 10/21/2022 1:55 PM DISPLAY COORDINATOR Pulse 53 10/21/2022 1:55 PM DISPLAY COORDINATOR Temperature 36.2 ??C (97.2 ??F) 10/21/2022 1:20 PM CS T Respiratory Rate 12 10/21/2022 1:55 PM DISPLAY COORDINATOR Oxygen Saturation 98% 10/21/2022 1:55 PM DISPLAY COORDINATOR Inhaled Oxygen Concentration - - Weight 111.1 kg (245 lb) 10/20/2022 12:48 PM DISPLAY COORDINATOR Height 194.3 cm (6' 4.5 ) 10/20/2022 12:48 PM CS T Body Mass Index 29.43 10/20/2022 12:48 PM DISPLAY COORDINATOR Plan of Treatment Health Maintenance Due Date Last Done Comments Hepatitis C 1963 DTaP, Tdap and Td Vaccines ( 1 - Tdap) 1965 Zoster Vaccines (1 of 2) 1996 Annual Medicare Wellness Visit 2011 Pneumococcal Vaccine: 65+ Years (2 of 2 - PPSV23 or PCV20) 01/01/2021 01/02/2020 RSV Immunization or 60+ Years (1 - 1-dose 75+ series) 2021 COVID-19 Vaccine (4 - 2023-2 5 season) 2024 11/04/2021, 02/08/2021, 01/11/2021 Influenza Adult (#1) 2024 Colorectal Cancer Screening Colonoscopy (10 Years) Discontinued 10/21/2022, 10/21/2022 Meningococcal Vaccine Aged Out No anai hal eligible based on patient's age to complete this topic RSV Immunizations Under 20 Months Aged Out No longer eligible based on patient's age to complete this topic Medical Devices Implanted Type Area Checkering Machine Adjuster Device Identifier Shelf Expiration Date Model / Serial / Lot Clip Resolution 360 Deg 2.8mm X 235cm - [id number] Implanted:Qty : 1 on 09/04/2021 by Rafael Douglas DO at [facility] Clip Implant N/A: Stomach [employer] 08/20/2023 [id number] / / [id number] Clip Resolution 2.8mm 360 235cm 11mm Open - [id number] Implanted:Qty : 1 on 09/04/2021 by Rafael Douglas DO at [facility] Clip Implant N/A: Stomach [employer] [id number] 06/03/2024 [id number] / / [id number] Neck Fusion Neck Procedures Procedure Name Priority Date/Time Associated Diagnosis Comments COLONOSCOPY Routine 10/21/2022 12:17 PM DISPLAY COORDINATOR from Last 3 Months or Most Recently Relevant to Health Maintenance Results * Colonoscopy (10/21/2022 12:17 PM DISPLAY COORDINATOR) Narrative Ye Levy MD - 10/21/2022 12:17 PM DISPLAY COORDINATOR Ye Levy MD ? 10/21/2022 ??1:28 PM YE LEVY MD, FACG, FACP COLONOSCOPY 10/21/2022 INDICATION: Personal history of colon polyps. ?? POST-OP: 11 polyps removed. Mild diverticulosis. SEDATION: Per Anesthesia PREP: Good. With the patient in the left lateral decubitus position, the Olympus [id number] ??colonoscope was introduced into the rectum and advanced easily to the Terminal Ileum. Careful inspection of the mucosa was made upon insertion and withdrawal of the endoscope. FINDINGS: Terminal ileum: distal 5 cm normal. , ??and Rectum including retroflexion normal. Cecum: 1.0 cm, 8 mm, 5 mm sessile polyps removed with snare polypectomy without bleed. Ascending colon: 2.0 cm x 2, 1.0 cm x 2, 7 mm x 2 and 5 mm sessile polyps removed with snare polypectomy without bleed. Transverse colon: 2.5 cm sessile polyp removed with snare polypectomy without bleed. Descending colon, Sigmoid colon: mild diverticulosis. No masses, AVMs or colitis seen. No complications, blood loss or implants. ASSESSMENT AND PLAN: A. Personal history of colon polyps: - Previous colonoscopy 5 years ago in [place]; report unavailable - Surveillance colonoscopy 10/21/2022 with 11 polyps removed - If no cancer repeat colonoscopy in two years - No aspirin/NSAIDS/anticoagulants x one week B. Mild diverticulosis: observe. C. GERD with motility issues: - Patient again has not gotten Reglan - Non-compliant; no further recommendations - Continue Nexium Thank you for allowing me to care for your patient. He will follow-up with Dr. Bagley as needed. Ye Levy M.D. Cc: Dr. Nohemy Bagley Ye Levy MD GI PROCEDURE ORDERABLES Fin al Result from Last 3 Months or Most Recently Relevant to Health [place] [address] [facility] Care Teams Associate Material Handler Relationship Specialty Start Date End Date Tien Bagley DO [address] [place] [id number] PCP - General INTERNAL MEDICINE 09/04/21
--- OUTSIDE RECORDS SUMMARY | 2024-11-22 04:01 | XMS_ITS | Clinical Summary ---
Author Organization [facility] Address [address] [place] [address] Care Team Providers Care Qa Intern Name Role Phone Unavailable Primary Care Provider Unavailabl e Source Comments [facility],non-owned Affiliates and Associated Physician Practices is amultiple site organization consisting of ambulatory clinics and hospital sitesin [place], [place], [place] and [place]. This disclosure is being madepursuant to the Care Everywhere program and may not contain all information available regarding this patient. Last updated 18.[facility] Social History Tobacco Use Types Packs/Day Years Used Date Smoking Tobacco: Never Assessed Sex and Gender Information Value Date Recorded Sex Assigned at Not on file Gender Identity Not on file Sexual Orientation Not on file Plan of Treatment Health Maintenance Due Date Last Done Comments HEPATITIS C SCREENING 06[birth year]06/1963 DTAP/TDAP/TD VACCINES (1 - Tdap) 1965 PNEUMOCOCCAL VACCINE 50+ (1 of 1 - PCV) 1996 ZOSTER VACCINE (1 of 2) 1996 Respiratory Syncytial Virus (RSV) Vaccine Pt: or over 60 yrs (1 - 1-dose 75+ series) 2021 COVID-19 VACCINE ( - 2023-2 5 season) 2024 INFLUENZA VACCINE (#1) 2024 DEPRESSION SCREENING 11/02/2024 HEPATITIS B VACCINE Aged Out No longe r eligible based on patient's age to complete this topic HIB VACCINE Aged Out No longer eligi ble based on patient's age to complete this topic HPV VACCINE Aged Out No longer eligi ble based on patient's age to complete this topic MENINGOCOCCAL (Group B) VACCINE Aged Out No longer eligible based on patient's age to complete this topic MENINGOCOCCAL VACCINE Aged Out No anai hal eligible based on patient's age to complete this topic
--- OUTSIDE RECORDS SUMMARY | 2024-11-22 04:01 | XMS_ITS | Encounter Summary ---
Author Organization [facility] Address [address] [place] [address]. [place], [place] [address] [place] [address] Care Team Providers Care Cotton Converter Name Role Phone Tien Bagley DO Primary Care Provider [phone] Encounter Details Date Type Department Care Team (Latest Contact Info) Description 10/21/2022 Travel Social History Tobacco Use Types Packs/Day Years [...] Exposure Response Date Recorded In the last 10 days, have yo u been in contact with someone who was confirmed or suspected to have Coronavirus/COVID-19? 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
--- OUTSIDE RECORDS SUMMARY | 2024-11-22 04:01 | XMS_ITS | Encounter Summary ---
Author Organization [facility] Address [address] [place] [address]. [place] [address] [place] [address] Care Team Providers Care Clinical Nurse Leader Name Role Phone Tien Bagley Primary Care Provider [phone] Reason for Visit * Auth/Cert Specialty Diagnoses / Procedures Referred By Sarah hernandes Referred To Contact Diagnoses gerd Procedures EGD Referral ID Status Reason Start Date Expiration Date Visits Re quested Visits Authorized [id number] 1 1 Encounter Details Date Type Department Care Team (Late st Contact Info) Description 09/04/2021 10:30 AM CDT - 09/04/2021 11:00 AM CDT Surgery [facility] Endo/[place] [address] Ebenezer Douglas DO [address] [facility] [address] [place] [address] EGD WITH gastric polypectomy via hot snare and clip placement x2, and gastric antral biopsies via large cold forceps Surgery Details Date/Time Status Location OR Service Patient Class Case Class Case Type Trauma Case? 09/04/2021 10:30 AM Posted [facility] GI Endo 2 Gastroenterology Short Stay/Outp [facility] Surgery E - Elective No Panel 1 Procedure LRB Anes Op Region Wound Class Comments EGD WITH gastric polypectomy via hot snare and clip placement x2, and gastric antral biopsies via large cold forceps N/A General Clean Contaminated gastric polyp, mild gastritis Surgeon Surgeon Role Service Panel Ebenezer Douglas DO Primary Gastroenterology 1 documented in this encounter Social History Tobacco Use Types Packs/Day Years [...] Sign Reading Time Taken Comments Blood Pressure 149/86 09/04/2021 9:44 AM CDT Pulse 66 09/04/2021 9:44 AM CDT Temperature 36.5 ??C (97.7 ??F) 09/04/2021 9:44 AM CD T Respiratory Rate 12 09/04/2021 9:44 AM CDT Oxygen Saturation 99% 09/04/2021 9:44 AM CDT Inhaled Oxygen Concentration - - Weight [...] Everywhere. * Upper GI Endoscopy Discharge Instructions (Brazilian) * General Anesthesia Discharge Instructions (Brazilian) documented in this encounter Medications at Time [...] of this encounter H&P Notes * Ebenezer Fernandezkiley, DO - 09/04/2021 7:56 AM CDT This [...] Gatherings with Friends and Family: ??? Attends [employer]ism Services: ??? Active Member of Clubs or [...] explained in detail to the patient/power of united states attorney. These were understood, assumed and written [...] Pathology (09/04/2021 12:00 AM CDT) COPATH REPORT ?[facility] ? [address] [facility]. ? [place], [place] ??[address] ? [id number] ? Department of Pathology ? Pathology Report ? SURGICAL FINAL REPORT Patient Name: DEEP DE LOS SANTOS ? : 1945 (Age: 76) ? Location: [facility] Gender: M ?Collected Date: 09/04/2021 Med Rec #: [id number] ?Date Received: 09/04/2021 Date Reported: 09/05/2021 Provider: [...] Signed Out ? MAGDY NOWAK MD Pathologist IF:[facility] Microscopic Description: Microscopic examination is performed, and the findings support the final diagnosis. The Immunohistochemical (IHC) stain controls perform as expected. These tests were developed and the performance characteristics determined by: [place], [place]; [place], [place]; [employer] [place], [place]: and/or [employer] [place], [place]. They have not been cleared [...] submitted in toto in cassette B1. ?? :[facility] Billing Fee Code(s): 66586(2), 40740(2) [facility] Tissue specimen (specimen) GASTRIC BIOPSY SPECIMEN / Unknown 09/04/2021 11:23 AM CDT Tissue specimen (specimen) GASTRIC BIOPSY SPECIMEN / Unknown 09/04/2021 11:26 AM CDT Ebenezer Douglas DO PATHOLOGY/CYTOLOGY ORDERABLES F inal Result [facility] [address] [place] [address], documented in this encounter Visit Diagnoses Not [...] CRNA) documented in this encounter Care Teams Clinical Nurse Leader Relationship Specialty Start Date End Date Tien Bagley DO [address] [employer] [address] [address] PCP - General INTERNAL MEDICINE 09/04/21 documented as of this encounter
--- OUTSIDE RECORDS SUMMARY | 2024-11-22 04:01 | XMS_ITS | Encounter Summary ---
Author Organization [facility] Address [address] [place] [address]. [place], [place] [address] [place] [address] Care Team Providers Care National Account Executive Name Role Phone Tien Bagley DO Primary Care Provider [phone] Encounter Details Date Type Department Care Team (Latest Contact Info) Description 09/04/2021 Travel Social History Tobacco Use Types Packs/Day [...] AM CDT documented as of this encounter Plan of Treatment Not on file documented as of this encounter Visit Diagnoses Not on filedocumented in this encounter Care Teams National Account Executive Relationship Specialty Start Date End Date Tien Bagley DO 2089 [facility] [address] [place] [address] PCP - General INTERNAL MEDICINE 09/04/21 documented as of this encounter
--- OUTSIDE RECORDS SUMMARY | 2024-11-22 04:01 | XMS_ITS | Referral Summary ---
Author Organization [facility] Address [address] [facility] [place] [address] Care Team Providers Care Corporation Pilot Name Role Phone Unavailable Primary Care Provider Unavailabl e Source Comments [facility],non-owned Affiliates and Associated Physician Practices is amultiple site organization consisting of ambulatory clinics and hospital sitesin [place], [place], [place] and [place]. This disclosure is being madepursuant to the Care Everywhere program and may not contain all information available regarding this patient. Last updated 18.[facility] Social History Tobacco Use Types Packs/Day Years Used Date Smoking Tobacco: Never Assessed Sex and Gender Information Value Date Recorded Sex Assigned at Not on file Gender Identity Not on file Sexual Orientation Not on file Plan of Treatment Not on file
--- OUTSIDE RECORDS SUMMARY | 2024-11-22 04:01 | XMS_ITS | Encounter Summary ---
Author Organization [facility] Address [address] [place] [address]. [place] [address] [place] [address] Care Team Providers Care Bessemer Regulator Name Role Phone Tien Bagley DO Primary Care Provider [phone] Reason for Visit * Auth/Cert (Routine) Specialty Diagnoses / Procedures Referred By Contjennifer t Referred To Contact Diagnoses GERD, personal hx of polyps Procedures COLONOSCOPY Ye Levy MD [address] [address] Phone: tel: fax: Referral ID Status Reason Start Date Expiration Date Visits Re quested Visits Authorized [id number] 1 1 Encounter Details Date Type Department Care Team (Late st Contact Info) Description 10/21/2022 12:21 PM SENIOR ANIMATOR Anesthesia Event [facility] [place] [address] Henna Henry MD 1 [place] [address] [phone] (Work) Anesthesia Record Procedure Summary Procedure Name Responsible Anesthesiologist Anesthesia Start Time Anesthesia Stop Time COLONOSCOPY WITH CECAL 1CM S, 5MM S, AND 8MM S, ASCENDING COLON 1CM S X2, 2CM S X2,7MM S X2, AND 5MM S AND TRANSVERESE COLON 2.5CM S POYLPECTOMIES VIA HOT SNARE Henna Henry MD 10/21/22 1221 10/21/22 1324 Events Date Time Event Comment 10/21/2022 1017 1017 AN Anesthesia Prepped 1214 AN CROP SPECIALIST Prepped 1221 An Start Patient ID and consent checked and patient reassessed. 1221 An Start Data 1221 Preoxygenation 1221 Face Mask Applied 1226 An Induction The patient was reevaluated immediately before moderate or deep sedation use and before anesthesia induction. 1231 Anesthesia Ready 1318 An Emergence 1320 Face Mask Removed 1322 Quick Note Patient awakens , follows commands, exchanging well on RA. Taken to phase 2 with RN 1322 an stop data 1322 Post Anesthetic Care Handoff I completed my handoff to the receiving nurse during which we: 1. Identified the patient 2. Identified the responsible provider 3. Reviewed the pertinent medical history 4. Discussed the surgical course 5. Reviewed intra-op anesthesia management and issues during anesthesia 6. Set expectations for post-procedure period 7. Allowed opportunity for questions and acknowledgement of understanding. 1324 An Stop Meds Name Total lidocaine (PF) (XYLOCAINE) 2% injection 40 mg propofol (DIPRIVAN) 200 mg/20 mL injecti on 540 mg fentaNYL (SUBLIMAZE) 100 mcg/2 mL inject ion 50 mcg lactated ringers infusion 1,100 mL * Agents Name O2 * Blood No blood administrations on file. Lines, Drains, and Airways Type Details Placement Removal Peripheral IV Placement Date: 10/03 ; Placement Time: 1028; Placed Outside of This Facility?: No; Size: 20 G; Orientation: Right; Location: Hand; Site Prep: Chlorhexidine; Local Anesthetic: None; Inserted By: Komal MORALES; Insertion attempts: 2; Ultrasound-guided Placement?: No; Patient Tolerance: Tolerated well; Removal Date: 10/21/22; Removal Time: 1345; Removal Reason: Therapy Completed 10/21/22 1028 by Komal Dougherty RN 10/21/22 1345 by Isabel Walsh RN documented in this encounter Social History Tobacco [...] Coronavirus/COVID-19? No / Unsure 10/21/2022 9:36 AM SENIOR ANIMATOR documented as of this encounter OR Notes * Anesthesia Postprocedure Evaluation - Henna Henry MD - 10/21/2022 3:40 PM CST Anesthesia Post-op Note Deep Goss Procedure(s): COLONOSCOPY WITH CECAL 1CM S, 5MM S, AND 8MM S, ASCENDING COLON 1CM S X2, 2CM S X2,7MM S X2, AND 5MM S AND TRANSVERESE COLON 2.5CM S POYLPECTOMIES VIA HOT SNARE Anesthesia type: general Vitals: 10/21/22 1355 BP: (!) 174/87 Vitals: 10/21/22 1355 Pulse: 53 Vitals: 10/21/22 1355 Resp: 12 Vitals: 10/21/22 1320 Temp: 36.2 ??C Vitals: 10/21/22 1355 SpO2: 98% Patient Location: Phase II/Outpatient Level of Consciousness: awake, alert and oriented Pain Management: adequate analgesia Airway Patency: patent Respiratory Status: spontaneous ventilation, nonlabored ventilation and room air Cardiovascular Status: hemodynamically stable Post-Op Nausea: none Postoperative Hydration: euvolemic There were no known notable events for this encounter. OR ANIMATOR * Anesthesia Postprocedure Evaluation - Henna Henry MD - 10/21/2022 3:40 PM CST Anesthesia Post-op Note Deep Goss Procedure(s): COLONOSCOPY WITH CECAL 1CM S, 5MM S, AND 8MM S, ASCENDING COLON 1CM S X2, 2CM S X2,7MM S X2, AND 5MM S AND TRANSVERESE COLON 2.5CM S POYLPECTOMIES VIA HOT SNARE Anesthesia type: general Vitals: 10/21/22 1355 BP: (!) 174/87 Vitals: 10/21/22 1355 Pulse: 53 Vitals: 10/21/22 1355 Resp: 12 Vitals: 10/21/22 1320 Temp: 36.2 ??C Vitals: 10/21/22 1355 SpO2: 98% Patient Location: Endoscopy (Endoscopy suite) Level of Consciousness: awake, oriented and alert Pain Management: adequate analgesia Airway Patency: patent Respiratory Status: spontaneous ventilation, nonlabored ventilation and room air Cardiovascular Status: hemodynamically stable Post-Op Nausea: none Postoperative Hydration: euvolemic There were no known notable events for this encounter. OR ANIMATOR * Anesthesia Preprocedure Evaluation - Henna Henry MD - 10/20/2022 10:08 AM CST Anesthesia ROS/MED History Reviewed: Patient summary , Nursing notes , Family history anesthesia, Anesthesia history , Medications , Labs , Unchecked boxes are not applicable Pre-Anesthetic State: alert, awake and responds appropriately Pulmonary Cardiovascular (+) hypertension, arrhythmia Neuro/Psych (+) psychiatric problem, (anxiety) GI/Hepatic/Renal (+) GERD Endo/Other (+) arthritis, blood dyscrasia, (Anticoagulation) GENERAL COMMENTS Past Medical History: No date: A-fib (CMS/HCC) No date: Anxiety No date: B12 deficiency No date: BPH (benign prostatic hyperplasia) No date: GERD (gastroesophageal reflux disease) No date: Gout No date: HTN (hypertension) No date: IBS (irritable bowel syndrome) Physical Evaluation Airway Mallampati: II TM Distance: >3 FB Neck ROM: normal Dental (upper dentures), (lower dentures) Pulmonary Pulmonary exam normal Cardiovascular Cardiovascular exam normal Other findings: There were no vitals taken for this visit. No results for input(s): WBC, RBC, HGB, HCT, PLT, NA, K, CL, CO2, AGAP, BUN, CR, BUNCREATININ, GFRNON, GFR, GLU, CA in the last 72 hours. Anesthesia Plan ASA 3 Intravenous Induction Anesthesia type: general Plan for Airway: nasal cannula/simple face mask Plan for Post-op Pain Plan: as per surgeon Discussed potential risks of General Anesthesia including but not limited to corneal abrasion, visual impairment or visual loss, mouth injury, dental damage, sore throat, hoarseness, esophageal injury, awareness under anesthesia, nerve injury due to positioning, aspiration, pneumonia, stroke, cardiac event, adverse drug reactions and . Tiva anesthetic planned and discussed. Possible GA as needed. Informed Consent Anesthetic plan and risks discussed with patient of whom consent was obtained. . OR ANIMATOR documented in this encounter Plan of Treatment Not on file documented as of this encounter Visit Diagnoses Not on filedocumented in this encounter Administered Medications Inactive Administered Medications - up to 3 most recent administrations Medication Order MAR Action Action Date Dose Rate Site fentaNYL (SUBLIMAZE) injection Intravenous, PRN, Starting on Thu10/21/22 at 1229, Until Thu10/21/22 at 1324, Anesthesia Intra-Op Given 10/21/2022 12:37 PM SENIOR ANIMATOR 25 mcg Given 10/21/2022 12:29 PM SENIOR ANIMATOR 25 mcg lactated ringers infusion at 10 mL/hr, Intravenous, Continuous, Starting on Thu10/21/22 at 1030, Until Thu10/21/22 at 1641, Infuse at TKO rate, Pre-Op New Bag 10/21/2022 1:05 PM SENIOR ANIMATOR Continued by Anesthesia 10/21/2022 12:21 PM SENIOR ANIMATOR 10 mL/hr New Bag 10/21/2022 10:29 AM SENIOR ANIMATOR 10 mL/hr lidocaine (PF) (XYLOCAINE) 2 % injection Intravenous, PRN, Starting on Thu10/21/22 at 1226, Until Thu10/21/22 at 1324, Anesthesia Intra-Op Given 10/21/2022 12:26 PM SENIOR ANIMATOR 40 mg propofol (DIPRIVAN) IV bolus Intravenous, PRN, Starting on Thu10/21/22 at 1228, Until Thu10/21/22 at 1324, Anesthesia Intra-Op Given 10/21/2022 1:14 PM SENIOR ANIMATOR 20 mg Given 10/21/2022 1:12 PM SENIOR ANIMATOR 20 mg Given 10/21/2022 1:09 PM SENIOR ANIMATOR 25 mg documented in this encounter Care Teams Bessemer Regulator Relationship Specialty Start Date End Date Tien Bagley DO [address] [address] PCP - General INTERNAL MEDICINE 09/04/21 documented as of this encounter
--- OUTSIDE RECORDS SUMMARY | 2024-11-22 04:01 | XMS_ITS | Encounter Summary ---
Author Organization [facility] Address [address] [place] [address]. [place], [place] [address] [place] [address] Care Team Providers Care Title I Math Tutor Name Role Phone Tien Bagley DO Primary Care Provider [phone] Encounter Details Date Type Department Care Team (Latest Contact Info) Description 12/01/2022 Travel Social History Tobacco Use Types Packs/Day [...] suspected to have Coronavirus/COVID-19? No / Unsure 12/01/2022 2:55 PM SKI BINDING FITTER AND REPAIRER documented as of this encounter Plan of Treatment Not on file documented as of this encounter Visit Diagnoses Not on filedocumented in this encounter Care Teams Title I Math Tutor Relationship Specialty Start Date End Date Tien Bagley DO 2089 [facility] [address] [place] [address] PCP - General INTERNAL MEDICINE 09/04/21 documented as of this encounter
--- OUTSIDE RECORDS SUMMARY | 2024-11-22 04:01 | XMS_ITS | Encounter Summary ---
Author Organization [facility] Address [address] [place] [address]. [place] [address] [place] [address] Care Team Providers Care Equipment Hire Manager Name Role Phone Tien Bagley DO Primary Care Provider [phone] Reason for Referral * Imaging (Routine) - Closed Specialty Diagnoses / Procedures Referred By Contac t Referred To Contact RADIOLOGY Diagnoses GERD (gastroesophageal reflux disease) Procedures NM GASTRIC EMPTYING STUDY Aretha Nieves NP Phone: tel: [phone] fax: Referral ID Status Reason Start Date Expiration Date Visits Re quested Visits Authorized [id number] Closed 11/11/2021 01/10/2022 1 1 SERVICE LEAD Reason for Visit * Imaging (Routine) - Closed Specialty Diagnoses / Procedures Referred By Contac t Referred To Contact RADIOLOGY Diagnoses GERD (gastroesophageal reflux disease) Procedures NM GASTRIC EMPTYING STUDY Aretha Nieves NP Phone: tel: [phone] fax: Referral ID Status Reason Start Date Expiration Date Visits Re quested Visits Authorized [id number] Closed 11/11/2021 01/10/2022 1 1 Encounter Details Date Type Department Care Team (Latest Contact Info) Description 11/11/2021 8:43 AM FOOD SERVICE LEAD - 11/11/2021 11:59 PM FOOD SERVICE LEAD Hospital Encounter [facility] Nuclear Medicine [place], [place] [id number] [place] [address] [place] [address] [phone] (Work) Discharge Disposition: Home or Self Care (Routine [...] have Coronavirus / COVID-19? No / Unsure 11/11/2021 8:43 AM FOOD SERVICE LEAD documented as of this encounter Medications at Time of Discharge [...] with food documented as of this encounter Plan of Treatment Not on file documented as of this encounter Procedures Procedure Name Priority Date/Time Associated Diagnosis Comments NM GASTRIC EMPTYING STUDY Routine 11/11/2021 12:07 PM FOOD SERVICE LEAD GERD (gastroesophageal reflux disease) documented in this encounter Results * NM GASTRIC EMPTYING STUDY (11/11/2021 12:07 PM FOOD SERVICE LEAD) Anatomical Region Laterality Modality Abdomen Nuclear Medicine 11/11/2021 12:4 5 PM FOOD SERVICE LEAD Impressions 11/11/2021 12:46 PM FOOD SERVICE LEAD IMPRESSION: Normal gastric emptying study. Referred By: ARETHA NIEVES Interpreted By: Sita Cortés MD, 11/11/2021 12:45 PM Narrative 11/11/2021 12:46 PM FOOD SERVICE LEAD EXAMINATION: GASTRIC EMPTYING STUDY DATE OF STUDY: 11/11/2021 RADIOPHARMACEUTICAL: 1.0 mCi Tc-99m sulfur colloid incorporated into scrambled eggs, along with 2 slices toast, 30 g strawberry jam, and 120 mL water p.o. HISTORY: Acid reflux, irritable bowel syndrome. FINDINGS: ??After oral ingestion of the radiolabeled meal, sequential K[place]ILI abdominal images were obtained through 3 hours. There is normal emptying of gastric contents into the intestine. ??The residual gastric activity is 56% of peak activity at 1 hour, 5% at 2 hours, and 2% at 3 hours. ?? Normal limits: The corresponding upper limit values in normal subjects are 100% at 30 minutes, 90% at 1 hour, 60% at 2 hours, and 10% at 4 hours. Procedure Note Sita Cortés MD - 11/11/2021 EXAMINATION: GASTRIC EMPTYING STUDY DATE OF STUDY: 11/11/2021 RADIOPHARMACEUTICAL: 1.0 mCi Tc-99m sulfur colloid incorporated intoscrambled eggs, along with 2 slices toast, 30 g strawberry jam, and 120 mLwater p.o. HISTORY: Acid reflux, irritable bowel syndrome. FINDINGS: After oral ingestion of the radiolabeled meal, sequential LAOabdominal images were obtained through 3 hours. There is normal emptying of gastric contents into the intestine. Theresidual gastric activity is 56% of peak activity at 1 hour, 5% at 2hours, and 2% at 3 hours. Normal limits: The corresponding upper limit values in normal subjects [id number]% at 30 minutes, 90% at 1 hour, 60% at 2 hours, and 10% at 4 hours. IMPRESSION: Normal gastric emptying study. Referred By: ARETHA NIEVES Interpreted By: Sita Cortés MD, 11/11/2021 12:45 PM us Aretha Nieves SOFTWARE ENGINEER ADVISOR NUC MED Final Result documented in this encounter Visit Diagnoses Diagnosis GERD (gastroesophageal reflux disease) Esophageal reflux documented in this encounter Administered Medications Inactive Administered Medications - up to 3 most recent administrations Medication Order MAR Action Action Date Dose Rate Site Generic Radiopharmaceutical 1 millicurie 1 millicurie, Oral, IMG once as needed, 1 mCi Tc99m Sulfur Colloid tagged egg, 1 dose, Starting on Thu11/11/21 at 1208, Until Thu11/11/21 at 1208 Given 11/11/2021 12:08 PM FOOD SERVICE LEAD 1 millicurie Other documented in this encounter Care Teams Equipment Hire Manager Relationship Specialty Start Date End Date Tien Bagley DO [address] [place] [id number] PCP - General INTERNAL MEDICINE 09/04/21 documented as of this encounter
--- OUTSIDE RECORDS SUMMARY | 2024-11-22 04:01 | XMS_ITS | Encounter Summary ---
Author Organization [facility] Address [address] [place] [address]. [place] [address] [place] [address] Care Team Providers Care Management Engineer Name Role Phone Tien Bagley DO Primary Care Provider [phone] Reason for Visit * Auth/Cert (Routine) Specialty Diagnoses / Procedures Referred By Contjennifer t Referred To Contact Diagnoses GERD, personal hx of polyps Procedures COLONOSCOPY Myrna Levy MD [address] [address] Phone: tel: fax: Referral ID Status Reason Start Date Expiration Date Visits Re quested Visits Authorized [id number] 1 1 Encounter Details Date Type Department Care Team (Late st Contact Info) Description 10/21/2022 11:00 AM SUPERVISOR COIN MACHINE - 10/21/2022 11:30 AM SUPERVISOR COIN MACHINE Surgery [facility] Endo/[place], [place] [id number] Myrna Levy MD [address] [phone] COLONOSCOPY WITH CECAL 1CM S, 5MM S, AND 8MM S, ASCENDING COLON 1CM S X2, 2CM S X2,7MM S X2, AND 5MM S AND TRANSVERESE COLON 2.5CM S POYLPECTOMIES VIA HOT SNARE Surgery Details Date/Time Status Location OR Service Patient Class Case Class Case Type Trauma Case? 10/21/2022 11:00 AM Posted [facility] Endo 3 [facility] - Elective No Panel 1 Procedure LRB Anes Op Region Wound Class Comments COLONOSCOPY WITH CECAL 1CM S, 5MM S, AND 8MM S, ASCENDING COLON 1CM S X2, 2CM S X2,7MM S X2, AND 5MM S AND TRANSVERESE COLON 2.5CM S POYLPECTOMIES VIA HOT SNARE N/A General Clean Contaminated DIVERTICULOSIS IN SIGMOID COLON, POLYPS Surgeon Surgeon Role Service Panel Myrna Levy MD Primary Gastroenterology 1 documented in this encounter [...] Coronavirus/COVID-19? No / Unsure 10/21/2022 9:36 AM SUPERVISOR COIN MACHINE documented as of this encounter Last Filed Vital Signs Vital Sign Reading Time Taken Comments Blood Pressure 159/92 10/21/2022 10:50 AM SUPERVISOR COIN MACHINE Pulse 80 10/21/2022 10:13 AM SUPERVISOR COIN MACHINE Temperature 36.4 ??C (97.6 ??F) 10/21/2022 10:[address] Respiratory Rate 9 10/21/2022 10:13 AM SUPERVISOR COIN MACHINE Oxygen Saturation 98% 10/21/2022 10:13 AM SUPERVISOR COIN MACHINE Inhaled Oxygen Concentration - - Weight 111.1 kg (245 lb) 10/20/2022 12:48 PM SUPERVISOR COIN MACHINE Height 194.3 cm (6' 4.5 ) 10/20/2022 12:48 PM CS T Body Mass Index 29.43 10/20/2022 12:48 PM SUPERVISOR COIN MACHINE documented in this encounter Discharge Instructions * Discharge Instructions* Myrna Levy MD - 10/21/2022 1:23 PM SUPERVISOR COIN MACHINE 11 polyps removed Mild diverticulosis No aspirin or Xarelto x 1 week-restart [address] Levy for biopsy results in two weeks at [phone] RVISOR COIN MACHINE * Attachments The following attachments cannot be sent through Care Everywhere. * Colonoscopy Discharge Instructions (Chilean) * General Anesthesia Discharge Instructions (Chilean) documented in this encounter Medications at Time [...] by mouth 2 (two) times a day. febuxostat (ULORIC) 40 MG tablet Take 40 mg by mouth daily. Flecainide Acetate 150 MG Tab Take 1 tablet by mouth 2 (two) times a day. fluticasone propionate 50 MCG/ACT nasal spray 1 spray by Nasal route as needed for Rhinitis. INDOMETHACIN OR Take 75 mg by mouth as needed. loratadine (CLARITIN) 10 MG tablet Take 10 mg by mouth daily. 01/02/2022 LORazepam 0.5 MG tablet Take 0.5 mg by mouth as needed for Anxiety. losartan-hydroCH LOROthiazide (HYZAAR) 50-12.5 MG tablet Take 1 tablet by mouth 2 (two) times daily. 01/10/2022 metoclopramide (REGLAN) 5 MG tablet Take 5 mg by mouth 3 (three) times daily. 12/18/2021 metoprolol succinate ER (TOPROL-XL) 50 MG 24 hr tablet Take 50 mg by mouth daily. 02/06/2022 metoprolol tartrate 25 MG tablet Take 25 mg by mouth daily. Clarify correct metoprolol NIFEDIPINE ER OR Take 60 mg by mouth daily. omeprazole (PRILOSEC) 40 MG capsule Take 40 mg by mouth 2 (two) times daily. 02/17/2022 rivaroxaban 20 MG Tab tablet Take 20 mg by mouth daily. Take with food documented as of this encounter H&P Notes * Myrna Levy MD - 10/21/2022 12:15 PM CST Myrna Levy MD, FACG, FACP Attending Provider: Myrna Levy MD PCP: TIEN BAGLEY DO PATIENT: Deep De Los Santos : 1945 Date of Visit: 10/21/2022 HPI: 77-year-old male who presents for personal history of colon polyps. CV-19: vaxed. There is no problem list on file for this patient. Past Medical History: Diagnosis Date ??? A-fib (CMS/HCC) ??? Anxiety ??? B12 deficiency ??? BPH (benign prostatic hyperplasia) ??? GERD (gastroesophageal reflux disease) ??? Gout ??? HTN (hypertension) ??? IBS (irritable bowel syndrome) Past Surgical History: Procedure Laterality Date ??? BACK SURGERY ??? INGUINAL HERNIA REPAIR Bilateral ??? OTHER PROCEDURE cardiac ablation ??? OTHER PROCEDURE neck fusion Family History Problem Relation Name Age of Onset ??? Cancer Father lung Allergies Allergen Reactions ??? Adhesive [Tape] Other (see comment) Itching,scare Cerner Allergy Text Annotation: Adhesive Tape, Cerner Reaction: itching ??? Levofloxacin GI Upset and Unknown Thinks Levaquin caused irregular heartbeat Cerner Allergy Text Annotation: Levaquin ??? Pseudoephedrine Other (see comment) Cerner Allergy Text Annotation: Sudafed causes irregular heartbeat Blood pressure (!) 159/92, pulse 80, temperature 97.6 ??F (36.4 ??C), temperature source Temporal, resp. rate 9, height 6' 4.5 (1.943 m), weight 111.1 kg (245 lb), SpO2 98 %. Physical Exam Constitutional: he appears well-developed and well-nourished. Cardiovascular: Normal rate. Pulmonary/Chest: Breath sounds normal. Abdominal: Soft, non-tender. he exhibits no edema. Assessment & Plan: Colonoscopy Myrna Levy 10/21/2022 RVISOR COIN MACHINE documented in this encounter Procedure Notes * Myrna Levy MD - 10/21/2022 12:17 PM CSTAssociated Order(s): COLONOSCOPY Procedure(s): COLONOSCOPY MYRNA LEVY MD, FACG, FACP COLONOSCOPY 10/21/2022 INDICATION: Personal history of colon polyps. POST-OP: 11 polyps removed. Mild diverticulosis. SEDATION: Per Anesthesia PREP: Good. With the patient in the left lateral decubitus position, the Olympus [id number] colonoscope was introduced into the rectum and advanced easily to the Terminal Ileum. Careful inspection of the mucosa was made upon insertion and withdrawal of the endoscope. FINDINGS: Terminal ileum: distal 5 cm normal. , and Rectum including retroflexion normal. Cecum: 1.0 cm, [...] - Previous colonoscopy 5 years ago in [place]; report unavailable - Surveillance colonoscopy 10/21/2022 with [...] will follow-up with Dr. Bagley as needed. Myrna Levy M.D. Cc: Dr. Nohemy Bagley RVISOR COIN MACHINE documented in this encounter Plan of Treatment Not on file documented as of this encounter Procedures Procedure Name Priority Date/Time Associated Diagnosis Comments PROCEDURE GENERIC 10/21/2022 12: 34 PM SUPERVISOR COIN MACHINE COLSC FLX W/REMOVAL LESION BY HOT BX FORCEPS 10/21/2022 12:18 PM SUPERVISOR COIN MACHINE GERD, personal hx of polyps COLONOSCOPY Routine 10/21/2022 12:17 PM SUPERVISOR COIN MACHINE POCT GLUCOSE - PALOMO DOCKED DEVICE Routine 10/21/2022 10:27 AM SUPERVISOR COIN MACHINE ECG 12-LEAD Routine 10/21/2022 10:12 AM SUPERVISOR COIN MACHINE PATHOLOGY Routine 10/21/2022 12:00 AM SUPERVISOR COIN MACHINE documented in this encounter Results * PROCEDURE GENERIC (10/21/2022 12:34 PM SUPERVISOR COIN MACHINE) Narrative 10/21/2022 12:34 PM SUPERVISOR COIN MACHINE Ordered by an unspecified provider. us Documents Sc[facility] Final Result * Colonoscopy (10/21/2022 12:17 PM SUPERVISOR COIN MACHINE) Narrative Myrna Levy MD - 10/21/2022 12:17 PM SUPERVISOR COIN MACHINE Myrna Levy MD ? 10/21/2022 ??1:28 PM MYRNA LEVY MD, FACG, FACP COLONOSCOPY 10/21/2022 INDICATION: Personal history of colon polyps. ?? POST-OP: 11 polyps removed. Mild diverticulosis. SEDATION: Per Anesthesia PREP: Good. With the patient in the left lateral decubitus position, the Olympus [id number] ??colonoscope was introduced into the rectum and [...] - Previous colonoscopy 5 years ago in [place]; report unavailable - Surveillance colonoscopy 10/21/2022 with [...] will follow-up with Dr. Bagley as needed. Myrna Levy M.D. Cc: Dr. Nohemy Bagley Myran Levy MD GI PROCEDURE ORDERABLES Fin al Result * (ABNORMAL) POCT glucose (10/21/2022 10:27 AM SUPERVISOR COIN MACHINE) GLUCOSE POC 117(H) 70 - 99 mg/dL 10/21/2022 10:33 AM SUPERVISOR COIN MACHINE [facility] 10/21/2022 10:2 7 AM SUPERVISOR COIN MACHINE Myrna Levy MD POCT ORDERABLES - DEVICE Fi nal Result [facility] 3 [place] [address], * ECG 12 lead (10/21/2022 10:12 AM SUPERVISOR COIN MACHINE) 10/21/2022 10:1 2 AM SUPERVISOR COIN MACHINE Narrative [facility] - 10/21/2022 9:03 PM SUPERVISOR COIN MACHINE ?[facility] [place] ? [address] [facility] ? Test Date: ?2022-10-21 Pat Name: ? DEEP DE LOS SANTOS ? Department: ?? 40 ? Room: ? ODS Gender: ? Male ? Command And Control Specialist: ?? Isabel nj : ?1945 ? Requested By: HENNA HWANGWANI Order Number: [id number] ? Reading MD: ?? Ashwin Edwards ? Measurements Intervals ?[place] ? Rate: ? 75 ? P: ?71 AR: ? 289 ?QRS: ?-44 QRSD: ? 121 ?T: ?-8 QT: ? 384 ? QTc: ?430 ? Interpretive Statements SINUS RHYTHM WITH FIRST DEGREE AV BLOCK LEFT AXIS DEVIATION ??[QRS AXIS < -30] MODERATE INTRAVENTRICULAR CONDUCTION DELAY ??[110+ ms QRS DURATION] VOLTAGE CRITERIA FOR LVH ??[MEETS CRITERIA IN ONE OF: R(aVL), S(V1), R(V5), R(V5/V6)+S(V1)] MODERATE ST DEPRESSION ??[0.05+ mV ST DEPRESSION] No previous ECG available for comparison RVISOR COIN MACHINE Procedure Note Ashwin Edwards MD - 10/21/[address] Test Date: 2022-10-21 Pat Name: DEEP DE LOS SANTOS Department: 40 Room: ODS Gender: Male Command And Control Specialist: Isabel nj : 1945 Requested By: HENNA HENRY Order Number: [id number] Reading MD: Ashwin Edwards Measurements Intervals [place] Rate: 75 P: 71 AR: 289 QRS: -44 QRSD: 121 T: -8 QT: 384 QTc: 430 Interpretive Statements SINUS RHYTHM WITH FIRST DEGREE AV BLOCK LEFT AXIS DEVIATION [QRS AXIS < -30] MODERATE INTRAVENTRICULAR CONDUCTION DELAY [110+ ms QRS DURATION] VOLTAGE CRITERIA FOR LVH [MEETS CRITERIA IN ONE OF: R(aVL), S(V1),R(V5), R(V5/V6)+S(V1)] MODERATE ST DEPRESSION [0.05+ mV ST DEPRESSION] No previous ECG available for comparison RVISOR COIN MACHINE us Henna Henry MD ECG ORDERABLES Final Result [facility] RAD * Pathology (10/21/2022 12:00 AM SUPERVISOR COIN MACHINE) COPATH REPORT ?[facility] ? [address] [facility] [address] ? [place], [place] ??[address] ? [id number] ? Department of Pathology ? Pathology Report ? SURGICAL FINAL REPORT Patient Name: DEEP DE LOS SANTOS ? : 1945 (Age: 77) ? Location: [facility] Gender: M ?Collected Date: 10/21/2022 Med Rec #: [id number] ?Date Received: 10/21/2022 Date Reported: 10/23/2022 Provider: MYRNA LEVY MD Specimen(s) A: Polyps, cecum B: Polyps, ascending colon C: Polyp, transverse colon Final Pathologic Diagnosis A. ??CECUM, POLYPS, BIOPSY: ? - ? TUBULAR ADENOMA, MULTIPLE FRAGMENTS ? - ?NO HIGH GRADE DYSPLASIA OR MALIGNANCY B. ??COLON, ASCENDING POLYPS, BIOPSY: ? - ? TUBULAR ADENOMA, MULTIPLE FRAGMENTS ? - ? NO HIGH GRADE DYSPLASIA OR MALIGNANCY C. ??COLON, TRANSVERSE POLYP, POLYPECTOMY: ? - ? TUBULAR ADENOMA ? - ? POLYP STALK NEGATIVE FOR DYSPLASIA ? - ? NO HIGH GRADE DYSPLASIA OR MALIGNANCY ?? Electronically Signed Out ? JOE CERVANTES MD Pathologist OJL:pb Microscopic Description: Microscopic examination substantiates the above captioned diagnoses. Clinical History Gerd, personal hx of polyps Gross Description Received are three formalin-filled containers all labeled with the patient's name (Deep De Los Santos), date of (1945). A. ??Additionally labeled cecal polyp , collection time 10/21/2022 at 1238. ??The specimen consists of two pink-ruiz fragments of tissue measuring up to 0.4 cm in greatest dimension, admixed with potential yellow-ruiz vegetative material. ??The specimen is submitted in toto in cassette A1. B. ??Additionally labeled ascending colon polyp , collection time 10/21/2022 at 1252. ??The specimen consists of multiple pink-ruiz to yellow-ruiz to red-pink fragments of tissue ranging from 0.1 cm up to 0.9 cm in greatest dimension, admixed with vegetative material and hemorrhagic material, measuring 2.5 x 0.9 x 0.5 cm in aggregate dimension. ??Additionally there are three, pink-ruiz to red-pink, ovoid to irregular polyps measuring 0.9 cm, 1.0 cm, and 1.2 cm in greatest dimension. ??The surgical margin of the largest two polyps are inked black, and the surgical margin of the remaining polyp is inked green. ??The specimen is submitted entirely in cassettes B1 through B4, with the fragments of tissue admixed with vegetative and hemorrhagic material submitted in toto in cassettes B1 and B2, the largest inked black polyp perpendicularly bisected and submitted entirely in cassette B3, and the remaining black and green-inked polyps each perpendicularly bisected and submitted entirely in cassette B4. C. ??Additionally labeled transverse colon polyp , collection time 10/21/2022 at 1317. ??The specimen consists of a single, ovoid, pink-ruiz to red-pink polyp measuring 1.4 x 0.9 x 0.7 cm. ??The surgical margin is inked black. ??The polyp is perpendicularly bisected and submitted entirely in cassette C1. OJL:pb Billing Fee Code(s): 38714(3) [facility] TISSUE COLON STRUCTURE / Unknown 10/21/2022 12:38 PM SUPERVISOR COIN MACHINE Tissue specimen (specimen) COLON STRUCTURE / Unknown 10/21/2022 12:52 PM SUPERVISOR COIN MACHINE Tissue specimen (specimen) COLON STRUCTURE / Unknown 10/21/2022 1:17 PM SUPERVISOR COIN MACHINE us Myrna Levy MD PATHOLOGY/CYTOLOGY ORDERABL ES Final Result [facility] [address] [place] [address], documented in this encounter Visit Diagnoses Not on filedocumented in this encounter Administered Medications Inactive Administered Medications - up to 3 most recent administrations Medication Order MAR Action Action Date Dose Rate Site lactated ringers infusion at 10 mL/hr, Intravenous, Continuous, Starting on 10/21/22 at 1030, Until Thu10/21/22 at 1641, Infuse at TKO rate, Pre-Op New Bag 10/21/2022 1:05 PM SUPERVISOR COIN MACHINE Continued by Anesthesia 10/21/2022 12:21 PM SUPERVISOR COIN MACHINE 10 mL/hr New Bag 10/21/2022 10:29 AM SUPERVISOR COIN MACHINE 10 mL/hr documented in this encounter Active and Recently Administered Medications Times are shown in SUPERVISOR COIN MACHINE. Continuous Medication Order 10/19/2022 10/20/2022 10/21/2022 lactated ringers infusion at 10 mL/hr, Intravenous, Continuous, Starting on 10/21/22 at 1030, Until 10/21/22 at 1641, Infuse at TKO rate, Pre-Op 1029 (New Bag - Prov ider: Komal Dougherty RN)1221 (Continued by Anesthesia - Provider: Saima Azar CRNA)1304 (Paused - Provider: Saima Azar CRNA - Comment: Switch to gravity)1305 (New Bag - Provider: Saima Azar CRNA)1323 (Anesthesia Volume Adjustment - Provider: Saima Azar CRNA) documented in this encounter Care Teams Management Engineer Relationship Specialty Start Date End Date Tien Bagley DO [address] [id number] PCP - General INTERNAL MEDICINE 09/04/21 documented as of this encounter
--- OUTSIDE RECORDS SUMMARY | 2024-11-22 04:01 | XMS_ITS | Patient Health Summary ---
Author Organization [facility] Address [address] [facility] [place] [address] Care Team Providers Care Store Grocery Merchandiser Name Role Phone Unavailable Primary Care Provider Unavailabl e Note from [facility],non-owned Affiliates and Associated Physician Practices is amultiple site organization consisting of ambulatory clinics and hospital sitesin [place], [place], [place] and [place]. This disclosure is being madepursuant to the Care Everywhere program and may not contain all information available regarding this patient. Last updated 18.[facility] Social History Tobacco Use Types Packs/Day Years Used Date Smoking Tobacco: Never Assessed Sex and Gender Information Value Date Recorded Sex Assigned at Not on file Gender Identity Not on file Sexual Orientation Not on file
--- OUTSIDE RECORDS SUMMARY | 2024-11-22 04:01 | XMS_ITS | Encounter Summary ---
Author Organization [facility] Address [address] [place] [address]. [place], [place] [address] [place] [address] Care Team Providers Care Car Rental Manager Name Role Phone Tien Bagley DO Primary Care Provider [phone] Encounter Details Date Type Department Care Team (Latest Contact Info) Description 11/11/2021 Travel Social History Tobacco Use Types Packs/Day [...] COVID-19? No / Unsure 11/11/2021 8:43 AM NEUROLOGY HOSPITALIST documented as of this encounter Plan of Treatment Not on file documented as of this encounter Visit Diagnoses Not on filedocumented in this encounter Care Teams Car Rental Manager Relationship Specialty Start Date End Date Tien Bagley DO [address] [facility] [address] [place] [address] PCP - General INTERNAL MEDICINE 09/04/21 documented as of this encounter
--- OUTSIDE RECORDS SUMMARY | 2024-11-22 04:01 | XMS_ITS | Encounter Summary ---
Author Organization [facility] Address [address] [place] [address]. [place], [place] [address] [place] [address] Care Team Providers Care Pca Name Role Phone Tien Bagley DO Primary Care Provider [phone] Reason for Referral * Imaging (Routine) - Closed Specialty Diagnoses / Procedures Referred By Contac t Referred To Contact RADIOLOGY Diagnoses Dorsalgia, unspecified Procedures MRI LUMB SPINE WO CON Robert Lopez PA-C [address] [address] Phone: tel: fax: Referral ID Status Reason Start Date Expiration Date Visits Re quested Visits Authorized [id number] Closed 11/11/2022 01/09/2023 1 1 OR PROGRAM MANAGER Reason for Visit * Imaging (Routine) - Closed Specialty Diagnoses / Procedures Referred By Contac t Referred To Contact RADIOLOGY Diagnoses Dorsalgia, unspecified Procedures MRI LUMB SPINE WO CON Robert Lopez PA-C [address] [address] Phone: tel: fax: Referral ID Status Reason Start Date Expiration Date Visits Re quested Visits Authorized [id number] Closed 11/11/2022 01/09/2023 1 1 Encounter Details Date Type Department Care Team (Latest Contact Info) Description 12/01/2022 2:58 PM SENIOR PROGRAM MANAGER - 12/01/2022 11:59 PM SENIOR PROGRAM MANAGER Hospital Encounter [facility] Open MRI [address] [place] [address] Robert Lopez PA-C [address] [place] [address] Discharge Disposition: Home or Self Care (Routine [...] Coronavirus/COVID-19? No / Unsure 12/01/2022 2:55 PM SENIOR PROGRAM MANAGER documented as of this encounter Medications at [...] Procedure Name Priority Date/Time Associated Diagnosis Comments MRI LUMB SPINE WO CON Routine 12/01/2022 3:44 PM SENIOR PROGRAM MANAGER Dorsalgia, unspecified documented in this encounter Results * MRI LUMB SPINE WO CON (12/01/2022 3:44 PM SENIOR PROGRAM MANAGER) Anatomical Region Laterality Modality Spine Magnetic Resonan ce 12/01/2022 4:26 PM SENIOR PROGRAM MANAGER Impressions 12/01/2022 4:29 PM SENIOR PROGRAM MANAGER =====IMPRESSION:===== Moderate multilevel lumbar spondylosis, as described above. Ordered By: ROBERT LOPEZ Interpreted By: Anderson Ardon MD, 12/01/2022 4:26 PM Narrative 12/01/2022 4:29 PM SENIOR PROGRAM MANAGER EXAMINATION: MRI lumbar spine without contrast EXAM DATE/TIME: 12/01/2022 3:09 PM REASON FOR EXAM: ??Low back pain ?? COMPARISON: None available TECHNIQUE: Mutiplanar, multisequence MRI of the lumbar spine was obtained without the use of an IV contrast agent. FINDINGS: There are 5 nonrib-bearing lumbar-type vertebral bodies. The lumbar vertebral bodies and facets are well aligned. The lumbar vertebral body heights are preserved. There is intervertebral disc height loss at L4-5 and to a lesser extent at L2-3, L3-4 and L5-S1. Endplate degenerative changes seen at L4-5 and L2-3. Right L4 and L5 laminotomies. Conus medullaris terminates at L1, normal. There is a normal distribution of the cauda equina within the thecal sac. No abnormal prevertebral or paraspinal soft tissue swelling. L1-2: Disc bulge impressing the ventral thecal sac. Mild spinal canal stenosis. Moderate facet hypertrophy. Mild bilateral neural foraminal stenosis. L2-3: Disc bulge with posterior endplate marginal osteophytes impress the ventral thecal sac. Moderate spinal canal stenosis. Moderate to marked facet hypertrophy. Mild/moderate left neural foraminal stenosis. Mild right neural foraminal stenosis. L3-4: Disc bulge impressing the ventral thecal sac. Moderate spinal canal stenosis. Moderate to marked facet hypertrophy. Mild to moderate left neural foraminal stenosis. Mild right neural foraminal stenosis. L4-5: No significant spinal canal stenosis. Posterior decompression. Moderate facet hypertrophy. Moderate to severe left neural foraminal stenosis. Moderate right neural foraminal stenosis. L5-S1: Disc bulge impressing the ventral thecal sac. Moderate to marked facet hypertrophy. Moderate spinal canal stenosis. Moderate bilateral neural foraminal stenosis. Procedure Note Anderson Ardon MD - 12/01/2022 EXAMINATION: MRI lumbar spine without contrast EXAM DATE/TIME: 12/01/2022 3:09 PM REASON FOR EXAM: Low back pain COMPARISON: None available TECHNIQUE: Mutiplanar, multisequence MRI of the lumbar spine was obtainedwithout the use of an IV contrast agent. FINDINGS: There are 5 nonrib-bearing lumbar-type vertebral bodies. Thelumbar vertebral bodies and facets are well aligned. The lumbar vertebralbody heights are preserved. There is intervertebral disc height loss atL4-5 and to a lesser extent at L2-3, L3-4 and L5-S1. Endplate degenerativechanges seen at L4-5 and L2-3. Right L4 and L5 laminotomies. Conusmedullaris terminates at L1, normal. There is a normal distribution of thecauda equina within the thecal sac. No abnormal prevertebral or paraspinalsoft tissue swelling. L1-2: Disc bulge impressing the ventral thecal sac. Mild spinal canalstenosis. Moderate facet hypertrophy. Mild bilateral neural foraminalstenosis. L2-3: Disc bulge with posterior endplate marginal osteophytes impress theventral thecal sac. Moderate spinal canal stenosis. Moderate to markedfacet hypertrophy. Mild/moderate left neural foraminal stenosis. Mildright neural foraminal stenosis. L3-4: Disc bulge impressing the ventral thecal sac. Moderate spinal canalstenosis. Moderate to marked facet hypertrophy. Mild to moderate leftneural foraminal stenosis. Mild right neural foraminal stenosis. L4-5: No significant spinal canal stenosis. Posterior decompression.Moderate facet hypertrophy. Moderate to severe left neural foraminalstenosis. Moderate right neural foraminal stenosis. L5-S1: Disc bulge impressing the ventral thecal sac. Moderate to markedfacet hypertrophy. Moderate spinal canal stenosis. Moderate bilateralneural foraminal stenosis. =====IMPRESSION:===== Moderate multilevel lumbar spondylosis, as described above. Ordered By: ROBERT LOPEZ Interpreted By: Anderson Ardon MD, 12/01/2022 4:26 PM us Robert Lopez PA-C MRI Final Resul t documented in this encounter Visit Diagnoses Diagnosis Dorsalgia, unspecified documented in this encounter Care Teams Pca Relationship Specialty Start Date End Date Tien Bagley DO [address] [address] PCP - General INTERNAL MEDICINE 09/04/21 documented as of this encounter
--- OUTSIDE RECORDS SUMMARY | 2024-11-22 04:01 | XMS_ITS | Encounter Summary ---
Author Organization [facility] Address [address] [place] [address]. [place], [place] [address] [place] [address] Care Team Providers Care Brush Washer Name Role Phone Tien Bagley DO Primary Care Provider Encounter Details Date Type Department Care Team (Latest Contact Info) Description 10/20/2022 Travel Social History Tobacco Use Types Packs/Day [...] suspected to have Coronavirus/COVID-19? No / Unsure 10/20/2022 12:49 PM BUSINESS DEVELOPMENT AGENT documented as of this encounter Plan of Treatment Not on file documented as of this encounter Visit Diagnoses Not on filedocumented in this encounter Care Teams Brush Washer Relationship Specialty Start Date End Date Tien Bagley DO [address] [facility] [address] [place] [address] PCP - General INTERNAL MEDICINE 09/04/21 documented as of this encounter
--- OUTSIDE RECORDS SUMMARY | 2024-11-22 04:01 | XMS_ITS | Encounter Summary ---
Author Organization [facility] Address [address] [place] [address] [place] [address] Care Team Providers Care Manager Field Name Role Phone Unavailable Primary Care Provider Unavailabl e Encounter Details Date Type Department Care Team (Latest Contact Info) Description 10/05/2023 Travel Social History Tobacco Use Types Packs/Day Years Used Date Smoking Tobacco: Never Assessed Sex and Gender Information Value Date Recorded Sex Assigned at Not on file Gender Identity Not on file Sexual Orientation Not on file documented as of this encounter Plan of Treatment Not on file documented as of this encounter Visit Diagnoses Not on filedocumented in this encounter
--- OUTSIDE RECORDS SUMMARY | 2024-11-22 04:01 | XMS_ITS | Encounter Summary ---
Author Organization [facility] Address [address] [place] [address]. [place] [address] [place] [address] Care Team Providers Care Medical Assisting Instructor Name Role Phone KevynTien rainey Primary Care Provider [phone] Reason for Visit * Auth/Cert (Routine) Specialty Diagnoses / Procedures Referred By Contac t Referred To Contact Diagnoses GERD, personal hx of polyps Procedures COLONOSCOPY Myrna Levy MD [address] [address] Phone: tel: fax: Referral ID Status Reason Start Date Expiration Date Visits Re quested Visits Authorized [id number] 1 1 Encounter Details Date Type Department Care Team (Latest Contact Info) Description 10/21/2022 9:37 AM RN HOUSE SUPERVISOR - 10/21/2022 2:41 PM [facility] Hospital Encounter [facility] [place], [place] [id number] Myrna Levy MD [address] [phone] Discharge Disposition: Home or Self Care (Routine [...] Coronavirus/COVID-19? No / Unsure 10/21/2022 9:36 AM RN HOUSE SUPERVISOR documented as of this encounter Last Filed Vital Signs Vital Sign Reading Time Taken Comments Blood Pressure 174/87 10/21/2022 1:55 PM RN HOUSE SUPERVISOR Pulse 53 10/21/2022 1:55 PM RN HOUSE SUPERVISOR Temperature 36.2 ??C (97.2 ??F) 10/21/2022 1:20 PM CS T Respiratory Rate 12 10/21/2022 1:55 PM RN HOUSE SUPERVISOR Oxygen Saturation 98% 10/21/2022 1:55 PM RN HOUSE SUPERVISOR Inhaled Oxygen Concentration - - Weight 111.1 kg (245 lb) 10/20/2022 12:48 PM RN HOUSE SUPERVISOR Height 194.3 cm (6' 4.5 ) 10/20/2022 12:48 PM CS T Body Mass Index 29.43 10/20/2022 12:48 PM RN HOUSE SUPERVISOR documented in this encounter Discharge Instructions * Discharge Instructions* Myrna Levy MD - 10/21/2022 1:23 PM RN HOUSE SUPERVISOR 11 polyps removed Mild diverticulosis No aspirin or Xarelto x 1 week-restart [address] Levy for biopsy results in two weeks at [phone] HOUSE SUPERVISOR * Attachments The following attachments cannot be sent through Care Everywhere. * Colonoscopy Discharge Instructions (Paraguayan) * General Anesthesia Discharge Instructions (Paraguayan) documented in this encounter Medications at Time [...] Levy MD PCP: TIEN BAGLEY DO PATIENT: Jovita De Los Santos : 1945 Date of [...] Assessment & Plan: Colonoscopy Myrna Levy 10/21/2022 HOUSE SUPERVISOR documented in this encounter Procedure Notes * Myrna Levy MD - 10/21/2022 12:17 PM CSTAssociated Order(s): COLONOSCOPY Procedure(s): COLONOSCOPY MYRNA LEVY MD, FACG, FACP COLONOSCOPY 10/21/2022 INDICATION: Personal history of colon polyps. POST-OP: 11 polyps removed. Mild diverticulosis. SEDATION: Per Anesthesia PREP: Good. With the patient in the left lateral decubitus position, the Olympus [id number] colonoscope was introduced into the rectum and [...] - Previous colonoscopy 5 years ago in [place]; report unavailable - Surveillance colonoscopy 10/21/2022 with [...] Myrna Levy M.D. Cc: Dr. Nohemy Bagley HOUSE SUPERVISOR documented in this encounter Plan of Treatment Not on file documented as of this encounter Procedures Procedure Name Priority Date/Time Associated Diagnosis Comments PROCEDURE GENERIC 10/21/2022 12: 34 PM RN HOUSE SUPERVISOR COLSC FLX W/REMOVAL LESION BY HOT BX FORCEPS 10/21/2022 12:18 PM RN HOUSE SUPERVISOR GERD, personal hx of polyps COLONOSCOPY Routine 10/21/2022 12:17 PM RN HOUSE SUPERVISOR POCT GLUCOSE - PALOMO DOCKED DEVICE Routine 10/21/2022 10:27 AM RN HOUSE SUPERVISOR ECG 12-LEAD Routine 10/21/2022 10:12 AM RN HOUSE SUPERVISOR PATHOLOGY Routine 10/21/2022 12:00 AM RN HOUSE SUPERVISOR documented in this encounter Results * PROCEDURE GENERIC (10/21/2022 12:34 PM RN HOUSE SUPERVISOR) Narrative 10/21/2022 12:34 PM RN HOUSE SUPERVISOR Ordered by an unspecified provider. us Documents [facility] Final Result * Colonoscopy (10/21/2022 12:17 PM RN HOUSE SUPERVISOR) Narrative Myrna Levy MD - 10/21/2022 12:17 PM RN HOUSE SUPERVISOR Myrna Levy MD ? 10/21/2022 ??1:28 PM MYRNA LEVY MD, FACG, FACP COLONOSCOPY 10/21/2022 INDICATION: Personal history of colon polyps. ?? POST-OP: 11 polyps removed. Mild diverticulosis. SEDATION: Per Anesthesia PREP: Good. With the patient in the left lateral decubitus position, the Olympus [id number] ??colonoscope was introduced into the rectum and [...] - Previous colonoscopy 5 years ago in [place]; report unavailable - Surveillance colonoscopy 10/21/2022 with [...] Myrna Levy M.D. Cc: Dr. Nohemy Bagley Myrna Levy MD GI PROCEDURE ORDERABLES Fin al Result * (ABNORMAL) POCT glucose (10/21/2022 10:27 AM RN HOUSE SUPERVISOR) GLUCOSE POC 117(H) 70 - 99 mg/dL 10/21/2022 10:33 AM RN HOUSE SUPERVISOR [facility] 10/21/2022 10:2 7 AM RN HOUSE SUPERVISOR Myrna Levy MD POCT ORDERABLES - DEVICE Fi nal Result [facility] [address] [place] [address], * ECG 12 lead (10/21/2022 10:12 AM RN HOUSE SUPERVISOR) 10/21/2022 10:1 2 AM RN HOUSE SUPERVISOR Narrative [facility] - 10/21/2022 9:03 PM RN HOUSE SUPERVISOR ?[facility] ? [address] [place] ? Test Date: ?2022-10-21 Pat Name: ? JOVITA DE LOS SANTOS ? Department: ?? 40 ? Room: ? ODS Gender: ? Male ? Hotel Server: ?? Isabel PATTERSON: ?1945 ? Requested By: HENNA GIPSON Order Number: [id number] ? Reading : ?? Ashwin Edwards ? Measurements Intervals ?[place] ? Rate: ? 75 ? P: ?71 CT: ? 289 ?QRS: ?-44 QRSD: ? 121 [...] DEPRESSION] No previous ECG available for comparison HOUSE SUPERVISOR Procedure Note Ashwin Edwards MD - 10/21/2022 [facility] [address] Test Date: 2022-10-21 Pat Name: JOVITA DE LOS SANTOS Department: 40 Room: [facility] Gender: Male Hotel Server: Isabel clem : 1945 Requested By: HENNA GIPSON Order Number: [id number] Reading MD: Ashwin Edwards Measurements Intervals [place]cal[place] Rate: 75 P: 71 CT: 289 QRS: -44 QRSD: 121 T: -8 QT: 384 QTc: 430 Interpretive Statements SINUS RHYTHM WITH FIRST DEGREE AV BLOCK LEFT AXIS DEVIATION [QRS AXIS < -30] MODERATE INTRAVENTRICULAR CONDUCTION DELAY [110+ ms QRS DURATION] VOLTAGE CRITERIA FOR LVH [MEETS CRITERIA IN ONE OF: R(aVL), S(V1),R(V5), R(V5/V6)+S(V1)] MODERATE ST DEPRESSION [0.05+ mV ST DEPRESSION] No previous ECG available for comparison HOUSE SUPERVISOR us Henna Gipson MD ECG ORDERABLES Final Result [facility] * Pathology (10/21/2022 12:00 AM RN HOUSE SUPERVISOR) COPATH REPORT ?[facility] ? [address] ? [place], [place] ??[address] ? [phone] ? Department of Pathology ? Pathology Report ? SURGICAL FINAL REPORT Patient Name: JOVITA DE LOS SANTOS ? : 1945 (Age: 77) ? Location: [facility] Gender: M ?Collected Date: 10/21/2022 Med Rec #: [id number] ?Date Received: 10/21/2022 Date Reported: 10/23/2022 Provider: [...] containers all labeled with the patient's name (Jovita De Los Santos), date of (1945). A. [...] in cassette C1. OJL:pb Billing Fee Code(s): 56407(3) [facility] TISSUE COLON STRUCTURE / Unknown 10/21/2022 12:38 PM RN HOUSE SUPERVISOR Tissue specimen (specimen) COLON STRUCTURE / Unknown 10/21/2022 12:52 PM RN HOUSE SUPERVISOR Tissue specimen (specimen) COLON STRUCTURE / Unknown 10/21/2022 1:17 PM RN HOUSE SUPERVISOR us Myrna Levy MD PATHOLOGY/CYTOLOGY ORDERABL ES Final Result [facility] [address] [place], [place] [address] [phone] documented in this encounter Visit Diagnoses Not on filedocumented in this encounter Administered Medications Inactive Administered Medications - up to 3 most recent administrations Medication Order MAR Action Action Date Dose Rate Site lactated ringers infusion at 10 mL/hr, Intravenous, Continuous, Starting on 10/21/22 at 1030, Until 10/21/22 at 1641, Infuse at TKO rate, Pre-Op New Bag 10/21/2022 1:05 PM RN HOUSE SUPERVISOR Continued by Anesthesia 10/21/2022 12:21 PM RN HOUSE SUPERVISOR 10 mL/hr New Bag 10/21/2022 10:29 AM RN HOUSE SUPERVISOR 10 mL/hr documented in this encounter Active and Recently Administered Medications Times are shown in RN HOUSE SUPERVISOR. Continuous Medication Order 10/19/2022 10/20/2022 10/21/2022 lactated [...] CRNA) documented in this encounter Care Teams Medical Assisting Instructor Relationship Specialty Start Date End Date Tien Bagley DO [address] [place] [id number] PCP - General INTERNAL MEDICINE 09/04/21 documented as of this encounter
--- OUTSIDE RECORDS SUMMARY | 2024-11-22 04:01 | XMS_ITS | Encounter Summary ---
Author Organization [facility] Address [address] [place] [address]. [place] [address] [place] [address] Care Team Providers Care Cancer Program Director Name Role Phone Tien Bagley DO Primary Care Provider [phone] Reason for Visit * Auth/Cert Specialty Diagnoses / Procedures Referred By Sarah t Referred To Contact Diagnoses gerd Procedures EGD Referral ID Status Reason Start Date Expiration Date Visits Re quested Visits Authorized [id number] 1 1 Encounter Details Date Type Department Care Team (Late st Contact Info) Description 09/04/2021 11:17 AM CDT Anesthesia Event [facility] [place] [address] Pete Medina MD One [facility] [id number] [place] [address] [phone] (Work) Deya Barbour MD [address] [facility] [address] [place] [address] Anesthesia Record Procedure Summary Procedure Name Responsible Anesthesiologist Anesthesia Start Time Anesthesia Stop Time EGD WITH gastric polypectomy via hot snare and clip placement x2, and gastric antral biopsies via large cold forceps Pete Medina MD 09/04/21 1117 09/04/21 1130 Events Date Time Event Comment 09/04/2021 1016 1016 AN Anesthesia Prepped 1117 AN CAPTAIN OF GUARDS Prepped 1117 An Start Data 1117 Nasal Cannula Applied 1117 An Start Patient ID and consent checked and patient reassessed. 1117 Anesthesia Ready 1120 An Induction The patient was reevaluated immediately before moderate or deep sedation use and before anesthesia induction. 1128 An Emergence 1129 Nasal Cannula Removed 1130 an stop data 1130 Post Anesthetic Care Handoff I completed my handoff to the receiving nurse during which we: 1. Identified the patient 2. Identified the responsible provider 3. Reviewed the pertinent medical history 4. Discussed the surgical course 5. Reviewed intra-op anesthesia management and issues during anesthesia 6. Set expectations for post-procedure period 7. Allowed opportunity for questions and acknowledgement of understanding. 1130 An Stop Meds Name Total lidocaine (PF) (XYLOCAINE) 2% injection 50 mg propofol (DIPRIVAN) 200 mg/20 mL injecti on 280 mg lactated ringers infusion 200 mL * Agents Name O2 N2O Air Ancillary O2 * Blood No blood administrations on file. Lines, Drains, and Airways Type Details Placement Removal Peripheral IV Placement Date: 01/20; Placement Time: 0948; Placed Outside of This Facility?: No; Size: 20 G; Orientation: Right; Location: Wrist; Site Prep: Chlorhexidine; Local Anesthetic: None; Inserted By: GASPER MORALES; Insertion attempts: 1; Ultrasound-guided Placement?: No; Patient Tolerance: Tolerated well; Removal Date: 09/04/21; Removal Time: 1200; Removal Reason: Patient Discharged 09/04/21 0948 by Katya Bailey RN 09/04/21 1200 by Blossom Canela RN documented in this encounter Social History [...] AM CDT documented as of this encounter OR Notes * Anesthesia Postprocedure Evaluation - Pete Medina MD - 09/04/2021 12:15 PM CDT Anesthesia Post-op Note Deep Goss Procedure(s): EGD WITH gastric polypectomy via hot snare and clip placement x2, and gastric antral biopsies via large cold forceps (N/A ) Anesthesia type: general Vitals: 09/04/21 1200 BP: 130/85 Vitals: 09/04/21 1200 Pulse: 62 Vitals: 09/04/21 1200 Resp: 15 Vitals: 09/04/21 1128 Temp: 36.2 ??C Vitals: 09/04/21 1200 SpO2: 97% Patient Location: Phase II/Outpatient Level of Consciousness: awake and oriented Pain Management: adequate analgesia Airway Patency: patent Respiratory Status: acceptable, spontaneous ventilation, nonlabored ventilation and room air Cardiovascular Status: acceptable Post-Op Nausea: none Postoperative Hydration: euvolemic Comments: No anesthetic related complaints are voiced There were no known complications for this encounter. * Anesthesia Postprocedure Evaluation - Pete Medina MD - 09/04/2021 11:33 AM CDT Anesthesia Post-op Note Deep Goss Procedure(s): EGD WITH gastric polypectomy via hot snare and clip placement x2, and gastric antral biopsies via large cold forceps (N/A ) Anesthesia type: general Vitals: 09/04/21 1200 BP: 130/85 Vitals: 09/04/21 1200 Pulse: 62 Vitals: 09/04/21 1200 Resp: 15 Vitals: 09/04/21 1128 Temp: 36.2 ??C Vitals: 09/04/21 1200 SpO2: 97% Patient Location: Other (Endoscopy Suite) Level of Consciousness: awake, alert and oriented Pain Management: adequate analgesia Airway Patency: patent Respiratory Status: spontaneous ventilation, nonlabored ventilation and room air Cardiovascular Status: hemodynamically stable Post-Op Nausea: none Postoperative Hydration: euvolemic No complications documented. * Anesthesia Preprocedure Evaluation - Deya Kwok MD - 09/04/2021 10:02 AM CDT Anesthesia ROS/MED History Reviewed: Patient summary , Family history anesthesia, Anesthesia history , Medications , Images/Studies , Unchecked boxes are not applicable Pre-Anesthetic State: alert, awake and responds appropriately no history of anesthetic complications Pulmonary neg pulmonary ROS Cardiovascular Exercise tolerance:good (+) hypertension, arrhythmia, (A-fib) ROS comment: Echo, 10/31/17 CONCLUSIONS: --Study quality: fair. -Two-dimensional transthoracic echocardiography was performed using standard views & projections with M-mode and Doppler (continuous, pulsed wave, spectral & color flow). -The left ventricle is normal in size. There is mild concentric left ventricular hypertrophy. Left ventricular systolic function is normal. EF = 64% (2D biplane) All scored segments are normal. Left ventricular diastolic function is indeterminate. -The right ventricle is dilated. Right ventricular systolic function is normal. The estimated rightventricular systolic pressure is 20 mmHg. The right atrial pressure is 3 mmHg. -No significant valvular abnormalities. -Compared to the baseline portion of the exercise stress echo from 03/08/15, trace aortic insufficiency is now seen. . Neuro/Psych neg neuro/psych ROS Comments: Right sided Perales's Palsy - 7 years GI/Hepatic/Renal (+) GERD Endo/Other neg endo/other ROS GENERAL COMMENTS Past Surgical History: No date: BACK SURGERY No date: INGUINAL HERNIA REPAIR; Bilateral No date: OTHER PROCEDURE Comment: cardiac ablation No date: OTHER PROCEDURE Comment: neck fusion Past Medical History: No date: A-fib (CMS/HCC) No date: Anxiety No date: B12 deficiency No date: BPH (benign prostatic hyperplasia) No date: GERD (gastroesophageal reflux disease) No date: Gout No date: HTN (hypertension) No date: IBS (irritable bowel syndrome) Physical Evaluation Airway Mallampati: II TM Distance: >3 FB Neck ROM: normal Dental (edentulous) Pulmonary Pulmonary exam normal Cardiovascular Cardiovascular exam normal Other findings: Blood pressure 149/86, pulse 66, temperature 36.5 ??C, temperature source Temporal,resp. rate 12, height 6' 4.25 (1.937 m), weight 113.4 kg (250 lb), SpO2 99 %. Anesthesia Plan ASA 3 Intravenous Induction Anesthesia type: general Discussed potential risks of TIVA/General Anesthesia corneal abrasion, visual impairment or visual loss, mouth injury, dental damage, sore throat, hoarseness, esophageal injury, awareness under anesthesia, nerve injury due to positioning, aspiration, pneumonia, stroke, cardiac event, adverse drug reactions and . TIVA Informed Consent Anesthetic plan and risks discussed with patient of whom consent was obtained. . documented in this encounter Plan of Treatment [...] Pre-Op New Bag 09/04/2021 11:17 AM CDT lidocaine (PF) (XYLOCAINE) 2 % injection Intravenous, PRN, Starting on Thu09/04/21 at 1120, Until Thu09/04/21 at 1130, Anesthesia Intra-Op Given 09/04/2021 11:20 AM CDT 50 mg propofol (DIPRIVAN) IV bolus Intravenous, PRN, Starting on Thu09/04/21 at 1120, Until Thu09/04/21 at 1130, Anesthesia Intra-Op Given 09/04/2021 11:27 AM CDT 30 mg Given 09/04/2021 11:25 AM CDT 50 mg Given 09/04/2021 11:23 AM CDT 50 mg documented in this encounter Care Teams Cancer Program Director Relationship Specialty Start Date End Date Tien Bagley DO [address] [address] PCP - General INTERNAL MEDICINE 09/04/21 documented as of this encounter
--- OUTSIDE RECORDS SUMMARY | 2024-11-22 04:02 | XMS_ITS | Continuity of Care Document ---
Author Organization [place] - [facility], [facility] [place] Address [address] , [address] [place] [address] Care Team Providers Care Lieutenant Firefighter Name Role Phone DAISY ST [employer] Collision Repair Instructor GLEN CONNORS Engineering Project Manager Assessment No assessment recorded. Plan of Treatment Reminders Order Date Submit Date Provider Last Modified By Organization Details Last Modified Time Details Appointments None recorded. Lab None recorded. Referral None recorded. Procedures None recorded. Surgeries septoplasty (SURG) [address] ([facility]), [address] [place], [address], 4 10:50:11 endoscopy, nasal/sinus , w/ maxillary antrostomy & tissue removal (SURG) [address] ([facility]), [address] [place], [address], 4 10:50:11 Imaging None recorded. Medication Orders None recorded. Patient TargetsNo targets recorded. Patient InstructionsNo instructions recorded. Reason for Referral None Reported. Results Created Date Observation Date Name Description Value Unit Range Abnormal Flag Note LastModifiedBy Organization Detail LastModifiedTime 08/15/2008/12/2024 CT, sinus es, w/o contr ast No observ ation record ed. [email or web address] [facility] [address] [place], [address], 08/26/2024 08:40:45 08/23/2008/12/2024 CT, sinus es, w/o contr ast No observ ation record ed. [facility] [address] [place] [address] [place], [place], [address], 08/23/2024 17:20:19 Result Notes None recorded. Problems Name Problem SNOMED Code Status Onset Date Resolution Date Notes Provider Name and Address Organization Details Recorded Time Chronic sinusitis 63539060 Active 2023 Grisel Ivan RN null, [place] [employer] [facility] 4 17:04:19 Deviated nasal septum 736183765 Active 2023 PAVITHRA Nash [address] [facility], [address], [place], [address], [employer] 4 17:14:37 Chronic left maxillary sinusitis 31927185620539 101 Active 2023 Pedro Horne MD [address] [facility], [address], [place], [address], [employer] [facility] 4 17:25:21 Sinusitis 18999328 Active 2024 Pedro Horne MD [address] [facility] [address], [address], [place], [address], [employer] 5 15:03:50 Problem Notes None recorded. Medical Equipment None Reported. Allergies Allergen ID Allergen Name Allergen Category Reaction Reaction Severity Criticality Documentation Date Start Date Code Code System Note Provider Name and Address Organization Details Recorded Time 28047 Levaquin medicatio n rash Not available Not available 07/15/2024 54485 2 RxNorm Xin Freddie [facility], [employer] [facility] 4 11:05:43 80743 latex environme nt,medica tion rash Not available Not available 07/15/2024 52074 91 RxNorm latex tape Xin Freddie [facility], [employer] [facility] 4 11:06:05 Medications Name Sig Start Date Stop Date Status Note LastModified by Organization Details LastModified Time atorvasta tin 40 mg tablet 40 MG ORALLY EVERY DAY AT BEDTIME active Not Available Not Available No t Available hydralazi ne 10 mg tablet TAKE 1 TABLET BY MOUTH THREE TIMES A DAY active Not Available Not Available No t Available carvedilo l 25 mg tablet Take 1 tablet twice a day by oral route. active Not Available Not Available No t Available cetirizin e 10 mg tablet TAKE 1 TABLET BY MOUTH EVERY DAY active Not Available Not Available No t Available azithromy fabiana 250 mg tablet TAKE 2 TABLETS (500 MG) BY ORAL ROUTE ONCE DAILY FOR 1 DAY THEN 1 TABLET (250 MG) BY ORAL ROUTE ONCE DAILY FOR 4 DAYS 07/19 completed Not Available Not Available Not Available prednison e 20 mg tablet TAKE 1 TABLET BY MOUTH EVERY DAY FOR 5 DAYS 09/27 completed Not Available Not Available Not Available Nexium 40 mg capsule,d elayed release Take 1 capsule every day by oral route. active Not Available Not Available No t Available hydralazi ne 25 mg tablet Take 1 tablet twice a day by oral route. active Not Available Not Available No t Available sulfameth oxazole 800 mg-trimet hoprim 160 mg tablet TAKE 1 TABLET BY MOUTH EVERY 12 HOURS UNTIL FINISHED active Not Available Not Available No t Available aspirin 81 mg tablet,de layed release TAKE 1 TABLET BY MOUTH EVERY MORNING active Not Available Not Available No t Available triamcino lone acetonide 0.1 % topical cream APPLY TOPICALL Y TWICE A DAY 09/27 completed Not Available Not Available Not Available codeine 10 mg-guaife nesin 200 mg/5 mL oral liquid Take 10 mL every 4 hours by oral route. 2024 active Not Available Not Available Not Avai lable cyanocoba sang (vit B-12) 1,000 mcg/mL injection solution INJECT 1ML INTO MUSCLE EVERY 4 WEEKS active Not Available Not Available No t Available ferrous sulfate 325 mg (65 mg iron) tablet TAKE 1 TABLET BY MOUTH EVERY DAY active Not Available Not Available No t Available docusate sodium 100 mg capsule 200 MG ORALLY EVERY DAY AT BEDTIME active Not Available Not Available No t Available hydralazi ne 50 mg tablet 50 MG ORALLY THREE TIMES A DAY active Not Available Not Available No t Available cefdinir 300 mg capsule Take 1 capsule every 12 hours by oral route for 10 days. 2024 active Not Available Not Available Not Avai lable losartan 100 mg tablet Take 1 tablet every day by oral route. active Not Available Not Available No t Available ipratropi um bromide 21 mcg (0.03 %) nasal spray [place] 2 sprays twice a day by intranas al route. active Not Available Not Available No t Available amoxicill in 875 mg-potass ium clavulana te 125 mg tablet TAKE 1 TABLET BY MOUTH EVERY 12 HOURS FOR 10 DAYS 08/25 completed Not Available Not Available Not Available febuxosta t 80 mg tablet Take 1 tablet every day by oral route. active Not Available Not Available No t Available Brilinta 90 mg tablet Take 1 tablet twice a day by oral route. active Not Available Not Available No t Available Xarelto 20 mg tablet Take 1 tablet every day by oral route. 11/16 completed confirm this medicati on with pt Not Available Not Available Not Available Flonase Allergy Relief 50 mcg/actua tion nasal spray,romero pension [place] 1 spray every day by intranas al route. 2023 active Not Available Not Available Not Avai lable Xhance 93 mcg/actua tion breath activated aerosol [place] 1 spray twice a day by intranas al route. active Not Available Not Available No t Available aspirin 81 mg capsule Take 1 capsule every day by oral route. 11/16 completed Not Available Not Available Not Available Vitals Date Recorded Body height Body mass index (BMI) Body weight Body temperature Provider Name and Address Organization Details Last Updated DateTime 08/25/2024 194.31 cm 27.9 kg/m2 415134.59 g 98.1 [degF] Grisel Ivan RN [place] [employer] 08/25/2024 17:07:10 Social History Question Answer Notes LastModified by Organizat ion Details LastModified Time Tobacco Smoking Status Former Smoker Xin [employer], [employer] 07/15/2024 10:23:22 What Is Your Level Of Alcohol Consumption? None [email or web address] Information not available 07/15/2024 When Did You Quit Smoking? 16+yearssinc elastcigaret te [email or web address] Information not available 07/15/2024 Sex: Unknown Functional Status None recorded. Mental Status None recorded. Family History Relationship Description Onset Age of this Age Resolved Age Notes LastModified by Organization Details LastModified Time Father No current problems or disability [email or web address] Not available 07/19 16:46:44 Mother No current problems or disability [email or web address] Not available 07/19 16:46:44 Notes:no ent Medical History Condition Response MRSA N LUNG DISEASE/DISORDER N HISTORY OF DRUG ABUSE N COPD N RADIATION / CHEMOTHERAPY N BLOOD DISEASES N EAR OR HEARING PROBLEMS N SHINGLES N DEPRESSION (INCLUDING POST ) N FAILED BACK SYNDROME N STROKE/TIA N OBESITY N ANEURYSM N Do you have Advance directive? N USE OF BLOOD THINNERS N PARATHYROID DISEASE N ARTERIAL INSUFFICIENCY N CHF N AIDS/HIV N HYPERTENSION N TOURETTE'S N BLOOD TRANSFUSION N ANEMIA/BLOOD DISORDER N CHRONIC EAR INFECTIONS N TUBERCULOSIS N ALLERGIES/HAYFEVER N BACK INJECTIONS N ESRD N INSOMNIA N HIGH CHOLESTEROL / HYPERLIPIDEMIA N HYPERTHYROIDISM N PVD N HYPOTHYROIDISM N BACK / NECK PROBLEMS Y HAVE YOU BEEN HOSPITALIZED OR SEEN IN [facility] ER IN THE PAST YEAR ? N POLYCYSTIC OVARIES N HISTORY WITH COMPLICATIONS WITH ANESTHES IA ? N NO SIGNIFICANT PAST MEDICAL HISTORY N DIABETES, TYPE N VON WILLIBRAND'S DISEASE N ENT N SEASONAL ALLERGIES N HEARTBURN / REFLUX Y POST LAMINECTOMY SYNDROME N HEPATITIS / LIVER DISEASE N SLEEP DISORDER Y SEIZURES/EPILEPSY N HEADACHES/MIGRAINES N PACEMAKER N DIZZINESS N HEART DISEASE/HEART PROBLEMS N NEUROPSYCHOLOGICAL N CANCER: SPECIFY N ANESTHESIA COMPLICATIONS N ATRIAL FIBRILLATION Y AUTOIMMUNE DISEASE N Past Encounters Encounter ID Performer Location Encounter Start Date Encounter Closed Date Diagnosis/Indication Diagnosis SNOMED-CT Code Diagnosis ICD10 Code Diagnosis Note [id number] Pedro Horne MD [facility] [place] [address] [place] [address] 08/25/2024 16:22:31 08/26/2024 13:30:28 Deviated nasal septum 185713116 J34.2 Chronic le ft maxillary sinusitis 9344480512 9286379 J32.0 Health Concerns Section Related Observation LastModified by Organization Detai ls LastModified Time None Recorded Concern Status LastModified by Organization Details LastModified Time None Recorded Payers Encounter Date Sequence Insurance Name Policy Number Policy Xiao Covered Member ID Xiao Member ID Guarantor Name 08/25/2024 1 [facility] ([facility]/ [facility]VANTAGE - PPO) [employer] [id number] [employer] Notes Date Note Type Note Provider Name and Address Organization Details Recorded Time 08/25/2024 text/html this patient had a history of sinusitis for many years. He has been on numerous courses of antibiotics a sinus CT demonstrated left maxillary sinusitis and right septal deviation was identified and a previous exam Pedro Horne MD [address] [facility], [facility] [address], [place], [address], [facility] 11/17/2024 15:01:00
--- OUTSIDE RECORDS SUMMARY | 2024-11-22 04:02 | XMS_ITS | Data Portability ---
Author Organization [place] - [facility], Main Office Address [address] [place] [phone] Care Team Providers Care Graphics Specialist Name Role Phone DAISY ST Patient Carrier GLEN CONNORS Board Design Engineer Assessment No assessment recorded. Plan of Treatment Reminders Order Date Submit Date Provider Last Modified By Organization Details Last Modified Time Details Appointments None recorded. Lab None recorded. Referral None recorded. Procedures None recorded. Surgeries septoplasty (SURG) [address] ([facility]), [address] [place], [address], 4 10:50:11 endoscopy, nasal/sinus , w/ maxillary antrostomy & tissue removal (SURG) [address] ([employer] [facility]), [address] [place], [address], 4 10:50:11 Imaging None recorded. Medication Orders None recorded. Patient TargetsNo targets recorded. Patient Instructions Encounter Date Encounter Id Patient Instructions Last Modified By Organization Details Last Modified Time 07/19/2024 [id number] Discussed at length obtaining a repeat CT of his sinus given worsening of his symptoms. In addition we will add to Dr. Horne scheduled for surgical consultation for a deviated septum while awaiting his sinus CT results. [email or web address] Not available 07/19/2024 17:16:10 Reason for Referral None Reported. Results Created Date Observation Date Name Description Value Unit Range Abnormal Flag Note LastModifiedBy Organization Detail LastModifiedTime 07/20/20 24 04/29/2022 CT, sinus es, w/o contr ast No observ ation record ed. [email or web address] [facility] [address], [place], [address], 07/21/2024 13:12:14 07/22/2004/29/2022 CT, sinus es, w/o contr ast No observ ation record ed. [email or web address] [facility] [address], [place], [address], 07/27/2024 15:58:09 08/15/2008/12/2024 CT, sinus es, w/o contr ast No observ ation record ed. [facility] [address] [place], [address], 08/26/2024 08:40:45 08/23/2008/12/2024 CT, sinus es, w/o contr ast No observ ation record ed. [address], [place], [address], 08/23/2024 17:20:19 Result Notes None recorded. Problems Name Problem SNOMED Code Status Onset Date Resolution Date Notes Provider Name and Address Organization Details Recorded Time Chronic sinusitis 07837973 Active 2023 Grisel Ivan RN null, Dr. Scribbles 4 17:04:19 Deviated nasal septum 200923845 Active 2023 PAVITHRA Nash [address] [facility], [address], [place], [address], [email or web address] 4 17:14:37 Chronic left maxillary sinusitis 12914889848422 101 Active 2023 Pedro Horne MD [address], [address], [place], [address], [email or web address] 4 17:25:21 Sinusitis 62712459 Active 2024 Pedro Horne MD [address], [address], [place], [address], [email or web address] 5 15:03:50 Problem Notes None recorded. Procedures Surgical History None recorded. Imaging Results Imaging Date Name Status LastModified by Organiz ation Details LastModified Time 04/29/2022 CT, sinuses, w/o contrast completed [email or web address] [facility] [address] [facility] [address], [place], [address], 07/21/2024 13:12:14 04/29/2022 CT, sinuses, w/o contrast completed [email or web address] [place] [id number] [facility] [address], [place], [address], 07/27/2024 15:58:09 08/12/2024 CT, sinuses, w/o contrast completed [address] [place], [address], 08/26/2024 08:40:45 08/12/2024 CT, sinuses, w/o contrast completed [address], [address], 08/23/2024 17:20:19 Procedure Notes None recorded. Medical Equipment None Reported. Allergies Allergen ID Allergen Name Allergen Category Reaction Reaction Severity Criticality Documentation Date Start Date Code Code System Note Provider Name and Address Organization Details Recorded Time 15142 Levaquin medicatio n rash Not available Not available 07/15/2024 37438 2 RxNorm Xin Freddie [employer], [employer] [facility] [employer] 4 11:05:43 70740 latex environme nt,medica tion rash Not available Not available 07/15/2024 05330 91 RxNorm latex tape Xin Freddie [employer], [employer] [facility] 4 11:06:05 Medications Name Sig Start Date [...] bromide 21 mcg (0.03 %) nasal spray [place] 2 sprays twice a day by intranas [...] Relief 50 mcg/actua tion nasal spray,romero pension [place] 1 spray every day by intranas al route. 2023 active Not Available Not Available Not Avai lable Xhance 93 mcg/actua tion breath activated aerosol [place] 1 spray twice a day by intranas al route. active Not Available Not Available No t Available aspirin 81 mg capsule Take 1 capsule every day by oral route. 11/16 completed Not Available Not Available Not Available Vitals Date Recorded Body height Body mass index (BMI) Body weight Body temperature Provider Name and Address Organization Details Last Updated DateTime 07/19/2024 194.31 cm 28.3 kg/m2 296142.64 g 97.8 [degF] Grisel Ivan RN [facility] [employer] 07/19/2024 16:53:55 Date Recorded Body height Body mass index (BMI) Body weight Body temperature Provider Name and Address Organization Details Last Updated DateTime 08/25/2024 194.31 cm 27.9 kg/m2 637332.59 g 98.1 [degF] Grisel Ivan RN [facility] [employer] [facility] 08/25/2024 17:07:10 Social History Question Answer Notes LastModified by Organizat ion Details LastModified Time Tobacco Smoking Status Former Smoker Xin torres, [facility] [employer] 07/15/2024 10:23:22 What Is Your Level Of Alcohol Consumption? None [email or web address] Information not available 07/15/2024 When Did You Quit Smoking? 16+yearssinc elastcigaret te [email or web address] Information not available 07/15/2024 Sex: Unknown Functional Status None recorded. Mental Status None recorded. Family History Relationship Description Onset Age of this Age Resolved Age Notes LastModified by Organization Details LastModified Time Father No current problems or disability [email or web address] Not available 07/19 16:46:44 Mother No current problems or disability [email or web address] Not available 07/19 16:46:44 Notes:no ent Medical History Condition Response MRSA N ALLERGIES/HAYFEVER N BACK INJECTIONS N LUNG DISEASE/DISORDER N ESRD N HISTORY OF DRUG ABUSE N INSOMNIA N RADIATION / CHEMOTHERAPY N COPD N HIGH CHOLESTEROL / HYPERLIPIDEMIA N HYPERTHYROIDISM N PVD N BLOOD DISEASES N EAR OR HEARING PROBLEMS N HYPOTHYROIDISM N SHINGLES N DEPRESSION (INCLUDING POST ) N BACK / NECK PROBLEMS Y HAVE YOU BEEN HOSPITALIZED OR SEEN IN [facility] ER IN THE PAST YEAR ? N FAILED BACK SYNDROME N STROKE/TIA N POLYCYSTIC OVARIES N OBESITY N ANEURYSM N HISTORY WITH COMPLICATIONS WITH ANESTHES IA ? N Do you have Advance directive? N USE OF BLOOD THINNERS N NO SIGNIFICANT PAST MEDICAL HISTORY N DIABETES, TYPE N VON WILLIBRAND'S DISEASE N PARATHYROID DISEASE N ENT N SEASONAL ALLERGIES N HEARTBURN / REFLUX Y POST LAMINECTOMY SYNDROME N HEPATITIS / LIVER DISEASE N SLEEP DISORDER Y ARTERIAL INSUFFICIENCY N SEIZURES/EPILEPSY N HEADACHES/MIGRAINES N CHF N PACEMAKER N DIZZINESS N HEART DISEASE/HEART PROBLEMS N AIDS/HIV N NEUROPSYCHOLOGICAL N HYPERTENSION N CANCER: SPECIFY N TOURETTE'S N BLOOD TRANSFUSION N ANEMIA/BLOOD DISORDER N ANESTHESIA COMPLICATIONS N CHRONIC EAR INFECTIONS N ATRIAL FIBRILLATION Y AUTOIMMUNE DISEASE N TUBERCULOSIS N Past Encounters Encounter ID Performer Location Encounter Start Date Encounter Closed Date Diagnosis/Indication Diagnosis SNOMED-CT Code Diagnosis ICD10 Code Diagnosis Note [id number] PAVITHRA Nash [facility] [place] [address] [place] [address] 07/19/2024 16:29:32 07/19/2024 17:16:52 Deviated nasal septum 395664350 J34.2 Chronic sinusitis 424940 00 J32.9 given symptom improvemen t with recent antibiotic use we will hold off on any further prescripti on medical management . [id number] Pedro Horne MD [facility] [place] [address] [place] [address] 08/25/2024 16:22:31 08/26/2024 13:30:28 Deviated nasal septum 126083933 J34.2 Chronic le ft maxillary sinusitis 5702801177 1963975 J32.0 Health Concerns Section Related Observation LastModified by Organization Detai ls LastModified Time None Recorded Concern Status LastModified by Organization Details LastModified Time None Recorded Advance Directives Directive None Recorded Payers Encounter Date Sequence Insurance Name Policy Number Policy Xiao Covered Member ID Xiao Member ID Guarantor Name 07/19/2024 1 [employer] (MEDICARE REPLACEMENT/ ADVANTAGE - PPO) [employer] [id number] [employer] 08/25/2024 1 [employer] (MEDICARE REPLACEMENT/ ADVANTAGE - PPO) [employer] [id number] [employer] Notes Date Note Type Note Provider Name and Address Organization Details Recorded Time 07/19/2024 text/html This patient has a past medical history significant for atrial fibrillation, GERD, Perales's palsy, 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 This patient was a previous patient of Dr. St, ENT. He presents with difficulty breathing from his right nostril. He was told about a deviated septum and surgery was briefly discussed in April of 2024. He recently completed a 5 day course of azithromycin and reports mild symptom relief. 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 He did have a CT of his sinuses completed in 2021 and was told that it was negative. We will repeat a sinus CT. He does report use of nasal sprays and Tylenol cold and sinus without relief of symptoms. PAVITHRA Nash [address], [facility] [address], [place], [address], Dr. Scribbles 07/19/2024 17:16:15 08/25/2024 text/html this patient had a history of sinusitis for many years. He has been on numerous courses of antibiotics a sinus CT demonstrated left maxillary sinusitis and right septal deviation was identified and a previous exam Pedro Horne MD [address] [facility], [facility] [address], [place], [address], [address]. Scribbles 11/17/2024 15:01:00
== END 2024-11-15 06:27 | disposition home or self-care (01) ==
PROVIDERS: Physician Assistant; Emergency Provider Emergency Medicine; PCP Internal Medicine
DX: B34.9 Viral infection, unspecified (principal); I49.3 Ventricular premature depolarization; Z20.822 Contact with and (suspected) exposure to COVID-19; I48.0 Paroxysmal atrial fibrillation; I10 Essential (primary) hypertension; I25.10 Atherosclerotic heart disease of native coronary artery without angina pectoris; D64.9 Anemia, unspecified; J32.9 Chronic sinusitis, unspecified; E78.5 Hyperlipidemia, unspecified; E53.8 Deficiency of other specified B group vitamins; G47.33 Obstructive sleep apnea (adult) (pediatric); H91.93 Unspecified hearing loss, bilateral; M19.90 Unspecified osteoarthritis, unspecified site; K21.9 Gastro-esophageal reflux disease without esophagitis; K58.0 Irritable bowel syndrome with diarrhea; Z95.5 Presence of coronary angioplasty implant and graft; Z98.1 Arthrodesis status; Z87.891 Personal history of nicotine dependence; Z86.0100 Personal history of colon polyps, unspecified; Z90.79 Acquired absence of other genital organ(s); Z79.82 Long term (current) use of aspirin; Z79.899 Other long term (current) drug therapy
CPT/HCPCS: 36415; 71046; 71275; 80053; 81001; 83690; 83735; 83880; 84443; 84484; 85025; 85055; 85610; 85730; 87637; 93005; 99284; A9270; Q9967

== ENCOUNTER 2024-12-24 11:13 | Outpatient (CLI) | payer MEDICARE, MEDICAID, SELFPAY ==
--- OUTSIDE RECORDS SUMMARY | 2024-12-24 11:17 | XMS_ITS | Patient Health Summary ---
Author Organization [facility] Address [address] [place] [address] Care Team Providers Care Content Developer Name Role Phone Unavailable Primary Care Provider Unavailabl e Note from [facility],non-owned Affiliates and Associated Physician Practices is amultiple site organization consisting of ambulatory clinics and hospital sitesin [place], [place], [place] and [place]. This disclosure is being madepursuant to the Care Everywhere program and may not contain all information available regarding this patient. Last updated 18.[facility] Social History Tobacco Use Types Packs/Day Years Used Date Smoking Tobacco: Never Assessed Sex and Gender Information Value Date Recorded Sex Assigned at Not on file Gender Identity Not on file Sexual Orientation Not on file
--- OUTSIDE RECORDS SUMMARY | 2024-12-24 11:17 | XMS_ITS | Clinical Summary ---
Author Organization [facility] Address [address] [place] [address] Care Team Providers Care Chain Pegger Name Role Phone Tien Bagley DO Primary Care Provider [phone] Allergies Active Allergy Reactions Criticality Noted Date [...] Comments Blood Pressure 174/87 10/21/2022 1:55 PM LASTING MACHINE OPERATOR Pulse 53 10/21/2022 1:55 PM LASTING MACHINE OPERATOR Temperature 36.2 C (97.2 F) 10/21/2022 1:20 PM LASTING MACHINE OPERATOR Respiratory Rate 12 10/21/2022 1:55 PM LASTING MACHINE OPERATOR Oxygen Saturation 98% 10/21/2022 1:55 PM LASTING MACHINE OPERATOR Inhaled Oxygen Concentration - - Weight 111.1 kg (245 lb) 10/20/2022 12:48 PM LASTING MACHINE OPERATOR Height 194.3 cm (6' 4.5 ) 10/20/2022 12:48 PM CS T Body Mass Index 29.43 10/20/2022 12:48 PM LASTING MACHINE OPERATOR Plan of Treatment Health Maintenance Due Date [...] Colonoscopy (10 Years) Discontinued 10/21/2022, 10/21/2022 Meningococcal B Vaccine Aged Out No l onger eligible based on patient's age to complete this topic Meningococcal Vaccine Aged Out No anai hal eligible based on patient's age to complete this topic RSV Immunizations Under 20 Months Aged Out No longer eligible based on patient's age to complete this topic Medical Devices Implanted Type Area Stenotype Machine Operator Device Identifier Shelf Expiration Date Model / Serial / Lot Clip Resolution 360 Deg 2.8mm X 235cm - [id number] Implanted:Qty : 1 on 09/04/2021 by Rafael Douglas DO at [facility] Clip Implant N/A: Stomach [employer] 08/20/2023 [id number] / / [id number] Clip Resolution 2.8mm 360 235cm 11mm Open - [id number] Implanted:Qty : 1 on 09/04/2021 by Rafael Douglas DO at [facility] Clip Implant N/A: Stomach [employer] [id number] 06/03/2024 [id number] / / [id number] Neck Fusion Neck Procedures Procedure Name Priority Date/Time Associated Diagnosis Comments COLONOSCOPY Routine 10/21/2022 12:17 PM LASTING MACHINE OPERATOR from Last 3 Months or Most Recently Relevant to Health Maintenance Results * Colonoscopy (10/21/2022 12:17 PM LASTING MACHINE OPERATOR) Narrative Ye Levy MD - 10/21/2022 12:17 PM LASTING MACHINE OPERATOR Ye Levy MD 10/21/2022 1:28 PM YE LEVY MD, FACG, FACP COLONOSCOPY 10/21/2022 INDICATION: Personal history of colon polyps. POST-OP: 11 polyps removed. Mild diverticulosis. SEDATION: Per Anesthesia PREP: Good. With the patient in the left lateral decubitus position, the Olympus [id number] colonoscope was introduced into the rectum and [...] - Previous colonoscopy 5 years ago in [place]; report unavailable - Surveillance colonoscopy 10/21/2022 with [...] Most Recently Relevant [place] [address] [facility] Care Teams Chain Pegger Relationship Specialty Start Date End Date Tien Bagley DO [address] [phone] PCP - General INTERNAL MEDICINE 09/04/21
--- OUTSIDE RECORDS SUMMARY | 2024-12-24 11:17 | XMS_ITS | Clinical Summary ---
Author Organization [facility] Address [address] [facility] [place] [address] Care Team Providers Care Boating Safety Officer Name Role Phone Unavailable Primary Care Provider Unavailabl e Source Comments [facility],non-owned Affiliates and Associated Physician Practices is amultiple site organization consisting of ambulatory clinics and hospital sitesin [place], [place], [place] and [place]. This disclosure is being madepursuant to the Care Everywhere program and may not contain all information available regarding this patient. Last updated 18.[facility] [employer] Social History Tobacco Use Types Packs/Day Years [...]
--- OUTSIDE RECORDS SUMMARY | 2024-12-24 11:17 | XMS_ITS | Data Portability ---
Author Organization [place] [facility], Main Office Address [address] [place] [address] Care Team Providers Care Instrumentation Chemist Name Role Phone DAISY ST Field Collector GLEN CONNORS Supervisor Concrete Stone Finishing Assessment No assessment recorded. Plan of Treatment Reminders Order Date Submit Date Provider Last Modified By Organization Details Last Modified Time Details Appointments None recorded. Lab None recorded. Referral None recorded. Procedures None recorded. Surgeries septoplasty (SURG) [address] ([facility] Scheduling), [address] [place], [address], 4 10:50:11 endoscopy, nasal/sinus , w/ maxillary antrostomy & tissue removal (SURG) [address] ([facility] Scheduling), [address] [place], [address], 4 10:50:11 Imaging None recorded. Medication Orders None recorded. Patient TargetsNo targets recorded. Patient Instructions Encounter Date Encounter Id Patient Instructions Last Modified By Organization Details Last Modified Time 07/19/2024 [id number] Discussed at length obtaining a repeat CT of his sinus given worsening of his symptoms. In addition we will add to Dr. Horne scheduled for surgical consultation for a deviated septum while awaiting his sinus CT results. [email or web address] Not available 07/19/2024 17:16:10 Reason for Referral None Reported. Results Created Date Observation Date Name Description Value Unit Range Abnormal Flag Note LastModifiedBy Organization Detail LastModifiedTime 07/20/20 24 04/29/2022 CT, sinus es, w/o contr ast No observ ation record ed. [email or web address] [facility] [address], [place], [address], 07/21/2024 13:12:14 07/22/2004/29/2022 CT, sinus es, w/o contr ast No observ ation record ed. [email or web address] [facility] [address], [place], [address], 07/27/2024 15:58:09 08/15/2008/12/2024 CT, sinus es, w/o contr ast No observ ation record ed. [email or web address] [facility] [address] [place], [address], 08/26/2024 08:40:45 08/23/2008/12/2024 CT, sinus es, w/o contr ast No observ ation record ed. [address], [place], [address], 08/23/2024 17:20:19 Result Notes None recorded. Problems Name Problem SNOMED Code Status Onset Date Resolution Date Notes Provider Name and Address Organization Details Recorded Time Chronic sinusitis 67894233 Active 2023 Grisel Ivan RN null, [employer] 4 17:04:19 Deviated nasal septum 750396404 Active 2023 PAVITHRA Nash [address] [facility], [address], [place], [address], [employer] 4 17:14:37 Chronic left maxillary sinusitis 08469312625891 101 Active 2023 Pedro Horne MD [address], [address], [place], [address], [employer] 4 17:25:21 Sinusitis 20671620 Active 2024 Pedro Horne MD [address], [address], [place], [address], [employer] 5 15:03:50 Problem Notes None recorded. Procedures Surgical History None recorded. Imaging Results Imaging Date Name Status LastModified by Organiz ation Details LastModified Time 04/29/2022 CT, sinuses, w/o contrast completed [email or web address] [facility] [address] [facility] [address], [address], 07/21/2024 13:12:14 04/29/2022 CT, sinuses, w/o contrast completed [email or web address] [place] [id number] [facility] [address], [place], [address], 07/27/2024 15:58:09 08/12/2024 CT, sinuses, w/o contrast completed [address] [place], [address], 08/26/2024 08:40:45 08/12/2024 CT, sinuses, w/o contrast completed [address], [address], 08/23/2024 17:20:19 Procedure Notes None recorded. Medical Equipment None Reported. Allergies Allergen ID Allergen Name Allergen Category Reaction Reaction Severity Criticality Documentation Date Start Date Code Code System Note Provider Name and Address Organization Details Recorded Time 55854 Levaquin medicatio n rash Not available Not available 07/15/2024 66291 2 RxNorm Xin Freddie [employer], [employer] [facility] [employer] 4 11:05:43 32301 latex environme nt,medica tion rash Not available Not available 07/15/2024 22659 91 RxNorm latex tape Xin Freddie [employer], [employer] [facility] 4 11:06:05 Medications Name Sig Start Date [...] fabiana 250 mg tablet TAKE 2 TABLETS BY MOUTH TODAY, THEN TAKE 1 TABLET DAILY FOR 4 DAYS DIRECTED active Not Available Not Available No t Available benzonata te 200 mg capsule TAKE 1 CAPSULE BY MOUTH 3 TIMES A DAY NEEDED FOR COUGH active Not Available Not Available No t Available prednison e 20 mg tablet TAKE [...] Not Available Not Available No t Available methylpre dnisolone 4 mg tablets in a dose pack TAKE 6 TABLETS ON DAY 1 DIRECTED ON PACKAGE AND DECREASE BY 1 TAB EACH DAY FOR A TOTAL OF 6 DAYS active Not Available Not Available No t Available cefdinir 300 mg capsule TAKE 1 CAPSULE BY MOUTH EVERY 12 HOURS FOR 10 DAYS active Not Available Not Available No t Available losartan 100 mg tablet Take 1 tablet every day by oral route. active Not Available Not Available No t Available fluticaso ne propionat e 50 mcg/actua tion nasal spray,romero pension SPRAY 2 SPRAY INTRANAS ALLY DAILY ADMINIST ER INTO EACH NOSTRIL active Not Available Not Available No t Available ipratropi um bromide 21 mcg (0.03 %) nasal spray [place] 2 sprays twice a day by intranas [...] pt Not Available Not Available Not Available Xhance 93 mcg/actua tion breath activated aerosol [place] 1 spray twice a day by intranas [...] Updated DateTime 07/19/2024 194.31 cm 28.3 kg/m2 928244.64 g 97.8 [degF] Grisel Ivan RN [facility] [employer] 07/19/2024 16:53:55 Date Recorded Body height Body mass index (BMI) Body weight Body temperature Provider Name and Address Organization Details Last Updated DateTime 08/25/2024 194.31 cm 27.9 kg/m2 048652.59 g 98.1 [degF] Grisel Ivan RN [facility] 08/25/2024 17:07:10 Social History Question Answer Notes LastModified by Organizat ion Details LastModified Time Tobacco Smoking Status Former Smoker Xin torres, [facility] 07/15/2024 10:23:22 What Is Your Level Of Alcohol Consumption? None [email or web address] Information not available 07/15/2024 When Did You Quit Smoking? 16+yearssinc elastcigaret te [email or web address] Information not available 07/15/2024 Sex: Unknown Functional Status None recorded. Mental Status None recorded. Family History Relationship Description Onset Age of this Age Resolved Age Notes LastModified by Organization Details LastModified Time Father No current problems or disability [email or web address] Not available 07/19 16:46:44 Mother No current problems or disability [email or web address] Not available 07/19 16:46:44 Notes:no ent Medical History Condition Response MRSA N BACK INJECTIONS N ALLERGIES/HAYFEVER N LUNG DISEASE/DISORDER N INSOMNIA N HISTORY OF DRUG ABUSE N ESRD N RADIATION / CHEMOTHERAPY N COPD N HIGH CHOLESTEROL / HYPERLIPIDEMIA N HYPERTHYROIDISM N PVD N BLOOD DISEASES N EAR OR HEARING PROBLEMS N HYPOTHYROIDISM N SHINGLES N DEPRESSION (INCLUDING POST ) N BACK / NECK PROBLEMS Y HAVE YOU BEEN HOSPITALIZED OR SEEN IN [facility] ER IN THE PAST YEAR ? N FAILED BACK SYNDROME N STROKE/TIA N POLYCYSTIC OVARIES N OBESITY N HISTORY WITH COMPLICATIONS WITH ANESTHES IA ? N ANEURYSM N Do you have Advance [...] SPECIFY N TOURETTE'S N BLOOD TRANSFUSION N ANESTHESIA COMPLICATIONS N ANEMIA/BLOOD DISORDER N CHRONIC EAR INFECTIONS N ATRIAL FIBRILLATION Y AUTOIMMUNE DISEASE N TUBERCULOSIS N Past Encounters Encounter ID Performer Location Encounter Start Date Encounter Closed Date Diagnosis/Indication Diagnosis SNOMED-CT Code Diagnosis ICD10 Code Diagnosis Note [id number] PAVITHRA Nash [facility] [place] [address] [place] [address] 07/19/2024 16:29:32 07/19/2024 17:16:52 Deviated nasal septum 487761595 J34.2 Chronic sinusitis 473342 00 J32.9 given symptom improvemen t with recent antibiotic use we will hold off on any further prescripti on medical management . [id number] Pedro Horne MD [facility] [place] [address] [place] [address] 08/25/2024 16:22:31 08/26/2024 13:30:28 Deviated nasal septum 478793967 J34.2 Chronic le ft maxillary sinusitis 0706366549 9883898 J32.0 Health Concerns Section Related Observation LastModified by Organization Detai ls LastModified Time None Recorded Concern Status LastModified by Organization Details LastModified Time None Recorded Advance Directives Directive None Recorded Payers Encounter Date Sequence Insurance Name Policy Number Policy Xiao Covered Member ID Xiao Member ID Guarantor Name 07/19/2024 1 [employer] (MEDICARE REPLACEMENT/ ADVANTAGE - PPO) Deep Wolfgang [id number] [employer] 08/25/2024 1 [employer] (MEDICARE REPLACEMENT/ ADVANTAGE - PPO) Deep Goss [id number] [employer] Notes Date Note Type Note [...] without relief of symptoms. PAVITHRA Nash [address], [address], [place], [address], [employer] 07/19/2024 17:16:15 08/25/2024 text/html this patient had a history of sinusitis for many years. He has been on numerous courses of antibiotics a sinus CT demonstrated left maxillary sinusitis and right septal deviation was identified and a previous exam Pedro Horne MD [address], [address], [place], [address], [employer] 11/17/2024 15:01:00
--- OUTSIDE RECORDS SUMMARY | 2024-12-24 11:17 | XMS_ITS | Referral Summary ---
Author Organization [facility] Address [address] [facility] [place] [address] Care Team Providers Care Tin Container Straightener Name Role Phone Unavailable Primary Care Provider Unavailabl e Source Comments [facility],non-owned Affiliates and Associated Physician Practices is amultiple site organization consisting of ambulatory clinics and hospital sitesin [place], [place], [place] and [place]. This disclosure is being madepursuant to the Care Everywhere program and may not contain all information available regarding this patient. Last updated 18.[facility] Social History Tobacco Use Types Packs/Day Years Used Date Smoking Tobacco: Never Assessed Sex and Gender Information Value Date Recorded Sex Assigned at Not on file Gender Identity Not on file Sexual Orientation Not on file Plan of Treatment Not on file
== END 2024-12-24 11:14 | disposition home or self-care (01) ==
LOC: ANHLAB 11:15
PROVIDERS: PCP Internal Medicine; Visit Provider Podiatrist Foot & Ankle Surgery
DX: M10.9 Gout, unspecified (principal)
CPT/HCPCS: 36415; 84550

== ENCOUNTER 2025-01-05 15:00 | Outpatient (RCR) | payer MEDICARE, MEDICAID, SELFPAY | END 2025-03-02 14:33 | disposition home or self-care (01) | LOC: ANHCPREHAB 15:00 | PROVIDERS: PCP Internal Medicine; Visit Provider Internal Medicine Cardiovascular Disease | DX: Z98.61 Coronary angioplasty status (principal) | CPT/HCPCS: 93798 ==

== ENCOUNTER 2025-01-06 13:40 | Outpatient (CLI) | payer MEDICARE, MEDICAID, SELFPAY ==
--- OUTSIDE RECORDS SUMMARY | 2025-01-06 13:55 | XMS_ITS | Data Portability ---
Author Organization [place] [facility] [place] [facility], Main Office Address [address] [place] [address] Care Team Providers Care City Tax Auditor Name Role Phone DAISY ST Microwave Radio Technician GLEN CONNORS Aluminum Siding Applicator Assessment No assessment recorded. Plan of Treatment Reminders Order Date Submit Date Provider Last Modified By Organization Details Last Modified Time Details Appointments None recorded. Lab None recorded. Referral None recorded. Procedures None recorded. Surgeries septoplasty (SURG) [address] ([facility] Scheduling), [address] [place], [address], 4 10:50:11 endoscopy, nasal/sinus , w/ maxillary antrostomy & tissue removal (SURG) [address] ([facility] Scheduling), [address] [place], [address], 4 10:50:11 Imaging None recorded. Medication Orders None recorded. Patient TargetsNo targets recorded. Patient Instructions Encounter Date Encounter Id Patient Instructions Last Modified By Organization Details Last Modified Time 07/19/2024 [id number] Discussed at length obtaining a repeat CT of his sinus given worsening of his symptoms. In addition we will add to Dr. Horne scheduled for surgical consultation for a deviated septum while awaiting his sinus CT results. [email or web address] Not available 07/19/2024 17:16:10 Reason for Referral None Reported. Results Created Date Observation Date Name Description Value Unit Range Abnormal Flag Note LastModifiedBy Organization Detail LastModifiedTime 07/20/20 24 04/29/2022 CT, sinus es, w/o contr ast No observ ation record ed. [email or web address] [facility] [address], [place], [address], 07/21/2024 13:12:14 07/22/2004/29/2022 CT, sinus es, w/o contr ast No observ ation record ed. [email or web address] [facility] [address], [place], [address], 07/27/2024 15:58:09 08/15/2008/12/2024 CT, sinus es, w/o contr ast No observ ation record ed. [facility] [address] [place], [address], 08/26/2024 08:40:45 08/23/2008/12/2024 CT, sinus es, w/o contr ast No observ ation record ed. [address], [place], [address], 08/23/2024 17:20:19 Result Notes None recorded. Problems Name Problem SNOMED Code Status Onset Date Resolution Date Notes Provider Name and Address Organization Details Recorded Time Chronic sinusitis 43197791 Active 2023 Grisel Ivan RN null, [employer] 4 17:04:19 Deviated nasal septum 591890047 Active 2023 PAVITHRA Nash [address] [facility], [address], [place], [address], [employer] 4 17:14:37 Chronic left maxillary sinusitis 85168317780292 101 Active 2023 Pedro Horne MD [address], [address], [place], [address], [employer] 4 17:25:21 Sinusitis 28546191 Active 2024 Pedro Horne MD [address], [address], [place], [address], [employer] 5 15:03:50 Problem Notes None recorded. Procedures Surgical History None recorded. Imaging Results Imaging Date Name Status LastModified by Organiz ation Details LastModified Time 04/29/2022 CT, sinuses, w/o contrast completed [email or web address] [facility] [address] [facility] [address] [place], [address], 07/21/2024 13:12:14 04/29/2022 CT, sinuses, w/o contrast completed [email or web address] [place] [id number] [facility] [address], [place], [address], 07/27/2024 15:58:09 08/12/2024 CT, sinuses, w/o contrast completed [address] [place], [address], 08/26/2024 08:40:45 08/12/2024 CT, sinuses, w/o contrast completed [address], [address], 08/23/2024 17:20:19 Procedure Notes None recorded. Medical Equipment None Reported. Allergies Allergen ID Allergen Name Allergen Category Reaction Reaction Severity Criticality Documentation Date Start Date Code Code System Note Provider Name and Address Organization Details Recorded Time 57888 Levaquin medicatio n rash Not available Not available 07/15/2024 57334 2 RxNorm Xin Freddie inContact, [employer] [facility] [employer] 4 11:05:43 71648 latex environme nt,medica tion rash Not available Not available 07/15/2024 94231 91 RxNorm latex tape Xin Freddie inContact, [employer] [facility] [employer] 4 11:06:05 Medications Name Sig Start Date [...] bromide 21 mcg (0.03 %) nasal spray [place] 2 sprays twice a day by intranas [...] Xhance 93 mcg/actua tion breath activated aerosol [place] 1 spray twice a day by intranas [...] Updated DateTime 07/19/2024 194.31 cm 28.3 kg/m2 050307.64 g 97.8 [degF] Grisel Ivan RN [facility] [employer] 07/19/2024 16:53:55 Date Recorded Body height Body mass index (BMI) Body weight Body temperature Provider Name and Address Organization Details Last Updated DateTime 08/25/2024 194.31 cm 27.9 kg/m2 452530.59 g 98.1 [degF] Grisel Ivan RN [facility] 08/25/2024 17:07:10 Social History Question Answer Notes LastModified by Organizat ion Details LastModified Time Tobacco Smoking Status Former Smoker Xin torres, [facility] [employer] 07/15/2024 10:23:22 What Is Your Level Of Alcohol Consumption? None [email or web address] Information not available 07/15/2024 When Did You Quit Smoking? 16+yearssinc elastcigaret te [email or web address] Information not available 07/15/2024 Sex: Unknown Functional [...] INJECTIONS N ALLERGIES/HAYFEVER N LUNG DISEASE/DISORDER N ESRD N HISTORY OF DRUG ABUSE N INSOMNIA N COPD N RADIATION / CHEMOTHERAPY N HIGH CHOLESTEROL / HYPERLIPIDEMIA N HYPERTHYROIDISM N PVD N BLOOD DISEASES N EAR OR HEARING PROBLEMS N HYPOTHYROIDISM N SHINGLES N DEPRESSION (INCLUDING POST ) N BACK / NECK PROBLEMS Y HAVE YOU BEEN HOSPITALIZED OR SEEN IN [facility] IN THE PAST YEAR ? N [...] N SLEEP DISORDER Y ARTERIAL INSUFFICIENCY N HEADACHES/MIGRAINES N SEIZURES/EPILEPSY N CHF N PACEMAKER N DIZZINESS N [...] SNOMED-CT Code Diagnosis ICD10 Code Diagnosis Note [id number] PAVITHRA Nash [facility] [place] [address] [place] [address] 07/19/2024 16:29:32 07/19/2024 17:16:52 Deviated nasal septum 272929921 J34.2 Chronic sinusitis 182941 00 J32.9 given symptom improvemen t with recent antibiotic use we will hold off on any further prescripti on medical management . [id number] Pedro Horne MD [facility] [place] [address] [place] [address] 08/25/2024 16:22:31 08/26/2024 13:30:28 Deviated nasal septum 229124567 J34.2 Chronic le ft maxillary sinusitis 1916267721 3194559 J32.0 Health Concerns Section Related Observation LastModified by Organization [employer] LastModified Time None Recorded Concern Status LastModified by Organization Details LastModified Time None Recorded Advance Directives Directive None Recorded Payers Encounter Date Sequence Insurance Name Policy Number Policy Xiao Covered Member ID Xiao Member ID Guarantor Name 07/19/2024 1 [employer] (MEDICARE REPLACEMENT/ ADVANTAGE - PPO) Deep Wolfgang [id number] [employer] 08/25/2024 1 [employer] (MEDICARE REPLACEMENT/ ADVANTAGE - PPO) Deep Wolfgang [id number] [employer] Notes Date Note Type Note [...] without relief of symptoms. PAVITHRA Nash [address] [facility] [address], [place], [address], [employer] [facility] 07/19/2024 17:16:15 08/25/2024 text/html this patient had a history of sinusitis for many years. He has been on numerous courses of antibiotics a sinus CT demonstrated left maxillary sinusitis and right septal deviation was identified and a previous exam Pedro Horne MD [address] [facility] [facility] [address], [place], [address], [employer] 11/17/2024 15:01:00
--- OUTSIDE RECORDS SUMMARY | 2025-01-06 13:55 | XMS_ITS | Clinical Summary ---
Author Organization [facility] Address [address] [place] [address] Care Team Providers Care City Marshal Name Role Phone Unavailable Primary Care Provider Unavailabl e Source Comments [facility],non-owned Affiliates and Associated Physician Practices is amultiple site organization consisting of ambulatory clinics and hospital sitesin [place], [place], [place] and [place]. This disclosure is being madepursuant to the Care Everywhere program and may not contain all information available regarding this patient. Last updated 18.[facility] [employer] Social History Tobacco Use Types Packs/Day Years [...]
--- OUTSIDE RECORDS SUMMARY | 2025-01-06 13:55 | XMS_ITS | Referral Summary ---
Author Organization [facility] Address [address] [place] [address] Care Team Providers Care Bander Operator Name Role Phone Unavailable Primary Care Provider Unavailabl e Source Comments [facility],non-owned Affiliates and Associated Physician Practices is amultiple site organization consisting of ambulatory clinics and hospital sitesin [place], [place], [place] and [place]. This disclosure is being madepursuant to the Care Everywhere program and may not contain all information available regarding this patient. Last updated 18.[facility] Social History Tobacco Use Types Packs/Day Years Used Date Smoking Tobacco: Never Assessed Sex and Gender Information Value Date Recorded Sex Assigned at Not on file Gender Identity Not on file Sexual Orientation Not on file Plan of Treatment Not on file
--- OUTSIDE RECORDS SUMMARY | 2025-01-06 13:55 | XMS_ITS | Clinical Summary ---
Author Organization [facility] Address [address] [place] [address] Care Team Providers Care Hydrodynamicist Name Role Phone Tien Bagley DO Primary Care Provider [phone] Allergies Active Allergy Reactions Criticality Noted Date [...] Comments Blood Pressure 174/87 10/21/2022 1:55 PM SHEAR TENDER Pulse 53 10/21/2022 1:55 PM SHEAR TENDER Temperature 36.2 C (97.2 F) 10/21/2022 1:20 PM SHEAR TENDER Respiratory Rate 12 10/21/2022 1:55 PM SHEAR TENDER Oxygen Saturation 98% 10/21/2022 1:55 PM SHEAR TENDER Inhaled Oxygen Concentration - - Weight 111.1 kg (245 lb) 10/20/2022 12:48 PM SHEAR TENDER Height 194.3 cm (6' 4.5 ) 10/20/2022 12:48 PM CS T Body Mass Index 29.43 10/20/2022 12:48 PM SHEAR TENDER Plan of Treatment Health Maintenance Due Date [...] this topic Medical Devices Implanted Type Area Marketing Research Coordinator Device Identifier Shelf Expiration Date Model / Serial / Lot Clip Resolution 360 Deg 2.8mm X 235cm - [id number] Implanted:Qty : 1 on 09/04/2021 by Rafael [facility] DO at [facility] Clip Implant N/A: Stomach [employer] 08/20/2023 [id number] / / [id number] Clip Resolution 2.8mm 360 235cm 11mm Open - [id number] Implanted:Qty : 1 on 09/04/2021 by Rafael Douglas DO at [facility] Clip Implant N/A: Stomach [employer] [id number] 06/03/2024 [id number] / / [id number] Neck Fusion Neck Procedures Procedure Name Priority Date/Time Associated Diagnosis Comments COLONOSCOPY Routine 10/21/2022 12:17 PM SHEAR TENDER from Last 3 Months or Most Recently Relevant to Health Maintenance Results * Colonoscopy (10/21/2022 12:17 PM SHEAR TENDER) Narrative Ye Levy MD - 10/21/2022 12:17 PM SHEAR TENDER Ye Levy MD 10/21/2022 1:28 PM YE LEVY MD, FACG, FACP COLONOSCOPY 10/21/2022 INDICATION: Personal history of colon polyps. POST-OP: 11 polyps removed. Mild diverticulosis. SEDATION: Per Anesthesia PREP: Good. With the patient in the left lateral decubitus position, the Olympus [id number] colonoscope was introduced into the rectum and [...] - Previous colonoscopy 5 years ago in [place]; report unavailable - Surveillance colonoscopy 10/21/2022 with [...] Most Recently Relevant [place] [address] [facility] Care Teams Hydrodynamicist Relationship Specialty Start Date End Date Tien Bagley DO [address] [phone] PCP - General INTERNAL MEDICINE 09/04/21
--- OUTSIDE RECORDS SUMMARY | 2025-01-06 13:55 | XMS_ITS | Patient Health Summary ---
Author Organization [facility] Address [address] [facility] [place] [address] Care Team Providers Care Informix Developer Name Role Phone Unavailable Primary Care Provider Unavailabl e Note from [facility],non-owned Affiliates and Associated Physician Practices is amultiple site organization consisting of ambulatory clinics and hospital sitesin [place], [place], [place] and [place]. This disclosure is being madepursuant to the Care Everywhere program and may not contain all information available regarding this patient. Last updated 18.[facility] Social History Tobacco Use Types Packs/Day Years Used Date Smoking Tobacco: Never Assessed Sex and Gender Information Value Date Recorded Sex Assigned at Not on file Gender Identity Not on file Sexual Orientation Not on file
[2025-01-06 15:16] LABS: Influenza A QL RT-PCR Positive (Negative); Influenza B QL RT-PCR Negative (Negative); RSV RNA, RT-PCR Negative (Negative); SARS-CoV-2 RNA PCR Negative (Negative)
== END 2025-01-06 13:41 | disposition home or self-care (01) ==
LOC: ANHLAB 13:42
PROVIDERS: PCP Internal Medicine; Visit Provider Internal Medicine
DX: J06.9 Acute upper respiratory infection, unspecified (principal); Z20.822 Contact with and (suspected) exposure to COVID-19
CPT/HCPCS: 87637

== ENCOUNTER 2025-01-25 14:39 | Outpatient (CLI) | payer MEDICARE, MEDICAID, SELFPAY ==
--- NOTE | ~2025-01-25 | XR_ITS ---
EXAMINATION: XR chest 2V 01/25/2025 15:02 INDICATION: Cough PROCEDURE: 2 view chest COMPARISON: Comparison to multiple prior studies sequentially, with oldest reviewed study dated 05/2022. FINDINGS: The lungs are clear. The cardiomediastinal silhouette is within normal limits. There are no pleural effusions. There is no pneumothorax suspected. IMPRESSION: 1: NO ACUTE CARDIOPULMONARY DISEASE. Reviewed, dictated and finalized at location A.
--- NOTE | 2025-01-25 15:05 | ECG_ITS ---
Test Date: 2025-01-25 15:13:04 Measurements Intervals [place] Rate: 73 P: 0 NV: 0 QRS: -41 QRSD: 112 T: -24 QT: 397 QTc: 440 Interpretive Statements Sinus rhythm with first-degree AV block LEFT VENTRICULAR HYPERTROPHY POSSIBLE SEPTAL MYOCARDIAL INFARCTION, OF INDETERMINATE AGE NONSPECIFIC ST AND T-WAVE ABNORMALITY Electronically Signed On 01-26-2025 10:45:17 CDT by Koffi Poole M.D.
--- OUTSIDE RECORDS SUMMARY | 2025-01-25 16:01 | XMS_ITS | Clinical Summary ---
Author Organization [facility] Address [address] [facility] [place] [address] Care Team Providers Care Rigging Supervisor Name Role Phone Unavailable Primary Care Provider Unavailabl e Source Comments [facility],non-owned Affiliates and Associated Physician Practices is amultiple site organization consisting of ambulatory clinics and hospital sitesin [place], [place], [place] and [place]. This disclosure is being madepursuant to the Care Everywhere program and may not contain all information available regarding this patient. Last updated 18.[facility] [employer] Social History Tobacco Use Types Packs/Day Years [...] to complete this topic MENINGOCOCCAL (Group B) VACC INE SHARED DECISION-MAKING Aged Out No longer eligibl e based on patient's age to complete this topic MENINGOCOCCAL GROUPS A/C/Y/W VACCINE Aged Out No longer eligible b ased on patient's age to complete this topic
--- OUTSIDE RECORDS SUMMARY | 2025-01-25 16:01 | XMS_ITS | Data Portability ---
Author Organization [facility], Main Office Address [address] [place] [address] Care Team Providers Care Oil Expeller Operator Name Role Phone DAISY ST Manager [employer]EN [employer]ORS Loss Prevention Representative Assessment No assessment recorded. Plan of Treatment Reminders Order Date Submit Date Provider Last Modified By Organization Details Last Modified Time Details Appointments None recorded. Lab None recorded. Referral None recorded. Procedures None recorded. Surgeries septoplasty (SURG) [address] ([facility]), [address] [place], [address], 4 10:50:11 endoscopy, nasal/sinus , w/ maxillary antrostomy & tissue removal (SURG) [address] ([facility]), [address] [place], [address], 4 10:50:11 Imaging None recorded. Medication Orders None recorded. Patient TargetsNo targets recorded. Patient Instructions Encounter Date Encounter Id Patient Instructions Last Modified By Organization Details Last Modified Time 07/19/2024 [id number] Discussed at length obtaining a repeat CT of his sinus given worsening of his symptoms. In addition we will add to Dr. Horne scheduled for surgical consultation for a deviated septum while awaiting his sinus CT results. [email or web address] Not available 07/19/2024 17:16:10 Reason for Referral None Reported. Results Created Date Observation Date Name Description Value Unit Range Abnormal Flag Note LastModifiedBy Organization Detail LastModifiedTime 07/20/20 24 04/29/2022 CT, sinus es, w/o contr ast No observ ation record ed. [email or web address] [facility] [address], [place], [address], 07/21/2024 13:12:14 07/22/2004/29/2022 CT, sinus es, w/o contr ast No observ ation record ed. [email or web address] [facility] [address], [place], [address], 07/27/2024 15:58:09 08/15/2008/12/2024 CT, sinus es, w/o contr ast No observ ation record ed. [email or web address] [facility] [address] [place], [address], 08/26/2024 08:40:45 08/23/2008/12/2024 CT, sinus es, w/o contr ast No observ ation record ed. [address], [place], [address], 08/23/2024 17:20:19 Result Notes None recorded. Problems Name Problem SNOMED Code Status Onset Date Resolution Date Notes Provider Name and Address Organization Details Recorded Time Chronic sinusitis 84111169 Active 2023 Grisel Ivan RN null, [employer] 4 17:04:19 Deviated nasal septum 845125229 Active 2023 PAVITHRA Nash [address] [facility], [place], [address], [employer] 4 17:14:37 Chronic left maxillary sinusitis 02361262459891 101 Active 2023 Pedro Horne MD [address], [address], [place], [address], [employer] 4 17:25:21 Sinusitis 51707713 Active 2024 Pedro Horne MD [address], [address], [place], [address], [employer] 5 15:03:50 Problem Notes None recorded. Procedures Surgical History None recorded. Imaging Results Imaging Date Name Status LastModified by Organiz ation Details LastModified Time 04/29/2022 CT, sinuses, w/o contrast completed [email or web address] [facility] [address] [facility] [address], [place], [address], 07/21/2024 13:12:14 04/29/2022 CT, sinuses, w/o contrast completed [email or web address] [place] [id number] [facility] [address], [place], [address], 07/27/2024 15:58:09 08/12/2024 CT, sinuses, w/o contrast completed [address] [place], [address], 08/26/2024 08:40:45 08/12/2024 CT, sinuses, w/o contrast completed [address], [address], 08/23/2024 17:20:19 Procedure Notes None recorded. Medical Equipment None Reported. Allergies Allergen ID Allergen Name Allergen Category Reaction Reaction Severity Criticality Documentation Date Start Date Code Code System Note Provider Name and Address Organization Details Recorded Time 50468 Levaquin medicatio n rash Not available Not available 07/15/2024 17850 2 RxNorm Xin [employer], [employer] [facility] [employer] 4 11:05:43 24928 latex environme nt,medica tion rash Not available Not available 07/15/2024 40733 91 RxNorm latex tape Xin Freddie [employer], [employer] [facility] [employer] 4 11:06:05 Medications Name Sig Start Date [...] bromide 21 mcg (0.03 %) nasal spray [place] 2 sprays twice a day by intranas [...] Xhance 93 mcg/actua tion breath activated aerosol [place] 1 spray twice a day by intranas [...] Updated DateTime 07/19/2024 194.31 cm 28.3 kg/m2 074028.64 g 97.8 [degF] Grisel Ivan RN [facility] [employer] 07/19/2024 16:53:55 Date Recorded Body height Body mass index (BMI) Body weight Body temperature Provider Name and Address Organization Details Last Updated DateTime 08/25/2024 194.31 cm 27.9 kg/m2 142962.59 g 98.1 [degF] Grisel Ivan RN [facility] [employer] 08/25/2024 17:07:10 Social History Question Answer Notes LastModified by Organizat ion Details LastModified Time Tobacco Smoking Status Former Smoker Xin torres, [facility] [employer] 07/15/2024 10:23:22 What Is Your Level Of Alcohol Consumption? None [email or web address] Information not available 07/15/2024 When Did You Quit Smoking? 16+yearssinc elastcigaret te [email or web address] Information not available 07/15/2024 Sex: Unknown Functional [...] N BACK INJECTIONS N LUNG DISEASE/DISORDER N INSOMNIA N HISTORY OF DRUG ABUSE N ESRD N RADIATION / CHEMOTHERAPY N COPD N HIGH CHOLESTEROL / HYPERLIPIDEMIA N HYPERTHYROIDISM N PVD N BLOOD DISEASES N EAR OR HEARING PROBLEMS N HYPOTHYROIDISM N SHINGLES N DEPRESSION (INCLUDING POST ) N BACK / NECK PROBLEMS Y HAVE YOU BEEN HOSPITALIZED OR SEEN IN [facility] ER IN THE PAST YEAR ? [...] SNOMED-CT Code Diagnosis ICD10 Code Diagnosis Note [id number] PAVITHRA Nash [facility] [place] [address] [place] [address] 07/19/2024 16:29:32 07/19/2024 17:16:52 Deviated nasal septum 426282644 J34.2 Chronic sinusitis 322738 00 J32.9 given symptom improvemen t with recent antibiotic use we will hold off on any further prescripti on medical management . [id number] Pedro Horne MD [facility] [place] [address] [place] [address] 08/25/2024 16:22:31 08/26/2024 13:30:28 Deviated nasal septum 203131713 J34.2 Chronic le ft maxillary sinusitis 0195214530 5301662 J32.0 Health Concerns Section Related Observation LastModified by Organization Sona carpio LastModified Time None Recorded Concern Status LastModified by Organization Details LastModified Time None Recorded Advance Directives Directive None Recorded Payers Encounter Date Sequence Insurance Name Policy Number Policy Xiao Covered Member ID Xiao Member ID Guarantor Name 07/19/2024 1 [employer] (MEDICARE REPLACEMENT/ ADVANTAGE - PPO) Deep Wolfgang [id number] Deep [employer]oss 08/25/2024 1 [employer] (MEDICARE REPLACEMENT/ ADVANTAGE - PPO) Deep Wolfgang [id number] Deep [employer] Notes Date Note Type Note Provider Name [...] without relief of symptoms. PAVITHRA Nash [address] [facility], [facility] [address], [place], [address], [employer] [facility] [employer] 07/19/2024 17:16:15 08/25/2024 text/html this patient had a history of sinusitis for many years. He has been on numerous courses of antibiotics a sinus CT demonstrated left maxillary sinusitis and right septal deviation was identified and a previous exam Pedro Horne MD [address] [facility], [facility] [address], [place], [address], [employer] 11/17/2024 15:01:00
--- OUTSIDE RECORDS SUMMARY | 2025-01-25 16:01 | XMS_ITS | Clinical Summary ---
Author Organization [facility] Address [address] [place] [address] Care Team Providers Care Insurance Underwriter Sales Name Role Phone Tien Bagley DO Primary Care Provider [phone] Allergies Active Allergy Reactions Criticality Noted Date [...] Comments Blood Pressure 174/87 10/21/2022 1:55 PM FARM HAND Pulse 53 10/21/2022 1:55 PM FARM HAND Temperature 36.2 C (97.2 F) 10/21/2022 1:20 PM FARM HAND Respiratory Rate 12 10/21/2022 1:55 PM FARM HAND Oxygen Saturation 98% 10/21/2022 1:55 PM FARM HAND Inhaled Oxygen Concentration - - Weight 111.1 kg (245 lb) 10/20/2022 12:48 PM FARM HAND Height 194.3 cm (6' 4.5 ) 10/20/2022 12:48 PM CS T Body Mass Index 29.43 10/20/2022 12:48 PM FARM HAND Plan of Treatment Health Maintenance Due Date [...] this topic Medical Devices Implanted Type Area Manager Power Device Identifier Shelf Expiration Date Model / Serial / Lot Clip Resolution 360 Deg 2.8mm X 235cm - [id number] Implanted:Qty : 1 on 09/04/2021 by Rafael Douglas DO at [facility] Clip Implant N/A: Stomach [employer] 08/20/2023 [id number] 0 / / [id number] Clip Resolution 2.8mm 360 235cm 11mm Open - [id number] Implanted:Qty : 1 on 09/04/2021 by Rafael Douglas DO at [facility] Clip Implant N/A: Stomach [employer] [id number] 06/03/2024 [id number] / / [id number] Neck Fusion Neck Procedures Procedure Name Priority Date/Time Associated Diagnosis Comments COLONOSCOPY Routine 10/21/2022 12:17 PM FARM HAND from Last 3 Months or Most Recently Relevant to Health Maintenance Results * Colonoscopy (10/21/2022 12:17 PM FARM HAND) Narrative Ye Levy MD - 10/21/2022 12:17 PM FARM HAND Ye Levy MD 10/21/2022 1:28 PM YE LEVY MD, FACG, FACP COLONOSCOPY 10/21/2022 INDICATION: Personal history of colon polyps. POST-OP: 11 polyps removed. Mild diverticulosis. SEDATION: Per Anesthesia PREP: Good. With the patient in the left lateral decubitus position, the Olympus [id number] colonoscope was introduced into the rectum and [...] - Previous colonoscopy 5 years ago in [place]; report unavailable - Surveillance colonoscopy 10/21/2022 with [...] Most Recently Relevant to [place] [address] [facility] Care Teams Insurance Underwriter Sales Relationship Specialty Start Date End Date Tien Bagley DO [address] [phone] PCP - General INTERNAL MEDICINE 09/04/21
== END 2025-01-25 14:40 | disposition home or self-care (01) ==
PROVIDERS: PCP Internal Medicine; Visit Provider Internal Medicine Cardiovascular Disease
DX: I47.20 Ventricular tachycardia, unspecified (principal); R05.9 Cough, unspecified
CPT/HCPCS: 71046; 93005

== ENCOUNTER 2025-04-17 15:16 | Outpatient (CLI) | payer MEDICARE, MEDICAID, SELFPAY ==
--- NOTE | ~2025-04-17 | XR_ITS ---
Lumbosacral Spine: AP and lateral views Clinical History: Pain COMPARISON: 10/14/2022 Findings: Straightening of the normal lumbar lordosis noted. No fracture seen. Stable minimal grade 1 anterolisthesis of L3 over L4. There is advanced degenerative disc narrowing at L4-L5. There is adva nced facet arthropathy throughout the lumbar spine. No instability evident on flexion or extension. T he sacroiliac joints are normally outlined. Impression: Moderate to advanced degenerative spondylosis, as above, without significant change from prior exam. Reviewed, dictated and finalized at location M. Impression: Moderate to advanced degenerative spondylosis, as above, without significant ch tammi from prior exam.
--- OUTSIDE RECORDS SUMMARY | 2025-04-17 16:27 | XMS_ITS | Data Portability ---
Author Organization [facility], Main Office Address [address] [place] [address] Care Team Providers Care Tuber Helper Name Role Phone DAISY ST Industrial Safety Engineer GLEN CONNORS Embossing Press Operator JOANIE JOHNS Primary Care Provider [phone] Assessment No assessment recorded. Plan of Treatment Reminders Order Date Submit Date Provider Last Modified By Organization Details Last Modified Time Details Appointments None recorded. Lab None recorded. Referral None recorded. Procedures None recorded. Surgeries septoplasty (SURG) [address] ([facility] [employer] [facility]), [address] [place], [address], 4 10:50:11 endoscopy, nasal/sinus , w/ maxillary antrostomy & tissue removal (SURG) [address] ([facility]), [address] [place], [address], 4 10:50:11 Imaging None recorded. Medication Orders None recorded. Patient TargetsNo targets recorded. Patient Instructions Encounter Date Encounter Id Patient Instructions Last Modified By Organization Details Last Modified Time 07/19/2024 [id number] Discussed at length obtaining a repeat CT of his sinus given worsening of his symptoms. In addition we will add to Dr. Horne scheduled for surgical consultation for a deviated septum while awaiting his sinus CT results. [email or web address] Not available 07/19/2024 17:16:10 Reason for Referral None Reported. Results Created Date Observation Date Name Description Value Unit Range Abnormal Flag Note LastModifiedBy Organization Detail LastModifiedTime 07/20/20 24 04/29/2022 CT, sinus es, w/o contr ast No observ ation record ed. [email or web address] [facility] [address], [place], [address], 07/21/2024 13:12:14 07/22/2004/29/2022 CT, sinus es, w/o contr ast No observ ation record ed. [email or web address] [facility] [address], [place], [address], 07/27/2024 15:58:09 08/15/2008/12/2024 CT, sinus es, w/o contr ast No observ ation record ed. [address] [place], [address], 08/26/2024 08:40:45 08/23/2008/12/2024 CT, sinus es, w/o contr ast No observ ation record ed. [address], [place], [address], 08/23/2024 17:20:19 Result Notes None recorded. Problems Name Problem SNOMED Code Status Onset Date Resolution Date Notes Provider Name and Address Organization Details Recorded Time Chronic sinusitis 63352003 Active 2023 Grisel Ivan RN null, [facility] 4 17:04:19 Deviated nasal septum 794027264 Active 2023 PAVITHRA Nash [address] [facility], [address], [place], [address], [facility] 4 17:14:37 Chronic left maxillary sinusitis 57619743800559 101 Active 2023 Pedro Horne MD [address], [address], [place], [address], [facility] 4 17:25:21 Sinusitis 35383928 Active 2024 Pedro Horne MD [address], [address], [place], [address], [facility] 5 15:03:50 Problem Notes None recorded. Medical Equipment None Reported. Allergies Allergen ID Allergen Name Allergen Category Reaction Reaction Severity Criticality Documentation Date Start Date Code Code System Note Provider Name and Address Organization Details Recorded Time 75557 Levaquin medicatio n rash Not available Not available 07/15/2024 65743 2 RxNorm Xin Freddie [employer], [facility] 4 11:05:43 17680 latex environme nt,medica tion rash Not available Not available 07/15/2024 71666 91 RxNorm latex tape Xin Freddie [employer], [facility] 4 11:06:05 Medications Name Sig Start Date Stop Date Status Note LastModified by Organization Details LastModified Time atorvastati n 40 mg tablet 40 MG ORALLY EVERY DAY AT BEDTIME active Not Available Not Available No t Available hydralazine 10 mg tablet TAKE 1 TABLET BY MOUTH THREE TIMES A DAY active Not Available Not Available No t Available carvedilol 25 mg tablet Take 1 tablet twice a day by oral route. active Not Available Not Available No t Available clindamycin HCl 300 mg capsule TAKE 1 CAPSULE BY MOUTH EVERY 6 HOURS FOR 7 DAYS active Not Available Not Available No t Available cetirizine 10 mg tablet TAKE 1 TABLET BY MOUTH EVERY DAY active Not Available Not Available No t Available azithromyci n 250 mg tablet TAKE 2 TABLETS BY MOUTH TODAY, THEN TAKE 1 TABLET DAILY FOR 4 DAYS DIRECTED active Not Available Not Available No t Available amiodarone 200 mg tablet TAKE 1 TABLET BY MOUTH EVERY DAY active Not Available Not Available No t Available benzonatate 200 mg capsule TAKE 1 CAPSULE BY MOUTH 3 TIMES A DAY NEEDED FOR COUGH active Not Available Not Available No t Available prednisone 20 mg tablet TAKE 1 TABLET BY MOUTH EVERY DAY FOR 5 DAYS 09/27 completed Not Available Not Available Not Available Nexium 40 mg capsule,del ayed release Take 1 capsule every day by oral route. active Not Available Not Available No t Available hydralazine 25 mg tablet Take 1 tablet twice a day by oral route. active Not Available Not Available No t Available sulfamethox azole 800 mg-trimetho prim 160 mg tablet TAKE 1 TABLET BY MOUTH EVERY 12 HOURS UNTIL FINISHED active Not Available Not Available No t Available aspirin 81 mg tablet,lm yed release TAKE 1 TABLET BY MOUTH EVERY MORNING active Not Available Not Available No t Available triamcinolo ne acetonide 0.1 % topical cream APPLY TOPICALLY TWICE A DAY 09/27 completed Not Available Not Available Not Available codeine 10 mg-guaifene sin 200 mg/5 mL oral liquid Take 10 mL every 4 hours by oral route. 2024 active Not Available Not Available Not Avai lable cyanocobala min (vit B-12) 1,000 mcg/mL injection solution INJECT 1ML INTO MUSCLE EVERY 4 WEEKS active Not Available Not Available No t Available oseltamivir 75 mg capsule TAKE 1 CAPSULE BY MOUTH EVERY 12 HOURS FOR 5 DAYS active Not Available Not Available No t Available ferrous sulfate 325 mg (65 mg iron) tablet TAKE 1 TABLET BY MOUTH EVERY DAY active Not Available Not Available No t Available docusate sodium 100 mg capsule 200 MG ORALLY EVERY DAY AT BEDTIME active Not Available Not Available No t Available codeine 10 mg-guaifene sin 100 mg/5 mL oral liquid TAKE 5 ML ORALLY EVERY 6 HOURS NEEDED FOR COUGH active Not Available Not Available No t Available hydralazine 50 mg tablet 50 MG ORALLY THREE TIMES A DAY active Not Available Not Available No t Available methylpredn isolone 4 mg tablets in a dose pack [...] Not Available Not Available No t Available fluticasone propionate 50 mcg/actuati on nasal spray,suspe nsion SPRAY 2 SPRAY INTRANASA LLY DAILY ADMINISTE R INTO EACH NOSTRIL active Not Available Not Available No t Available ipratropium bromide 21 mcg (0.03 %) nasal spray [place] 2 sprays twice a day by intranasa l route. active Not Available Not Available No t Available amoxicillin 875 mg-potassiu m clavulanate 125 mg tablet TAKE 1 TABLET BY MOUTH EVERY 12 HOURS FOR 10 DAYS 08/25 completed Not Available Not Available Not Available febuxostat 80 mg tablet Take 1 tablet every day by oral route. active Not Available Not Available No t Available Brilinta 90 mg tablet Take 1 tablet twice a day by oral route. active Not Available Not Available No t Available Xarelto 20 mg tablet TAKE 1 TABLET ORALLY EVERY EVENING MUST ADMINISTE R WITH EVENING MEAL active Not Available Not Available No t Available Xhance 93 mcg/actuati on breath activated aerosol [place] 1 spray twice a day by intranasa l route. active Not Available Not Available No t Available aspirin 81 mg capsule Take 1 capsule every day by oral route. 11/16 completed Not Available Not Available Not Available Vitals Date Recorded Body height Body mass index (BMI) Body weight Body temperature Provider Name and Address Organization Details Last Updated DateTime 07/19/2024 194.31 cm 28.3 kg/m2 115270.64 g 97.8 [degF] Grisel Ivan RN [facility] 07/19/2024 16:53:55 Date Recorded Body height Body mass index (BMI) Body weight Body temperature Provider Name and Address Organization Details Last Updated DateTime 08/25/2024 194.31 cm 27.9 kg/m2 529461.59 g 98.1 [degF] Grisel Ivan RN [facility] 08/25/2024 17:07:10 Social History Question Answer Notes LastModified by Organizat ion Details LastModified Time Tobacco Smoking Status Former Smoker Xin Bergerviki torres, [facility] 07/15/2024 10:23:22 When Did You Quit Smoking? 16+yearssinc elastcigaret te Information not available 07/15/2024 Sex: Unknown Functional Status Question Answer Note LastModified by Organization D etails LastModified Time What is your level of alcohol consumption? None [email or web address] Information not available 07/15/2024 Mental Status None recorded. Family History Relationship [...] HEARING PROBLEMS N HYPOTHYROIDISM N SHINGLES N BACK / NECK PROBLEMS Y DEPRESSION (INCLUDING POST ) N HAVE YOU BEEN HOSPITALIZED OR SEEN IN [facility] IN THE PAST YEAR ? [...] SNOMED-CT Code Diagnosis ICD10 Code Diagnosis Note [id number] Pedro Horne MD [facility] [place] [address] [place] [address] 07/19/2024 16:29:32 07/19/2024 17:16:52 Deviated nasal septum 024770258 J34.2 Chronic sinusitis 619639 00 J32.9 given symptom improvemen t with recent antibiotic use we will hold off on any further prescripti on medical management . [id number] Pedro Horne MD [facility] [place] [address] [place] [address] 08/25/2024 16:22:31 08/26/2024 13:30:28 Deviated nasal septum 998906088 J34.2 Chronic le ft maxillary sinusitis 6529515089 5039770 J32.0 Health Concerns Section Related Observation LastModified by Organization Detai ls LastModified Time None Recorded Concern Status LastModified by Organization Details LastModified Time None Recorded Advance Directives Directive None Recorded Payers Insurance Date Sequence Insurance Name Policy Number Policy Xiao Covered Member ID Xiao Member ID Guarantor Name 04/05/2025 1 [facility] (MEDICARE REPLACEMENT/ ADVANTAGE - PPO) [employer] [id number] [employer] Notes Date Note Type Note [...] relief of symptoms. PAVITHRA Nash [address], [facility] [address], [place], [address], [facility] 07/19/2024 17:16:15 08/25/2024 text/html this patient had a history of sinusitis for many years. He has been on numerous courses of antibiotics a sinus CT demonstrated left maxillary sinusitis and right septal deviation was identified and a previous exam Pedro Horne MD [address], [facility] [address], [place], [address], [facility] 11/17/2024 15:01:00
--- OUTSIDE RECORDS SUMMARY | 2025-04-17 16:27 | XMS_ITS | Clinical Summary ---
Author Organization [facility] Address [address] [facility] [place] [address] Care Team Providers Care Motor Tester Name Role Phone Unavailable Primary Care Provider Unavailabl e Source Comments [facility],non-owned Affiliates and Associated Physician Practices is amultiple site organization consisting of ambulatory clinics and hospital sitesin [place], [place], [place] and [place]. This disclosure is being madepursuant to the Care Everywhere program and may not contain all information available regarding this patient. 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
== END 2025-04-17 15:17 | disposition home or self-care (01) ==
PROVIDERS: PCP Internal Medicine; Visit Provider Nurse Practitioner Adult Health
DX: M47.896 Other spondylosis, lumbar region (principal)
CPT/HCPCS: 72110

== ENCOUNTER 2025-05-11 03:03 | Emergency (ER) | payer MEDICARE, MEDICAID, SELFPAY ==
--- NOTE | ~2025-05-11 | XR_ITS ---
Right Shoulder Technique: AP and scapular Y views were obtained. Clinical History: Injury Findings: No fracture or dislocation is seen. Osseous alignment is anatomic. The glenohumeral and acr omioclavicular joints demonstrate mild degenerative change. Soft tissues are unremarkable. Impression: Mild degenerative changes, as above. Reviewed, dictated and finalized at location . Impression: Mild degenerative changes, as above.
[2025-05-11 03:04] VITALS: BP 185/97; PULSE 61; RESP 13; TEMP 36.8; O2SAT 100
[2025-05-11 03:17] VITALS: BP 185/97; PULSE 61; RESP 13; TEMP 36.8; O2SAT 100
--- NOTE | 2025-05-11 03:22 | ED.GENADULT ---
HPI - General Adult General Chief complaint: Extremity Injury, Upper Stated complaint: fall History of Present Illness HPI narrative: Patient is a 79-year-old male who presents emergency department this evening status post a ground level fall approximately 12 hours ago. States that he was trying to sit on his walker with a gave out on him causing him to fall backwards landing on his right shoulder. Patient denies hitting his head and denies any loss of consciousness. Complaining of right shoulder pain. Patient is able to move his right shoulder but his movement is limited due to pain. Denies any additional injuries or concerns at this time. Related Data Home Medications ?Medication ?Instructions ?Recorded ?Confirmed ?Last Taken ?Type febuxostat 40 mg tablet 80 mg PO HS 04/28/24 04/26/25 Unknown History aspirin 81 mg tablet,delayed 81 mg PO DAILY 04/17/25 04/26/25 Unknown History release (Adult Low Dose Aspirin) fluticasone propionate 50 2 spray intranasal DAILY PRN 04/17/25 04/26/25 Unknown History mcg/actuation nasal spray,suspension (Flonase Allergy Relief) Allergies Allergy/AdvReac Type Severity Reaction Status Date / Time adhesive tape Allergy Hives Verified 04/18/25 13:17 levofloxacin (From Levaquin) Allergy Rash Verified 04/18/25 13:17 Review of Systems Review of Systems: All systems are reviewed and are negative unless stated otherwise in the HPI. [facility] Past Medical History Medical History Hyperlipidemia Anxiety PVT (paroxysmal ventricular tachycardia) Obstructive sleep apnea Hypersomnia Hearing loss, bilateral Anemia GERD (gastroesophageal reflux disease) PAF (paroxysmal atrial fibrillation) Irritable bowel syndrome with diarrhea Chronic sinusitis Arthritis Colon polyps Gout B12 deficiency Hypertension Surgical History Surgical History History of hemorrhoidectomy removed with a lazer H/O hernia repair L & R groin History of back surgery H/O neck surgery cervical fusion H/O prostatectomy Family History Family History Father Lung cancer Mother Lung cancer Social History Social History Years smoked: 30 Smoking status: Former smoker Tobacco type: cigarettes Second hand tobacco smoke exposure: No Smoking end date: 11/02/87 Alcohol intake: never Substance use: never Substance use type: does not use Do You Feel Safe in your Home?: Yes Lack of Transportation: No Lack of Food: Never True Current Housing: I Have Housing Concerned About Future Housing: No Difficulty Paying Gas/Electric Bills: No Difficulty Paying for Meds: No Currently Unemployed: No Education: High School Diploma/GED Difficulty w/ Childcare or Family Care: No Living arrangements: alone Occupation/Education: retired Gender identity (if verbalized by the patient): Male Spiritual care concerns: No Exam Narrative: General: Alert, awake, afebrile, in no acute distress. HEENT: PERRL, no rhinorrhea, no post nasal drip, oropharynx clear. Neck: Trachea midline, no JVD, no lymphadenopathy. Cardiovascular: Regular rate and rhythm, no murmurs, rubs or gallops, no peripheral edema. Respiratory: Clear to auscultation bilaterally, no tachypnea, no wheezing, no rhonchi, no rubs, no respiratory distress. Abdomen: Soft, nontender, nondistended, no rebound, no guarding, no peritoneal signs. Musculoskeletal: No joint swelling or deformity, normal muscle tone, tenderness palpation over the anterior aspect of the right shoulder joint, intact right shoulder range of motion although movement is somewhat limited secondary to pain, intact full range of motion at the right wrist and right elbow joints. Skin: No rashes or petechia, no signs of infection. Psychiatric: Alert and oriented, normal behavior and judgment for situation. Neurological: Alert and oriented to person, place, and time. Follows all commands. No focal deficits, speech is clear and fluent. Course Vital Signs Vital signs: Vital Signs Temperature 98.3 F 05/11/25 03:04 Pulse Rate 61 05/11/25 03:04 Respiratory Rate 13 05/11/25 03:04 Blood Pressure 185/97 H 05/11/25 03:04 Pulse Oximetry 100 05/11/25 03:04 Oxygen Delivery Room Air 05/11/25 03:04 Temperature 98.0 F 05/11/25 04:41 Pulse Rate 81 05/11/25 04:41 Respiratory Rate 18 05/11/25 04:41 Blood Pressure 180/91 H 05/11/25 04:41 Pulse Oximetry 97 05/11/25 04:41 Oxygen Delivery Room Air 05/11/25 03:04 Medical Decision Making MDM Narrative Medical decision making narrative: The patient was evaluated by myself in the emergency department. History is obtained from patient who is an independent historian and physical exam was performed. External medical records were reviewed at this time. Patient was administered an oral [place] 5-325 mg. Imaging studies obtained included right shoulder x-ray which was independently interpreted by me revealing no acute process, which is pending final radiology interpretation. Differential diagnosis considerations include fracture, dislocation, rotator cuff injury. Comorbidities impacting this visit include none. I have evaluated and discussed social determinants of health with the patient that could potentially impact subsequent diagnosis and treatment plans. On repeat assessment of the patient, reevaluation revealed that the patient is doing well and is in no acute distress. Patient symptoms have improved since he arrived to our emergency department. Repeat vital signs were all reviewed and noted to be stable. Differential diagnosis and treatment plan were discussed with the patient at bedside. Patient agrees with discussion and after shared medical decision making agrees with discharge. All questions were answered to the patient's satisfaction. Patient will follow up with his PCP in 3-5 days. Patient was also provided with an orthopedic referral instructed to call to set up a follow-up appointment. Patient was provided with strict return precautions and instructed to return to the emergency department if any new or worsening symptoms develop. The patient was discharged in stable condition. Vital Signs Vital Signs: Vital Signs Temperature 98.3 F 05/11/25 03:04 Pulse Rate 61 05/11/25 03:04 Respiratory Rate 13 05/11/25 03:04 Blood Pressure 185/97 H 05/11/25 03:04 Pulse Oximetry 100 05/11/25 03:04 Oxygen Delivery Room Air 05/11/25 03:04 Temperature 98.0 F 05/11/25 04:41 Pulse Rate 81 05/11/25 04:41 Respiratory Rate 18 05/11/25 04:41 Blood Pressure 180/91 H 05/11/25 04:41 Pulse Oximetry 97 05/11/25 04:41 Oxygen Delivery Room Air 05/11/25 03:04 Discharge Plan Discharge Clinical Impression: Fall from ground level, Right anterior shoulder pain Patient Disposition: Home Condition: Improved Instructions: Antibiotic Form, Fall Prevention for Older Adults (ED) Additional Instructions: Please follow-up with your family doctor within the next week. Take ibuprofen and Tylenol as needed for your right shoulder pain. If her symptoms do not improve, you will need to follow-up with an orthopedic surgeon for an MRI of your right shoulder as you may have injured the rotator cuff. Return to the ED if any new or worsening symptoms develop. Patient Language: [place] Prescriptions: No Action aspirin [Adult Low Dose Aspirin] 81 mg tablet,delayed release (DR/EC) 81 mg PO DAILY fluticasone propionate [Flonase Allergy Relief] 50 mcg/actuation spray,suspension 2 spray intranasal DAILY PRN Rx Instructions: administer into each nostril febuxostat 40 mg tablet 80 mg PO HS Brilinta 90 mg Tablet 90 mg PO Q12HR Qty: 90 2RF esomeprazole magnesium [Nexium] 40 mg capsule,delayed release(DR/EC) 40 mg PO DAILY Qty: 90 3RF atorvastatin 40 mg tablet See Rx Instructions .ROUTE .COMPLEX Qty: 90 2RF Dose Instruction: 40 MG ORALLY EVERY DAY AT BEDTIME Rx Instructions: 40 MG ORALLY EVERY DAY AT BEDTIME amiodarone 200 mg tablet 200 mg PO DAILY Qty: 30 5RF hydralazine 50 mg tablet See Rx Instructions .ROUTE .COMPLEX Qty: 90 5RF Dose Instruction: TAKE 1 TABLET BY MOUTH THREE TIMES A DAY Rx Instructions: TAKE 1 TABLET BY MOUTH THREE TIMES A DAY carvedilol 25 mg tablet See Rx Instructions .ROUTE .COMPLEX Qty: 60 5RF Dose Instruction: TAKE 1 TABLET BY MOUTH EVERY 12 HOURS WITH FOOD Rx Instructions: TAKE 1 TABLET BY MOUTH EVERY 12 HOURS WITH FOOD lorazepam 0.5 mg tablet 0.5 mg PO DAILY PRN (Reason: anxiety) Qty: 30 0RF cyanocobalamin (vitamin B-12) 1,000 mcg/mL solution See Rx Instructions .ROUTE .COMPLEX Qty: 2 2RF Dose Instruction: INJECT 1ML INTO MUSCLE EVERY 6 WEEKS Rx Instructions: INJECT 1ML INTO MUSCLE EVERY 4 WEEKS losartan 100 mg tablet See Rx Instructions .ROUTE .COMPLEX Qty: 30 5RF Dose Instruction: TAKE 1 TABLET BY MOUTH EVERY DAY Rx Instructions: TAKE 1 TABLET BY MOUTH EVERY DAY Follow-up/Referrals: Ino Padilla MD [Physician] - 1 Week Pete Rai MD [Primary Care Provider] - 1 Week Time of Disposition: 04:26
[2025-05-11] MEDS: HYDROcodone/acetaminophen (*CRX) 5-325 MG TABLET 1 TAB PO (03:27)
--- OUTSIDE RECORDS SUMMARY | 2025-05-11 03:30 | XMS_ITS | Patient Health Record ---
Author Organization [facility] Address [address] [place] [address] Care Team Providers Care Baby Formula Worker Name Role Phone JULIA JOSEPH Primary Care Provider Norm Mobley Unavailable [phone] Allergies Allergen (clinical drug ingredient) Drug/Non Drug Allergy documented on EMR Reaction Allergy Type Onset Date Status Ekg Leads (uncoded) Unknown Allergy Active Levaquin Unknown Drug Allergy Active Reason For Referral No Information Medications Medication SIG (Take, Route, Frequency, Duration) Notes Start Date End Date Status Colcrys 0.6 1 tablet Orally twic e a day (bid); Duration: 5 days Active Metoprolol Succinate ER 50 MG 1 tablet Orally Once a day Active Allopurinol 300 mg 1 tablet Orally Once a day; Duration: 30 Active Colcrys 0.6 MG 1 tablet Orally twic e a day (bid); Duration: 5 days 08/10/2018 Active Indomethacin 50 MG 1 capsule with food or milk Orally Twice a day; Duration: 90 Active Allopurinol 300 MG 1 tablet Orally Once a day; Duration: 30 day(s) Active NIFEdipine 10 MG 1 capsule Orally Thr ee times a day Active LORazepam 4 MG/ML Injection Ac tive Finasteride 1 MG 1 tablet Orally Once a day Active NexIUM 40 MG 1 capsule Orally Onc e a day Active Tamsulosin HCl 0.4 MG 1 capsule Orally O nce a day Active Flecainide Acetate 100 MG Orally Active Xarelto 15 MG Orally Active Social History Tobacco Use: Social History Observation Description Date Details (start date - stop date) Never Smoker NA - NA Alcohol Question Answer Notes Did you have a drink containing alcohol in the p ast year? 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) Active confirmed Problem Arthralgia of the ankle and/or foot (340852740) Pain in joint involving left ankle and foot (M25.572) Active confirmed Problem Arthralgia of the ankle and/or foot (799622376) Pain in joint involving right ankle and foot (M25.571) Active confirmed Problem Peroneal tendinitis of right lower limb (disorder) (54776589179190 9) Peroneal tendinitis of right lower leg (M76.71) Active confirmed Problem Pain in limb (54316107) Pain of foot and toes (M79.673) Active confirmed Problem Cellulitis of toe (18091157) Acute paronychia of toe (L03.039) Active confirmed Problem Gouty arthritis of right foot (42406181811295 07) Gouty arthritis of right foot (M10.9) Active confirmed Plan Of Treatment No Information Insurance Providers Payer Name Payer Address Payer Phone Subscriber Number Group Number Insured Name Patient Relationship to Insured Coverage Start Date Coverage End Date [facility] [address] [address] [place] [address] [id number] NONE JOVITA DE LOS SANTOS Self - patient is the insured Medical (General) History Medical History History ICD Code gout htn depression anxiety gerd afib miles's palsy Surgical History Surgery Date(Month/Year) back neck hernia
--- OUTSIDE RECORDS SUMMARY | 2025-05-11 03:30 | XMS_ITS | Clinical Summary ---
Author Organization [facility] Address [facility] [place] [address] Care Team Providers Care Train Starter Name Role Phone Tien Bagley DO Primary Care Provider [phone] Allergies Active Allergy Reactions Criticality Noted Date [...] Take 40 mg by mouth daily. Active Encounters Date Type Department Care Team Description 05/09/2025 2:50 PM CDT - 05/09/2025 11:59 PM CDT Hospital Encounter [facility] [address] [place] [address] Montserrat Jack NP Arrived Discharge Disposition: Home or Self Care (Routine Discharge) 05/09/2025 Travel from Last 3 Months Family History Medical History Relation Comments Cancer Father lung Relation Status Comments Father Mother Social History Tobacco Use Types Packs/Day Years Used Date Smoking Tobacco: Former Smokeless Tobacco: Never Alcohol Use Standard Drinks/Week Comments Not Currently 0 (1 standard drink = 0.6 oz pur e alcohol) Sex and Gender Information Value Date Recorded Sex Assigned at Male 05/09/2025 2:47 PM CDT Legal Sex Male 12:36 PM CDT Gender Identity Not on file Sexual Orientation Not on file Last Filed Vital Signs Vital Sign Reading Time Taken Comments Blood Pressure 174/87 10/21/2022 1:55 PM OUTSIDE UPHOLSTERER Pulse 53 10/21/2022 1:55 PM OUTSIDE UPHOLSTERER Temperature 36.2 C (97.2 F) 10/21/2022 1:20 PM OUTSIDE UPHOLSTERER Respiratory Rate 12 10/21/2022 1:55 PM OUTSIDE UPHOLSTERER Oxygen Saturation 98% 10/21/2022 1:55 PM OUTSIDE UPHOLSTERER Inhaled Oxygen Concentration - - Weight 111.1 kg (245 lb) 10/20/2022 12:48 PM OUTSIDE UPHOLSTERER Height 194.3 cm (6' 4.5) 10/20/2022 12:48 PM CS T Body Mass Index 29.43 10/20/2022 12:48 PM OUTSIDE UPHOLSTERER Plan of Treatment Health Maintenance Due Date Last Done Comments DTaP, Tdap and Td Vaccines ( 1 - Tdap) 1965 Zoster Vaccines (1 of 2) 1996 Annual Medicare Wellness Visit 2011 Pneumococcal Vaccine: 50+ Years (2 of 2 - PPSV23) 01/01/2021 01/02/2020 RSV Immunization or 60+ Years (1 - 1-dose 75+ series) 2021 COVID-19 Vaccine (4 - 2023-2 5 season) 2024 11/04/2021, 02/08/2021, 01/11/2021 Hepatitis C Completed 09/19/2019 Colorectal Cancer Screening Colonoscopy (10 Years) Discontinued [...] this topic Medical Devices Implanted Type Area Residential Interior Designer Device Identifier Shelf Expiration Date Model / Serial / Lot Clip Resolution 360 Deg 2.8mm X 235cm - [id number] Implanted:Qty : 1 on 09/04/2021 by Rafael Douglas DO at [facility] Clip Implant N/A: Stomach [employer] 08/20/2023 [id number] 0 / / [id number] Clip Resolution 2.8mm 360 235cm 11mm Open - [id number] Implanted:Qty : 1 on 09/04/2021 by Rafael Douglas DO at [facility] Clip Implant N/A: Stomach [employer] [id number] 06/03/2024 [id number] / / [id number] Neck Fusion Neck Procedures Procedure Name Priority Date/Time Associated Diagnosis Comments COLONOSCOPY Routine 10/21/2022 12:17 PM OUTSIDE UPHOLSTERER from Last 3 Months or Most Recently Relevant to Health Maintenance Results * Colonoscopy (10/21/2022 12:17 PM OUTSIDE UPHOLSTERER) Ye Orosco MD - 10/21/2022 12:17 PM OUTSIDE UPHOLSTERER Ye Levy MD 10/21/2022 1:28 PM YE LEVY MD, FACG, FACP COLONOSCOPY 10/21/2022 INDICATION: Personal history of colon polyps. POST-OP: 11 polyps removed. Mild diverticulosis. SEDATION: Per Anesthesia PREP: Good. With the patient in the left lateral decubitus position, the Olympus [id number] colonoscope was introduced into the rectum and [...] - Previous colonoscopy 5 years ago in [place]; report unavailable - Surveillance colonoscopy 10/21/2022 with [...] Ye Levy M.D. Cc: Dr. Nohemy Bagley us Ye Levy MD GI PROCEDURE ORDERABLES Fin al Result from Last 3 Months or Most Recently Relevant to [place] [address] [employer] Care Teams Train Starter Relationship Specialty Start Date End Date Tien Bagley DO [address] [address] PCP - General INTERNAL MEDICINE 09/04/21
--- OUTSIDE RECORDS SUMMARY | 2025-05-11 03:31 | XMS_ITS | Encounter Summary ---
Author Organization [facility] Address [facility] [place] [address] Care Team Providers Care Retail Analyst Name Role Phone Tien Bagley Norma FALL Primary Care Provider [phone] Reason for Referral * Imaging (Routine) - Closed Specialty Diagnoses / Procedures Referred By Contac t Referred To Contact RADIOLOGY Diagnoses Spinal stenosis, cervical region Other cervical disc degeneration, unspecified cervical region Cervicalgia Other chronic pain Procedures MRI CERV SPINE WO CON Montserrat Jack NP [address] [place] [address] Phone: tel: fax: Referral ID Status Reason Start Date Expiration Date Visits Re quested Visits Authorized [id number] Closed 04/19/2025 07/18/2025 1 1 Reason for Visit * Imaging (Routine) - Closed Specialty Diagnoses / Procedures Referred By Contac t Referred To Contact RADIOLOGY Diagnoses Spinal stenosis, cervical region Other cervical disc degeneration, unspecified cervical region Cervicalgia Other chronic pain Procedures MRI CERV SPINE WO CON Montserrat Jack NP 3 [facility] [address] [place], [place] [address] Phone: tel: fax: Referral ID Status Reason Start Date Expiration Date Visits Re quested Visits Authorized [id number] Closed 04/19/2025 07/18/2025 1 1 Encounter Details Date Type Department Care Team (Latest Contact Info) Description 05/09/2025 2:50 PM CDT - 05/09/2025 11:59 PM CDT Hospital Encounter [facility] [address] [place] [address] Montserrat Jack NP [address] [place] [address] Arrived Discharge Disposition: Home or Self Care [...] on file documented as of this encounter Medications at [...] as of this encounter Plan of Treatment Pending Results Name Type Priority Associated Diagnoses Date /Time MRI CERV SPINE WO CON MRI Routine Spinal stenosis, cervical region Other cervical disc degeneration, unspecified cervical region Cervicalgia Other chronic pain 05/09/2025 3:33 PM CDT Scheduled Orders Name Type Priority Associated Diagnoses Orde r Schedule MRI CERV SPINE WO CON MRI Routine Spinal stenosis, cervical region Other cervical disc degeneration, unspecified cervical region Cervicalgia Other chronic pain Once for 1 Occurrences starting 05/09/2025 until 05/09/2025 documented as of this encounter Visit Diagnoses Diagnosis Spinal stenosis, cervical region Other cervical disc degeneration, unspecified cervical region Cervicalgia Other chronic pain documented in this encounter Care Teams Retail Analyst Relationship Specialty Start Date End Date Tien Bagley DO [address] [address] PCP - General INTERNAL MEDICINE 09/04/21 documented as of this encounter
--- OUTSIDE RECORDS SUMMARY | 2025-05-11 03:31 | XMS_ITS | Data Portability ---
Author Organization [place] [facility], Main Office Address [address] [place] [address] Care Team Providers Care Territory Sales Executive Name Role Phone DAISY ST Farm Implement Mechanic GLEN CONNORS Patch Driller JOANIE JOHNS Primary Care Provider [phone] Assessment No assessment recorded. Plan of Treatment Reminders Order Date Submit Date Provider Last Modified By Organization Details Last Modified Time Details Appointments Surgery 2024 09:30A Amy Horne MD Not available Not available Not available Post-Op 15 2024 02:45P mAy Horne MD Not available Not available Not available Lab None recorded. Referral None recorded. Procedures None recorded. Surgeries septoplas ty (SURG) [address] ([facility]), [address] [place], [address], 09/14/2024 10:50:11 endoscopy , nasal/sin us, w/ maxillary antrostom y & tissue removal (SURG) [address] ([facility]), [address] [place], [address], 09/14/2024 10:50:11 Imaging None recorded. Medication Orders None recorded. Patient TargetsNo targets recorded. Patient Instructions Encounter Date Encounter Id Patient Instructions Last Modified By Organization Details Last Modified Time 07/19/2024 [id number] Discussed at length obtaining a repeat CT of his sinus given worsening of his symptoms. In addition we will add to Dr. Horne scheduled for surgical consultation for a deviated septum while awaiting his sinus CT results. [email or web address] Not available 07/19/2024 17:16:10 Reason for Referral None Reported. Results Created Date Observation Date Name Description Value Unit Range Abnormal Flag Note LastModifiedBy Organization Detail LastModifiedTime 07/20/20 24 04/29/2022 CT, sinus es, w/o contr ast No observ ation record ed. [email or web address] [address], [place], [address], 07/21/2024 13:12:14 07/22/20 24 04/29/2022 CT, sinus es, w/o contr ast No observ ation record ed. [email or web address] [place] [id number] [facility] [address], [place], [address], 07/27/2024 15:58:09 08/15/2008/12/2024 CT, sinus es, w/o contr ast No observ ation record ed. [address] [place], [address], 08/26/2024 08:40:45 08/23/2008/12/2024 CT, sinus es, w/o contr ast No observ ation record ed. [address], [place], [address], 08/23/2024 17:20:19 Result Notes None recorded. Problems Name Problem SNOMED Code Status Onset Date Resolution Date Notes Provider Name and Address Organization Details Recorded Time Chronic sinusitis 60792848 Active 2023 Grisel Ivan RN null, [employer] 4 17:04:19 Deviated nasal septum 275843985 Active 2023 PAVITHRA Nash [address] [facility], [facility] [address], [place], [address], [employer] 4 17:14:37 Chronic left maxillary sinusitis 78462305558731 101 Active 2023 Pedro Horne MD [address] [facility], [facility] [address], [place], [address], [place] [facility] 4 17:25:21 Sinusitis 16019965 Active 2024 Pedro Horne MD [address] [facility], [facility] [address], [place], [address], [employer] 5 15:03:50 Problem Notes None recorded. Medical Equipment None Reported. Allergies Allergen ID Allergen Name Allergen Category Reaction Reaction Severity Criticality Documentation Date Start Date Code Code System Note Provider Name and Address Organization Details Recorded Time 42952 Levaquin medicatio n rash Not available Not available 07/15/2024 60122 2 RxNorm Xin Freddie MZL [employer], [place] [employer] [facility] [employer] 4 11:05:43 67359 latex environme nt,medica tion rash Not available Not available 07/15/2024 00480 91 RxNorm latex tape Xin Freddie MZL [employer] [employer] [facility] [employer] 4 11:06:05 Medications Name Sig Start Date [...] bromide 21 mcg (0.03 %) nasal spray [place] 2 sprays twice a day by intranasa [...] Xhance 93 mcg/actuati on breath activated aerosol [place] 1 spray twice a day by intranasa [...] Updated DateTime 07/19/2024 194.31 cm 28.3 kg/m2 031057.64 g 97.8 [degF] Grisel Ivan RN [facility] [employer] [facility] 07/19/2024 16:53:55 Date Recorded Body height Body mass index (BMI) Body weight Body temperature Provider Name and Address Organization Details Last Updated DateTime 08/25/2024 194.31 cm 27.9 kg/m2 390013.59 g 98.1 [degF] Grisel Ivan RN [facility] [employer] [facility] 08/25/2024 17:07:10 Social History Question Answer Notes LastModified by Organizat ion Details LastModified Time Tobacco Smoking Status Former Smoker Xin torres, [facility] [employer] [facility] 07/15/2024 10:23:22 When Did You Quit Smoking? 16+yearssinc elastcigaret te [email or web address] Information not available 07/15/2024 Sex: Unknown Functional Status Question Answer Note LastModified by Organization D etails LastModified Time What is your level of alcohol consumption? None [email or web address] Information not available 07/15/2024 Mental Status None [...] HAVE YOU BEEN HOSPITALIZED OR SEEN IN [facility] IN THE PAST YEAR ? [...] SNOMED-CT Code Diagnosis ICD10 Code Diagnosis Note [id number] Pedro Horne MD [facility] [place] [address] [place] [address] 07/19/2024 16:29:32 07/19/2024 17:16:52 Deviated nasal septum 751641393 J34.2 Chronic sinusitis 155946 00 J32.9 given symptom improvemen t with recent antibiotic use we will hold off on any further prescripti on medical management . [id number] Pedro Horne MD [facility] [place] [address] [place] [address] 08/25/2024 16:22:31 08/26/2024 13:30:28 Deviated nasal septum 260628465 J34.2 Chronic le ft maxillary sinusitis 4678673933 6440168 J32.0 Health Concerns Section Related Observation LastModified by Organization Detai ls LastModified Time None Recorded Concern Status LastModified by Organization Details LastModified Time None Recorded Advance Directives Directive None Recorded Payers Insurance Date Sequence Insurance Name Policy Number Policy Xiao Covered Member ID Xiao Member ID Guarantor Name 05/02/2025 1 [employer] (MEDICARE REPLACEMENT/ ADVANTAGE - PPO) [employer] [id number] [employer] Notes Date Note Type Note [...] relief of symptoms. PAVITHRA Nash [address], [address], [place], [address], [employer] 07/19/2024 17:16:15 08/25/2024 text/html this patient had a history of sinusitis for many years. He has been on numerous courses of antibiotics a sinus CT demonstrated left maxillary sinusitis and right septal deviation was identified and a previous exam Pedro Horne MD [address], [address], [place], [address], [employer] 11/17/2024 15:01:00
--- OUTSIDE RECORDS SUMMARY | 2025-05-11 03:31 | XMS_ITS | Clinical Summary ---
Author Organization [facility] Address [address] [place] [address] Care Team Providers Care Manufacturing Quality Manager Name Role Phone Unavailable Primary Care Provider Unavailabl e Source Comments [facility],non-owned Affiliates and Associated Physician Practices is amultiple site organization consisting of ambulatory clinics and hospital sitesin [place], [place]. This disclosure is being madepursuant to the Care Everywhere program and may not contain all information available regarding this patient. 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
[2025-05-11 04:41] VITALS: BP 180/91; PULSE 81; RESP 18; TEMP 36.7; O2SAT 97
== END 2025-05-11 04:42 | disposition home or self-care (01) ==
LOC: ANHED 03:29
PROVIDERS: Emergency Provider Emergency Medicine; PCP Emergency Medicine
DX: M25.511 Pain in right shoulder (principal); W18.39XA Other fall on same level, initial encounter; Z87.891 Personal history of nicotine dependence
CPT/HCPCS: 73030; 99283; A9270

== ENCOUNTER 2025-06-08 09:56 | Emergency (ER) | payer MEDICARE, MEDICAID, SELFPAY ==
--- NOTE | ~2025-06-08 | XR_ITS ---
EXAMINATION: XR chest 2V 06/08/2025 11:35 INDICATION: Chest pain PROCEDURE: 2 view chest COMPARISON: Comparison to multiple prior studies sequentially, with oldest reviewed study dated 11/19. FINDINGS: The lungs are clear. The cardiomediastinal silhouette is within normal limits. There are no pleural effusions. There is no pneumothorax suspected. IMPRESSION: 1: NO ACUTE CARDIOPULMONARY DISEASE. Reviewed, dictated and finalized at location A.
--- NOTE | ~2025-06-08 | XR_ITS ---
XR shoulder LT min 2V 06/08/2025 13:29 Indication: Left shoulder pain Procedure: 3 views left shoulder Comparison: No prior studies for comparison. Findings: There is mild-moderate polyarticular osteoarthritis of the left shoulder. No fracture, subl uxation or dislocation. No soft tissue abnormality. Impression: 1: No acute fracture. 2: Mild-moderate polyarticular osteoarthritis. Reviewed, dictated and finalized at location A. Impression: 1: No acute fracture. 2: Mild-moderate polyarticular osteoarthritis.
--- NOTE | ~2025-06-08 | CT_ITS ---
EXAMINATION: CT diagnostic chest wo con DATE: 06/08/2025 12:56 INDICATION: left rib pain s/p fall TECHNIQUE: Computed tomography (CT) of the chest was performed without intravenous contrast. Addition al 3D reconstructions utilizing coronal maximum intensity projection (MIP) were performed. Automated exposure control and iterative reconstruction technique were employed. The dose-length product was 59 0.32 mGy-cm. COMPARISON: 11/15/2024 FINDINGS: Minimal atelectasis at the bilateral lung bases. No pneumonia, pulmonary edema, pleural effusion or p neumothorax. Heart size is normal. Atherosclerotic coronary artery calcifications and likely stenting along the right coronary artery. No pericardial effusion. Thoracic aorta is normal in caliber. Calci fied right hilar lymph nodes consistent with old granulomatous disease. No pathologically enlarged th oracic lymphadenopathy. 2 cm exophytic cyst at the upper pole the left kidney. Likely splenule along the posterior margin of the spleen. Mild diverticulosis along the visualized colon. Visualized upper abdomen is otherwise unremarkable. Mild thoracic kyphosis with mild spondylosis and bridging osteophy denice at multiple levels consistent with diffuse idiopathic skeletal hyperostosis (DISH). No rib fractu res or other acute osseous adenopathy. IMPRESSION: 1. No fracture or acute cardiopulmonary disease. Reviewed, dictated and finalized at location A.
--- NOTE | ~2025-06-08 | CT_ITS ---
EXAMINATION: CT lumbar spine wo con DATE: 06/08/2025 12:57 INDICATION: Status post fall. Back pain. TECHNIQUE: Computed tomography (CT) of the lumbar spine was performed without intravenous contrast. T he dose-length product was 1001.99 mGy-cm. Automated exposure control and iterative reconstruction te tyronericque were employed. COMPARISON: 11/03/2022 FINDINGS: There is severe multilevel degenerative disc disease which has progressed significantly sin ce prior examinations, particularly at L4-5. There is advanced multilevel facet hypertrophy. No acute fracture, subluxation or dislocation. There are prominent marginal osteophytes at multiple levels. T here is an excess 3 splenule left upper abdomen. There is atherosclerosis of the aorta and iliac oswaldo randee. IMPRESSION: 1. No acute fracture. 2: Severe lumbar spondylosis with progression since CT dated 11/03/2022. Reviewed, dictated and finalized at location A.
--- NOTE | 2025-06-08 10:01 | ECG_ITS ---
Test Date: 2025-06-08 10:06:35 Measurements Intervals [place] Rate: 57 P: 87 UT: 272 QRS: -14 QRSD: 126 T: -33 QT: 453 QTc: 443 Interpretive Statements SINUS BRADYCARDIA WITH FIRST DEGREE AV BLOCK LEFT VENTRICULAR HYPERTROPHY AND ST-T CHANGE ANTEROSEPTAL INFARCT, AGE INDETERMINATE BORDERLINE ST-T WAVE ABNORMALITY- INF/LAT LEADS ABNORMAL ECG Compared to ECG 01/25/2025 15:13:04 HEART RATE HAS DECREASED Electronically Signed On 06-08-2025 10:08:35 CDT by Juanito Guardado D.O.
[2025-06-08 10:02] VITALS: BP 185/85; PULSE 63; RESP 18; TEMP 36.6; O2SAT 99
--- OUTSIDE RECORDS SUMMARY | 2025-06-08 10:02 | XMS_ITS | Patient Health Record ---
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) Active confirmed Problem Arthralgia of the ankle and/or foot (353945395) Pain in joint involving left ankle and foot (M25.572) Active confirmed Problem Arthralgia of the ankle and/or foot (888860030) Pain in joint involving right ankle and foot (M25.571) Active confirmed Problem Peroneal tendinitis of right lower limb (disorder) (96744882556538 9) Peroneal tendinitis of right lower leg (M76.71) Active confirmed Problem Pain in limb (87544123) Pain of foot and toes (M79.673) Active confirmed Problem Cellulitis of toe (02661379) Acute paronychia of toe (L03.039) Active confirmed Problem Gouty arthritis of right foot (56571997022520 07) Gouty arthritis of right foot (M10.9) Active confirmed Plan Of Treatment No Information Insurance Providers Payer Name Payer Address Payer Phone Subscriber Number Group Number Insured Name Patient Relationship to Insured Coverage Start Date Coverage End Date [facility] [address] [address] [place] [address] [id number] NONE JOVITA DE LOS SANTOS Self - patient is the insured Medical (General) History Medical History History ICD Code gout htn depression anxiety gerd afib miles's palsy Surgical History Surgery Date(Month/Year) back neck hernia
--- OUTSIDE RECORDS SUMMARY | 2025-06-08 10:02 | XMS_ITS | Clinical Summary ---
Author Organization [facility] Address [address] [facility] [place] [address] Care Team Providers Care Cone Treater Name Role Phone Unavailable Primary Care Provider Unavailabl e Source Comments [facility],non-owned Affiliates and Associated Physician Practices is amultiple site organization consisting of ambulatory clinics and hospital sitesin [place], [place], [place] and [place]. This disclosure is being madepursuant to the Care Everywhere program and may not contain all information available regarding this patient. Last updated 18.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
--- OUTSIDE RECORDS SUMMARY | 2025-06-08 10:02 | XMS_ITS | Clinical Summary ---
Author Organization [facility] Address Formerly [facility], [facility] [place] [address] Care Team Providers Care Apn Name Role Phone Tien Bagley Primary Care Provider [phone] Allergies Active Allergy Reactions Criticality Noted Date [...] - 05/09/2025 11:59 PM CDT Hospital Encounter [facility] [address] [place] [address] Montserrat Collins NP Discharge Disposition: Home or Self Care (Routine [...] Comments Blood Pressure 174/87 10/21/2022 1:55 PM INSURANCE SALES SUPERVISOR Pulse 53 10/21/2022 1:55 PM INSURANCE SALES SUPERVISOR Temperature 36.2 C (97.2 F) 10/21/2022 1:20 PM INSURANCE SALES SUPERVISOR Respiratory Rate 12 10/21/2022 1:55 PM INSURANCE SALES SUPERVISOR Oxygen Saturation 98% 10/21/2022 1:55 PM INSURANCE SALES SUPERVISOR Inhaled Oxygen Concentration - - Weight 111.1 kg (245 lb) 10/20/2022 12:48 PM INSURANCE SALES SUPERVISOR Height 194.3 cm (6' 4.5) 10/20/2022 12:48 PM CS T Body Mass Index 29.43 10/20/2022 12:48 PM INSURANCE SALES SUPERVISOR Plan of Treatment Health Maintenance Due Date [...] this topic Medical Devices Implanted Type Area Media Senior Recruiter Device Identifier Shelf Expiration Date Model / Serial / Lot Clip Resolution 360 Deg 2.8mm X 235cm - [id number] Implanted:Qty : 1 on 09/04/2021 by Rafael Douglas DO at [facility] Clip Implant N/A: Stomach [employer] 08/20/2023 [id number] / / [id number] Clip Resolution 2.8mm 360 235cm 11mm Open - [id number] Implanted:Qty : 1 on 09/04/2021 by Rafael Douglas DO at [facility] Clip Implant N/A: Stomach [employer] [id number] 06/03/2024 [id number] / / [id number] Neck Fusion Neck Procedures Procedure Name Priority Date/Time Associated Diagnosis Comments MRI CERV SPINE WO CON Routine 05/09/2025 3:33 PM CDT Spinal stenosis, cervical region Other cervical disc degeneration, unspecified cervical region Cervicalgia Other chronic pain COLONOSCOPY Routine 10/21/2022 12:17 PM INSURANCE SALES SUPERVISOR from Last 3 Months or Most Recently Relevant to Health Maintenance Results * MRI CERV SPINE WO CON (05/09/2025 3:33 PM CDT) Anatomical Region Laterality Modality Spine Magnetic Resonan ce 05/17/2025 12:3 6 PM CDT Impressions 05/17/2025 12:41 PM CDT IMPRESSION: 1) Extensive postoperative change with 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 2. Abnormal enlarged nonspecific multinodular thyroid gland. Correlation with follow-up thyroid ultrasound would be recommended for further evaluation. Ordered By: MONTSERRAT COLLINS Interpreted By: Favio Banks MD, 05/17/2025 12:36 PM Narrative 05/17/2025 12:41 PM CDT [address] [address] Examination: MRI CERV SPINE WO CON Exam time: 05/09/2025 3:04 PM Clinical history: Neck pain and limited range of motion. History of previous cervical spine surgery. Comparison: None Technique: Sagittal T1, T2 FSE, STIR and 3-D T2 space images were obtained. Axial T1 and T2-weighted images. No intravenous contrast. Findings: Image detail is somewhat degraded by motion artifact particularly on the axial sequences. There is a normal craniovertebral junction. There is straightening of the normal cervical lordosis. Cervical vertebral body heights are well-maintained. There is been extensive previous surgery with evidence of posterior decompression and posterior/interbody fusion from C3 to C6. There is no evidence of complication involving the hardware. There is no acute prevertebral soft tissue swelling. Cervical spinal cord is normal in morphology. No significant cervical spinal cord lesions are demonstrated. C2-3 demonstrates degenerative disc disease with diffuse disc bulge and uncovertebral spurring causing mild central stenosis and minimal narrowing of the neural foramina. At C3-4 there is been fusion and posterior decompression. No significant residual central stenosis or foraminal narrowing. C4-5 demonstrates previous fusion and posterior decompression. No significant residual central stenosis or foraminal narrowing. C5-6 demonstrates previous fusion and posterior decompression. No significant central stenosis. There appears to be residual bony narrowing of both neural foramina right greater than left. C6-7 demonstrates chronic previous posterior decompression and fusion. There is minimal residual bony narrowing of the neural foramina. No significant central stenosis. C7-T1 demonstrates chronic degenerative disc disease with diffuse disc bulge causing mild central stenosis. There is an abnormal multinodular thyroid gland noted. The individual nodules are technically indeterminate. Correlation with follow-up thyroid ultrasound would be recommended. No other significant abnormality. Procedure Note Favio Banks MD - 05/17/[address] [address] Examination: MRI CERV SPINE WO CON Exam time: 05/09/2025 3:04 PM Clinical history: Neck pain and limited range of motion. History ofprevious cervical spine surgery. Comparison: None Technique: Sagittal T1, T2 FSE, STIR and 3-D T2 space images wereobtained. Axial T1 and T2-weighted images. No intravenous contrast. Findings: Image detail is somewhat degraded by motion artifactparticularly on the axial sequences. There is a normal craniovertebral junction. There is straightening of thenormal cervical lordosis. Cervical vertebral body heights arewell-maintained. There is been extensive previous surgery with evidence ofposterior decompression and posterior/interbody fusion from C3 to C6.There is no evidence of complication involving the hardware. There is noacute prevertebral soft tissue swelling. Cervical spinal cord is normal in morphology. No significant cervicalspinal cord lesions are demonstrated. C2-3 demonstrates degenerative disc disease with diffuse disc bulge anduncovertebral spurring causing mild central stenosis and minimal narrowingof the neural foramina. At C3-4 there is been fusion and posterior decompression. No significantresidual central stenosis or foraminal narrowing. C4-5 demonstrates previous fusion and posterior decompression. Nosignificant residual central stenosis or foraminal narrowing. C5-6 demonstrates previous fusion and posterior decompression. Nosignificant central stenosis. There appears to be residual bony narrowingof both neural foramina right greater than left. C6-7 demonstrates chronic previous posterior decompression and fusion.There is minimal residual bony narrowing of the neural foramina. Nosignificant central stenosis. C7-T1 demonstrates chronic degenerative disc disease with diffuse discbulge causing mild central stenosis. There is an abnormal multinodular thyroid gland noted. The individualnodules are technically indeterminate. Correlation with follow-up thyroidultrasound would be recommended. No other significant abnormality. IMPRESSION: 1) Extensive postoperative change with multilevel chronic cervical spinedegenerative disc disease/spondylosis as described. 2. Abnormal enlarged nonspecific multinodular thyroid gland. Correlationwith follow-up thyroid ultrasound would be recommended for furtherevaluation. Ordered By: MONTSERRAT COLLINS Interpreted By: Favio Banks MD, 05/17/2025 12:36 PM us Montserrat Collins TRANSIT MIXER OPERATOR MRI Final Result * Colonoscopy (10/21/2022 12:17 PM INSURANCE SALES SUPERVISOR) Narrative Ye Levy MD - 10/21/2022 12:17 PM INSURANCE SALES SUPERVISOR Ye Levy MD 10/21/2022 1:28 PM YE LEVY MD, FACG, FACP COLONOSCOPY 10/21/2022 INDICATION: Personal history of colon polyps. POST-OP: 11 polyps removed. Mild diverticulosis. SEDATION: Per Anesthesia PREP: Good. With the patient in the left lateral decubitus position, the Olympus [id number] colonoscope was introduced into the rectum and [...] - Previous colonoscopy 5 years ago in [place]; report unavailable - Surveillance colonoscopy 10/21/2022 with [...] Most Recently Relevant to Health Maintenance Insurance [facility] MEDICAID Care Teams Apn Relationship Specialty Start Date End Date Tien Bagley DO 0 [facility] [address] [place], [place] [id number] PCP - General INTERNAL MEDICINE 09/04/21
[2025-06-08 10:22] LABS: Hematocrit 33.6 % (42.0-52.0); Hemoglobin 10.5 g/dL (14.0-18.0); Immature Granulocyte Percent A 0.3 % (0-0.5); Lymphocytes Absolute Auto 0.96 K/mm3 (0.9-3.2); Mean Corpuscular HGB Conc 31.3 g/dl (32-36); Mean Corpuscular Hemoglobin 29.2 pg (26-34); Mean Corpuscular Volume 93.6 fl (80-100); Nucleated Red Blood Cells Absolute Auto 0.000 K/mm3 (0.0-0.012); Nucleated Red Blood Cells Perc 0.0 % (0.0-0.2); Platelet Count Result 186 k/mm3 (150-375); Red Blood Count 3.59 M/mm3 (4.6-6.20); White Blood Count 4.0 K/mm3 (4.5-10.0)
[2025-06-08 10:32] LABS: INR 1.1; Prothrombin Time 13.8 Seconds (11.1-14.7)
[2025-06-08 10:33] LABS: Partial Thromboplastin Time 26.6 Seconds (22.3-36.8)
[2025-06-08 10:34] LABS: Alanine Aminotransferase 33 U/L (6-50); Albumin Level 3.9 g/dL (3.5-5.1); Alkaline Phosphatase 76 U/L (38-126); Anion Gap 8 mmol/L (4-12); Aspartate Amino Transferase 40 U/L (17-59); Bilirubin,Total 0.9 mg/dL (0.2-1.3); Blood Urea Nitrogen 12 mg/dL (9-20); Calcium 8.8 mg/dL (8.4-10.2); Carbon Dioxide 24 mmol/L (22-30); Chloride 104 mmol/L (98-107); Estimated CRCL calculation 53 ml/min; Estimated Glomerular Filt Rate 55; Glucose 115 mg/dL (65-110); Lipase 48 U/L (23-300); Potassium 3.6 mmol/L (3.4-5.0); Sodium 136 mmol/L (137-145); Total Protein 6.9 g/dL (6.3-8.2)
[2025-06-08 10:44] LABS: Troponin I 0.013 ng/mL (0.000-0.034)
[2025-06-08 11:10] VITALS: BP 168/88; PULSE 55; RESP 17; O2SAT 100
--- OUTSIDE RECORDS SUMMARY | 2025-06-08 12:31 | XMS_ITS | Clinical Summary ---
Author Organization [facility] Address [address] [place] [address] Care Team Providers Care Oracle Erp Architect Name Role Phone Unavailable Primary Care Provider Unavailabl e Source Comments [facility],non-owned Affiliates and Associated Physician Practices is amultiple site organization consisting of ambulatory clinics and hospital sitesin [place], [place], [place] and [place]. This disclosure is being madepursuant to the Care Everywhere program and may not contain all information available regarding this patient. 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
--- OUTSIDE RECORDS SUMMARY | 2025-06-08 12:31 | XMS_ITS | Clinical Summary ---
Author Organization [facility] Address [facility] [place] [address] Care Team Providers Care Wedding Planning Internship Name Role Phone Tien Bagley Primary Care Provider [phone] Allergies Active Allergy Reactions Criticality Noted Date [...] - 05/09/2025 11:59 PM CDT Hospital Encounter [facility] [address] [place] [address] Montserrat Collins NP Discharge Disposition: Home or [...] Comments Blood Pressure 174/87 10/21/2022 1:55 PM HIV/AIDS CARE NURSE Pulse 53 10/21/2022 1:55 PM HIV/AIDS CARE NURSE Temperature 36.2 C (97.2 F) 10/21/2022 1:20 PM HIV/AIDS CARE NURSE Respiratory Rate 12 10/21/2022 1:55 PM HIV/AIDS CARE NURSE Oxygen Saturation 98% 10/21/2022 1:55 PM HIV/AIDS CARE NURSE Inhaled Oxygen Concentration - - Weight 111.1 kg (245 lb) 10/20/2022 12:48 PM HIV/AIDS CARE NURSE Height 194.3 cm (6' 4.5) 10/20/2022 12:48 PM CS T Body Mass Index 29.43 10/20/2022 12:48 PM HIV/AIDS CARE NURSE Plan of Treatment Health Maintenance Due Date [...] this topic Medical Devices Implanted Type Area Assistant Corporate Secretary Device Identifier Shelf Expiration Date Model / Serial / Lot Clip Resolution 360 Deg 2.8mm X 235cm - [id number] Implanted:Qty : 1 on 09/04/2021 by Rafael Douglas DO at [facility] Clip Implant N/A: Stomach [employer] 08/20/2023 [id number] / / [id number] Clip Resolution 2.8mm 360 235cm 11mm Open - [id number] Implanted:Qty : 1 on 09/04/2021 by Rafael Douglas DO at [facility] Clip Implant N/A: Stomach [employer] [id number] 06/03/2024 [id number] / / [id number] Neck Fusion Neck Procedures Procedure Name Priority Date/Time Associated Diagnosis Comments MRI CERV SPINE WO CON Routine 05/09/2025 3:33 PM CDT Spinal stenosis, cervical region Other cervical disc degeneration, unspecified cervical region Cervicalgia Other chronic pain COLONOSCOPY Routine 10/21/2022 12:17 PM HIV/AIDS CARE NURSE from Last 3 Months or Most Recently [...] 12:36 PM Narrative 05/17/2025 12:41 PM CDT [address] [address] Examination: MRI CERV SPINE WO CON Exam [...] Procedure Note Favio Banks MD - 05/17/[address] [address] Examination: MRI CERV SPINE WO CON Exam [...] MD, 05/17/2025 12:36 PM us Montserrat Collins SUPERVISOR ELECTRIC MRI Final Result * Colonoscopy (10/21/2022 12:17 PM HIV/AIDS CARE NURSE) Narrative Ye Levy MD - 10/21/2022 12:17 PM HIV/AIDS CARE NURSE Ye Levy MD 10/21/2022 1:28 PM YE LEVY MD, FACG, FACP COLONOSCOPY 10/21/2022 INDICATION: Personal history of colon polyps. POST-OP: 11 polyps removed. Mild diverticulosis. SEDATION: Per Anesthesia PREP: Good. With the patient in the left lateral decubitus position, the Olympus [id number] colonoscope was introduced into the rectum and [...] - Previous colonoscopy 5 years ago in [place]; report unavailable - Surveillance colonoscopy 10/21/2022 with [...] Most Recently Relevant to Health Maintenance Insurance [facility] MEDICAID Care Teams Wedding Planning Internship Relationship Specialty Start Date End Date Tien Bagley DO 0 [facility] [address] [place], [place] [id number] PCP - General INTERNAL MEDICINE 09/04/21
[2025-06-08] MEDS: CYCLOBENZAPRINE HCL 5 MG TABLET PO (12:44)
[2025-06-08] MEDS: ACETAMINOPHEN 325 MG TABLET 650 MG PO (12:44)
--- NOTE | 2025-06-08 13:01 | ED_ITS ---
HPI - Back Pain/Injury General Chief Complaint: Chest Pain Stated Complaint: back pain can hardly walk- fall other day Time Seen by Provider: 06/08/25 11:07 History of Present Illness HPI Narrative: 79-year-old male with history of hypertension, CAD, hyperlipidemia, AFib presents to the emergency department for low back pain, left shoulder and left- sided chest wall pain after a ground level mechanical fall that occurred 3 days ago. Patient states he has a history of unsteady gait. States he was ambulating 3 days ago when he tripped on his left foot and fell to the ground. He states he landed on his left-sided tried to brace himself with his left arm/shoulder. Since then he has been having tightness in the left side of his chest and shoulder as well as his lower back. He describes the pain in his chest is tight that is worse when he moves his left shoulder and arm and better when he is sitting still. He denies exertional symptoms. Patient states he did not hit his head or lose consciousness. He denies numbness, tingling or weakness to his extremities, saddle anesthesia, bowel or bladder incontinence, urinary tension, shortness of breath. Related Data Home Medications ?Medication ?Instructions ?Recorded ?Confirmed ?Last Taken ?Type febuxostat 40 mg tablet 80 mg PO HS 04/28/24 06/06/25 Unknown History aspirin 81 mg tablet,delayed 81 mg PO DAILY 04/17/25 06/06/25 Unknown History release (Adult Low Dose Aspirin) fluticasone propionate 50 2 spray intranasal DAILY PRN 04/17/25 06/06/25 Unknown History mcg/actuation nasal spray,suspension (Flonase Allergy Relief) Allergies Allergy/AdvReac Type Severity Reaction Status Date / Time adhesive tape Allergy Hives Verified 06/06/25 14:34 levofloxacin (From Levaquin) Allergy Rash Verified 06/06/25 14:34 Review of Systems 2 Review of Systems: All systems reviewed & are unremarkable except as noted in HPI and below PMFSH Past Medical History Medical History Hyperlipidemia Anxiety PVT (paroxysmal ventricular tachycardia) Obstructive sleep apnea Hypersomnia Hearing loss, bilateral Anemia GERD (gastroesophageal reflux disease) PAF (paroxysmal atrial fibrillation) Irritable bowel syndrome with diarrhea Chronic sinusitis Arthritis Colon polyps Gout B12 deficiency Hypertension Surgical History Surgical History History of hemorrhoidectomy removed with a lazer H/O hernia repair L & R groin History of back surgery H/O neck surgery cervical fusion H/O prostatectomy Family History Family History Father Lung cancer Mother Lung cancer Social History Social History Years smoked: 30 Smoking status: Former smoker Tobacco type: cigarettes Second hand tobacco smoke exposure: No Smoking end date: 11/02/87 Alcohol intake: never Substance use: never Substance use type: does not use Do You Feel Safe in your Home?: Yes Lack of Transportation: No Lack of Food: Never True Current Housing: I Have Housing Concerned About Future Housing: No Difficulty Paying Gas/Electric Bills: No Difficulty Paying for Meds: No Currently Unemployed: No Education: High School Diploma/GED Difficulty w/ Childcare or Family Care: No Living arrangements: alone Occupation/Education: retired Gender identity (if verbalized by the patient): Male Spiritual care concerns: No Exam 2 Narrative: GENERAL: Well-appearing, well-nourished, and in no acute distress. HEAD: Normocephalic, atraumatic. EYES: PERRLA and EOMI. ENT: Nares clear, no rhinorrhea or epistaxis. Mucous membranes moist. NECK: No midline cervical spinous tenderness, step-offs or deformities BACK: Mild tenderness to the lumbar spine with more significant tenderness over the right paraspinous muscles. Well-healed lumbar surgical scar. Otherwise no overlying skin changes, crepitus, step-offs or deformities. CHEST: Clear to auscultation. No respiratory distress. Point tenderness to the left anterior chest wall on palpation near the 4th and 5th rib with no crepitus, step-offs, deformities, overlying skin changes. HEART: Regular rate and rhythm. No murmur heard. Normal peripheral pulses. ABDOMEN: Soft, nontender, nondistended, normal active bowel sounds. EXTREMITIES: LUE: Minimal tenderness to the left shoulder with no obvious deformity, skin changes or edema. Full active range of motion of shoulder. No tenderness remainder of extremity. Radial pulses 2+. Sensation intact throughout. Radial, median, ulnar and axillary nerves are intact. SKIN: Warm, dry, no rash. NEURO: No focal deficits. Alert and oriented x4. BLE strength 5/5. Sensation intact throughout, no saddle anesthesia Course Vital Signs Vital signs: Vital Signs Temperature 97.9 F 06/08/25 10:02 Pulse Rate 63 06/08/25 10:02 Respiratory Rate 18 06/08/25 10:02 Blood Pressure 185/85 H 06/08/25 10:02 Pulse Oximetry 99 06/08/25 10:02 Oxygen Delivery Room Air 06/08/25 10:02 Temperature 97.9 F 06/08/25 10:02 Pulse Rate 55 L 06/08/25 11:10 Respiratory Rate 17 06/08/25 11:10 Blood Pressure 168/88 H 06/08/25 11:10 Pulse Oximetry 100 06/08/25 11:10 Oxygen Delivery Room Air 06/08/25 11:07 MDM - Back Pain/Injury MDM Narrative Medical decision making narrative: 79-year-old male presents emergency department for low back pain, left shoulder pain and left chest wall pain after a ground level mechanical fall that occurred 3 days ago. Patient did not hit his head or lose consciousness. Vital signs with hypertension, otherwise unremarkable. Patient is afebrile and nontoxic appearing. Exam is significant for the above. CBC with leukopenia of 4. Patient does have a history of leukopenia per chart review. Hemoglobin is 10.5 which appears chronic and near baseline. Platelets within normal limits. Chemistries are unremarkable. EKG shows sinus bradycardia with a rate of 57 bpm with first-degree AV block, MI interval is 272, LVH changes that are unchanged from prior EKG, no new ST elevations or depressions. Troponin is within normal limits. CT diagnostic chest shows no acute fracture or cardiopulmonary disease. X-ray of the left shoulder shows no acute fracture with [id number] polyarticular osteoarthritis. CT lumbar spine shows no acute fracture. There is severe lumbar spondylosis. Patient received Tylenol and Flexeril with improvement in symptoms. He is ambulatory at baseline. His chest wall pain is consistent with MSK source and is reproducible on exam. Patient feels safe for discharge home with a prescription for Tylenol Flexeril. Encouraged follow-up with PCP and discussed strict ED return precautions. He is agreeable with the plan verbalized understanding. Discharged in stable condition. Lab Data 06/08/25 10:10 06/08/25 10:10 Labs: Lab Results 06/08/25 Range/Units 10:10 WBC 4.0 L (4.5-10.0) K/mm3 RBC 3.59 L (4.6-6.20) M/mm3 Hgb 10.5 L (14.0-18.0) g/dL Hct 33.6 L (42.0-52.0) % MCV 93.6 (80-100) fl MCH 29.2 (26-34) pg MCHC 31.3 L (32-36) g/dl RDW 13.2 (11.5-14.5) % Plt Count 186 (150-375) k/mm3 MPV 11.2 H (7.4-10.4) fl Immature Gran % (Auto) 0.3 (0-0.5) % Neut % (Auto) 55.7 (45.5-73.1) % Lymph % (Auto) 24.1 (18.3-44.2) % Miller % (Auto) 11.3 H (2.6-8.5) % Eos % (Auto) 7.8 H (0-4.4) % Baso % (Auto) 0.8 (0.2-1.2) % Lymph # (Auto) 0.96 (0.9-3.2) K/mm3 Miller # (Auto) 0.5 (0.1-0.6) K/mm3 Eos # (Auto) 0.3 (0-0.3) K/mm3 Baso # (Auto) 0.0 (0.0-0.1) K/mm3 Abs Immat Gran (auto) 0.01 (0.00-0.031) K/mm3 Absolute Neuts (auto) 2.2 (1.3-6.7) K/mm3 Absolute Nucleated RBC 0.000 (0.0-0.012) K/mm3 Nucleated RBC % 0.0 (0.0-0.2) % PT 13.8 (11.1-14.7) Seconds INR 1.1 APTT 26.6 (22.3-36.8) Seconds Sodium 136 L (137-145) mmol/L Potassium 3.6 (3.4-5.0) mmol/L Chloride 104 (98-107) mmol/L Carbon Dioxide 24 (22-30) mmol/L Anion Gap 8 (4-12) mmol/L BUN 12 (9-20) mg/dL Creatinine 1.27 (0.7-1.3) mg/dL Estim Creat Clear Calc 53 ml/min Estimated GFR 55 L (59 - ) Glucose 115 H (65-110) mg/dL Calcium 8.8 (8.4-10.2) mg/dL Total Bilirubin 0.9 (0.2-1.3) mg/dL AST 40 (17-59) U/L ALT 33 (6-50) U/L Alkaline Phosphatase 76 (38-126) U/L Troponin I 0.013 (0.000-0.034) ng/mL Total Protein 6.9 (6.3-8.2) g/dL Albumin 3.9 (3.5-5.1) g/dL Lipase 48 (23-300) U/L Discharge Plan Discharge Clinical Impression: Left shoulder strain, Low back strain, Strain of chest wall Patient Disposition: Home Condition: Stable Instructions: Antibiotic Form, Acute Low Back Pain (ED), Chest Wall Pain (ED), Lower Back Exercises (ED) Additional Instructions: Your evaluated in the emergency department for chest wall pain, shoulder pain and low back pain after a fall. Your imaging shows no broken bones or acute findings. Please take the Tylenol and muscle relaxer as needed for pain. Stretch as discussed. Follow up with her primary care provider. Return to the emergency department if you develop new or worsening chest pain, shortness of breath, numbness in your groin, you lose control of your bowel or bladder, or other concerning symptoms. Patient Language: Belgian Prescriptions: New acetaminophen 500 mg capsule 500 mg PO Q6H PRN (Reason: pain) Qty: 14 0RF cyclobenzaprine 5 mg tablet 5 mg PO TID PRN (Reason: muscle spasm) Qty: 14 0RF No Action aspirin [Adult Low Dose Aspirin] 81 mg tablet,delayed release (DR/EC) 81 mg PO DAILY fluticasone propionate [Flonase Allergy Relief] 50 mcg/actuation spray,suspension 2 spray intranasal DAILY PRN Rx Instructions: administer into each nostril febuxostat 40 mg tablet 80 mg PO HS Brilinta 90 mg Tablet 90 mg PO Q12HR Qty: 90 2RF esomeprazole magnesium [Nexium] 40 mg capsule,delayed release(DR/EC) 40 mg PO DAILY Qty: 90 3RF amiodarone 200 mg tablet 200 mg PO DAILY Qty: 30 5RF hydralazine 50 mg tablet See Rx Instructions .ROUTE .COMPLEX Qty: 90 5RF Dose Instruction: TAKE 1 TABLET BY MOUTH THREE TIMES A DAY Rx Instructions: TAKE 1 TABLET BY MOUTH THREE TIMES A DAY carvedilol 25 mg tablet See Rx Instructions .ROUTE .COMPLEX Qty: 60 5RF Dose Instruction: TAKE 1 TABLET BY MOUTH EVERY 12 HOURS WITH FOOD Rx Instructions: TAKE 1 TABLET BY MOUTH EVERY 12 HOURS WITH FOOD cyanocobalamin (vitamin B-12) 1,000 mcg/mL solution See Rx Instructions .ROUTE .COMPLEX Qty: 2 2RF Dose Instruction: INJECT 1ML INTO MUSCLE EVERY 6 WEEKS Rx Instructions: INJECT 1ML INTO MUSCLE EVERY 4 WEEKS losartan 100 mg tablet See Rx Instructions .ROUTE .COMPLEX Qty: 30 5RF Dose Instruction: TAKE 1 TABLET BY MOUTH EVERY DAY Rx Instructions: TAKE 1 TABLET BY MOUTH EVERY DAY lorazepam 0.5 mg tablet 0.5 mg PO DAILY PRN (Reason: anxiety) Qty: 30 2RF atorvastatin 40 mg tablet See Rx Instructions .ROUTE .COMPLEX Qty: 30 5RF Dose Instruction: TAKE 1 TABLET BY MOUTH EVERY DAY AT BEDTIME Rx Instructions: TAKE 1 TABLET BY MOUTH EVERY DAY AT BEDTIME Follow-up/Referrals: Tien Bagley DO [Primary Care Provider] -
[2025-06-08] MEDS: HYDROcodone/acetaminophen (*CRX) 5-325 MG TABLET 1 TAB PO (14:00)
[2025-06-08 14:06] VITALS: PULSE 78; RESP 18; O2SAT 99
[2025-06-08 14:17] LABS: Troponin I 0.013 ng/mL (0.000-0.034)
== END 2025-06-08 14:08 | disposition home or self-care (01) ==
PROVIDERS: Emergency Medicine; Emergency Provider Physician Assistant; PCP Internal Medicine
DX: S46.912A Strain of unspecified muscle, fascia and tendon at shoulder and upper arm level, left arm, initial encounter (principal); S39.012A Strain of muscle, fascia and tendon of lower back, initial encounter; S29.011A Strain of muscle and tendon of front wall of thorax, initial encounter; I25.10 Atherosclerotic heart disease of native coronary artery without angina pectoris; I48.0 Paroxysmal atrial fibrillation; I10 Essential (primary) hypertension; E78.5 Hyperlipidemia, unspecified; E53.8 Deficiency of other specified B group vitamins; J32.9 Chronic sinusitis, unspecified; K21.9 Gastro-esophageal reflux disease without esophagitis; K58.0 Irritable bowel syndrome with diarrhea; M19.90 Unspecified osteoarthritis, unspecified site; M10.9 Gout, unspecified; G47.33 Obstructive sleep apnea (adult) (pediatric); F41.9 Anxiety disorder, unspecified; Z98.1 Arthrodesis status; Z87.891 Personal history of nicotine dependence; Z86.0100 Personal history of colon polyps, unspecified; Z90.79 Acquired absence of other genital organ(s); Z79.82 Long term (current) use of aspirin; Z79.899 Other long term (current) drug therapy; R00.1 Bradycardia, unspecified; I51.7 Cardiomegaly; R94.31 Abnormal electrocardiogram [ECG] [EKG]; I44.0 Atrioventricular block, first degree; W01.0XXA Fall on same level from slipping, tripping and stumbling without subsequent striking against object, initial encounter
CPT/HCPCS: 36415; 71046; 71250; 72131; 73030; 80053; 83690; 84484; 85025; 85610; 85730; 93005; 99284; A9270

== ENCOUNTER 2025-06-11 14:27 | Emergency (ER) | payer MEDICARE, MEDICAID, SELFPAY ==
--- NOTE | ~2025-06-11 | CT_ITS ---
EXAMINATION: CTA chest PE abdomen pel DATE: 06/11/2025 16:16 INDICATION: cp, back pain, abd pain TECHNIQUE: Computed tomography angiography (CTA) of the chest was performed with 100 mL Omnipaque-350 intravenous contrast timed to evaluate the pulmonary arteries, followed by portal venous phase imagi ng of the abdomen and pelvis. Coronal maximum intensity projection 3D-reconstructions were created by the technologist. The dose-length product (DLP) was 1110.55 mGy-cm. Automated exposure control and i terative reconstruction technique were employed. COMPARISON: CT chest 06/08/2025, CTPA 11/15/2024, CT abdomen pelvis 06/08/2024. FINDINGS: CHEST: Lung parenchyma and airways: Scattered sub-6 mm pulmonary nodules. Lungs otherwise clear. Patent airw ays. Pleura: Unremarkable. Thoracic inlet, axillae and chest wall: Enlarged thyroid. Thoracic aorta: Bovine arch. Mild dilation of the arch and descending aorta to 3.1 cm. Mediastinum: Enlarged right hilar and pretracheal nodes. Enlarged pulmonary arteries as can be seen w ith pulmonary hypertension. Calcified right hilar nodes. Heart and pericardium: Mild cardiomegaly. Coronary artery calcifications: Mild. Thoracic bones: No acute osseous finding. Pulmonary arteries: Study quality: Adequate. No pulmonary emboli detected. ABDOMEN/PELVIS: Liver: Subcentimeter hypodensities, likely representing cysts or hemangiomas.. Biliary/Gallbladder: Gallbladder is normal. Mild intrahepatic duct dilation, a chronic finding Pancreas: No mass or duct dilation. Spleen: Normal. Adrenals:No mass. Kidneys: No suspicious mass, obstructing stone, or hydronephrosis. GI tract: Persistent linear hyperdensity in the cecum, a chronic finding, possible endoscopy clip. Mi ld distal esophageal and gastric wall edema No small or large bowel dilation. All bowel with apparent wall thickening in the left upper abdomen. Mild colonic wall edema in the distal transverse colon an d at the hepatic flexure. The appendix is dilated to 9 mm, which is a chronic finding. No periappendi ceal inflammatory change. Diverticulosis without diverticulitis. Mesentery/Peritoneum: No ascites, mass, or free air. Mild mesenteric stranding/edema in the left uppe r abdomen. Retroperitoneum: No mass. Atherosclerotic calcifications of intra-abdominal arterial vessels. Mild di lation of the left common iliac artery to 1.7 cm. Pelvis: Bladder wall thickening and incompletely distended urinary bladder. Prostatomegaly. Soft Tissues: Small uncomplicated fat-containing umbilical and left inguinal hernias Abdominopelvic bones: No acute osseous finding. Multilevel severe degenerative disc disease and face t arthropathy in the lumbar spine. Congenitally narrow appearing lumbar canal. IMPRESSION: No CT evidence of acute pulmonary embolus. Scattered sub-6 mm pulmonary nodules, no additional imaging is recommended unless the patient is at h igh risk, in which case consider an optional CT in one year. Right hilar and mediastinal lymphadenopathy. Mild esophagitis/gastritis. Small bowel wall thickening in the left upper abdomen, may represent enteritis. Mild colonic wall edema in the distal transverse colon and at the hepatic flexure, may reflect a comp onent of colitis. Mild nonspecific mesenteric edema. Bladder wall thickening may be secondary to incomplete distention, cystitis, or chronic obstruction. Reviewed, dictated and finalized at location K. IMPRESSION: No CT evidence of acute pulmonary embolus. Scattered sub-6 mm pulmonary nodules, no additional imaging is recommended unle ss the patient is at high risk, in which case consider an optional CT in one ye ar. Right hilar and mediastinal lymphadenopathy. Mild esophagitis/gastritis. Small bowel wall thickening in the left upper abdomen, may represent enteritis. Mild colonic wall edema in the distal transverse colon and at the hepatic flexu re, may reflect a component of colitis. Mild nonspecific mesenteric edema. Bladder wall thickening may be secondary to incomplete distention, cystitis, or chronic obstruction.
--- NOTE | ~2025-06-11 | XR_ITS ---
EXAMINATION: XR chest 2V Exam Date/Time: 06/11/2025 14:51 CDT HISTORY: CP Comparison: 06/08/2025. RESULT: Lines, tubes, and devices: None. Lungs and pleura: Clear. Cardiomediastinal silhouette: Stable. Other: No acute osseous or upper abdominal finding. IMPRESSION: No acute cardiopulmonary process. Reviewed, dictated and finalized at location K.
[2025-06-11 14:32] VITALS: PULSE 56; RESP 17; TEMP 37; O2SAT 99
--- NOTE | 2025-06-11 14:32 | ECG_ITS ---
Test Date: 2025-06-11 14:50:13 Measurements Intervals [place] Rate: 53 P: 68 OR: 310 QRS: -38 QRSD: 115 T: -32 QT: 445 QTc: 421 Interpretive Statements SINUS BRADYCARDIA WITH FIRST DEGREE AV BLOCK LEFT AXIS DEVIATION INCOMPLETE RIGHT BUNDLE BRANCH BLOCK LEFT VENTRICULAR HYPERTROPHY WITH ST-T CHANGE ANTERIOR INFARCT, AGE INDETERMINATE CONSIDER INFERIOR INFARCT, AGE INDETERMINATE NONSPECIFIC ST-T WAVE ABNORMALITY- LATERAL LEADS BASELINE ARTIFACT- I, II, III, AVR, AVL, AVF, V2, V4-V6 ABNORMAL ECG Compared to ECG 06/08/2025 10:06:35 NO SIGNIFICANT CHANGE Electronically Signed On 06-11-2025 17:35:18 CDT by Juanito Guardado D.O.
[2025-06-11] MEDS: ASPIRIN 81 MG CHEWABLE TABLET 324 MG PO (14:46)
[2025-06-11 14:48] LABS: Hematocrit 33.2 % (42.0-52.0); Hemoglobin 10.2 g/dL (14.0-18.0); Immature Granulocyte Percent A 0.3 % (0-0.5); Lymphocytes Absolute Auto 0.88 K/mm3 (0.9-3.2); Mean Corpuscular HGB Conc 30.7 g/dl (32-36); Mean Corpuscular Hemoglobin 28.9 pg (26-34); Mean Corpuscular Volume 94.1 fl (80-100); Nucleated Red Blood Cells Absolute Auto 0.000 K/mm3 (0.0-0.012); Nucleated Red Blood Cells Perc 0.0 % (0.0-0.2); Platelet Count Result 170 k/mm3 (150-375); Red Blood Count 3.53 M/mm3 (4.6-6.20); White Blood Count 3.7 K/mm3 (4.5-10.0)
[2025-06-11 14:58] LABS: Alanine Aminotransferase 33 U/L (6-50); Albumin Level 3.7 g/dL (3.5-5.1); Alkaline Phosphatase 64 U/L (38-126); Anion Gap 7 mmol/L (4-12); Aspartate Amino Transferase 40 U/L (17-59); Bilirubin,Total 0.5 mg/dL (0.2-1.3); Blood Urea Nitrogen 14 mg/dL (9-20); Calcium 8.6 mg/dL (8.4-10.2); Carbon Dioxide 25 mmol/L (22-30); Chloride 105 mmol/L (98-107); Estimated CRCL calculation 50 ml/min; Estimated Glomerular Filt Rate 51; Glucose 111 mg/dL (65-110); Lipase 51 U/L (23-300); Potassium 3.9 mmol/L (3.4-5.0); Sodium 137 mmol/L (137-145); Total Protein 6.7 g/dL (6.3-8.2)
[2025-06-11 15:01] LABS: INR 1.0; Prothrombin Time 13.4 Seconds (11.1-14.7)
[2025-06-11 15:02] LABS: Partial Thromboplastin Time 22.4 Seconds (22.3-36.8)
--- NOTE | 2025-06-11 15:07 | ED.CHESTPAIN ---
HPI - Chest Pain General Chief Complaint: Back Pain/Injury Stated Complaint: back pain Time Seen by Provider: 06/11/25 14:31 Source: patient Mode of arrival: EMS Limitations: no limitations History of Present Illness HPI narrative: This is a 80-year-old male that presents to the emergency department for low back pain. Over the last week. Worsening after a fall. Reports history of chronic back pain. He has had previous lumbar spine surgery. Also endorsed some mild achy left sided chest discomfort. His pain has resolved after Fentanyl given via EMS. Denies saddle anesthesia, bowel/bladder incontinence. Related Data Home Medications ?Medication ?Instructions ?Recorded ?Confirmed ?Last Taken ?Type febuxostat 40 mg tablet 80 mg PO HS 04/28/24 06/06/25 Unknown History aspirin 81 mg tablet,delayed 81 mg PO DAILY 04/17/25 06/06/25 Unknown History release (Adult Low Dose Aspirin) fluticasone propionate 50 2 spray intranasal DAILY PRN 04/17/25 06/06/25 Unknown History mcg/actuation nasal spray,suspension (Flonase Allergy Relief) Allergies Allergy/AdvReac Type Severity Reaction Status Date / Time adhesive tape Allergy Hives Verified 06/11/25 14:38 levofloxacin (From Levaquin) Allergy Rash Verified 06/11/25 14:38 Review of Systems Review of Systems: All systems reviewed & are unremarkable except as noted in HPI and below PMFSH Past Medical History Medical History Hyperlipidemia Anxiety PVT (paroxysmal ventricular tachycardia) Obstructive sleep apnea Hypersomnia Hearing loss, bilateral Anemia GERD (gastroesophageal reflux disease) PAF (paroxysmal atrial fibrillation) Irritable bowel syndrome with diarrhea Chronic sinusitis Arthritis Colon polyps Gout B12 deficiency Hypertension Surgical History Surgical History History of hemorrhoidectomy removed with a lazer H/O hernia repair L & R groin History of back surgery H/O neck surgery cervical fusion H/O prostatectomy Family History Family History Father Lung cancer Mother Lung cancer Social History Social History Years smoked: 30 Smoking status: Former smoker Tobacco type: cigarettes Second hand tobacco smoke exposure: No Smoking end date: 11/02/87 Alcohol intake: never Substance use: never Substance use type: does not use Do You Feel Safe in your Home?: Yes Lack of Transportation: No Lack of Food: Never True Current Housing: I Have Housing Concerned About Future Housing: No Difficulty Paying Gas/Electric Bills: No Difficulty Paying for Meds: No Currently Unemployed: No Education: High School Diploma/GED Difficulty w/ Childcare or Family Care: No Living arrangements: alone Occupation/Education: retired Gender identity (if verbalized by the patient): Male Spiritual care concerns: No Exam Narrative: GENERAL: Well-appearing, well-nourished, and in no acute distress. HEAD: Normocephalic, atraumatic. EYES: EOMI. CHEST: Clear to auscultation. No respiratory distress. No wheezes rales or rhonchi HEART: Regular rate and rhythm. No murmur heard. Normal peripheral pulses. ABDOMEN: Soft, nontender, nondistended, normal active bowel sounds. EXTREMITIES: Normal range of motion. No edema. Strength equal in bilateral lower extremities (5/5) SKIN: Warm, dry, no rash. NEURO: No focal deficits. Alert and oriented x3. PSYCH: Normal mood and affect Course Vital Signs Vital signs: Vital Signs Temperature 98.6 F 06/11/25 14:32 Pulse Rate 56 L 06/11/25 14:32 Respiratory Rate 17 06/11/25 14:32 Pulse Oximetry 99 06/11/25 14:32 Temperature 98.6 F 06/11/25 14:32 Pulse Rate 55 L 06/11/25 18:25 Respiratory Rate 17 06/11/25 18:25 Blood Pressure 165/83 H 06/11/25 18:25 Pulse Oximetry 100 06/11/25 18:25 Oxygen Delivery Room Air 06/11/25 14:53 MDM - Chest Pain MDM Narrative Medical decision making narrative: Patient presents the emergency department for acute on chronic low back pain. He had endorsed some chest discomfort, this was relieved prior to arrival to the ED. his vitals are stable. Cbc metabolic panel appears stable. EKG without acute ST changes, his baseline and 3 hour troponin are negative. D-dimer elevated, CTA of the chest obtained. No evidence for PE. Shows pulmonary nodules. Esophagitis/gastritis. Possible enteritis, colitis. This does not seem consistent with patient's presentation. Bladder wall thickening, likely due to chronic outlet obstruction. Patient was updated on his workup and agrees with plan of care. He is to follow up with his primary provider. He was given warnings to return to the ER Lab Data Attestation: I reviewed the patient's lab results. 06/11/25 14:42 06/11/25 14:42 Labs: Lab Results 06/11/25 06/11/25 Range/Units 14:42 17:24 WBC 3.7 L (4.5-10.0) K/mm3 RBC 3.53 L (4.6-6.20) M/mm3 Hgb 10.2 L (14.0-18.0) g/dL Hct 33.2 L (42.0-52.0) % MCV 94.1 (80-100) fl MCH 28.9 (26-34) pg MCHC 30.7 L (32-36) g/dl RDW 13.2 (11.5-14.5) % Plt Count 170 (150-375) k/mm3 MPV 11.4 H (7.4-10.4) fl Immature Gran % (Auto) 0.3 (0-0.5) % Neut % (Auto) 53.1 (45.5-73.1) % Lymph % (Auto) 24.0 (18.3-44.2) % [place] % (Auto) 11.7 H (2.6-8.5) % Eos % (Auto) 10.1 H (0-4.4) % Baso % (Auto) 0.8 (0.2-1.2) % Lymph # (Auto) 0.88 L (0.9-3.2) K/mm3 [place] # (Auto) 0.4 (0.1-0.6) K/mm3 Eos # (Auto) 0.4 H (0-0.3) K/mm3 Baso # (Auto) 0.0 (0.0-0.1) K/mm3 Abs Immat Gran (auto) 0.01 (0.00-0.031) K/mm3 Absolute Neuts (auto) 2.0 (1.3-6.7) K/mm3 Absolute Nucleated RBC 0.000 (0.0-0.012) K/mm3 Nucleated RBC % 0.0 (0.0-0.2) % PT 13.4 (11.1-14.7) Seconds INR 1.0 APTT 22.4 (22.3-36.8) Seconds D-Dimer 0.81 H (<0.48) ug/mL Sodium 137 (137-145) mmol/L Potassium 3.9 (3.4-5.0) mmol/L Chloride 105 (98-107) mmol/L Carbon Dioxide 25 (22-30) mmol/L Anion Gap 7 (4-12) mmol/L BUN 14 (9-20) mg/dL Creatinine 1.35 H (0.7-1.3) mg/dL Estim Creat Clear Calc 50 ml/min Estimated GFR 51 L (59 - ) Glucose 111 H (65-110) mg/dL Calcium 8.6 (8.4-10.2) mg/dL Total Bilirubin 0.5 (0.2-1.3) mg/dL AST 40 (17-59) U/L ALT 33 (6-50) U/L Alkaline Phosphatase 64 (38-126) U/L Troponin I < 0.012 < 0.012 (0.000-0.034) ng/mL Total Protein 6.7 (6.3-8.2) g/dL Albumin 3.7 (3.5-5.1) g/dL Lipase 51 (23-300) U/L Imaging Data Radiologist's impression: ITS Impressions Chest X-Ray 06/11/25 15:27 IMPRESSION: No acute cardiopulmonary process. Chest/Abdomen/Pelvis CTA 06/11/25 16:37 IMPRESSION: No CT evidence of acute pulmonary embolus. Scattered sub-6 mm pulmonary nodules, no additional imaging is recommended unless the patient is at high risk, in which case consider an optional CT in one year. Right hilar and mediastinal lymphadenopathy. Mild esophagitis/gastritis. Small bowel wall thickening in the left upper abdomen, may represent enteritis. Mild colonic wall edema in the distal transverse colon and at the hepatic flexure, may reflect a component of colitis. Mild nonspecific mesenteric edema. Bladder wall thickening may be secondary to incomplete distention, cystitis, or chronic obstruction. ECG Data EKG #1: ECG completion date: 06/11/25 EKG Interpretation: bradycardia, sinus rhythm, no ST changes, normal QT and no acute changes (compared to EKG 06/08/25) Critical Care Time Critical Care Time Critical Care Time: No Discharge Plan Discharge Clinical Impression: Lumbar spondylosis Patient Disposition: Home Condition: Stable Instructions: Pulmonary Nodules (ED), Degenerative Disc Disease (ED) Additional Instructions: Return to the ER if you experience weakness, numbness, bowel/bladder incontinence, or any other symptoms that are concerning to you Rest, use ice/heat, take Tylenol as needed for pain as well as muscle relaxer (Flexeril) as needed for pain. Muscle relaxers can make you drowsy, do not drive if you take this. Take steroid taper as prescribed. Voltaren to the area as needed Follow up with your primary care doctor Patient Language: Setswana Prescriptions: New methylprednisolone 4 mg tablets,dose pack See Rx Instructions .ROUTE .COMPLEX Qty: 21 0RF Rx Instructions: orally per package directions diclofenac sodium [Voltaren Arthritis Pain] 1 % gel 2 g topical QID PRN (Reason: pain) Qty: 100 0RF Rx Instructions: apply to single elbow, wrist or hand; for hand includes palm/fingers/back of hand No Action aspirin [Adult Low Dose Aspirin] 81 mg tablet,delayed release (DR/EC) 81 mg PO DAILY fluticasone propionate [Flonase Allergy Relief] 50 mcg/actuation spray,suspension 2 spray intranasal DAILY PRN Rx Instructions: administer into each nostril febuxostat 40 mg tablet 80 mg PO HS Brilinta 90 mg Tablet 90 mg PO Q12HR Qty: 90 2RF acetaminophen 500 mg capsule 500 mg PO Q6H PRN (Reason: pain) Qty: 14 0RF cyclobenzaprine 5 mg tablet 5 mg PO TID PRN (Reason: muscle spasm) Qty: 14 0RF esomeprazole magnesium [Nexium] 40 mg capsule,delayed release(DR/EC) 40 mg PO DAILY Qty: 90 3RF amiodarone 200 mg tablet 200 mg PO DAILY Qty: 30 5RF hydralazine 50 mg tablet See Rx Instructions .ROUTE .COMPLEX Qty: 90 5RF Dose Instruction: TAKE 1 TABLET BY MOUTH THREE TIMES A DAY Rx Instructions: TAKE 1 TABLET BY MOUTH THREE TIMES A DAY carvedilol 25 mg tablet See Rx Instructions .ROUTE .COMPLEX Qty: 60 5RF Dose Instruction: TAKE 1 TABLET BY MOUTH EVERY 12 HOURS WITH FOOD Rx Instructions: TAKE 1 TABLET BY MOUTH EVERY 12 HOURS WITH FOOD cyanocobalamin (vitamin B-12) 1,000 mcg/mL solution See Rx Instructions .ROUTE .COMPLEX Qty: 2 2RF Dose Instruction: INJECT 1ML INTO MUSCLE EVERY 6 WEEKS Rx Instructions: INJECT 1ML INTO MUSCLE EVERY 4 WEEKS losartan 100 mg tablet See Rx Instructions .ROUTE .COMPLEX Qty: 30 5RF Dose Instruction: TAKE 1 TABLET BY MOUTH EVERY DAY Rx Instructions: TAKE 1 TABLET BY MOUTH EVERY DAY lorazepam 0.5 mg tablet 0.5 mg PO DAILY PRN (Reason: anxiety) Qty: 30 2RF atorvastatin 40 mg tablet See Rx Instructions .ROUTE .COMPLEX Qty: 30 5RF Dose Instruction: TAKE 1 TABLET BY MOUTH EVERY DAY AT BEDTIME Rx Instructions: TAKE 1 TABLET BY MOUTH EVERY DAY AT BEDTIME Follow-up/Referrals: [place] MD [Physician] - Tien Bagley DO [Primary Care Provider] -
--- OUTSIDE RECORDS SUMMARY | 2025-06-11 15:09 | XMS_ITS | Clinical Summary ---
Author Organization [facility] Address [address] [place] [address] Care Team Providers Care Director Of Accounts Receivable Name Role Phone Unavailable Primary Care Provider Unavailabl e Source Comments [facility],non-owned Affiliates and Associated Physician Practices is amultiple site organization consisting of ambulatory clinics and hospital sitesin [place], [place], [place] and [place]. This disclosure is being madepursuant to the Care Everywhere program and may not contain all information available regarding this patient. Last updated 18.[facility] [employer] 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
[2025-06-11 15:10] LABS: Troponin I < 0.012 ng/mL (0.000-0.034)
--- OUTSIDE RECORDS SUMMARY | 2025-06-11 15:10 | XMS_ITS | Patient Health Record ---
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) Active confirmed Problem Arthralgia of the ankle and/or foot (506042881) Pain in joint involving left ankle and foot (M25.572) Active confirmed Problem Arthralgia of the ankle and/or foot (077415655) Pain in joint involving right ankle and foot (M25.571) Active confirmed Problem Peroneal tendinitis of right lower limb (disorder) (99979048326791 9) Peroneal tendinitis of right lower leg (M76.71) Active confirmed Problem Pain in limb (46694611) Pain of foot and toes (M79.673) Active confirmed Problem Cellulitis of toe (05693805) Acute paronychia of toe (L03.039) Active confirmed Problem Gouty arthritis of right foot (23501366902678 07) Gouty arthritis of right foot (M10.9) Active confirmed Plan Of Treatment No Information Insurance Providers Payer Name Payer Address Payer Phone Subscriber Number Group Number Insured Name Patient Relationship to Insured Coverage Start Date Coverage End Date [facility] [address] [address] [place] [phone] [id number] NONE JOVITA DE LOS SANTOS Self - patient is the insured Medical (General) History Medical History History ICD Code gout htn depression anxiety gerd afib miles's palsy Surgical History Surgery Date(Month/Year) back neck hernia
--- NOTE | 2025-06-11 17:18 | ECG_ITS ---
Test Date: 2025-06-11 17:21:34 Measurements Intervals [place] Rate: 54 P: 72 OR: 290 QRS: -39 QRSD: 122 T: -24 QT: 466 QTc: 446 Interpretive Statements SINUS BRADYCARDIA WITH FIRST DEGREE AV BLOCK LEFT AXIS DEVIATION INCOMPLETE RIGHT BUNDLE BRANCH BLOCK LEFT VENTRICULAR HYPERTROPHY AND ST-T CHANGE CONSIDER ANTERIOR INFARCT, AGE INDETERMINATE BASELINE ARTIFACT- I, II, III, AVR, AVL, AVF, V1 ABNORMAL ECG Compared to ECG 06/11/2025 14:50:13 NO SIGNIFICANT CHANGE Electronically Signed On 06-11-2025 17:37:08 CDT by Juanito Guardado D.O.
[2025-06-11 18:19] LABS: Troponin I < 0.012 ng/mL (0.000-0.034)
[2025-06-11 18:25] VITALS: BP 165/83; PULSE 55; RESP 17; O2SAT 100
[2025-06-11 19:49] VITALS: BP 170/81; PULSE 69; RESP 22; O2SAT 99
[2025-06-11 20:03] VITALS: BP 170/81; PULSE 69; RESP 22; O2SAT 99
== END 2025-06-11 20:05 | disposition home or self-care (01) ==
PROVIDERS: Emergency Provider Physician Assistant; PCP Internal Medicine
DX: M47.816 Spondylosis without myelopathy or radiculopathy, lumbar region (principal); I48.0 Paroxysmal atrial fibrillation; I10 Essential (primary) hypertension; E78.5 Hyperlipidemia, unspecified; E53.8 Deficiency of other specified B group vitamins; D64.9 Anemia, unspecified; M19.90 Unspecified osteoarthritis, unspecified site; M10.9 Gout, unspecified; K21.9 Gastro-esophageal reflux disease without esophagitis; G47.33 Obstructive sleep apnea (adult) (pediatric); G47.10 Hypersomnia, unspecified; F41.9 Anxiety disorder, unspecified; Z98.1 Arthrodesis status; Z87.891 Personal history of nicotine dependence; Z86.0100 Personal history of colon polyps, unspecified; Z86.2 Personal history of diseases of the blood and blood-forming organs and certain disorders involving the immune mechanism; Z79.82 Long term (current) use of aspirin; Z79.899 Other long term (current) drug therapy; Z79.02 Long term (current) use of antithrombotics/antiplatelets; K20.90 Esophagitis, unspecified without bleeding; K29.70 Gastritis, unspecified, without bleeding; R91.8 Other nonspecific abnormal finding of lung field; R93.41 Abnormal radiologic findings on diagnostic imaging of renal pelvis, ureter, or bladder; R93.5 Abnormal findings on diagnostic imaging of other abdominal regions, including retroperitoneum; R00.1 Bradycardia, unspecified; I44.0 Atrioventricular block, first degree; I45.10 Unspecified right bundle-branch block; I51.7 Cardiomegaly; R94.31 Abnormal electrocardiogram [ECG] [EKG]
CPT/HCPCS: 36415; 71046; 71275; 74177; 80053; 83690; 84484; 85025; 85380; 85610; 85730; 93005; 99284; A9270; Q9967